=== PATIENT | female | born 1935 | race Caucasian/White ===

== ENCOUNTER 2020-12-04 13:11 | Inpatient (IN) | payer MEDICARE, MEDICAID ==
[~2020-12-04] VITALS: Ht 157.5 cm; Wt 43.5 kg
--- NOTE | 2020-12-04 13:50 | NUR ---
Came to er complaints of rapid heart beat patient is confused but awake brought in from [facility]
[2020-12-04 14:21] LABS: HEMATOCRIT 53.5 % (37.0-47.0); HEMOGLOBIN 15.7 G/DL (12.0-16.0); MEAN CORPUSCULAR VOLUME 94 FL (80-99); PLATELET COUNT 455 K/UL (150-450); RED BLOOD COUNT 5.68 M/UL (4.20-5.40)
[2020-12-04 14:23] VITALS: BP 107/67
[2020-12-04 14:27] LABS: WHITE BLOOD COUNT 25.2 K/UL (4.8-10.8)
--- NOTE | 2020-12-04 14:27 | NUR ---
iv started in left arm fluid infusing lunchroom monitor shows sinus tach no cetopies noted
--- NOTE | 2020-12-04 14:37 | Diagnostic Imaging Report ---
Indication: Shortness of breath Technique: XRAY Chest 1v Comparison: 08/01/2011 Findings: Limited evaluation was suboptimal positioning. Patient is rotated to the left. There is generalized nonspecific interstitial prominence. No focal airspace consolidation. No pleural effusion or pneumothorax. Heart size is within normal limits. Bones are demineralized and there are degenerative changes in the spine. No acute osseous abnormality. IMPRESSION: Nonspecific generalized interstitial prominence, possibly chronic. Possibility of mild congestive changes or early interstitial infiltrates not excluded. Please correlate clinically.
--- NOTE | 2020-12-04 14:42 | Emergency Room Report ---
History of Present Illness General Chief Complaint: Abnormal Labs Source: Medical Record, EMS Present Illness HPI Patient sent to the emergency department for [facility]. The patient is unable to give a history at this time. The last time the patient was at the hospital was 2010. The patient had a Covid test that was negative on November 16. According to the results of she had been +3 weeks prior. 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: No Patient History Limited by: medical condition Past Medical History: see triage record, old chart reviewed, other - Parkinson 's Past Surgical History: other - Gastrostomy tube Social History Narrative from SNF Reviewed Nursing Documentation: PMH: Agreed; PSxH: Agreed Nursing Documentation-PMH Past Medical History: No History, Except For Hx Cardiac Problems: Yes Hx Gastrointestinal Problems: Yes - GERD, GT History Of Psychiatric Problem: Yes - alzheimer's Review of Systems All Other Systems: limited Physical Exam Vital Signs Date Time Temp Pulse Resp B/P (MAP) Pulse Ox O2 Delivery O2 Flow Rate FiO2 12/04/20 13:13 97.9 140 40 107/67 (80) 90 Room Air Sp02 EP Interpretation: reviewed, abnormal - Interpreted as low by me General Appearance: mild distress, Chronically Ill Eyes: bilateral eye PERRL - Pinpoint ENT: dry mucus membranes Neck: full range of motion, no meningismus Respiratory: lungs clear, normal breath sounds, other - tachypnea Cardiovascular #1: no edema, tachycardia Cardiovascular #2: 2+ radial (R) Gastrointestinal: normal bowel sounds, non tender, soft, no mass, non-distended, other - G tube Genitourinary: no CVA tenderness Musculoskeletal: back normal Neurologic: alert, general practice III-XII nml as tested, DTRs symmetric, sensory intact Psychiatric: other - aphasic Skin: no rash, Decubitus/Ulcer - Stage I bilateral heels, stage III bilateral feet, stage I right hip, warm/dry Medical Decision Making Diagnostic Impression: Primary Impression: Sepsis Qualified Codes: A41.9 - Sepsis, unspecified organism Additional Impressions: Hypernatremia UTI (urinary tract infection) Qualified Codes: N39.0 - Urinary tract infection, site not specified Decubitus ulcer Qualified Codes: L89.90 - Pressure ulcer of unspecified site, unspecified stage Parkinsons disease ER Course Patient presents with elevated white blood count. Differential includes sepsis, pneumonia, urinary tract infection, Covid amongst others. Saturation is better at bedside she is saturating at 100% on room air. She still is somewhat tachypneic. She appears dehydrated also. Evaluation with labs, EKG and chest x-ray. Also labs will be obtained. 30 mill per kilogram bolus was ordered. Patient is placed on a cardiac cath rn. Called with elevated lactate. ABX ordered. CXR clear. 1445 Sepsis re- evaluation. Blood gas ordered because of tachypnea. Results documented. Repeat lactic acid normal. Patient with transient hypotension. Repeat fluid bolus ordered. Blood pressure improved after repeat fluid bolus. Patient admitted to telemetry. Laboratory Tests Test 12/04/20 13:50 12/04/20 15:08 12/04/20 15:45 12/04/20 16:15 White Blood Count 25.2 K/UL (4.8-10.8) *H Red Blood Count 5.68 M/UL (4.20-5.40) H Hemoglobin 15.7 G/DL (12.0-16.0) Hematocrit 53.5 % (37.0-47.0) H Mean Corpuscular Volume 94 FL (80-99) Mean Corpuscular Hemoglobin 27.7 PG (27.0-31.0) Mean Corpuscular Hemoglobin Concent 29.4 G/DL (32.0-36.0) L Red Cell Distribution Width 15.0 % (11.6-14.8) H Platelet Count 455 K/UL (150-450) H Mean Platelet Volume 8.8 FL (6.5-10.1) Neutrophils (%) (Auto) % (45.0-75.0) Lymphocytes (%) (Auto) % (20.0-45.0) Monocytes (%) (Auto) % (1.0-10.0) Eosinophils (%) (Auto) % (0.0-3.0) Basophils (%) (Auto) % (0.0-2.0) Differential Total Cells Counted 100 Neutrophils % (Manual) 82 % (45-75) H Lymphocytes % (Manual) 13 % (20-45) L Monocytes % (Manual) 4 % (1-10) Eosinophils % (Manual) 0 % (0-3) Basophils % (Manual) 0 % (0-2) Band Neutrophils 1 % (0-8) Platelet Estimate Increased H Platelet Morphology Normal Anisocytosis 1+ Prothrombin Time 11.4 SEC (9.30-11.50) Prothrombin Time INR 1.0 (0.9-1.1) Activated Partial Thromboplast Time 35 SEC (23-33) H Sodium Level 167 MMOL/L (136-145) *H Potassium Level 4.8 MMOL/L (3.5-5.1) Chloride Level 125 MMOL/L (98-107) H Carbon Dioxide Level 29 MMOL/L (21-32) Anion Gap 14 mmol/L (5-15) Blood Urea Nitrogen 39 mg/dL (7-18) H Creatinine 1.0 MG/DL (0.55-1.30) Estimated Glomerular Filtration Rate 53.0 mL/min (>60) Glucose Level 143 MG/DL (74-106) H Lactic Acid Level 4.30 mmol/L (0.4-2.0) H 1.60 mmol/L (0.66-2.22) Calcium Level 9.8 MG/DL (8.5-10.1) Magnesium Level 3.2 MG/DL (1.8-2.4) H Total Bilirubin 0.8 MG/DL (0.2-1.0) Aspartate Amino Transferase (AST) 55 U/L (15-37) H Alanine Aminotransferase (ALT) 82 U/L (12-78) H Alkaline Phosphatase 230 U/L (46-116) H Total Creatine Kinase 421 U/L (26-308) H Creatine Kinase MB 3.7 NG/ML (0.0-3.6) H Creatine Kinase MB Relative Index 0.8 Troponin I 0.039 ng/mL (0.000-0.056) Total Protein 8.9 G/DL (6.4-8.2) H Albumin 2.8 G/DL (3.4-5.0) L Globulin 6.1 g/dL Albumin/Globulin Ratio 0.5 (1.0-2.7) L Arterial Blood pH 7.464 (7.350-7.450) Arterial Blood Partial Pressure CO2 35.4 mmHg (35.0-45.0) Arterial Blood Partial Pressure O2 143.3 mmHg (75.0-100.0) H Arterial Blood HCO3 24.8 mmol/L (22.0-26.0) Arterial Blood Oxygen Saturation 98.2 % (95-100) Arterial Blood Base Excess 1.4 (-2-2) Héctor Test Positive Urine Color Yellow Urine Appearance Very cloudy Urine pH 6 (4.5-8.0) Urine Specific [place] 1.015 (1.005-1.035) Urine Protein 2+ (NEGATIVE) H Urine Glucose (UA) Negative (NEGATIVE) Urine Ketones Negative (NEGATIVE) Urine Blood 1+ (NEGATIVE) H Urine Nitrite Negative (NEGATIVE) Urine Bilirubin Negative (NEGATIVE) Urine Urobilinogen 4 MG/DL (0.0-1.0) H Urine Leukocyte Esterase 3+ (NEGATIVE) H Urine RBC 2-4 /HPF (0 - 2) H Urine WBC 5-10 /HPF (0 - 2) H Urine Squamous Epithelial Cells Many /LPF (NONE/OCC) H Urine Transitional Epithelial Cells /LPF (NONE) Urine Amorphous Sediment Many /LPF (NONE) H Urine Bacteria Moderate /HPF (NONE) H EKG Diagnostic Results Rate: tachycardiac Rhythm: NSR ST Segments: no acute changes Rhythm Strip Diag. Results EP Interpretation: yes Rhythm: no PVC's, no ectopy, other - ST Chest X-Ray Diagnostic Results Chest X-Ray Diagnostic Results : Chest X-Ray Ordered: Yes # of Views/Limited/Complete: 1 View Indication: Other EP Interpretation: Yes Interpretation: no consolidation, no effusion, no pneumothorax Impression: No acute disease Electronically Signed by: Electronically signed by Chang Marcelino MD Last Vital Signs Date Time Temp Pulse Resp B/P (MAP) Pulse Ox O2 Delivery O2 Flow Rate FiO2 12/05/20 00:00 98.9 115 18 102/61 (75) 97 12/04/20 21:00 Nasal Cannula 3.0 Status: improved Disposition: ADMITTED INPATIENT Condition: Serious Referrals: Kelsey Looney MD (PCP) Chang Marcelino MD Dec 04, 2020 14:42
[2020-12-04] MEDS ORDERED: Vancomycin 750 MG in NS 275 ML IVPB ONE (14:45)
[2020-12-04] MEDS ORDERED: cefTRIAXone 1 GM in NS 55 ML IVPB ONE (14:45)
[2020-12-04 14:48] LABS: ALBUMIN 2.8 G/DL (3.4-5.0); ALBUMIN/GLOBULIN RATIO 0.5 (1.0-2.7); BILIRUBIN,TOTAL 0.8 MG/DL (0.2-1.0); CALCIUM 9.8 MG/DL (8.5-10.1); CKMB 3.7 NG/ML (0.0-3.6); POTASSIUM 4.8 MMOL/L (3.5-5.1)
[2020-12-04 15:58] VITALS: BP 110/60
--- NOTE | 2020-12-04 16:00 | NUR ---
ED Nurse Note:urine sent to labs
[2020-12-04 16:03] LABS: APPEARANCE,URINE VERY CLOUDY; BILIRUBIN, URINE NEGATIVE (NEGATIVE); GLUCOSE, URINE (UA) NEGATIVE (NEGATIVE); KETONES,URINE NEGATIVE (NEGATIVE); LEUKOCYTE ESTERASE ,URINE 3+ (NEGATIVE); NITRITE,URINE NEGATIVE (NEGATIVE); PH,URINE 6 (4.5-8.0); PROTEIN,URINE 2+ (NEGATIVE); UROBILINOGEN,URINE 4 MG/DL (0.0-1.0)
--- NOTE | 2020-12-04 16:20 | NUR ---
lactic reflex done
[2020-12-04 16:22] LABS: COLOR,URINE YELLOW
[2020-12-04] MEDS ORDERED: CALCIUM CARBON500 M1 GT (17:11)
[2020-12-04] MEDS ORDERED: COLACE100 MG GT (17:11)
[2020-12-04] MEDS ORDERED: BENZTROPINE MESY1 MG GT (17:11)
[2020-12-04] MEDS ORDERED: CRANBERRY400 MG GT (17:11)
[2020-12-04] MEDS ORDERED: MULTIVITAMINS1 EAC2 GT (17:11)
[2020-12-04] MEDS ORDERED: VITAMIN D325 MC1 GT (17:11)
[2020-12-04] MEDS ORDERED: ACETAMINOP160 MG/5 M GT (17:11)
[2020-12-04] MEDS ORDERED: ZINC SULFATE220 M1 GT (17:11)
[2020-12-04] MEDS ORDERED: VITAMIN C500 M1 GT (17:11)
--- NOTE | 2020-12-04 17:14 | NUR ---
REPORT GIVEN TO KEVON PATIENT IS TO BE TRNASFERD TO ROOM 211-1 VIA ACLS PROTOCOL
[2020-12-04] MEDS ORDERED: Varibar Nectar 240ml MC PRN (18:45)
[2020-12-04] MEDS ORDERED: Varibar Pudding 230ml MC PRN (18:45)
[2020-12-04] MEDS ORDERED: Varibar Thin Liquid powder 148gm MC PRN (18:45)
[2020-12-04] MEDS ORDERED: Varibar Honey 250ml MC PRN (18:45)
--- NOTE | 2020-12-04 19:20 | NUR ---
NURSE NOTES: Received report from Sarina SALAZAR. Pt in bed , obtunded, non-verbal, on O2 at 3lpm via NC, tachypneic saturating @96 %. PIV on left upper arm patent and infusing D5W @100cc/hr, no signs of infiltration noted. All extremities contracted. Gt intact, patent and flushed well. Noted of 10cc residual. Safety measures in place, bed in lowest positioned and locked, siderails up x2, zone alarms on 1. Will continue to monitor patient and plan of care.
--- NOTE | 2020-12-04 19:47 | NUR ---
NURSE NOTES: Pt admitted from ER, obtunded, non-verbal, on O2 at 3lpm via NC, tachypneic but sats 98-100%. PIV on left upper arm patent and infusing saline bolus. All extremities contracted. Gt patent and intact. Skin assessment done and documented. All admission orders verified by Dr. Looney. Dr. Pena consulting. IVF ordered and carried out. Pt placed on D5W at 100cc/hr for hypernatremia. Bed low and locked, siderails up x2, zone alarms on 1, will endorse plan of care.
--- NOTE | 2020-12-04 19:50 | NUR ---
NURSE HAND-OFF REPORT: Important Events on Shift: All admission orders done, skin assessment done Patient Status: Guarded Diet: Jevity 1.2 Pending Orders: N Pending Results/Labs: N Pending MD notification: N Latest Vital Signs: Temperature 99.0 , Pulse 120 , B/P 110 /60 , Respiratory Rate 24 , O2 SAT 96 , Nasal Cannula, O2 Flow Rate 3.0 . Vital Sign Comment: EKG Rhythm: Sinus Tachycardia Rhythm change?: MD Notified?: - MD Response: Latest Lucero Fall Score: 35 Fall Risk: Medium Risk Safety Measures: Call light Within Reach, Bed Alarm Zone 2, Side Rails Side Rails x2, Bed position Low and Locked. Fall Precautions: Yellow Socks Yellow Gown Door Sign Patient Fall Education Report given to Jace SALAZAR.
[2020-12-04 20:00] VITALS: BP 91/56
[2020-12-04] MEDS: Pantoprazole Inj IVP SCH (21:29)
--- NOTE | 2020-12-04 21:29 | History and Physical Report ---
DATE OF ADMISSION: 12/04/2020 HISTORY OF PRESENT ILLNESS: Patient comes from a halfway. He is admitted for dehydration, hypernatremia, sepsis, severe hypernatremia, leukocytosis, borderline elevated LFTs. Patient is a poor historian, has advanced dementia, cannot rely upon the patient's history, but admitted for those reasons. Also, need to rule out pneumonia. Patient denies shortness of breath. Denies nausea, vomiting, or diarrhea. Denies fever or chills, however, is a poor historian. PAST MEDICAL HISTORY: Advanced dementia, constipation. PAST SURGICAL HISTORY: Feeding tube, PEG. ALLERGIES: No known allergies. FAMILY HISTORY: Noncontributory. MEDICATIONS: Benztropine, calcium carbonate, vitamin D, Colace, multivitamin, zinc. SOCIAL HISTORY: Has no history of smoking, alcohol, or illicit drugs. Comes from a halfway. REVIEW OF SYSTEMS: HEENT: Denies headaches. RESPIRATORY: Denies shortness of breath. Denies cough. CARDIOVASCULAR: Denies chest pain. GASTROINTESTINAL: Denies nausea, vomiting, or diarrhea. EXTREMITIES: Denies pain however patient is a poor historian, cannot rely upon the patient's history. PHYSICAL EXAMINATION: VITAL SIGNS: Temperature 97.9, pulse is 120, blood pressure is 110/60. HEENT: PERRLA. NECK: Supple. No lymphadenopathy. CHEST: Clear to auscultation. CARDIOVASCULAR: Tachycardic. No murmurs. GASTROINTESTINAL: Soft, nontender, nondistended. No organomegaly. EXTREMITIES: No edema. NEUROLOGIC: Does not follow neurological exam. Has generalized weakness. LABORATORY DATA: WBC of 25.2, hemoglobin of 15.7, platelets 455. Sodium 167, potassium 4.8, BUN of 39, creatinine of 1, glucose of 143. AST of 55, ALT of 82, total bilirubin of 0.8. Troponin 0.039. ASSESSMENT AND PLAN: Tachycardia, borderline elevated troponin. I have asked Dr. Gustafson to see the patient for that reason. Leukocytosis, rule out pneumonia, rule out UTI. I have asked Dr. Joseph De Leon to see the patient for that. Antibiotics per Dr. De Leon. For hypernatremia, dehydration I have consulted Dr. Pena and for possible pneumonia, I have consulted Dr. Patric Zapata. Dr. Simmons has been consulted for the management of the elevated LFTs. Kelsey Looney M.D. DR: LUIS JOB#: [id number] CC:
--- NOTE | 2020-12-04 22:16 | NUR ---
NURSE NOTES: Notified Dr powell and Dr Gustafson the pt converted to proxysmal afib short run only. ECG done and showed sinus tacycardia with hr of 116 bp. No new order at this moment. Will continue to monitor pt.
[2020-12-05] VITALS: BP 102/61
--- NOTE | 2020-12-05 00:10 | NUR ---
NURSE NOTES: Pt in bed, asleep. In no apparent respiratory and cardiac distress noted. Still on sinus tachycardia @116's bpm. Turned and repositioned pt. Will continue to monitor and plan of care.
[2020-12-05 04:00] VITALS: BP 112/57
[2020-12-05 07:07] LABS: BASOPHILS % (AUTO) 0.5 % (0.0-2.0); EOSINOPHILS % (AUTO) 2.6 % (0.0-3.0); HEMATOCRIT 33.4 % (37.0-47.0); HEMOGLOBIN 10.1 G/DL (12.0-16.0); LYMPHOCYTES % (AUTO) 9.7 % (20.0-45.0); MEAN CORPUSCULAR VOLUME 93 FL (80-99); MONOCYTES % (AUTO) 4.2 % (1.0-10.0); NEUTROPHILS % (AUTO) 83.1 % (45.0-75.0); PLATELET COUNT 248 K/UL (150-450); RED CELL DISTRIBUTION WIDTH 14.5 % (11.6-14.8); WHITE BLOOD COUNT 14.8 K/UL (4.8-10.8)
[2020-12-05 07:24] LABS: ALANINE AMINOTRANSFERASE 44 U/L (12-78); ALBUMIN/GLOBULIN RATIO 0.4 (1.0-2.7); ALKALINE PHOSPHATASE 141 U/L (46-116); ANION GAP 10 mmol/L (5-15); ASPARTATE AMINO TRANSFERASE 37 U/L (15-37); BILIRUBIN,TOTAL 0.7 MG/DL (0.2-1.0); BLOOD UREA NITROGEN 23 mg/dL (7-18); CARBON DIOXIDE 24 MMOL/L (21-32); CHLORIDE 126 MMOL/L (98-107); CHOLESTEROL 98 MG/DL (< 200); CREATININE 0.5 MG/DL (0.55-1.30); GAMMA GLUTAMYL TRANSPEPTIDASE 15 U/L (5-85); HDL CHOLESTEROL 26 MG/DL (40-60); PHOSPHORUS 2.9 MG/DL (2.5-4.9); POTASSIUM 3.7 MMOL/L (3.5-5.1); SODIUM 160 MMOL/L (136-145); TRIGLYCERIDES 76 MG/DL (30-150)
--- NOTE | 2020-12-05 07:30 | NUR ---
NURSE NOTES: Received report from MARIE Elena. Patient observed to be awake, alert x0. Seen lying in bed with HOB elevated, currently on 3L NC no s/sx of SOB/Distress, no c/o any pain or discomfort. Patient on contact and droplet isolation for PUI COVID. Patient with gtube running Jevity 1.2 @ 20cc tolerating well. IV site LHand 22g patent, dry, and intact running d5 @ 100 cc.
--- NOTE | 2020-12-05 07:35 | NUR ---
NURSE HAND-OFF REPORT: Important Events on Shift: Stable Patient Status: Stable Diet: Jevity 1.2 @20 cc/hr Pending Orders: Pending Results/Labs:PCR Pending MD notification: Latest Vital Signs: Temperature 97.8 , Pulse 114 , B/P 112 /57 , Respiratory Rate 18 , O2 SAT 100 , Nasal Cannula, O2 Flow Rate 3.0 . Vital Sign Comment: STable EKG Rhythm: Sinus Tachycardia Rhythm change?: N MD Notified?: Dr Looney and Dr Janay SÁNCHEZ Response: Latest Lucero Fall Score: 35 Fall Risk: Medium Risk Safety Measures: Call light Within Reach, Bed Alarm Zone 1, Side Rails Side Rails x1, Bed position Low and Locked. Fall Precautions: Yellow Socks Yellow Gown Door Sign Patient Fall Education Report given to Annmarie Murillo RN .
[2020-12-05 08:00] VITALS: BP 115/59
--- NOTE | 2020-12-05 08:00 | NUR ---
NURSE NOTES: Seen by Dr. Simmons. Ordered for GTube feeding to have goal of 60cc/hr
[2020-12-05 08:09] LABS: ALBUMIN 1.8 G/DL (3.4-5.0)
[2020-12-05] MEDS: Pantoprazole Inj IVP SCH ×2 (09:16→20:12)
--- NOTE | 2020-12-05 09:21 | Consultation ---
Consult Note Consult Note I am asked to evaluate the patient at the request of Dr. Villegas for renal failure and electrolyte abnormalities Patient sent to the emergency department for elevated white count from the senior living facility. The patient is unable to give a history at this time. The last time the patient was at the hospital was 2010. The patient had a Covid test that was negative on November 16. According to the results of she had been +3 weeks prior. According to the records she has a gastrostomy tube, pressure ulcer, failure to thrive prior sepsis, generalized muscle weakness, dysphagia, dementia Alzheimer's type, osteoporosis, anxiety disorder, contractures, urinary tract infection Parkinson's disease Allergies: No Known Allergies (Verified , 08/01/11) COVID-19 Screening Contact w/high risk pt: No Experienced COVID-19 symptoms?: Yes COVID-19 Testing performed SURGICAL ASSIST: No Past Medical History: No History, Except For Hx Cardiac Problems: Yes Hx Gastrointestinal Problems: Yes - GERD, GT History Of Psychiatric Problem: Yes - alzheimer's Vital Signs Date Time Temp Pulse Resp B/P (MAP) Pulse Ox O2 Delivery O2 Flow Rate FiO2 12/04/20 13:13 97.9 140 40 107/67 (80) 90 Room Air PHYSICAL EXAMINATION: VITAL SIGNS: Temperature 98.5, pulse 110, blood pressure 115/59. The patient is on oxygen by nasal cannula. HEAD AND NECK: [place] conjunctiva. HEART: Tachycardic, has peripheral lines. LUNGS: Clear. ABDOMEN: Soft. G-tube feeding is going on. EXTREMITIES: No edema. NEUROLOGIC: She is not responding. LABORATORY AND DIAGNOSTIC DATA: WBC 14.8, hemoglobin 10.1, hematocrit 33.4, platelets 248. UA showed wbc's of 5 to 10, bacteria moderate. Sodium is 160, potassium 3.6, chloride is 126, BUN 23, creatinine 0.5, glucose 122. Lactic acid at the time of admission was 4.3. AST 55, ALT 82, albumin is 1.8. Blood culture x 2 showed gram-positive cocci in cluster. COVID-19 PCR was negative. Urine culture no growth. . Assessment/Plan Renal failure, dehydration Hypernatremia, due to free water deficit Sepsis, leukocytosis Malnutrition, hypoalbuminemia Alzheimer's Underlying anemia as the patient continues to be hydrated D5W hydration Antibiotics Avoid nephrotoxic's Improve nutritional state Monitor renal parameters electrolytes Anemia work-up Gene Pena MD Dec 05, 2020 09:21
[2020-12-05] MEDS ORDERED: Docusate 100mg/10ml Liq GT SCH (10:00)
--- NOTE | 2020-12-05 11:31 | NUR ---
RD ASSESSMENT & RECOMMENDATIONS SEE CARE ACTIVITY FOR COMPLETE ASSESSMENT DAILY ESTIMATED NEEDS: Needs based on Wounds, underweight/ 43.5kg 30-35 kcals/kg 1851-0594 total kcals 1.25-1.5 g protein/kg 54-65 g total protein 25-30 mL/kg 7404-2978 total fluid mLs NUTRITION DIAGNOSIS: Increased kcal/prot needs R/T wound healing and underweight status as evidenced by pt admitted w/ multiple wounds @ BL foot, pending eval, pt @ 87% IBW w/ BMI of 17.6, low BMI per guidelines. CURRENT TF:Jevity 1.2 @ 60ml/hr x 24 hrs ENTERAL NUTRITION RECOMMENDATIONS: Jevity 1.2 @ 50ml/hr x 24 hrs to provide 1200ml, 1440kcal, 67g prot, 968ml free water * Rec goal rate of 50ml/hr x 24 hrs- meets 100% est kcal/prot needs * HOB over 30 degrees/ water flush per MD ADDITIONAL RECOMMENDATIONS: * Calibrated bedscale wt for accurate CBW * Monitor lytes, replete as needed * F/up w/ WC eval -> TF @ goal meeds 100% RDI add Vit C 500mg, ZnSO4 220mg QD x 10 days, Jonathon BID
[2020-12-05 12:00] VITALS: BP 111/67
--- NOTE | 2020-12-05 12:58 | Cardiac Electrophysiology PN ---
Subjective Subjective [id number] Objective Last 24 Hour Vital Signs Date Time Temp Pulse Resp B/P (MAP) Pulse Ox O2 Delivery O2 Flow Rate FiO2 12/05/20 12:00 110 12/05/20 09:00 Nasal Cannula 3.0 12/05/20 08:00 108 12/05/20 08:00 98.5 110 19 115/59 (77) 98 12/05/20 04:00 97.8 114 18 112/57 (75) 100 12/05/20 03:52 115 12/05/20 00:00 98.9 115 18 102/61 (75) 97 12/04/20 23:39 115 12/04/20 21:00 Nasal Cannula 3.0 12/04/20 20:00 97.4 76 18 91/56 (68) 97 12/04/20 19:41 117 12/04/20 18:25 Nasal Cannula 3.0 12/04/20 17:11 99.0 120 24 110/60 96 Nasal Cannula 3.0 12/04/20 15:58 28 110/60 97 Nasal Cannula 3.0 12/04/20 14:23 97.9 40 107/67 90 Room Air 12/04/20 13:13 97.9 140 40 107/67 (80) 90 Room Air Intake and Output 12/04/20 12/05/20 19:00 07:00 Intake Total 195 ml 1320 ml Output Total 1650 ml Balance 195 ml -330 ml Intake Free Water 100 ml 100 ml IV Total 75 ml 600 ml Tube Feeding 20 ml 220 ml Other 400 ml Output Other 1650 ml # Voids 1 Laboratory Tests Test 12/04/20 13:50 12/04/20 15:08 12/04/20 15:45 12/04/20 16:15 White Blood Count 25.2 K/UL (4.8-10.8) *H Red Blood Count 5.68 M/UL (4.20-5.40) H Hemoglobin 15.7 G/DL (12.0-16.0) Hematocrit 53.5 % (37.0-47.0) H Mean Corpuscular Volume 94 FL (80-99) Mean Corpuscular Hemoglobin 27.7 PG (27.0-31.0) Mean Corpuscular Hemoglobin Concent 29.4 G/DL (32.0-36.0) L Red Cell Distribution Width 15.0 % (11.6-14.8) H Platelet Count 455 K/UL (150-450) H Mean Platelet Volume 8.8 FL (6.5-10.1) Neutrophils (%) (Auto) % (45.0-75.0) Lymphocytes (%) (Auto) % (20.0-45.0) Monocytes (%) (Auto) % (1.0-10.0) Eosinophils (%) (Auto) % (0.0-3.0) Basophils (%) (Auto) % (0.0-2.0) Differential Total Cells Counted 100 Neutrophils % (Manual) 82 % (45-75) H Lymphocytes % (Manual) 13 % (20-45) L Monocytes % (Manual) 4 % (1-10) Eosinophils % (Manual) 0 % (0-3) Basophils % (Manual) 0 % (0-2) Band Neutrophils 1 % (0-8) Platelet Estimate Increased H Platelet Morphology Normal Anisocytosis 1+ Prothrombin Time 11.4 SEC (9.30-11.50) Prothromb Time International Ratio 1.0 (0.9-1.1) Activated Partial Thromboplast Time 35 SEC (23-33) H Sodium Level 167 MMOL/L (136-145) *H Potassium Level 4.8 MMOL/L (3.5-5.1) Chloride Level 125 MMOL/L (98-107) H Carbon Dioxide Level 29 MMOL/L (21-32) Anion Gap 14 mmol/L (5-15) Blood Urea Nitrogen 39 mg/dL (7-18) H Creatinine 1.0 MG/DL (0.55-1.30) Estimat Glomerular Filtration Rate 53.0 mL/min (>60) Glucose Level 143 MG/DL (74-106) H Lactic Acid Level 4.30 mmol/L (0.4-2.0) H 1.60 mmol/L (0.66-2.22) Calcium Level 9.8 MG/DL (8.5-10.1) Magnesium Level 3.2 MG/DL (1.8-2.4) H Total Bilirubin 0.8 MG/DL (0.2-1.0) Aspartate Amino Transf (AST/SGOT) 55 U/L (15-37) H Alanine Aminotransferase (ALT/SGPT) 82 U/L (12-78) H Alkaline Phosphatase 230 U/L (46-116) H Total Creatine Kinase 421 U/L (26-308) H Creatine Kinase MB 3.7 NG/ML (0.0-3.6) H Creatine Kinase MB Relative Index 0.8 Troponin I 0.039 ng/mL (0.000-0.056) Total Protein 8.9 G/DL (6.4-8.2) H Albumin 2.8 G/DL (3.4-5.0) L Globulin 6.1 g/dL Albumin/Globulin Ratio 0.5 (1.0-2.7) L Arterial Blood pH 7.464 (7.350-7.450) Arterial Blood Partial Pressure CO2 35.4 mmHg (35.0-45.0) Arterial Blood Partial Pressure O2 143.3 mmHg (75.0-100.0) H Arterial Blood HCO3 24.8 mmol/L (22.0-26.0) Arterial Blood Oxygen Saturation 98.2 % (95-100) Arterial Blood Base Excess 1.4 (-2-2) Héctor Test Positive Urine Color Yellow Urine Appearance Very cloudy Urine pH 6 (4.5-8.0) Urine Specific [place] 1.015 (1.005-1.035) Urine Protein 2+ (NEGATIVE) H Urine Glucose (UA) Negative (NEGATIVE) Urine Ketones Negative (NEGATIVE) Urine Blood 1+ (NEGATIVE) H Urine Nitrite Negative (NEGATIVE) Urine Bilirubin Negative (NEGATIVE) Urine Urobilinogen 4 MG/DL (0.0-1.0) H Urine Leukocyte Esterase 3+ (NEGATIVE) H Urine RBC 2-4 /HPF (0 - 2) H Urine WBC 5-10 /HPF (0 - 2) H Urine Squamous Epithelial Cells Many /LPF (NONE/OCC) H Urine Transitional Epithelial Cells /LPF (NONE) Urine Amorphous Sediment Many /LPF (NONE) H Urine Bacteria Moderate /HPF (NONE) H Test 12/05/20 06:04 White Blood Count 14.8 K/UL (4.8-10.8) H Red Blood Count 3.60 M/UL (4.20-5.40) L Hemoglobin 10.1 G/DL (12.0-16.0) #L Hematocrit 33.4 % (37.0-47.0) #L Mean Corpuscular Volume 93 FL (80-99) Mean Corpuscular Hemoglobin 28.0 PG (27.0-31.0) Mean Corpuscular Hemoglobin Concent 30.2 G/DL (32.0-36.0) L Red Cell Distribution Width 14.5 % (11.6-14.8) Platelet Count 248 K/UL (150-450) Mean Platelet Volume 9.4 FL (6.5-10.1) Neutrophils (%) (Auto) 83.1 % (45.0-75.0) H Lymphocytes (%) (Auto) 9.7 % (20.0-45.0) L Monocytes (%) (Auto) 4.2 % (1.0-10.0) Eosinophils (%) (Auto) 2.6 % (0.0-3.0) Basophils (%) (Auto) 0.5 % (0.0-2.0) Sodium Level 160 MMOL/L (136-145) H Potassium Level 3.7 MMOL/L (3.5-5.1) Chloride Level 126 MMOL/L (98-107) H Carbon Dioxide Level 24 MMOL/L (21-32) Anion Gap 10 mmol/L (5-15) Blood Urea Nitrogen 23 mg/dL (7-18) H Creatinine 0.5 MG/DL (0.55-1.30) L Estimat Glomerular Filtration Rate > 60 mL/min (>60) Glucose Level 122 MG/DL (74-106) H Hemoglobin A1c 5.5 % (4.3-6.0) Uric Acid 4.2 MG/DL (2.6-7.2) Calcium Level 8.0 MG/DL (8.5-10.1) L Phosphorus Level 2.9 MG/DL (2.5-4.9) Magnesium Level 2.5 MG/DL (1.8-2.4) H Total Bilirubin 0.7 MG/DL (0.2-1.0) Gamma Glutamyl Transpeptidase 15 U/L (5-85) Aspartate Amino Transf (AST/SGOT) 37 U/L (15-37) Alanine Aminotransferase (ALT/SGPT) 44 U/L (12-78) Alkaline Phosphatase 141 U/L (46-116) H Troponin I 0.029 ng/mL (0.000-0.056) C-Reactive Protein, Quantitative 3.9 mg/dL (0.00-0.90) H Pro-B-Type Natriuretic Peptide 739 pg/mL (0-125) H Total Protein 5.9 G/DL (6.4-8.2) #L Albumin 1.8 G/DL (3.4-5.0) L Globulin 4.1 g/dL Albumin/Globulin Ratio 0.4 (1.0-2.7) L Triglycerides Level 76 MG/DL (30-150) Cholesterol Level 98 MG/DL (< 200) LDL Cholesterol 64 mg/dL (<100) HDL Cholesterol 26 MG/DL (40-60) L Cholesterol/HDL Ratio 3.8 (3.3-4.4) Microbiology Date/Time Source Procedure Growth Status 12/04/20 15:45 Urine,Clean Catch Urine Culture - Preliminary NO GROWTH Resulted 12/04/20 15:40 Nasopharynx Coronavirus COVID-19 PCR ([facility]) - Final Complete 12/04/20 14:00 Blood Blood Culture - Preliminary Resulted 12/04/20 13:30 Blood Blood Culture - Preliminary Resulted Efrain Gustafson MD Dec 05, 2020 12:58
[2020-12-05] MEDS: Docusate 100mg/10ml Liq GT SCH ×2 (13:55→17:26)
[2020-12-05] MEDS: cefTRIAXone 1 GM in D5W 55 ML IVPB SCH (14:22)
--- NOTE | 2020-12-05 14:51 | NUR ---
CASE MANAGEMENT:REVIEW 85 YR OLD FEMALE BIBA FROM [facility] CC: ELEVATED WBC'S SI: SEPSIS. HYPERNATREMIA 97.8 140 40 91/56 90% ON RA WBC+25.2 NA+167 BUN+39 IS: PLACED ON 3L/NC 1L NS BOLUS X2 IV VANCOMYCIN X1 IV ROCEPHIN X1 IV LEVAQUIN X1 CHEST XRAY BLOOD CX : TO TELEMETRY DCP: RETURN TO SNF
--- NOTE | 2020-12-05 14:53 | Consultation ---
Consult Note Consult Note DATE OF CONSULTATION: 12/05/2020 CONSULTING PHYSICIAN: Patric Zapata MD. ATTENDING PHYSICIAN: Dr. Looney REASON FOR CONSULTATION: Hypoxia HISTORY OF PRESENT ILLNESS: This is an 85-year-old female with past medical history of Alzheimer's dementia, Parkinson's disease, and chronic G-tube, who was sent to ED from SNF for increased white blood cell count. Patient is unable to give further history due to underlying mental disorder. It was reported that she tested negative for COVID-19 on 11/16 at her facility. She tested negative again here on 12/04/2020. We have been asked to evaluate the patient for possibility of pneumonia. EKG showed sinus tachycardia without acute changes. Chest x-ray revealed no nspecific generalized interstitial prominence, possibly chronic. But the possibility of mild congestive changes or early interstitial infiltrates were not excluded. She was admitted to the hospital for further management. PAST MEDICAL HISTORY: GERD, G-tube, Alzheimer's, Parkinson's, dysphagia, anxiety, contractures, osteoporosis, pressure ulcers MEDICATIONS: Acetaminophen, ascorbic acid, benztropine, calcium, cholecalciferol, cranberry capsule, docusate, multivitamins, zinc sulfate ALLERGIES: No known allergies FAMILY HISTORY: Unknown PERSONAL/SOCIAL HISTORY: Resident of [facility] REVIEW OF SYSTEMS: Unreliable PHYSICAL EXAMINATION: VITAL SIGNS: Blood pressure 111/67, heart rate 110, respiratory rate 18, weight 43 kg, height 157 cm General: Patient laying in bed being evaluated by senior wind turbine technician for 2D echocardiogram, patient appears agitated, blank stare in HEENT: Head exam reveals that the head is normocephalic, atraumatic without deformity or unusual swelling. Pupils are PERRLA. CHEST AND LUNGS: Reveals clear, normal, symmetrical breath sounds with no adventitious sounds. CARDIOVASCULAR: Reveals normal S1, S2 without murmurs, rubs, or clicks. ABDOMEN: Soft with no tenderness or organomegaly. RECTAL: Deferred. MUSCULOSKELETAL: There is no tenderness to palpation. Range of motion is normal. NEUROLOGICAL: nonfocal, aphasic LABORATORY DATA: Laboratory testing shows WBC 14.8, hemoglobin 10.1, hematocrit 33.4. Chemistries show sodium 160, chloride 126, BUN 23, creatinine 1.5, glucose 122, calcium 8.0, CRP 3.9, BNP 739, ABG shows pH 7.46, PO2 143 Assessment/Plan 1 .Renal failure, dehydration -Nephro following 2. Sepsis -ID following -WBC trending down - On vancomycin and ceftriaxone 3. COVID-19 negative 4. Hypoxia -Continue providing supplemental oxygen as she is hypoxic on room air -Wean down as tolerated 5. Elevated CRP -We will check D-dimer as well The care for this patient was discussed with my supervising physician. Time spent for this case was approximately 31 minutes. Maxx Hoffman Dec 05, 2020 14:53
--- NOTE | 2020-12-05 14:59 | Consultation ---
DATE OF CONSULTATION: 12/05/2020 INFECTIOUS DISEASES CONSULTATION CONSULTING PHYSICIAN: Joseph De Leon MD PRIMARY ATTENDING PHYSICIAN: Kelsey Looney MD REASON FOR CONSULTATION: Sepsis, bacteremia, and UTI. HISTORY OF PRESENT ILLNESS: This is an 85-year-old white female who is a halfway resident admitted yesterday because of abnormal labs, leukocytosis in the nursing facility. In hospital, had leukocytosis of 25.2, also had tachycardia with heart rate of up to 140. She was find to have hypernatremia and blood culture showing gram-positive cocci in cluster. PAST MEDICAL HISTORY: Alzheimer's dementia, Parkinson, anemia, pressure ulcer. PAST SURGICAL HISTORY: G-tube placement. ALLERGIES: No known drug allergies. MEDICATIONS: Getting Colace, Protonix, Levaquin, ceftriaxone in the ER, got dose of vancomycin in the ER. SOCIAL HISTORY: Single. No other history obtainable by the patient. PHYSICAL EXAMINATION: VITAL SIGNS: Temperature 98.5, pulse 110, blood pressure 115/59. The patient is on oxygen by nasal cannula. HEAD AND NECK: [place] conjunctiva. HEART: Tachycardic, has peripheral lines. LUNGS: Clear. ABDOMEN: Soft. G-tube feeding is going on. EXTREMITIES: No edema. NEUROLOGIC: She is not responding. LABORATORY AND DIAGNOSTIC DATA: WBC 14.8, hemoglobin 10.1, hematocrit 33.4, platelets 248. UA showed wbc's of 5 to 10, bacteria moderate. Sodium is 160, potassium 3.6, chloride is 126, BUN 23, creatinine 0.5, glucose 122. Lactic acid at the time of admission was 4.3. AST 55, ALT 82, albumin is 1.8. Blood culture x 2 showed gram-positive cocci in cluster. COVID-19 PCR was negative. Urine culture no growth. IMPRESSION: 1. Sepsis with gram-positive bacteremia. 2. Tachycardia. 3. Leukocytosis. 4. Hypernatremia. 5. Anemia. 6. Pressure ulcer. 7. Alzheimer dementia. 8. Parkinson disease. 9. Has history of positive test for COVID-19 three weeks ago, current test is negative. RECOMMENDATION: Continue with ceftriaxone and vancomycin. We will follow up the cultures. We will discontinue droplet isolation. At the end of my exam, I thank Dr. Looney, for involving me in the care of this patient. Joseph De Leon M.D. DR: Erica JOB#: [id number] CC:
--- NOTE | 2020-12-05 15:14 | Consultation ---
DATE OF CONSULTATION: 12/05/2020 CARDIOLOGY CONSULTATION REFERRING PHYSICIAN: Kelsey Looney M.D. REASON FOR CONSULTATION: Tachycardia, hypotension. HISTORY OF PRESENT ILLNESS: The patient is an 85-year-old lady who was [facility] from [facility] facility for elevated white count. The patient's COVID-19 was negative on November 16, 2020. The patient has a gastrostomy as well as pressure ulcer and has Alzheimer Dementia disorder. The patient was admitted and a cardiology consultation was obtained for evaluation and management. It is of note that the patient has a white count of 25,000 as well as sodium of 167, BUN of 39, creatinine 1.0, quite dehydrated. REVIEW OF SYSTEMS: Cannot be obtained. PAST MEDICAL HISTORY: As mentioned above. FAMILY HISTORY: Noncontributory. SOCIAL HISTORY: A [facility] resident. Does not smoke or drink alcohol. PHYSICAL EXAMINATION: VITAL SIGNS: Blood pressure 115/59, pulse is 110, respirations 18, and temperature 98.5. HEAD AND NECK: No JVD. LUNGS: Decreased breath sounds. CARDIOVASCULAR: Regular S1 and S2 gallop, tachycardic. ABDOMEN: Status post G-tube. EXTREMITIES: No pitting edema. LABORATORY DATA: Sodium was initially 167, that improved to 160. Potassium is 3.7, BUN of 20, creatinine 0.5, and glucose of 122. Troponin is negative x2. White count was 25.2, this morning is 14.8. Hemoglobin of 10, hematocrit of 33. Her urinalysis was essentially negative. INR is 1.0. ASSESSMENT AND PLAN: 1. Tachycardia, due to sepsis with white count 25,000. The patient is already on vancomycin and ceftriaxone. We will get an echocardiogram to evaluate for ejection fraction and wall motion abnormality. 2. Severe hypernatremia and azotemia. The patient is on IV fluid, D5W at 100 mL/hour per Dr. Pena. 3. Dysphagia, status post PEG placement. 4. History of psychiatric history. 5. Respiratory failure, currently on IV antibiotic as well as 3 L nasal cannula. Thank you very much for allowing me to participate in the care of this patient. Please do not hesitate to contact me for any questions regarding my evaluation. Efrain Gustafson M.D. DR: LYN JOB#: [id number] CC:
[2020-12-05 16:00] VITALS: BP 111/61
--- NOTE | 2020-12-05 16:38 | NUR ---
NURSE NOTES:WOUND CARE NOTES:Pt presented on admission emaciated, with contractures and multiple Pressure Injuries. Non-Blanchable erythema without induration/fluctuance R Elbow. Non-Blanchable erythema without induration/fluctuance L elbow. DTPI R trochanteric (L)7.5cm x (W)7.6cm. Clusters of Indurated and maroon Pressure injuries that are in close proximity R trochanter. Non-Blanchable erythema without induration L trochanter(L)8cm x (W)6.5cm. No evidence of skin breakdown to sacrum. Non-Blanchable erythema without induration/fluctuance noted to distal/lateral L Tibia(L)6cm x (W)0.8cm. Unstageable pressure Injury L Hallux(L)3.5cm x (W)3.2cm. Base of wound is 100% necrotic. Edges are adherent with marginal erythema. No odor or exudate noted. DTPI Medial /Lateral L Foot(L)2.5cm x (W)1cm.Base of Wound is maroon and fluctuant. DTPI distal/lateral L foot(L)2.5cm x (W)2.6cm. Base of Pressure Injury is fluctuant with marginal erythema. L heel is soft but easily blanchable. R Heel is soft but easily blanchable. DTPI R Hallux(L)5cm x (W)2.5cm. Reabsorbing blood Blister noted. Edges are adherent to base of Pressure Injury. Unstageable Pressure Injury distal/lateral R foot (L)1.5cm x (W)1.9cm. Dry brown eschar with adherent borders.Periwound is blanchable but fluctuant. Tx.plan: Apply Moisture Barrier Paste to Sacrum. Cover with Optifoam drsg. Change every 3 days and prn. Apply Cavilon Skin Barrier to R and L trochanteric areas. Cover each site with Optifoam drsgs. Change every 7 days and prn. Apply Betadine to Pressure Injuries L foot. Cover each site with Optifoam drsgs. Change every 3 days and prn. Apply Betadine to Pressure Injuries R foot. Cover each site with Optifoam drsdgs. Change every 3 days and prn. Apply Cavilon Skin Barrier to both heels. Cover each site with Optifoam drsgs. Change every 7 days and prn. Apply Cavilon Skin Barrier to R and L elbows. Cover each Elbow with Optifoam drsgs.Change every 7 days and prn. Cover Bony prominences as needed with Optifoam drsgs. Reposition at least every 2hours or as tolerated. Off-load heels with Pillow. APM/PURVI Mattress overlay.
[2020-12-05] MEDS: Vancomycin 500mg/D5W 110ml IVPB SCH ×2 (16:48)
--- NOTE | 2020-12-05 19:22 | NUR ---
NURSE HAND-OFF REPORT: Important Events on Shift:Increased feeding rate to goal of 60cc, off isolation Patient Status: stable Diet: jevity 1.2 @ 50 Pending Orders: n/a Pending Results/Labs:n/a Pending MD notification:n/a Latest Vital Signs: Temperature 98.2 , Pulse 108 , B/P 111 /61 , Respiratory Rate 18 , O2 SAT 93 , Nasal Cannula, O2 Flow Rate 3.0 . Vital Sign Comment: stable EKG Rhythm: Sinus Tachycardia Rhythm change?: N MD Notified?: Akbar Gustafson MD Response: Latest Lucero Fall Score: 35 Fall Risk: Medium Risk Safety Measures: Call light Within Reach, Bed Alarm Zone 1, Side Rails Side Rails x1, Bed position Low and Locked. Fall Precautions: Yellow Socks Yellow Gown Door Sign Patient Fall Education Report given to MARIE Powell.
--- NOTE | 2020-12-05 19:38 | NUR ---
NURSE NOTES: Pt. received from MARIE Anguiano. Pt. AAOx0, on NC 4L, breathing even and unlabored, no indications of respiratory distress, no active indications of pain. IV noted left hand 22 with fluids running well. Gtube with Jevity 1.2 running at 50cc, tolerating well, goal of 60cc/hour. Bed low and locked, side rails x3 up, bed alarm active, and call light in reach.
[2020-12-05 20:00] VITALS: BP 90/64
--- NOTE | 2020-12-05 20:38 | NUR ---
Speech Pathology Note Bedside Swallow Evaluation received from , chart reviewed, eval completed. Swallow Evaluation revealed a profoundly impaired oropharyngeal phase of swallow. Patient admitted with dx of possible pneumonia, elevated white blood count. She was unable to follow simple commands to participate in an oral motor exam. Lingual/labial/mandibular musculature severely impaired relative to strength/ROM/coordination. She also presents with severe xerostomia with dried/caked secretions on lingual surface. When presented with one ice chip, she did not respond to the thermal stimulation of the ice. This lack of response is consistent with severe sensorimotor deficits which result in a decreased awareness of food/liquid in the mouth and swallow apraxia. No evidence of oral phase of swallow. Ice chip simply melted and no swallow response was triggered. For these reasons, she needs to continue to be supported with non/oral feeding management. Recommendations: 1. NPO 2. Continue non/oral feeding management via PEG 3. Oral Care recommended TID to reduce oral pathogens and to prevent potential development of nosocomial pneumonia, as well as provide mouth moistening. No further skilled ST services appear to be warranted at this time. Thank you for this consult.
--- NOTE | 2020-12-05 21:24 | General Progress Note ---
Subjective ROS Limited/Unobtainable: Yes Allergies: Coded Allergies: No Known Allergies (Verified , 08/01/11) Objective Last 24 Hour Vital Signs Date Time Temp Pulse Resp B/P (MAP) Pulse Ox O2 Delivery O2 Flow Rate FiO2 12/05/20 16:00 108 12/05/20 16:00 98.2 100 18 111/61 (78) 93 12/05/20 14:05 142 12/05/20 12:00 110 12/05/20 12:00 98.6 98 18 111/67 (82) 96 12/05/20 09:00 Nasal Cannula 3.0 12/05/20 08:00 108 12/05/20 08:00 98.5 110 19 115/59 (77) 98 12/05/20 04:00 97.8 114 18 112/57 (75) 100 12/05/20 03:52 115 12/05/20 00:00 98.9 115 18 102/61 (75) 97 12/04/20 23:39 115 Intake and Output 12/04/20 12/05/20 19:00 07:00 Intake Total 195 ml 1320 ml Output Total 1650 ml Balance 195 ml -330 ml Intake Free Water 100 ml 100 ml IV Total 75 ml 600 ml Tube Feeding 20 ml 220 ml Other 400 ml Output Other 1650 ml # Voids 1 Laboratory Tests 12/05/20 06:04: White Blood Count 14.8H, Red Blood Count 3.60L, Hemoglobin 10.1#L, Hematocrit 33.4#L, Mean Corpuscular Volume 93, Mean Corpuscular Hemoglobin 28.0, Mean Corpuscular Hemoglobin Concent 30.2L, Red Cell Distribution Width 14.5, Platelet Count 248, Mean Platelet Volume 9.4, Neutrophils (%) (Auto) 83.1H, Lymphocytes (%) (Auto) 9.7L, Monocytes (%) (Auto) 4.2, Eosinophils (%) (Auto) 2.6, Basophils (%) (Auto) 0.5, Sodium Level 160H, Potassium Level 3.7, Chloride Level 126H, Carbon Dioxide Level 24, Anion Gap 10, Blood Urea Nitrogen 23H, Creatinine 0.5L, Estimat Glomerular Filtration Rate > 60, Glucose Level 122H, Hemoglobin A1c 5.5, Uric Acid 4.2, Calcium Level 8.0L, Phosphorus Level 2.9, Magnesium Level 2.5H, Total Bilirubin 0.7, Gamma Glutamyl Transpeptidase 15, Aspartate Amino Transf (AST/SGOT) 37, Alanine Aminotransferase (ALT/SGPT) 44, Alkaline Phosphatase 141H , Troponin I 0.029, C-Reactive Protein, Quantitative 3.9H, Pro-B-Type Natriuretic Peptide 739H, Total Protein 5.9#L, Albumin 1.8L, Globulin 4.1, Albumin/Globulin Ratio 0.4L, Triglycerides Level 76, Cholesterol Level 98, LDL Cholesterol 64, HDL Cholesterol 26L, Cholesterol/HDL Ratio 3.8 Height (Feet): 5 Height (Inches): 2.00 Weight (Pounds): 96 Assessment/Plan Problem List: (1) Parkinsons disease ICD Codes: G20 - Parkinson's disease SNOMED: 73671496 (2) Hypernatremia ICD Codes: E87.0 - Hyperosmolality and hypernatremia SNOMED: 577828045 (3) Sepsis ICD Codes: A41.9 - Sepsis, unspecified organism SNOMED: 86095354 Qualifiers: Qualified Codes: A41.9 - Sepsis, unspecified organism (4) UTI (urinary tract infection) ICD Codes: N39.0 - Urinary tract infection, site not specified SNOMED: 61856127 Qualifiers: Qualified Codes: N39.0 - Urinary tract infection, site not specified (5) Decubitus ulcer ICD Codes: L89.90 - Pressure ulcer of unspecified site, unspecified stage SNOMED: 148943637 Qualifiers: Qualified Codes: L89.90 - Pressure ulcer of unspecified site, unspecified stage Status: progressing Assessment/Plan: hypernatremia dehydration afebrile sepsis uti abx per id Kelsey Burkett MD Dec 05, 2020 21:24
--- NOTE | 2020-12-05 21:58 | General Progress Note ---
Subjective Allergies: Coded Allergies: No Known Allergies (Verified , 08/01/11) Objective Last 24 Hour Vital Signs Date Time Temp Pulse Resp B/P (MAP) Pulse Ox O2 Delivery O2 Flow Rate FiO2 12/05/20 16:00 108 12/05/20 16:00 98.2 100 18 111/61 (78) 93 12/05/20 14:05 142 12/05/20 12:00 110 12/05/20 12:00 98.6 98 18 111/67 (82) 96 12/05/20 09:00 Nasal Cannula 3.0 12/05/20 08:00 108 12/05/20 08:00 98.5 110 19 115/59 (77) 98 12/05/20 04:00 97.8 114 18 112/57 (75) 100 12/05/20 03:52 115 12/05/20 00:00 98.9 115 18 102/61 (75) 97 12/04/20 23:39 115 Intake and Output 12/04/20 12/05/20 19:00 07:00 Intake Total 195 ml 1320 ml Output Total 1650 ml Balance 195 ml -330 ml Intake Free Water 100 ml 100 ml IV Total 75 ml 600 ml Tube Feeding 20 ml 220 ml Other 400 ml Output Other 1650 ml # Voids 1 Laboratory Tests 12/05/20 06:04: White Blood Count 14.8H, Red Blood Count 3.60L, Hemoglobin 10.1#L, Hematocrit 33.4#L, Mean Corpuscular Volume 93, Mean Corpuscular Hemoglobin 28.0, Mean Corpuscular Hemoglobin Concent 30.2L, Red Cell Distribution Width 14.5, Platelet Count 248, Mean Platelet Volume 9.4, Neutrophils (%) (Auto) 83.1H, Lymphocytes (%) (Auto) 9.7L, Monocytes (%) (Auto) 4.2, Eosinophils (%) (Auto) 2.6, Basophils (%) (Auto) 0.5, Sodium Level 160H, Potassium Level 3.7, Chloride Level 126H, Carbon Dioxide Level 24, Anion Gap 10, Blood Urea Nitrogen 23H, Creatinine 0.5L, Estimat Glomerular Filtration Rate > 60, Glucose Level 122H, Hemoglobin A1c 5.5, Uric Acid 4.2, Calcium Level 8.0L, Phosphorus Level 2.9, Magnesium Level 2.5H, T otal Bilirubin 0.7, Gamma Glutamyl Transpeptidase 15, Aspartate Amino Transf (AST/SGOT) 37, Alanine Aminotransferase (ALT/SGPT) 44, Alkaline Phosphatase 141H , Troponin I 0.029, C-Reactive Protein, Quantitative 3.9H, Pro-B-Type Natriuretic Peptide 739H, Total Protein 5.9#L, Albumin 1.8L, Globulin 4.1, Albumin/Globulin Ratio 0.4L, Triglycerides Level 76, Cholesterol Level 98, LDL Cholesterol 64, HDL Cholesterol 26L, Cholesterol/HDL Ratio 3.8 Height (Feet): 5 Height (Inches): 2.00 Weight (Pounds): 96 Assessment/Plan Status: progressing Assessment/Plan: Assessment - abnormal LFT, possibly due to sepsis, resolving - OBS - s/p PEG - decubitus ulcers Recommendations - check abd ultrasound - follow LFT conservatively - monitor residuals Hollie Simmons MD Dec 05, 2020 21:58
[2020-12-06] VITALS: BP 95/56
--- NOTE | 2020-12-06 00:59 | Consultation ---
DATE OF CONSULTATION: 12/05/2020 GASTROENTEROLOGY CONSULTATION CONSULTING PHYSICIAN: Hollie Simmons MD CHIEF COMPLAINT: I was asked to see this patient by Dr. Kelsey Finley for evaluation of abnormal liver tests and feeding issues. HISTORY OF PRESENT ILLNESS: The patient is an 85-year-old woman with advanced dementia and Parkinson disease, who is requiring gastrostomy tube on a long-term basis who was brought in from the [facility] due to elevated white cell count. Patient herself is unable to provide any history and most of the information is only available from the chart. Patient was found to have some degree of abnormal liver tests during admission and this consultation was generated. PAST MEDICAL HISTORY: History of gastroesophageal reflux disease, status post gastrostomy tube placement, Alzheimer dementia, Parkinson disease, dysphagia, anxiety, contractures, osteoporosis, and pressure ulcers. FAMILY HISTORY: Unavailable. SOCIAL HISTORY: Unavailable. REVIEW OF SYSTEMS: Unobtainable. PHYSICAL EXAMINATION: GENERAL: Elderly, thin woman, seen in her room. HEENT: Normocephalic and atraumatic. Sclerae are anicteric. NECK: Supple. CHEST: Clear to auscultation. CARDIOVASCULAR: Revealed a regular rate. ABDOMEN: Soft. EXTREMITIES: Revealed some contractures. LABORATORY DATA: Noted. ASSESSMENT: This patient presents with abnormal liver tests, which are rapidly resolving. These were elevated at the time of the sepsis with leukocytosis and lactic acidosis. Now, the patient is improved. Liver pathology is resolving uneventfully. The patient should have an abdominal ultrasound at least to have a visual evaluation of the liver. Thereafter, liver tests can be followed conservatively. Should the problem persists, then further workup may be necessary. Thank you for asking me to participate in the care of this patient. Hollie Simmons M.D. DR: ALFRED JOB#: [id number] CC:
[2020-12-06 04:00] VITALS: BP 97/54
[2020-12-06 05:16] LABS: BASOPHILS % (AUTO) 0.6 % (0.0-2.0); EOSINOPHILS % (AUTO) 4.7 % (0.0-3.0); HEMATOCRIT 28.9 % (37.0-47.0); HEMOGLOBIN 9.1 G/DL (12.0-16.0); LYMPHOCYTES % (AUTO) 16.1 % (20.0-45.0); MEAN CORPUSCULAR VOLUME 91 FL (80-99); MONOCYTES % (AUTO) 5.3 % (1.0-10.0); NEUTROPHILS % (AUTO) 73.3 % (45.0-75.0); PLATELET COUNT 201 K/UL (150-450); RED BLOOD COUNT 3.18 M/UL (4.20-5.40); RED CELL DISTRIBUTION WIDTH 14.2 % (11.6-14.8); WHITE BLOOD COUNT 11.7 K/UL (4.8-10.8)
[2020-12-06 05:28] LABS: CREATINE KINASE 160 U/L (26-308)
[2020-12-06 05:32] LABS: GAMMA GLUTAMYL TRANSPEPTIDASE 14 U/L (5-85)
[2020-12-06 05:42] LABS: % IRON SATURATION 13 % (15-50); IRON 19 ug/dL (50-175); TOTAL IRON BINDING CAPACITY 142 ug/dL (250-450)
[2020-12-06 05:45] LABS: ALANINE AMINOTRANSFERASE 38 U/L (12-78); ALBUMIN 2.1 G/DL (3.4-5.0); ALBUMIN/GLOBULIN RATIO 0.6 (1.0-2.7); ALKALINE PHOSPHATASE 126 U/L (46-116); ANION GAP 9 mmol/L (5-15); ASPARTATE AMINO TRANSFERASE 34 U/L (15-37); BILIRUBIN,TOTAL 0.6 MG/DL (0.2-1.0); BLOOD UREA NITROGEN 14 mg/dL (7-18); CALCIUM 7.7 MG/DL (8.5-10.1); CARBON DIOXIDE 24 MMOL/L (21-32); CHLORIDE 114 MMOL/L (98-107); CREATININE 0.5 MG/DL (0.55-1.30); FERRITIN 319 NG/ML (8-388); PHOSPHORUS 2.6 MG/DL (2.5-4.9); POTASSIUM 3.7 MMOL/L (3.5-5.1); SODIUM 147 MMOL/L (136-145)
--- NOTE | 2020-12-06 06:52 | NUR ---
NURSE HAND-OFF REPORT: Important Events on Shift:[IV inserted right FA 22g, no acute overnight events, gtube feeding held at midnight for US abd] Patient Status: sleeping Diet: jevity 1.2 at 50 Pending Orders: na Pending Results/Labs:na Pending MD notification:d dimer elevated and ca low Latest Vital Signs: Temperature 100.0 , Pulse 109 , B/P 97 /54 , Respiratory Rate 18 , O2 SAT 100 , Nasal Cannula, O2 Flow Rate 4.0 . Vital Sign Comment: stable EKG Rhythm: Sinus Tachycardia Rhythm change?: N MD Notified?: MD Response: Latest Lucero Fall Score: 35 Fall Risk: Medium Risk Safety Measures: Call light Within Reach, Bed Alarm Zone 1, Side Rails Side Rails x3, Bed position Low and Locked. Fall Precautions: Yellow Socks Yellow Gown Door Sign Patient Fall Education Report given to . Addendum: 12/06/20 at 0757 by Andre Burger RN Hand off given to QUINCY Whiting.
--- NOTE | 2020-12-06 07:30 | NUR ---
NURSE NOTES: Report received from MARIE Powell. Patient is AAOx0, nonverbal and responds to tactile stimuli. on O2 NC 4L, breathing even and unlabored, no indications of respiratory distress, no active indications of pain. PIV noted left hand 22 with IVF running well. Gtube with Jevity 1.2 running at 50cc on hold due to JOSE abdomen. no residual noted. Bed low and locked, side rails x3 up, bed alarm active, and call light in reach. will cont to monitor.
[2020-12-06 08:00] VITALS: BP 131/69
--- NOTE | 2020-12-06 08:35 | General Progress Note ---
Subjective ROS Limited/Unobtainable: No Allergies: Coded Allergies: No Known Allergies (Verified , 08/01/11) Objective Last 24 Hour Vital Signs Date Time Temp Pulse Resp B/P (MAP) Pulse Ox O2 Delivery O2 Flow Rate FiO2 12/06/20 04:00 100.0 109 18 97/54 (68) 100 12/06/20 04:00 109 12/06/20 00:00 98.5 113 18 95/56 (69) 100 12/06/20 00:00 113 12/05/20 21:00 Nasal Cannula 4.0 12/05/20 20:00 98.5 110 18 90/64 (73) 100 12/05/20 20:00 110 12/05/20 16:00 108 12/05/20 16:00 98.2 100 18 111/61 (78) 93 12/05/20 14:05 142 12/05/20 12:00 110 12/05/20 12:00 98.6 98 18 111/67 (82) 96 12/05/20 09:00 Nasal Cannula 3.0 Intake and Output 12/05/20 12/06/20 19:00 07:00 Intake Total 150 ml 1100 ml Output Total 600 ml Balance 150 ml 500 ml IV Total 1100 ml Tube Feeding 150 ml Output Other 600 ml # Voids 4 Laboratory Tests 12/06/20 04:04: White Blood Count 11.7H, Red Blood Count 3.18L, Hemoglobin 9.1L, Hematocrit 28.9L, Mean Corpuscular Volume 91, Mean Corpuscular Hemoglobin 28.7, Mean Corpuscular Hemoglobin Concent 31.7L, Red Cell Distribution Width 14.2, Platelet Count 201, Mean Platelet Volume 9.3, Neutrophils (%) (Auto) 73.3, Lymphocytes (%) (Auto) 16.1L, Monocytes (%) (Auto) 5.3, Eosinophils (%) (Auto) 4.7H, Basophils (%) (Auto) 0.6, D-Dimer 4.03H, Sodium Level 147#H, Potassium Level 3.7, Chloride Level 114H, Carbon Dioxide Level 24, Anion Gap 9, Blood Urea Nitrogen 14, Creatinine 0.5L, Estimat Glomerular Filtration Rate > 60, Glucose Level 121H, Calcium Level 7.7L, Phosphorus Level 2.6, Magnesium Level 2.1, Iron Level 19L, Total Iron Binding Capacity 142L, Percent Iron Saturation 13L, Unsa turated Iron Binding 123, Ferritin 319, Total Bilirubin 0.6, Gamma Glutamyl Transpeptidase 14, Aspartate Amino Transf (AST/SGOT) 34, Alanine Aminotransferase (ALT/SGPT) 38, Alkaline Phosphatase 126H, Total Creatine Kinase 160, C-Reactive Protein, Quantitative 3.0H, Pro-B-Type Natriuretic Peptide 881H, Total Protein 5.8L, Albumin 2.1L, Globulin 3.7, Albumin/Globulin Ratio 0.6L, Vitamin B12 Level 461, Vitamin D 25-Hydroxy [Pending], 25-Hydroxy Vitamin D2 [Pending], 25-Hydroxy Vitamin D3 [Pending], Folate 13.9 Height (Feet): 5 Height (Inches): 2.00 Weight (Pounds): 96 General Appearance: no apparent distress EENT: normal ENT inspection Neck: supple Cardiovascular: normal rate Respiratory/Chest: decreased breath sounds Abdomen: normal bowel sounds, non tender, soft Extremities: non-tender Assessment/Plan Status: progressing Assessment/Plan: Assessment - abnormal LFT, possibly due to sepsis, resolving - OBS - s/p PEG - decubitus ulcers Recommendations - check abd ultrasound - follow LFT conservatively - monitor residuals Liang Nguyen MD Dec 06, 2020 08:35
[2020-12-06] MEDS: Docusate 100mg/10ml Liq GT SCH ×2 (09:03→17:08)
--- NOTE | 2020-12-06 09:15 | NUR ---
NURSE NOTES: JOSE abdomen completed. resumed GTube feeding and on goal 60cc/hr. kept hob elevated. will cont to monitor.
[2020-12-06] MEDS: Pantoprazole Inj IVP SCH ×2 (09:19→20:32)
--- NOTE | 2020-12-06 10:09 | Diagnostic Imaging Report ---
EXAM: US Abdomen Complete CLINICAL HISTORY: ABN LABS TECHNIQUE: Real-time ultrasound of the abdomen with image documentation. COMPARISON: No relevant prior studies available. FINDINGS: Liver: The liver measures 12 cm. No intrahepatic bile duct dilation. Gallbladder: No cholelithiasis. No gallbladder wall thickening. Common bile duct: Nondilated common bile duct measuring 5 mm. Pancreas: Poorly visualized pancreas. Kidneys: The right kidney was poorly visualized. The left kidney measures 9.9 cm. No hydronephrosis or nephrolithiasis. Spleen: The spleen measures 10.6 cm. Aorta: The proximal aorta measures 1.1 cm. No aneurysm. Inferior vena cava: Unremarkable. IMPRESSION: No ultrasound evidence of acute cholecystitis. No hepatic steatosis. Nonvisualized right kidney. Technically difficult exam.
[2020-12-06 11:58] VITALS: BP 101/51
--- NOTE | 2020-12-06 13:00 | NUR ---
NURSE NOTES: dr garner made aware of the +MRSA nares. will cont to monitor.
--- NOTE | 2020-12-06 13:24 | NUR ---
CASE MANAGEMENT: REVIEW 12/06/2020 SI: SEPSIS. HYPERNATREMIA VS: T 100 HR 109 RR 18 B/P 97/54 SATS 100% ON 4L/NC LABS: WBC 11.7 NA 147 CL 114 CR 0.5 GLU 121 CA 7.7 CRP 3 BNP 881 IS: DEXTROSE IV @ 100 mL/HR PROTONIX IV Q12H CEFTRIAXONE IV Q24H VANCO IV Q24H : TO TELEMETRY DCP: RETURN TO SNF
--- NOTE | 2020-12-06 14:09 | Infectious Diseases Prog Note ---
Assessment/Plan Assessment/Plan IMPRESSION: 1. Sepsis with gram-positive bacteremia. 2. Tachycardia. 3. Leukocytosis. 4. Hypernatremia. 5. Anemia. 6. Pressure ulcer. 7. Alzheimer dementia. 8. Parkinson disease. 9. 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 Left foot X-ray to R/O osteomyelitis We will follow up the cultures Subjective ROS Limited/Unobtainable: Yes Allergies: Coded Allergies: No Known Allergies (Verified , 08/01/11) Objective Last 24 Hour Vital Signs Date Time Temp Pulse Resp B/P (MAP) Pulse Ox O2 Delivery O2 Flow Rate FiO2 12/06/20 11:58 98.8 103 22 101/51 (68) 100 12/06/20 09:00 Nasal Cannula 4.0 12/06/20 08:00 98.7 106 20 131/69 (89) 100 12/06/20 08:00 105 12/06/20 04:00 100.0 109 18 97/54 (68) 100 12/06/20 04:00 109 12/06/20 00:00 98.5 113 18 95/56 (69) 100 12/06/20 00:00 113 12/05/20 21:00 Nasal Cannula 4.0 12/05/20 20:00 98.5 110 18 90/64 (73) 100 12/05/20 20:00 110 12/05/20 16:00 108 12/05/20 16:00 98.2 100 18 111/61 (78) 93 12/05/20 14:05 142 Height (Feet): 5 Height (Inches): 2.00 Weight (Pounds): 96 HEENT: mucous membranes moist Respiratory/Chest: rhonchi - bilaterally, other - oxygen by nasal cannula Cardiovascular: tachycardia Abdomen: soft, non tender Extremities: no edema Skin: ulcers, other - feet, more severe in left side Neurologic/Psychiatric: alert, aphasia Microbiology Date/Time Source Procedure Growth Status 12/04/20 16:35 Rectum VRE Culture - Final NO VANCOMYCIN RESISTANT ENTEROCOCCUS ... Complete 12/04/20 16:35 Nasal Nares MRSA Culture - Final Staphylococcus Aureus - Mrsa Complete 12/04/20 15:45 Urine,Clean Catch Urine Culture - Final NO GROWTH AFTER 48 HOURS Complete 12/04/20 15:40 Nasopharynx Coronavirus COVID-19 PCR ([facility]) - Final Complete 12/04/20 14:00 Blood Blood Culture - Preliminary Resulted 12/04/20 13:30 Blood Blood Culture - Preliminary Resulted Laboratory Tests Test 12/06/20 04:04 White Blood Count 11.7 K/UL (4.8-10.8) H Red Blood Count 3.18 M/UL (4.20-5.40) L Hemoglobin 9.1 G/DL (12.0-16.0) L Hematocrit 28.9 % (37.0-47.0) L Mean Corpuscular Volume 91 FL (80-99) Mean Corpuscular Hemoglobin 28.7 PG (27.0-31.0) Mean Corpuscular Hemoglobin Concent 31.7 G/DL (32.0-36.0) L Red Cell Distribution Width 14.2 % (11.6-14.8) Platelet Count 201 K/UL (150-450) Mean Platelet Volume 9.3 FL (6.5-10.1) Neutrophils (%) (Auto) 73.3 % (45.0-75.0) Lymphocytes (%) (Auto) 16.1 % (20.0-45.0) L Monocytes (%) (Auto) 5.3 % (1.0-10.0) Eosinophils (%) (Auto) 4.7 % (0.0-3.0) H Basophils (%) (Auto) 0.6 % (0.0-2.0) D-Dimer 4.03 mg/L FEU (0.00-0.49) H Sodium Level 147 MMOL/L (136-145) #H Potassium Level 3.7 MMOL/L (3.5-5.1) Chloride Level 114 MMOL/L (98-107) H Carbon Dioxide Level 24 MMOL/L (21-32) Anion Gap 9 mmol/L (5-15) Blood Urea Nitrogen 14 mg/dL (7-18) Creatinine 0.5 MG/DL (0.55-1.30) L Estimat Glomerular Filtration Rate > 60 mL/min (>60) Glucose Level 121 MG/DL (74-106) H Calcium Level 7.7 MG/DL (8.5-10.1) L Phosphorus Level 2.6 MG/DL (2.5-4.9) Magnesium Level 2.1 MG/DL (1.8-2.4) Iron Level 19 ug/dL (50-175) L Total Iron Binding Capacity 142 ug/dL (250-450) L Percent Iron Saturation 13 % (15-50) L Unsaturated Iron Binding 123 ug/dL (112-346) Ferritin 319 NG/ML (8-388) Total Bilirubin 0.6 MG/DL (0.2-1.0) Gamma Glutamyl Transpeptidase 14 U/L (5-85) Aspartate Amino Transf (AST/SGOT) 34 U/L (15-37) Alanine Aminotransferase (ALT/SGPT) 38 U/L (12-78) Alkaline Phosphatase 126 U/L (46-116) H Total Creatine Kinase 160 U/L (26-308) C-Reactive Protein, Quantitative 3.0 mg/dL (0.00-0.90) H Pro-B-Type Natriuretic Peptide 881 pg/mL (0-125) H Total Protein 5.8 G/DL (6.4-8.2) L Albumin 2.1 G/DL (3.4-5.0) L Globulin 3.7 g/dL Albumin/Globulin Ratio 0.6 (1.0-2.7) L Vitamin B12 Level 461 PG/ML (193-986) Vitamin D 25-Hydroxy Pending 25-Hydroxy Vitamin D2 Pending 25-Hydroxy Vitamin D3 Pending Folate 13.9 NG/ML (8.6-58.9) Current Medications Medications (Trade) Dose Ordered Sig/Rosy Route PRN Reason Start Time Stop Time Status Last Admin Dose Admin Acetaminophen (Tylenol) 500 mg Q4H PRN GT For Pain 12/04/20 18:30 01/03/21 18:29 Barium Sulfate (Varibar Honey) 250 ml NOW PRN MC RAD 12/04/20 18:45 12/07/20 18:30 Barium Sulfate (Varibar [place]) 240 ml NOW PRN MC RAD 12/04/20 18:45 12/07/20 18:30 Barium Sulfate (Varibar Pudding) 230 ml NOW PRN MC RAD 12/04/20 18:45 12/07/20 18:30 Barium Sulfate (Varibar Thin Liquid powder) 148 gm NOW PRN MC RAD 12/04/20 18:45 12/07/20 18:30 Ceftriaxone Sodium 1 gm/ Dextrose 55 ml @ 110 mls/hr Q24H IVPB 12/05/20 15:00 12/12/20 14:59 12/05/20 14:22 Dextrose 1,000 ml @ 100 mls/hr Q10H IV 12/04/20 18:15 01/03/21 18:14 12/06/20 11:33 Docusate Sodium (Colace) 100 mg TWICE A DAY GT 12/05/20 11:07 01/04/21 11:06 12/06/20 09:03 Pantoprazole (Protonix) 40 mg EVERY 12 HOURS IVP 12/04/20 21:00 01/03/21 20:59 12/06/20 09:19 Vancomycin HCl (Vanco pharmacy to dose) 1 ea DAILY PRN MISC Per rx protocol 12/05/20 12:45 01/04/21 12:44 Vancomycin HCl 500 mg/Dextrose 110 ml @ 110 mls/hr Q24H IVPB 12/05/20 16:00 12/10/20 15:59 12/05/20 16:48 Joseph De Leon MD Dec 06, 2020 14:09
--- NOTE | 2020-12-06 14:14 | Pulmonology Progress Note ---
Subjective ROS Limited/Unobtainable: Yes Interval Events: None new reported Constitutional: Reports: no symptoms Respiratory: Reports: no symptoms Cardiovascular: Reports: no symptoms Gastrointestinal/Abdominal: Reports: no symptoms Genitourinary: Reports: no symptoms Allergies: Coded Allergies: No Known Allergies (Verified , 08/01/11) Objective Last 24 Hour Vital Signs Date Time Temp Pulse Resp B/P (MAP) Pulse Ox O2 Delivery O2 Flow Rate FiO2 12/06/20 11:58 98.8 103 22 101/51 (68) 100 12/06/20 09:00 Nasal Cannula 4.0 12/06/20 08:00 98.7 106 20 131/69 (89) 100 12/06/20 08:00 105 12/06/20 04:00 100.0 109 18 97/54 (68) 100 12/06/20 04:00 109 12/06/20 00:00 98.5 113 18 95/56 (69) 100 12/06/20 00:00 113 12/05/20 21:00 Nasal Cannula 4.0 12/05/20 20:00 98.5 110 18 90/64 (73) 100 12/05/20 20:00 110 12/05/20 16:00 108 12/05/20 16:00 98.2 100 18 111/61 (78) 93 Intake and Output 12/05/20 12/06/20 19:00 07:00 Intake Total 150 ml 1100 ml Output Total 600 ml Balance 150 ml 500 ml IV Total 1100 ml Tube Feeding 150 ml Output Other 600 ml # Voids 4 General Appearance: no acute distress HEENT: normocephalic Respiratory: chest wall non-tender, decreased breath sounds Cardiovascular: normal peripheral pulses Abdomen: normal bowel sounds Microbiology Date/Time Source Procedure Growth Status 12/04/20 16:35 Rectum VRE Culture - Final NO VANCOMYCIN RESISTANT ENTEROCOCCUS ... Complete 12/04/20 16:35 Nasal Nares MRSA Culture - Final Staphylococcus Aureus - Mrsa Complete 12/04/20 15:45 Urine,Clean Catch Urine Culture - Final NO GROWTH AFTER 48 HOURS Complete 12/04/20 15:40 Nasopharynx Coronavirus COVID-19 PCR ([facility]) - Final Complete 12/04/20 14:00 Blood Blood Culture - Preliminary Resulted 12/04/20 13:30 Blood Blood Culture - Preliminary Resulted Laboratory Tests 12/06/20 04:04: White Blood Count 11.7H, Red Blood Count 3.18L, Hemoglobin 9.1L, Hematocrit 28.9L, Mean Corpuscular Volume 91, Mean Corpuscular Hemoglobin 28.7, Mean Corpuscular Hemoglobin Concent 31.7L, Red Cell Distribution Width 14.2, Platelet Count 201, Mean Platelet Volume 9.3, Neutrophils (%) (Auto) 73.3, Lymphocytes (%) (Auto) 16.1L, Monocytes (%) (Auto) 5.3, Eosinophils (%) (Auto) 4.7H, Basophils (%) (Auto) 0.6, D-Dimer 4.03H, Sodium Level 147#H, Potassium Level 3.7, Chloride Level 114H, Carbon Dioxide Level 24, Anion Gap 9, Blood Urea Nitrogen 14, Creatinine 0.5L, Estimat Glomerular Filtration Rate > 60, Glucose Level 121H, Calcium Level 7.7L, Phosphorus Level 2.6, Magnesium Level 2.1, Iron Level 19L, Total Iron Binding Capacity 142L, Percent Iron Saturation 13L, Unsaturated Iron Binding 123, Ferritin 319, Total Bilirubin 0.6, Gamma Glutamyl Transpeptidase 14, Aspartate Amino Transf (AST/SGOT) 34, Alanine Aminotransferase (ALT/SGPT) 38, Alkaline Phosphatase 126H, Total Creatine Kinase 160, C-Reactive Protein, Quantitative 3.0H, Pro-B-Type Natriuretic Peptide 881H, Total Protein 5.8L, Albumin 2.1L, Globulin 3.7, Albumin/Globulin Ratio 0.6L, Vitamin B12 Level 461, Vitamin D 25-Hydroxy [Pending], 25-Hydroxy Vitamin D2 [Pending], 25-Hydroxy Vitamin D3 [Pending], Folate 13.9 Current Medications Medications (Trade) Dose Ordered Sig/Rosy Route PRN Reason Start Time Stop Time Status Last Admin Dose Admin Acetaminophen (Tylenol) 500 mg Q4H PRN GT For Pain 12/04/20 18:30 01/03/21 18:29 Barium Sulfate (Varibar Honey) 250 ml NOW PRN MC RAD 12/04/20 18:45 12/07/20 18:30 Barium Sulfate (Varibar [place]) 240 ml NOW PRN MC RAD 12/04/20 18:45 12/07/20 18:30 Barium Sulfate (Varibar Pudding) 230 ml NOW PRN MC RAD 12/04/20 18:45 12/07/20 18:30 Barium Sulfate (Varibar Thin Liquid powder) 148 gm NOW PRN MC RAD 12/04/20 18:45 12/07/20 18:30 Ceftriaxone Sodium 1 gm/ Dextrose 55 ml @ 110 mls/hr Q24H IVPB 12/05/20 15:00 12/12/20 14:59 12/05/20 14:22 Dextrose 1,000 ml @ 100 mls/hr Q10H IV 12/04/20 18:15 01/03/21 18:14 12/06/20 11:33 Docusate Sodium (Colace) 100 mg TWICE A DAY GT 12/05/20 11:07 01/04/21 11:06 12/06/20 09:03 Pantoprazole (Protonix) 40 mg EVERY 12 HOURS IVP 12/04/20 21:00 01/03/21 20:59 12/06/20 09:19 Vancomycin HCl (Vanco pharmacy to dose) 1 ea DAILY PRN MISC Per rx protocol 12/05/20 12:45 01/04/21 12:44 Vancomycin HCl 500 mg/Dextrose 110 ml @ 110 mls/hr Q24H IVPB 12/05/20 16:00 12/10/20 15:59 12/05/20 16:48 Assessment/Plan Assessment/Plan 1 .Renal failure, dehydration -Nephro following 2. Sepsis -ID following -WBC trending down - On vancomycin and ceftriaxone 3. COVID-19 negative 4. Hypoxia -Continue providing supplemental oxygen as she is hypoxic on room air -Wean down as tolerated 5. Elevated CRP -elevated D-dimer as well Patric Zapata MD Dec 06, 2020 14:14
--- NOTE | 2020-12-06 14:31 | NUR ---
NURSE NOTES: WOUND CARE PHOTO AND TREATMENT RENDERED AND UPLOADED. CHANGED GTUBE DRSG. NO LEAKAGE OR DRAINAGE NOTED. WILL CONT TO MONITOR.
--- NOTE | 2020-12-06 14:59 | Consultation ---
History of Present Illness General Date patient seen: Dec 06, 2020 Reason for Hospitalization: Abnormal Labs Present Illness HPI This is a 85-year-old female with multimedical comorbidities who presented to [facility] from care facility for leukocytosis with further work-up and management pending and underweight. On admission identified to have malnutrition failure to thrive BMI 17 albumin low abnormal labs leukocytosis and multiple wounds and decubitus concerning for potential etiology of patient's leukocytosis infectious process. Surgery called to evaluate and assist with care patient seen patient evaluated chart reviewed Allergies: Coded Allergies: No Known Allergies (Verified , 08/01/11) COVID-19 Screening Contact w/high risk pt: Yes Experienced COVID-19 symptoms?: No Coronavirus symptoms experienc: Shortness of Breath Medication History Scheduled Ascorbic Acid* (Vitamin C*), 500 MG GT TWICE A DAY, (Reported) Benztropine Mesylate* (Benztropine Mesylate*), 0.5 MG GT EVERY 8 HOURS, (Reported) Cholecalciferol (Vitamin D3) (Vitamin D3*), 4,000 UNIT GT DAILY, (Reported) Docusate Sodium* (Colace*), 200 MG GT DAILY, (Reported) Multivitamins* (Multivitamins*), 1 TAB GT DAILY, (Reported) Zinc Sulfate (Zinc Sulfate*), 220 MG GT DAILY, (Reported) Scheduled PRN Acetaminophen 160MG/5ML* (Acetaminophen*), 20 ML ORAL EVERY 4 HOURS PRN for Fever/Headache/Mild Pain, (Reported) Miscellaneous Medications Calcium Carbonate (Calcium Carbonate), 500 MG GT, (Reported) Cranberry (Cranberry), 400 MG GT, (Reported) Patient History Limited by: medical condition History Provided By: Medical Record, PMD Healthcare decision maker Resuscitation status Advanced Directive on File Past Medical/Surgical History Past Medical/Surgical History: (1) Parkinsons disease (2) Hypernatremia (3) Sepsis (4) UTI (urinary tract infection) (5) Decubitus ulcer Review of Systems Review of Symptoms General ROS: no weight loss or fever Psychological ROS: no depression or mood changes, no memory loss Ophthalmic ROS: no visual changes or eye irritation ENT ROS: no nasal congestion, hearing loss, dizziness Allergy and Immunology ROS: no allergic symptoms or urticaria Hematological and Lymphatic ROS: no swollen glands, unusual bleeding or bruising Endocrine ROS: no polyuria, polydipsia, weight changes, temperature intolerance Respiratory ROS: no cough, shortness of breath, or wheezing Cardiovascular ROS: no chest pain or dyspnea on exertion Gastrointestinal ROS: denies abdominal pain, bright red blood in stool. Musculoskeletal ROS: no myalgias or arthralgias Neurological ROS: no TIA or stroke symptoms Dermatological ROS: no new or changing skin lesions, rashes or pruritis Limited given patient's baseline medical condition Physical Exam Physical Exam General appearance: alert, no distress, appears stated age Head: Normocephalic, without obvious abnormality, atraumatic Eyes: conjunctivae/corneas clear. PERRL, EOM's intact. Fundi benign Throat: Lips, mucosa, and tongue normal. Teeth and gums normal Neck: supple, symmetrical, trachea midline, no adenopathy, thyroid: not enlarged, symmetric, no tenderness/mass/nodules, no carotid bruit and no JVD Lungs: clear to auscultation bilaterally Heart: regular rate and rhythm, S1, S2 normal, no murmur, click, rub or gallop Abdomen: soft, non-tender. Bowel sounds normal. No masses, no organomegaly Extremities: extremities normal, atraumatic, no cyanosis or edema Pulses: 2+ and symmetric Skin: Skin see below Neurologic: Grossly normal Last 24 Hour Vital Signs Date Time Temp Pulse Resp B/P (MAP) Pulse Ox O2 Delivery O2 Flow Rate FiO2 12/06/20 12:00 104 12/06/20 11:58 98.8 103 22 101/51 (68) 100 12/06/20 09:00 Nasal Cannula 4.0 12/06/20 08:00 98.7 106 20 131/69 (89) 100 12/06/20 08:00 105 12/06/20 04:00 100.0 109 18 97/54 (68) 100 12/06/20 04:00 109 12/06/20 00:00 98.5 113 18 95/56 (69) 100 12/06/20 00:00 113 12/05/20 21:00 Nasal Cannula 4.0 12/05/20 20:00 98.5 110 18 90/64 (73) 100 12/05/20 20:00 110 12/05/20 16:00 108 12/05/20 16:00 98.2 100 18 111/61 (78) 93 Intake and Output 12/05/20 12/06/20 19:00 07:00 Intake Total 150 ml 1100 ml Output Total 600 ml Balance 150 ml 500 ml IV Total 1100 ml Tube Feeding 150 ml Output Other 600 ml # Voids 4 Laboratory Tests Test 12/06/20 04:04 White Blood Count 11.7 K/UL (4.8-10.8) H Red Blood Count 3.18 M/UL (4.20-5.40) L Hemoglobin 9.1 G/DL (12.0-16.0) L Hematocrit 28.9 % (37.0-47.0) L Mean Corpuscular Volume 91 FL (80-99) Mean Corpuscular Hemoglobin 28.7 PG (27.0-31.0) Mean Corpuscular Hemoglobin Concent 31.7 G/DL (32.0-36.0) L Red Cell Distribution Width 14.2 % (11.6-14.8) Platelet Count 201 K/UL (150-450) Mean Platelet Volume 9.3 FL (6.5-10.1) Neutrophils (%) (Auto) 73.3 % (45.0-75.0) Lymphocytes (%) (Auto) 16.1 % (20.0-45.0) L Monocytes (%) (Auto) 5.3 % (1.0-10.0) Eosinophils (%) (Auto) 4.7 % (0.0-3.0) H Basophils (%) (Auto) 0.6 % (0.0-2.0) D-Dimer 4.03 mg/L FEU (0.00-0.49) H Sodium Level 147 MMOL/L (136-145) #H Potassium Level 3.7 MMOL/L (3.5-5.1) Chloride Level 114 MMOL/L (98-107) H Carbon Dioxide Level 24 MMOL/L (21-32) Anion Gap 9 mmol/L (5-15) Blood Urea Nitrogen 14 mg/dL (7-18) Creatinine 0.5 MG/DL (0.55-1.30) L Estimat Glomerular Filtration Rate > 60 mL/min (>60) Glucose Level 121 MG/DL (74-106) H Calcium Level 7.7 MG/DL (8.5-10.1) L Phosphorus Level 2.6 MG/DL (2.5-4.9) Magnesium Level 2.1 MG/DL (1.8-2.4) Iron Level 19 ug/dL (50-175) L Total Iron Binding Capacity 142 ug/dL (250-450) L Percent Iron Saturation 13 % (15-50) L Unsaturated Iron Binding 123 ug/dL (112-346) Ferritin 319 NG/ML (8-388) Total Bilirubin 0.6 MG/DL (0.2-1.0) Gamma Glutamyl Transpeptidase 14 U/L (5-85) Aspartate Amino Transf (AST/SGOT) 34 U/L (15-37) Alanine Aminotransferase (ALT/SGPT) 38 U/L (12-78) Alkaline Phosphatase 126 U/L (46-116) H Total Creatine Kinase 160 U/L (26-308) C-Reactive Protein, Quantitative 3.0 mg/dL (0.00-0.90) H Pro-B-Type Natriuretic Peptide 881 pg/mL (0-125) H Total Protein 5.8 G/DL (6.4-8.2) L Albumin 2.1 G/DL (3.4-5.0) L Globulin 3.7 g/dL Albumin/Globulin Ratio 0.6 (1.0-2.7) L Vitamin B12 Level 461 PG/ML (193-986) Vitamin D 25-Hydroxy Pending 25-Hydroxy Vitamin D2 Pending 25-Hydroxy Vitamin D3 Pending Folate 13.9 NG/ML (8.6-58.9) Height (Feet): 5 Height (Inches): 2.00 Weight (Pounds): 96 Medications Current Medications Medications (Trade) Dose Ordered Sig/Rosy Route PRN Reason Start Time Stop Time Status Last Admin Dose Admin Acetaminophen (Tylenol) 500 mg Q4H PRN GT For Pain 12/04/20 18:30 01/03/21 18:29 Barium Sulfate (Varibar Honey) 250 ml NOW PRN MC RAD 12/04/20 18:45 12/07/20 18:30 Barium Sulfate (Varibar [place]) 240 ml NOW PRN MC RAD 12/04/20 18:45 12/07/20 18:30 Barium Sulfate (Varibar Pudding) 230 ml NOW PRN RAD 12/04/20 18:45 12/07/20 18:30 Barium Sulfate (Varibar Thin Liquid powder) 148 gm NOW PRN MC RAD 12/04/20 18:45 12/07/20 18:30 Ceftriaxone Sodium 1 gm/ Dextrose 55 ml @ 110 mls/hr Q24H IVPB 12/05/20 15:00 12/12/20 14:59 12/05/20 14:22 Dextrose 1,000 ml @ 100 mls/hr Q10H IV 12/04/20 18:15 01/03/21 18:14 12/06/20 11:33 Docusate Sodium (Colace) 100 mg TWICE A DAY GT 12/05/20 11:07 01/04/21 11:06 12/06/20 09:03 Pantoprazole (Protonix) 40 mg EVERY 12 HOURS IVP 12/04/20 21:00 01/03/21 20:59 12/06/20 09:19 Vancomycin HCl (Vanco pharmacy to dose) 1 ea DAILY PRN MISC Per rx protocol 12/05/20 12:45 01/04/21 12:44 Vancomycin HCl 500 mg/Dextrose 110 ml @ 110 mls/hr Q24H IVPB 12/05/20 16:00 12/10/20 15:59 12/05/20 16:48 Assessment/Plan Problem List: (1) Parkinsons disease ICD Codes: G20 - Parkinson's disease SNOMED: 32653185 (2) Hypernatremia ICD Codes: E87.0 - Hyperosmolality and hypernatremia SNOMED: 957695524 (3) Sepsis Assessment & Plan: 85-year-old female presented with leukocytosis now with anemia leukocytosis abnormal labs malnutrition wounds identified unlikely source of patient's sepsis or infectious etiology. Urine noted. Antibiotics per infectious disease. Unlikely cholecystitis. Abdominal exam otherwise fairly benign. No acute surgical invention planned at this time. Continue IV antibiotics continue nutrition continue local wound care we will follow the recommendations thank you DAILY ESTIMATED NEEDS: Needs based on Wounds, underweight/ 43.5kg 30-35 kcals/kg 5116-2858 total kcals 1.25-1.5 g protein/kg 54-65 g total protein 25-30 mL/kg 6807-6392 total fluid mLs NUTRITION DIAGNOSIS: Increased kcal/prot needs R/T wound healing and underweight status as evidenced by pt admitted w/ multiple wounds @ BL foot, pending eval, pt @ 87% IBW w/ BMI of 17.6, low BMI per guidelines. CURRENT TF:Jevity 1.2 @ 60ml/hr x 24 hrs ENTERAL NUTRITION RECOMMENDATIONS: Jevity 1.2 @ 50ml/hr x 24 hrs to provide 1200ml, 1440kcal, 67g prot, 968ml free water * Rec goal rate of 50ml/hr x 24 hrs- meets 100% est kcal/prot needs * HOB over 30 degrees/ water flush per MD ADDITIONAL RECOMMENDATIONS: * Calibrated bedscale wt for accurate CBW * Monitor lytes, replete as needed * F/up w/ WC eval -> TF @ goal meeds 100% RDI add Vit C 500mg, ZnSO4 220mg QD x 10 days, Jonathon BID Liver: The liver measures 12 cm. No intrahepatic bile duct dilation. Gallbladder: No cholelithiasis. No gallbladder wall thickening. Common bile duct: Nondilated common bile duct measuring 5 mm. Pancreas: Poorly visualized pancreas. Kidneys: The right kidney was poorly visualized. The left kidney measures 9.9 cm. No hydronephrosis or nephrolithiasis. Spleen: The spleen measures 10.6 cm. Aorta: The proximal aorta measures 1.1 cm. No aneurysm. Inferior vena cava: Unremarkable. IMPRESSION: No ultrasound evidence of acute cholecystitis. No hepatic steatosis. ICD Codes: A41.9 - Sepsis, unspecified organism SNOMED: 78569722 Qualifiers: Qualified Codes: A41.9 - Sepsis, unspecified organism (4) UTI (urinary tract infection) ICD Codes: N39.0 - Urinary tract infection, site not specified SNOMED: 59501362 Qualifiers: Qualified Codes: N39.0 - Urinary tract infection, site not specified (5) Decubitus ulcer Assessment & Plan: Pt presented on admission emaciated, with contractures and multiple Pressure Injuries. Non-Blanchable erythema without induration/fluctuance R Elbow. Non-Blanchable erythema without induration/fluctuance L elbow. DTPI R trochanteric (L)7.5cm x (W)7.6cm. Clusters of Indurated and maroon Pressure injuries that are in close proximity R trochanter. Non-Blanchable erythema without induration L trochanter(L)8cm x (W)6.5cm. No evidence of skin breakdown to sacrum. Non-Blanchable erythema without induration/fluctuance noted to distal/lateral L Tibia(L)6cm x (W)0.8cm. Unstageable pressure Injury L Hallux(L)3.5cm x (W)3.2cm. Base of wound is 100% necrotic. Edges are adherent with marginal erythema. No odor or exudate noted. DTPI Medial /Lateral L Foot(L)2.5cm x (W)1cm.Base of Wound is maroon and fluctuant. DTPI distal/lateral L foot(L)2.5cm x (W)2.6cm. Base of Pressure Injury is fluctuant with marginal erythema. L heel is soft but easily blanchable. R Heel is soft but easily blanchable. DTPI R Hallux(L)5cm x (W)2.5cm. Reabsorbing blood Blister noted. Edges are adherent to base of Pressure Injury. Unstageable Pressure Injury distal/lateral R foot (L)1.5cm x (W)1.9cm. Dry brown eschar with adherent borders.Periwound is blanchable but fluctuant. Tx.plan: Apply Moisture Barrier Paste to Sacrum. Cover with Optifoam drsg. Change every 3 days and prn. Apply Cavilon Skin Barrier to R and L trochanteric areas. Cover each site with Optifoam drsgs. Change every 7 days and prn. Apply Betadine to Pressure Injuries L foot. Cover each site with Optifoam drsgs. Change every 3 days and prn. Apply Betadine to Pressure Injuries R foot. Cover each site with Optifoam drsdgs. Change every 3 days and prn. Apply Cavilon Skin Barrier to both heels. Cover each site with Optifoam drsgs. Change every 7 days and prn. Apply Cavilon Skin Barrier to R and L elbows. Cover each Elbow with Optifoam drsgs.Change every 7 days and prn. Cover Bony prominences as needed with Optifoam drsgs. Reposition at least every 2hours or as tolerated. Off-load heels with Pillow. APM/PURVI Mattress overlay. ICD Codes: L89.90 - Pressure ulcer of unspecified site, unspecified stage SNOMED: 917607646 Qualifiers: Qualified Codes: L89.90 - Pressure ulcer of unspecified site, unspecified stage Kristofer Parra Dec 06, 2020 14:59
[2020-12-06] MEDS: cefTRIAXone 1 GM in D5W 55 ML IVPB SCH (15:06)
[2020-12-06] MEDS: Vancomycin 500mg/D5W 110ml IVPB SCH ×2 (15:56)
[2020-12-06 16:00] VITALS: BP 109/61
--- NOTE | 2020-12-06 16:24 | Diagnostic Imaging Report ---
EXAM: XR Left Foot Complete, 3 or More Views CLINICAL HISTORY: OSTEOMY TECHNIQUE: Frontal, lateral and oblique views of the left foot. COMPARISON: None FINDINGS: Bones/joints: No displaced fracture or dislocation identified. Osteopenia. Degenerative changes of the left first MTP joint. No definite bony lesion. Soft tissues: Soft tissue swelling. IMPRESSION: 1. No displaced fracture or dislocation identified. 2. No definite bony lesion.
[2020-12-06] MEDS: Ascorbic Acid 500mg tab GT SCH (17:08)
--- NOTE | 2020-12-06 17:35 | Cardiac Electrophysiology PN ---
Assessment/Plan Assessment/Plan 1. Tachycardia, due to sepsis with white count 25,000. The patient is already on vancomycin and ceftriaxone. EF 65% 2. Severe hypernatremia and azotemia. The patient is on IV fluid, D5W at 100 mL/hour per Dr. Pena. 3. Dysphagia, status post PEG placement. 4. History of psychiatric history. 5. Respiratory failure, currently on IV antibiotic and 2 L nasal cannula. Subjective Subjective On 2 liter NC. Had transient atrial fib with RVR. S/P Abd US. GT feeding ongoing Objective Last 24 Hour Vital Signs Date Time Temp Pulse Resp B/P (MAP) Pulse Ox O2 Delivery O2 Flow Rate FiO2 12/06/20 16:00 106 12/06/20 16:00 98.2 105 21 109/61 (77) 98 12/06/20 12:00 104 12/06/20 11:58 98.8 103 22 101/51 (68) 100 12/06/20 09:00 Nasal Cannula 4.0 12/06/20 08:00 98.7 106 20 131/69 (89) 100 12/06/20 08:00 105 12/06/20 04:00 100.0 109 18 97/54 (68) 100 12/06/20 04:00 109 12/06/20 00:00 98.5 113 18 95/56 (69) 100 12/06/20 00:00 113 12/05/20 21:00 Nasal Cannula 4.0 12/05/20 20:00 98.5 110 18 90/64 (73) 100 12/05/20 20:00 110 Intake and Output 12/05/20 12/06/20 19:00 07:00 Intake Total 150 ml 1200 ml Output Total 600 ml Balance 150 ml 600 ml IV Total 1200 ml Tube Feeding 150 ml Output Other 600 ml # Voids 4 Laboratory Tests Test 12/06/20 04:04 White Blood Count 11.7 K/UL (4.8-10.8) H Red Blood Count 3.18 M/UL (4.20-5.40) L Hemoglobin 9.1 G/DL (12.0-16.0) L Hematocrit 28.9 % (37.0-47.0) L Mean Corpuscular Volume 91 FL (80-99) Mean Corpuscular Hemoglobin 28.7 PG (27.0-31.0) Mean Corpuscular Hemoglobin Concent 31.7 G/DL (32.0-36.0) L Red Cell Distribution Width 14.2 % (11.6-14.8) Platelet Count 201 K/UL (150-450) Mean Platelet Volume 9.3 FL (6.5-10.1) Neutrophils (%) (Auto) 73.3 % (45.0-75.0) Lymphocytes (%) (Auto) 16.1 % (20.0-45.0) L Monocytes (%) (Auto) 5.3 % (1.0-10.0) Eosinophils (%) (Auto) 4.7 % (0.0-3.0) H Basophils (%) (Auto) 0.6 % (0.0-2.0) D-Dimer 4.03 mg/L FEU (0.00-0.49) H Sodium Level 147 MMOL/L (136-145) #H Potassium Level 3.7 MMOL/L (3.5-5.1) Chloride Level 114 MMOL/L (98-107) H Carbon Dioxide Level 24 MMOL/L (21-32) Anion Gap 9 mmol/L (5-15) Blood Urea Nitrogen 14 mg/dL (7-18) Creatinine 0.5 MG/DL (0.55-1.30) L Estimat Glomerular Filtration Rate > 60 mL/min (>60) Glucose Level 121 MG/DL (74-106) H Calcium Level 7.7 MG/DL (8.5-10.1) L Phosphorus Level 2.6 MG/DL (2.5-4.9) Magnesium Level 2.1 MG/DL (1.8-2.4) Iron Level 19 ug/dL (50-175) L Total Iron Binding Capacity 142 ug/dL (250-450) L Percent Iron Saturation 13 % (15-50) L Unsaturated Iron Binding 123 ug/dL (112-346) Ferritin 319 NG/ML (8-388) Total Bilirubin 0.6 MG/DL (0.2-1.0) Gamma Glutamyl Transpeptidase 14 U/L (5-85) Aspartate Amino Transf (AST/SGOT) 34 U/L (15-37) Alanine Aminotransferase (ALT/SGPT) 38 U/L (12-78) Alkaline Phosphatase 126 U/L (46-116) H Total Creatine Kinase 160 U/L (26-308) C-Reactive Protein, Quantitative 3.0 mg/dL (0.00-0.90) H Pro-B-Type Natriuretic Peptide 881 pg/mL (0-125) H Total Protein 5.8 G/DL (6.4-8.2) L Albumin 2.1 G/DL (3.4-5.0) L Globulin 3.7 g/dL Albumin/Globulin Ratio 0.6 (1.0-2.7) L Vitamin B12 Level 461 PG/ML (193-986) Vitamin D 25-Hydroxy Pending 25-Hydroxy Vitamin D2 Pending 25-Hydroxy Vitamin D3 Pending Folate 13.9 NG/ML (8.6-58.9) Microbiology Date/Time Source Procedure Growth Status 12/04/20 16:35 Rectum VRE Culture - Final NO VANCOMYCIN RESISTANT ENTEROCOCCUS ... Complete 12/04/20 16:35 Nasal Nares MRSA Culture - Final Staphylococcus Aureus - Mrsa Complete 12/04/20 15:45 Urine,Clean Catch Urine Culture - Final NO GROWTH AFTER 48 HOURS Complete 12/04/20 15:40 Nasopharynx Coronavirus COVID-19 PCR ([facility]) - Final Complete 12/04/20 14:00 Blood Blood Culture - Preliminary Resulted 12/04/20 13:30 Blood Blood Culture - Preliminary Resulted Objective HEAD AND NECK: No JVD. LUNGS: Decreased breath sounds. CARDIOVASCULAR: Regular S1 and S2 gallop, tachycardic. ABDOMEN: Status post G-tube. EXTREMITIES: No pitting edema. Efrain Gustafson MD Dec 06, 2020 17:35
--- NOTE | 2020-12-06 18:20 | NUR ---
NURSE NOTES: REQUIRES ORAL SUCTION INTERMITTENTLY. KEPT HOB ELEVATED. NO ACUTE RESP DISTRESS NOTED.
--- NOTE | 2020-12-06 18:36 | Nephrology Progress Note ---
Assessment/Plan Problem List: (1) MAUREEN (acute kidney injury) (2) Dehydration (3) Hypernatremia (4) Sepsis (5) UTI (urinary tract infection) (6) Decubitus ulcer Assessment Renal failure, dehydration Hypernatremia, due to free water deficit Sepsis, leukocytosis Malnutrition, hypoalbuminemia Alzheimer's Underlying anemia as the patient continues to be hydrated Plan December 06: Serum sodium lowering. Continue hydration. Medication list reviewed. Previously: D5W hydration Antibiotics Avoid nephrotoxic's Improve nutritional state Monitor renal parameters electrolytes Anemia work-up Subjective ROS Limited/Unobtainable: No Constitutional: Reports: malaise Objective Objective Last 24 Hour Vital Signs Date Time Temp Pulse Resp B/P (MAP) Pulse Ox O2 Delivery O2 Flow Rate FiO2 12/06/20 16:00 106 12/06/20 16:00 98.2 105 21 109/61 (77) 98 12/06/20 12:00 104 12/06/20 11:58 98.8 103 22 101/51 (68) 100 12/06/20 09:00 Nasal Cannula 4.0 12/06/20 08:00 98.7 106 20 131/69 (89) 100 12/06/20 08:00 105 12/06/20 04:00 100.0 109 18 97/54 (68) 100 12/06/20 04:00 109 12/06/20 00:00 98.5 113 18 95/56 (69) 100 12/06/20 00:00 113 12/05/20 21:00 Nasal Cannula 4.0 12/05/20 20:00 98.5 110 18 90/64 (73) 100 12/05/20 20:00 110 Intake and Output 12/05/20 12/06/20 19:00 07:00 Intake Total 150 ml 1200 ml Output Total 600 ml Balance 150 ml 600 ml IV Total 1200 ml Tube Feeding 150 ml Output Other 600 ml # Voids 4 Laboratory Tests 12/06/20 04:04: White Blood Count 11.7H, Red Blood Count 3.18L, Hemoglobin 9.1L, Hematocrit 28.9L, Mean Corpuscular Volume 91, Mean Corpuscular Hemoglobin 28.7, Mean Corpuscular Hemoglobin Concent 31.7L, Red Cell Distribution Width 14.2, Platelet Count 201, Mean Platelet Volume 9.3, Neutrophils (%) (Auto) 73.3, Lymphocytes (%) (Auto) 16.1L, Monocytes (%) (Auto) 5.3, Eosinophils (%) (Auto) 4.7H, Basop hils (%) (Auto) 0.6, D-Dimer 4.03H, Sodium Level 147#H, Potassium Level 3.7, Chloride Level 114H, Carbon Dioxide Level 24, Anion Gap 9, Blood Urea Nitrogen 14, Creatinine 0.5L, Estimat Glomerular Filtration Rate > 60, Glucose Level 121H , Calcium Level 7.7L, Phosphorus Level 2.6, Magnesium Level 2.1, Iron Level 19L, Total Iron Binding Capacity 142L, Percent Iron Saturation 13L, Unsaturated Iron Binding 123, Ferritin 319, Total Bilirubin 0.6, Gamma Glutamyl Transpeptidase 14, Aspartate Amino Transf (AST/SGOT) 34, Alanine Aminotransferase (ALT/SGPT) 38, Alkaline Phosphatase 126H, Total Creatine Kinase 160, C-Reactive Protein, Quantitative 3.0H, Pro-B-Type Natriuretic Peptide 881H, Total Protein 5.8L, Albumin 2.1L, Globulin 3.7, Albumin/Globulin Ratio 0.6L, Vitamin B12 Level 461, Vitamin D 25-Hydroxy [Pending], 25-Hydroxy Vitamin D2 [Pending], 25-Hydroxy Vitamin D3 [Pending], Folate 13.9 Height (Feet): 5 Height (Inches): 2.00 Weight (Pounds): 96 General Appearance: no apparent distress, lethargic Cardiovascular: tachycardia Respiratory/Chest: decreased breath sounds Abdomen: distended Gene Pena MD Dec 06, 2020 18:36
--- NOTE | 2020-12-06 19:06 | NUR ---
NURSE HAND-OFF REPORT: Important Events on Shift:[REQUIRING ORAL SUCTION; REPOSITIONED; WOUND CARE AND PHOTO TAKEN] Patient Status: [KEPT HOB ELEVATED] Diet: [JEVITY 1.2 @60CC] Pending Orders: [LABS] Pending Results/Labs:[AM] Pending MD notification:[] Latest Vital Signs: Temperature 98.2 , Pulse 106 , B/P 109 /61 , Respiratory Rate 21 , O2 SAT 98 , Nasal Cannula, O2 Flow Rate 4.0 . Vital Sign Comment: [] EKG Rhythm: Sinus Tachycardia Rhythm change?: N MD Notified?: Akbar Gustafson MD Response: Latest Lucero Fall Score: 35 Fall Risk: Medium Risk Safety Measures: Call light Within Reach, Bed Alarm Zone 2, Side Rails Side Rails x3, Bed position Low and Locked. Fall Precautions: Yellow Socks Yellow Gown Door Sign Patient Fall Education Report given to [BONITA/KRISTIN].
--- NOTE | 2020-12-06 19:10 | NUR ---
NURSE NOTES: Received pt and report from QUINCY Whiting. Observed pt resting in bed with both eyes open. Pt is A/Ox0, nonverbal. engine monitor is in placed; ST (114 bpm). IV site intact, asymptomatic and patent; running D5W @100ml/hr. Bed is in the lowest position and locked. Call light and bedside table is within reach. No signs/symptoms of acute distress noted. Will continue plan of care.
[2020-12-06 20:00] VITALS: BP 117/62
--- NOTE | 2020-12-06 21:33 | General Progress Note ---
Subjective ROS Limited/Unobtainable: Yes Allergies: Coded Allergies: No Known Allergies (Verified , 08/01/11) Objective Last 24 Hour Vital Signs Date Time Temp Pulse Resp B/P (MAP) Pulse Ox O2 Delivery O2 Flow Rate FiO2 12/06/20 20:00 98.0 113 21 117/62 (80) 99 12/06/20 16:00 106 12/06/20 16:00 98.2 105 21 109/61 (77) 98 12/06/20 12:00 104 12/06/20 11:58 98.8 103 22 101/51 (68) 100 12/06/20 09:00 Nasal Cannula 4.0 12/06/20 08:00 98.7 106 20 131/69 (89) 100 12/06/20 08:00 105 12/06/20 04:00 100.0 109 18 97/54 (68) 100 12/06/20 04:00 109 12/06/20 00:00 98.5 113 18 95/56 (69) 100 12/06/20 00:00 113 Intake and Output 12/05/20 12/06/20 19:00 07:00 Intake Total 150 ml 1200 ml Output Total 600 ml Balance 150 ml 600 ml IV Total 1200 ml Tube Feeding 150 ml Output Other 600 ml # Voids 4 Laboratory Tests 12/06/20 04:04: White Blood Count 11.7H, Red Blood Count 3.18L, Hemoglobin 9.1L, Hematocrit 28.9L, Mean Corpuscular Volume 91, Mean Corpuscular Hemoglobin 28.7, Mean Corpuscular Hemoglobin Concent 31.7L, Red Cell Distribution Width 14.2, Platelet Count 201, Mean Platelet Volume 9.3, Neutrophils (%) (Auto) 73.3, Lymphocytes (%) (Auto) 16.1L, Monocytes (%) (Auto) 5.3, Eosinophils (%) (Auto) 4.7H, Basophils (%) (Auto) 0.6, D-Dimer 4.03H, Sodium Level 147#H, Potassium Level 3.7, Chloride Level 114H, Carbon Dioxide Level 24, Anion Gap 9, Blood Urea Nitrogen 14, Creatinine 0.5L, Estimat Glomerular Filtration Rate > 60, Glucose Level 121H, Calcium Level 7.7L, Phosphorus Level 2.6, Magnesium Level 2.1, Iron Level 19L, Total Iron Binding Capacity 142L, Percent Iron Saturation 13L, Unsaturated Iron Binding 123, Ferritin 319, Total Bilirubin 0.6, Gamma Glutamyl Transpeptidase 14, Aspartate Amino Transf (AST/SGOT) 34, Alanine Ami notransferase (ALT/SGPT) 38, Alkaline Phosphatase 126H, Total Creatine Kinase 160, C-Reactive Protein, Quantitative 3.0H, Pro-B-Type Natriuretic Peptide 881H, Total Protein 5.8L, Albumin 2.1L, Globulin 3.7, Albumin/Globulin Ratio 0.6L, Vitamin B12 Level 461, Vitamin D 25-Hydroxy [Pending], 25-Hydroxy Vitamin D2 [Pending], 25-Hydroxy Vitamin D3 [Pending], Folate 13.9 Height (Feet): 5 Height (Inches): 2.00 Weight (Pounds): 96 Assessment/Plan Problem List: (1) Parkinsons disease ICD Codes: G20 - Parkinson's disease SNOMED: 78132554 (2) Hypernatremia ICD Codes: E87.0 - Hyperosmolality and hypernatremia SNOMED: 843631405 (3) Sepsis ICD Codes: A41.9 - Sepsis, unspecified organism SNOMED: 53221032 Qualifiers: Qualified Codes: A41.9 - Sepsis, unspecified organism (4) UTI (urinary tract infection) ICD Codes: N39.0 - Urinary tract infection, site not specified SNOMED: 46079765 Qualifiers: Qualified Codes: N39.0 - Urinary tract infection, site not specified (5) Decubitus ulcer ICD Codes: L89.90 - Pressure ulcer of unspecified site, unspecified stage SNOMED: 133689009 Qualifiers: Qualified Codes: L89.90 - Pressure ulcer of unspecified site, unspecified stage Status: progressing Assessment/Plan: lyte abnormality is improvng continue fluids afebrile abx pe id poor historian sepsis uti Kelsey Looney MD Dec 06, 2020 21:33
[2020-12-07] VITALS: BP 116/63
--- NOTE | 2020-12-07 01:31 | NUR ---
NURSE NOTES: Observed pt asleep in bed. Oral suction completed. No acute distress noted. Will continue plan of care.
[2020-12-07 04:00] VITALS: BP 97/48
--- NOTE | 2020-12-07 06:34 | NUR ---
NURSE NOTES: Left a message for Dr. Marlon De Leon regarding pt's positive blood culture of Gram positive cocci in clusters. Previous bottle reported the same.
--- NOTE | 2020-12-07 07:07 | General Progress Note ---
Subjective ROS Limited/Unobtainable: No Allergies: Coded Allergies: No Known Allergies (Verified , 08/01/11) Objective Last 24 Hour Vital Signs Date Time Temp Pulse Resp B/P (MAP) Pulse Ox O2 Delivery O2 Flow Rate FiO2 12/07/20 04:00 97.7 107 21 97/48 (64) 100 12/07/20 04:00 104 12/07/20 00:00 111 12/07/20 00:00 98.2 111 20 116/63 (80) 97 12/06/20 21:00 Nasal Cannula 3.0 12/06/20 20:00 98.0 113 21 117/62 (80) 99 12/06/20 20:00 110 12/06/20 16:00 106 12/06/20 16:00 98.2 105 21 109/61 (77) 98 12/06/20 12:00 104 12/06/20 11:58 98.8 103 22 101/51 (68) 100 12/06/20 09:00 Nasal Cannula 4.0 12/06/20 08:00 98.7 106 20 131/69 (89) 100 12/06/20 08:00 105 Intake and Output 12/06/20 12/07/20 19:00 07:00 Intake Total 2120 ml 900 ml Balance 2120 ml 900 ml Intake Free Water 200 ml IV Total 1320 ml 900 ml Tube Feeding 600 ml # Voids 2 Height (Feet): 5 Height (Inches): 2.00 Weight (Pounds): 96 General Appearance: lethargic EENT: PERRL/EOMI Neck: normal alignment Cardiovascular: normal rate Respiratory/Chest: decreased breath sounds Abdomen: hypoactive bowel sounds Extremities: non-tender Assessment/Plan Status: progressing Assessment/Plan: Assessment - abnormal LFT, possibly due to sepsis, resolving - OBS - s/p PEG - decubitus ulcers Recommendations - check abd ultrasound>>>neg - follow LFT conservatively>>>improving -drop in H&H>>> on ppi -add iv iron - monitor residuals Liang Nguyen MD Dec 07, 2020 07:07
--- NOTE | 2020-12-07 07:14 | NUR ---
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 Notified Dr. Marlon De Leon regarding positive blood cultures. Patient Status: On-going/Stable Diet: Jevity 1.2 Pending Orders: N Pending Results/Labs: AM Labs Pending MD notification: N Latest Vital Signs: Temperature 97.7 , Pulse 104 , B/P 97 /48 , Respiratory Rate 21 , O2 SAT 100 , Nasal Cannula, O2 Flow Rate 3.0 . EKG Rhythm: Sinus Tachycardia Rhythm change?: N Latest Lucero Fall Score: 50 Fall Risk: High Risk Safety Measures: Call light Within Reach, Bed Alarm Zone 2, Side Rails Side Rails x3, Bed position Low and Locked. Fall Precautions: Yellow Socks Yellow Gown Door Sign Patient Fall Education Report given to MARIE Michel.
--- NOTE | 2020-12-07 07:15 | NUR ---
NURSE NOTES: Received patient in bed asleep. O2 via NC at 3LPM in place, no SOB or acute distress. IV line intact and patent. Purewick in place. Gtube intact, feeding ongoing. HOB elevated. Bed locked in low position. Call light within reach. Will continue plan of care.
[2020-12-07 08:00] VITALS: BP 103/62
[2020-12-07 08:54] LABS: ALANINE AMINOTRANSFERASE 31 U/L (12-78); ALBUMIN 1.9 G/DL (3.4-5.0); ALBUMIN/GLOBULIN RATIO 0.5 (1.0-2.7); ALKALINE PHOSPHATASE 144 U/L (46-116); ANION GAP 6 mmol/L (5-15); ASPARTATE AMINO TRANSFERASE 31 U/L (15-37); BILIRUBIN,TOTAL 0.5 MG/DL (0.2-1.0); BLOOD UREA NITROGEN 11 mg/dL (7-18); CALCIUM 7.6 MG/DL (8.5-10.1); CARBON DIOXIDE 27 MMOL/L (21-32); CHLORIDE 108 MMOL/L (98-107); CREATININE 0.5 MG/DL (0.55-1.30); POTASSIUM 3.9 MMOL/L (3.5-5.1); SODIUM 140 MMOL/L (136-145)
[2020-12-07 09:02] LABS: BASOPHILS % (AUTO) 0.4 % (0.0-2.0); EOSINOPHILS % (AUTO) 2.9 % (0.0-3.0); HEMOGLOBIN 9.6 G/DL (12.0-16.0); LYMPHOCYTES % (AUTO) 15.2 % (20.0-45.0); MEAN CORPUSCULAR VOLUME 89 FL (80-99); MONOCYTES % (AUTO) 7.5 % (1.0-10.0); NEUTROPHILS % (AUTO) 74.1 % (45.0-75.0); PLATELET COUNT 170 K/UL (150-450); RED BLOOD COUNT 3.37 M/UL (4.20-5.40); RED CELL DISTRIBUTION WIDTH 14.4 % (11.6-14.8); WHITE BLOOD COUNT 11.4 K/UL (4.8-10.8)
[2020-12-07] MEDS: Zinc Sulfate 220mg GT SCH (09:08)
[2020-12-07] MEDS: Docusate 100mg/10ml Liq GT SCH ×2 (09:08→18:16)
[2020-12-07] MEDS: Pantoprazole Inj IVP SCH ×2 (09:09→21:06)
[2020-12-07] MEDS: Ascorbic Acid 500mg tab GT SCH ×2 (09:09→18:16)
[2020-12-07] MEDS ORDERED: DULCOLAX10 MG RC (10:20)
[2020-12-07] MEDS ORDERED: SODIUM CHLORIDE1 GM PO (10:20)
[2020-12-07] MEDS ORDERED: FLEET ENEMA133 ML RECTAL (10:20)
[2020-12-07] MEDS ORDERED: MILK OF MA400 MG/51 GT (10:20)
[2020-12-07] MEDS ORDERED: CRANBERRY450 M4 PO (10:20)
--- NOTE | 2020-12-07 10:23 | Nephrology Progress Note ---
Assessment/Plan Problem List: (1) MAUREEN (acute kidney injury) (2) Dehydration (3) Hypernatremia (4) Sepsis (5) UTI (urinary tract infection) (6) Decubitus ulcer Assessment Renal failure, dehydration Hypernatremia, due to free water deficit Sepsis, leukocytosis Malnutrition, hypoalbuminemia Alzheimer's Underlying anemia as the patient continues to be hydrated Plan December 07: Labs reviewed. Serum sodium normal. IV discontinued. Midodrine for low blood pressure initiated. December 06: Serum sodium lowering. Continue hydration. Medication list reviewed. Previously: D5W hydration Antibiotics Avoid nephrotoxic's Improve nutritional state Monitor renal parameters electrolytes Anemia work-up Subjective ROS Limited/Unobtainable: No Constitutional: Reports: malaise Objective Objective Last 24 Hour Vital Signs Date Time Temp Pulse Resp B/P (MAP) Pulse Ox O2 Delivery O2 Flow Rate FiO2 12/07/20 08:00 97.0 104 22 103/62 (76) 100 12/07/20 04:00 97.7 107 21 97/48 (64) 100 12/07/20 04:00 104 12/07/20 00:00 111 12/07/20 00:00 98.2 111 20 116/63 (80) 97 12/06/20 21:00 Nasal Cannula 3.0 12/06/20 20:00 98.0 113 21 117/62 (80) 99 12/06/20 20:00 110 12/06/20 16:00 106 12/06/20 16:00 98.2 105 21 109/61 (77) 98 12/06/20 12:00 104 12/06/20 11:58 98.8 103 22 101/51 (68) 100 Intake and Output 12/06/20 12/07/20 19:00 07:00 Intake Total 2120 ml 900 ml Balance 2120 ml 900 ml Intake Free Water 200 ml IV Total 1320 ml 900 ml Tube Feeding 600 ml # Voids 2 Current Medications Medications (Trade) Dose Ordered Sig/Rosy Route PRN Reason Start Time Stop Time Status Last Admin Dose Admin Acetaminophen (Tylenol) 500 mg Q4H PRN GT For Pain 12/04/20 18:30 01/03/21 18:29 Ascorbic Acid (Vitamin C) 250 mg TWICE A DAY GT 12/06/20 18:00 01/05/21 17:59 12/07/20 09:09 Barium Sulfate (Varibar Honey) 250 ml NOW PRN MC RAD 12/04/20 18:45 12/07/20 18:30 Barium Sulfate (Varibar [place]) 240 ml NOW PRN MC RAD 12/04/20 18:45 12/07/20 18:30 Barium Sulfate (Varibar Pudding) 230 ml NOW PRN MC RAD 12/04/20 18:45 12/07/20 18:30 Barium Sulfate (Varibar Thin Liquid powder) 148 gm NOW PRN MC RAD 12/04/20 18:45 12/07/20 18:30 Ceftriaxone Sodium 1 gm/ Dextrose 55 ml @ 110 mls/hr Q24H IVPB 12/05/20 15:00 12/12/20 14:59 12/06/20 15:06 Dextrose 1,000 ml @ 100 mls/hr Q10H IV 12/04/20 18:15 01/03/21 18:14 12/07/20 06:23 Docusate Sodium (Colace) 100 mg TWICE A DAY GT 12/05/20 11:07 01/04/21 11:06 12/07/20 09:08 Iron Sucrose 100 mg/Sodium Chloride 60 ml @ 240 mls/hr BEDTIME IVPB 12/07/20 21:00 12/11/20 21:14 Pantoprazole (Protonix) 40 mg EVERY 12 HOURS IVP 12/04/20 21:00 01/03/21 20:59 12/07/20 09:09 Vancomycin HCl ([facility] pharmacy to dose) 1 ea DAILY PRN MISC Per rx protocol 12/05/20 12:45 01/04/21 12:44 Vancomycin HCl 500 mg/Dextrose 110 ml @ 110 mls/hr Q24H IVPB 12/05/20 16:00 12/10/20 15:59 12/06/20 15:56 Zinc Sulfate (Zinc Sulfate) 220 mg DAILY GT 12/07/20 09:00 12/17/20 08:59 12/07/20 09:08 Laboratory Tests 12/07/20 08:20: White Blood Count 11.4H, Red Blood Count 3.37L, Hemoglobin 9.6L, Hematocrit 30.0L, Mean Corpuscular Volume 89, Mean Corpuscular Hemoglobin 28.5, Mean Corpuscular Hemoglobin Concent 32.0, Red Cell Distribution Width 14.4, Platelet Count 170, Mean Platelet Volume 9.8, Neutrophils (%) (Auto) 74.1, Lymphocytes (%) (Auto) 15.2L, Monocytes (%) (Auto) 7.5, Eosinophils (%) (Auto) 2.9, Basophils (%) (Auto) 0.4, Sodium Level 140, Potassium Level 3.9, Chloride Level 108H, Carbon Dioxide Level 27, Anion Gap 6, Blood Urea Nitrogen 11, Creatinine 0.5L, Estimat Glomerular Filtration Rate > 60, Glucose Level 191H, Calcium Level 7.6L, Total Bilirubin 0.5, Aspartate Amino Transf (AST/SGOT) 31, Alanine Aminotransferase (ALT/SGPT) 31, Alkaline Phosphatase 144H, Total Protein 5.6L, Albumin 1.9L, Globulin 3.7, Albumin/Globulin Ratio 0.5L Height (Feet): 5 Height (Inches): 2.00 Weight (Pounds): 96 General Appearance: no apparent distress Cardiovascular: tachycardia Respiratory/Chest: decreased breath sounds Abdomen: soft Gene Pena MD Dec 07, 2020 10:23
--- NOTE | 2020-12-07 11:08 | Pulmonology Progress Note ---
Subjective ROS Limited/Unobtainable: No Interval Events: None new reported Constitutional: Reports: no symptoms Respiratory: Reports: no symptoms Cardiovascular: Reports: no symptoms Gastrointestinal/Abdominal: Reports: no symptoms Genitourinary: Reports: no symptoms Allergies: Coded Allergies: No Known Allergies (Verified , 08/01/11) Objective Last 24 Hour Vital Signs Date Time Temp Pulse Resp B/P (MAP) Pulse Ox O2 Delivery O2 Flow Rate FiO2 12/07/20 08:00 97.0 104 22 103/62 (76) 100 12/07/20 08:00 107 12/07/20 04:00 97.7 107 21 97/48 (64) 100 12/07/20 04:00 104 12/07/20 00:00 111 12/07/20 00:00 98.2 111 20 116/63 (80) 97 12/06/20 21:00 Nasal Cannula 3.0 12/06/20 20:00 98.0 113 21 117/62 (80) 99 12/06/20 20:00 110 12/06/20 16:00 106 12/06/20 16:00 98.2 105 21 109/61 (77) 98 12/06/20 12:00 104 12/06/20 11:58 98.8 103 22 101/51 (68) 100 Intake and Output 12/06/20 12/07/20 19:00 07:00 Intake Total 2120 ml 900 ml Balance 2120 ml 900 ml Intake Free Water 200 ml IV Total 1320 ml 900 ml Tube Feeding 600 ml # Voids 2 General Appearance: no acute distress HEENT: normocephalic Respiratory: chest wall non-tender, decreased breath sounds Cardiovascular: normal peripheral pulses Abdomen: normal bowel sounds Microbiology Date/Time Source Procedure Growth Status 12/04/20 16:35 Rectum VRE Culture - Final NO VANCOMYCIN RESISTANT ENTEROCOCCUS ... Complete 12/04/20 16:35 Nasal Nares MRSA Culture - Final Staphylococcus Aureus - Mrsa Complete 12/04/20 15:45 Urine,Clean Catch Urine Culture - Final NO GROWTH AFTER 48 HOURS Complete 12/04/20 15:40 Nasopharynx Coronavirus COVID-19 PCR ([facility]) - Final Complete 12/04/20 14:00 Blood Blood Culture - Preliminary Staphylococcus Sp Coag Neg Resulted 12/04/20 13:30 Blood Blood Culture - Preliminary Staphylococcus Sp Coag Neg Resulted Laboratory Tests 12/07/20 08:20: White Blood Count 11.4H, Red Blood Count 3.37L, Hemoglobin 9.6L, Hematocrit 30.0L, Mean Corpuscular Volume 89, Mean Corpuscular Hemoglobin 28.5, Mean C orpuscular Hemoglobin Concent 32.0, Red Cell Distribution Width 14.4, Platelet Count 170, Mean Platelet Volume 9.8, Neutrophils (%) (Auto) 74.1, Lymphocytes (%) (Auto) 15.2L, Monocytes (%) (Auto) 7.5, Eosinophils (%) (Auto) 2.9, Basoph ils (%) (Auto) 0.4, Sodium Level 140, Potassium Level 3.9, Chloride Level 108H, Carbon Dioxide Level 27, Anion Gap 6, Blood Urea Nitrogen 11, Creatinine 0.5L, Estimat Glomerular Filtration Rate > 60, Glucose Level 191H, Calcium Level 7.6L, Phosphorus Level 3.0, Magnesium Level 2.1, Total Bilirubin 0.5, Aspartate Amino Transf (AST/SGOT) 31, Alanine Aminotransferase (ALT/SGPT) 31, Alkaline Phosphatase 144H, Total Protein 5.6L, Albumin 1.9L, Globulin 3.7, Albumin/Globulin Ratio 0.5L Current Medications Medications (Trade) Dose Ordered Sig/Rosy Route PRN Reason Start Time Stop Time Status Last Admin Dose Admin Acetaminophen (Tylenol) 500 mg Q4H PRN GT For Pain 12/04/20 18:30 01/03/21 18:29 Ascorbic Acid (Vitamin C) 250 mg TWICE A DAY GT 12/06/20 18:00 01/05/21 17:59 12/07/20 09:09 Barium Sulfate (Varibar Honey) 250 ml NOW PRN MC RAD 12/04/20 18:45 12/07/20 18:30 Barium Sulfate (Varibar [place]) 240 ml NOW PRN MC RAD 12/04/20 18:45 12/07/20 18:30 Barium Sulfate (Varibar Pudding) 230 ml NOW PRN MC RAD 12/04/20 18:45 12/07/20 18:30 Barium Sulfate (Varibar Thin Liquid powder) 148 gm NOW PRN MC RAD 12/04/20 18:45 12/07/20 18:30 Ceftriaxone Sodium 1 gm/ Dextrose 55 ml @ 110 mls/hr Q24H IVPB 12/05/20 15:00 12/12/20 14:59 12/06/20 15:06 Dextrose 1,000 ml @ 100 mls/hr Q10H IV 12/04/20 18:15 01/03/21 18:14 12/07/20 06:23 Docusate Sodium (Colace) 100 mg TWICE A DAY GT 12/05/20 11:07 01/04/21 11:06 12/07/20 09:08 Iron Sucrose 100 mg/Sodium Chloride 60 ml @ 240 mls/hr BEDTIME IVPB 12/07/20 21:00 12/11/20 21:14 Pantoprazole (Protonix) 40 mg EVERY 12 HOURS IVP 12/04/20 21:00 01/03/21 20:59 12/07/20 09:09 Vancomycin HCl ([facility] pharmacy to dose) 1 ea DAILY PRN MISC Per rx protocol 12/05/20 12:45 01/04/21 12:44 Vancomycin HCl 500 mg/Dextrose 110 ml @ 110 mls/hr Q24H IVPB 12/05/20 16:00 12/10/20 15:59 12/06/20 15:56 Zinc Sulfate (Zinc Sulfate) 220 mg DAILY GT 12/07/20 09:00 12/17/20 08:59 12/07/20 09:08 Assessment/Plan Assessment/Plan 1 .Renal failure, dehydration -Nephro following 2. Sepsis -ID following -WBC trending down - On vancomycin and ceftriaxone 3. COVID-19 negative 4. Hypoxia -Continue providing supplemental oxygen as she is hypoxic on room air -Wean down as tolerated 5. Elevated CRP -elevated D-dimer as well Patric Zapata MD Dec 07, 2020 11:08
[2020-12-07 12:00] VITALS: BP 107/59
--- NOTE | 2020-12-07 13:05 | Surgery Progress Note ---
Surgery Progress Note Subjective Additional Comments Leukocytosis improving. H&H down but stable now. No nausea vomiting. No active bleeding. Objective Last 24 Hour Vital Signs Date Time Temp Pulse Resp B/P (MAP) Pulse Ox O2 Delivery O2 Flow Rate FiO2 12/07/20 09:00 Nasal Cannula 3.0 12/07/20 08:00 97.0 104 22 103/62 (76) 100 12/07/20 08:00 107 12/07/20 04:00 97.7 107 21 97/48 (64) 100 12/07/20 04:00 104 12/07/20 00:00 111 12/07/20 00:00 98.2 111 20 116/63 (80) 97 12/06/20 21:00 Nasal Cannula 3.0 12/06/20 20:00 98.0 113 21 117/62 (80) 99 12/06/20 20:00 110 12/06/20 16:00 106 12/06/20 16:00 98.2 105 21 109/61 (77) 98 I&O Intake and Output 12/06/20 12/07/20 19:00 07:00 Intake Total 2120 ml 900 ml Balance 2120 ml 900 ml Intake Free Water 200 ml IV Total 1320 ml 900 ml Tube Feeding 600 ml # Voids 2 Dressing: saturated Cardiovascular: RSR Respiratory: decreased breath sounds Abdomen: soft, non-tender, present bowel sounds Extremities: no tenderness, no cyanosis Laboratory Tests Test 12/07/20 08:20 White Blood Count 11.4 K/UL (4.8-10.8) H Red Blood Count 3.37 M/UL (4.20-5.40) L Hemoglobin 9.6 G/DL (12.0-16.0) L Hematocrit 30.0 % (37.0-47.0) L Mean Corpuscular Volume 89 FL (80-99) Mean Corpuscular Hemoglobin 28.5 PG (27.0-31.0) Mean Corpuscular Hemoglobin Concent 32.0 G/DL (32.0-36.0) Red Cell Distribution Width 14.4 % (11.6-14.8) Platelet Count 170 K/UL (150-450) Mean Platelet Volume 9.8 FL (6.5-10.1) Neutrophils (%) (Auto) 74.1 % (45.0-75.0) Lymphocytes (%) (Auto) 15.2 % (20.0-45.0) L Monocytes (%) (Auto) 7.5 % (1.0-10.0) Eosinophils (%) (Auto) 2.9 % (0.0-3.0) Basophils (%) (Auto) 0.4 % (0.0-2.0) Sodium Level 140 MMOL/L (136-145) Potassium Level 3.9 MMOL/L (3.5-5.1) Chloride Level 108 MMOL/L (98-107) H Carbon Dioxide Level 27 MMOL/L (21-32) Anion Gap 6 mmol/L (5-15) Blood Urea Nitrogen 11 mg/dL (7-18) Creatinine 0.5 MG/DL (0.55-1.30) L Estimat Glomerular Filtration Rate > 60 mL/min (>60) Glucose Level 191 MG/DL (74-106) H Calcium Level 7.6 MG/DL (8.5-10.1) L Phosphorus Level 3.0 MG/DL (2.5-4.9) Magnesium Level 2.1 MG/DL (1.8-2.4) Total Bilirubin 0.5 MG/DL (0.2-1.0) Aspartate Amino Transf (AST/SGOT) 31 U/L (15-37) Alanine Aminotransferase (ALT/SGPT) 31 U/L (12-78) Alkaline Phosphatase 144 U/L (46-116) H Total Protein 5.6 G/DL (6.4-8.2) L Albumin 1.9 G/DL (3.4-5.0) L Globulin 3.7 g/dL Albumin/Globulin Ratio 0.5 (1.0-2.7) L Plan Problems: (1) Parkinsons disease (2) Hypernatremia (3) Sepsis Assessment & Plan: 85-year-old female presented with leukocytosis now with anemia leukocytosis abnormal labs malnutrition wounds identified unlikely source of patient's sepsis or infectious etiology. Urine noted. Antibiotics per infectious disease. Unlikely cholecystitis. Abdominal exam otherwise fairly benign. No acute surgical invention planned at this time. Continue IV antibiotics continue nutrition continue local wound care we will follow the recommendations thank you DAILY ESTIMATED NEEDS: Needs based on Wounds, underweight/ 43.5kg 30-35 kcals/kg 8565-9040 total kcals 1.25-1.5 g protein/kg 54-65 g total protein 25-30 mL/kg 7935-3264 total fluid mLs NUTRITION DIAGNOSIS: Increased kcal/prot needs R/T wound healing and underweight status as evidenced by pt admitted w/ multiple wounds @ BL foot, pending eval, pt @ 87% IBW w/ BMI of 17.6, low BMI per guidelines. CURRENT TF:Jevity 1.2 @ 60ml/hr x 24 hrs ENTERAL NUTRITION RECOMMENDATIONS: Jevity 1.2 @ 50ml/hr x 24 hrs to provide 1200ml, 1440kcal, 67g prot, 968ml free water * Rec goal rate of 50ml/hr x 24 hrs- meets 100% est kcal/prot needs * HOB over 30 degrees/ water flush per MD ADDITIONAL RECOMMENDATIONS: * Calibrated bedscale wt for accurate CBW * Monitor lytes, replete as needed * F/up w/ WC eval -> TF @ goal meeds 100% RDI add Vit C 500mg, ZnSO4 220mg QD x 10 days, Jonathon BID Liver: The liver measures 12 cm. No intrahepatic bile duct dilation. Gallbladder: No cholelithiasis. No gallbladder wall thickening. Common bile duct: Nondilated common bile duct measuring 5 mm. Pancreas: Poorly visualized pancreas. Kidneys: The right kidney was poorly visualized. The left kidney measures 9.9 cm. No hydronephrosis or nephrolithiasis. Spleen: The spleen measures 10.6 cm. Aorta: The proximal aorta measures 1.1 cm. No aneurysm. Inferior vena cava: Unremarkable. IMPRESSION: No ultrasound evidence of acute cholecystitis. No hepatic steatosis. (4) UTI (urinary tract infection) (5) Decubitus ulcer Assessment & Plan: Pt presented on admission emaciated, with contractures and multiple Pressure Injuries. Non-Blanchable erythema without induration/fluctuance R Elbow. Non-Blanchable erythema without induration/fluctuance L elbow. DTPI R trochanteric (L)7.5cm x (W)7.6cm. Clusters of Indurated and maroon Pressure injuries that are in close proximity R trochanter. Non-Blanchable erythema without induration L trochanter(L)8cm x (W)6.5cm. No evidence of skin breakdown to sacrum. Non-Blanchable erythema without induration/fluctuance noted to distal/lateral L Tibia(L)6cm x (W)0.8cm. Unstageable pressure Injury L Hallux(L)3.5cm x (W)3.2cm. Base of wound is 100% necrotic. Edges are adherent with marginal erythema. No odor or exudate noted. DTPI Medial /Lateral L Foot(L)2.5cm x (W)1cm.Base of Wound is maroon and fluctuant. DTPI distal/lateral L foot(L)2.5cm x (W)2.6cm. Base of Pressure Injury is fluctuant with marginal erythema. L heel is soft but easily blanchable. R Heel is soft but easily blanchable. DTPI R Hallux(L)5cm x (W)2.5cm. Reabsorbing blood Blister noted. Edges are adherent to base of Pressure Injury. Unstageable Pressure Injury distal/lateral R foot (L)1.5cm x (W)1.9cm. Dry brown eschar with adherent borders.Periwound is blanchable but fluctuant. Tx.plan: Apply Moisture Barrier Paste to Sacrum. Cover with Optifoam drsg. Change every 3 days and prn. Apply Cavilon Skin Barrier to R and L trochanteric areas. Cover each site with Optifoam drsgs. Change every 7 days and prn. Apply Betadine to Pressure Injuries L foot. Cover each site with Optifoam drsgs. Change every 3 days and prn. Apply Betadine to Pressure Injuries R foot. Cover each site with Optifoam drsdgs. Change every 3 days and prn. Apply Cavilon Skin Barrier to both heels. Cover each site with Optifoam drsgs. Change every 7 days and prn. Apply Cavilon Skin Barrier to R and L elbows. Cover each Elbow with Optifoam drsgs.Change every 7 days and prn. Cover Bony prominences as needed with Optifoam drsgs. Reposition at least every 2hours or as tolerated. Off-load heels with Pillow. APM/PURVI Mattress overlay. Kristofer Parra Dec 07, 2020 13:05
[2020-12-07] MEDS: cefTRIAXone 1 GM in D5W 55 ML IVPB SCH (15:12)
--- NOTE | 2020-12-07 15:19 | General Progress Note ---
Subjective ROS Limited/Unobtainable: Yes Allergies: Coded Allergies: No Known Allergies (Verified , 08/01/11) Objective Last 24 Hour Vital Signs Date Time Temp Pulse Resp B/P (MAP) Pulse Ox O2 Delivery O2 Flow Rate FiO2 12/07/20 12:00 97.5 108 22 107/59 (75) 93 12/07/20 12:00 103 12/07/20 09:00 Nasal Cannula 3.0 12/07/20 08:00 97.0 104 22 103/62 (76) 100 12/07/20 08:00 107 12/07/20 04:00 97.7 107 21 97/48 (64) 100 12/07/20 04:00 104 12/07/20 00:00 111 12/07/20 00:00 98.2 111 20 116/63 (80) 97 12/06/20 21:00 Nasal Cannula 3.0 12/06/20 20:00 98.0 113 21 117/62 (80) 99 12/06/20 20:00 110 12/06/20 16:00 106 12/06/20 16:00 98.2 105 21 109/61 (77) 98 Intake and Output 12/06/20 12/07/20 19:00 07:00 Intake Total 2120 ml 900 ml Balance 2120 ml 900 ml Intake Free Water 200 ml IV Total 1320 ml 900 ml Tube Feeding 600 ml # Voids 2 Laboratory Tests 12/07/20 08:20: White Blood Count 11.4H, Red Blood Count 3.37L, Hemoglobin 9.6L, Hematocrit 30.0L, Mean Corpuscular Volume 89, Mean Corpuscular Hemoglobin 28.5, Mean Corpuscular Hemoglobin Concent 32.0, Red Cell Distribution Width 14.4, Platelet Count 170, Mean Platelet Volume 9.8, Neutrophils (%) (Auto) 74.1, Lymphocytes (%) (Auto) 15.2L, Monocytes (%) (Auto) 7.5, Eosinophils (%) (Auto) 2.9, Basophils (%) (Auto) 0.4, Sodium Level 140, Potassium Level 3.9, Chloride Level 108H, Carbon Dioxide Level 27, Anion Gap 6, Blood Urea Nitrogen 11, Creatinine 0.5L, Estimat Glomerular Filtration Rate > 60, Glucose Level 191H, Calcium Level 7.6L, Phosphorus Level 3.0, Magnesium Level 2.1, Total Bilirubin 0.5, Aspartate Amino Transf (AST/SGOT) 31, Alanine Aminotransferase (ALT/SGPT) 31, Alkaline Phosphatase 144H, Total Protein 5.6L, Albumin 1.9L, Globulin 3.7, Albumin/Globulin Ratio 0.5L Height (Feet): 5 Height (Inches): 2.00 Weight (Pounds): 96 Assessment/Plan Problem List: (1) Parkinsons disease ICD Codes: G20 - Parkinson's disease SNOMED: 81648762 (2) Hypernatremia ICD Codes: E87.0 - Hyperosmolality and hypernatremia SNOMED: 057407835 (3) Sepsis ICD Codes: A41.9 - Sepsis, unspecified organism SNOMED: 90338274 Qualifiers: Qualified Codes: A41.9 - Sepsis, unspecified organism (4) UTI (urinary tract infection) ICD Codes: N39.0 - Urinary tract infection, site not specified SNOMED: 77042051 Qualifiers: Qualified Codes: N39.0 - Urinary tract infection, site not specified (5) Decubitus ulcer ICD Codes: L89.90 - Pressure ulcer of unspecified site, unspecified stage SNOMED: 349471406 Qualifiers: Qualified Codes: L89.90 - Pressure ulcer of unspecified site, unspecified stage Status: progressing Assessment/Plan: hypernatremia is improving azotemia dehydartion improving abx per Id sepsis uti Kelsey Looney MD Dec 07, 2020 15:19
[2020-12-07] MEDS: Vancomycin 500mg/D5W 110ml IVPB SCH ×2 (15:55)
[2020-12-07 16:00] VITALS: BP 104/59
--- NOTE | 2020-12-07 17:16 | Cardiac Electrophysiology PN ---
Assessment/Plan Assessment/Plan 1. Transient atrial fib with RVR, due to sepsis with white count 25,000. The patient is already on vancomycin and ceftriaxone. EF 65%. Add Cardizem 30 po tid 2. Severe hypernatremia and azotemia. Resolved with IV fluid, per Dr. Pena. 3. Dysphagia, status post PEG placement. 4. History of psychiatric history. 5. Respiratory failure, currently on IV antibiotic and 2 L nasal cannula. Subjective Subjective Covid negative. On 3 liter NC in sinus tach 100s. Had transient atrial fib with RVR. S/P Abd US. GT feeding ongoing Objective Last 24 Hour Vital Signs Date Time Temp Pulse Resp B/P (MAP) Pulse Ox O2 Delivery O2 Flow Rate FiO2 12/07/20 16:00 97.4 113 20 104/59 (74) 99 12/07/20 12:00 97.5 108 22 107/59 (75) 93 12/07/20 12:00 103 12/07/20 09:00 Nasal Cannula 3.0 12/07/20 08:00 97.0 104 22 103/62 (76) 100 12/07/20 08:00 107 12/07/20 04:00 97.7 107 21 97/48 (64) 100 12/07/20 04:00 104 12/07/20 00:00 111 12/07/20 00:00 98.2 111 20 116/63 (80) 97 12/06/20 21:00 Nasal Cannula 3.0 12/06/20 20:00 98.0 113 21 117/62 (80) 99 12/06/20 20:00 110 Intake and Output 12/06/20 12/07/20 19:00 07:00 Intake Total 2120 ml 900 ml Balance 2120 ml 900 ml Intake Free Water 200 ml IV Total 1320 ml 900 ml Tube Feeding 600 ml # Voids 2 Laboratory Tests Test 12/07/20 08:20 White Blood Count 11.4 K/UL (4.8-10.8) H Red Blood Count 3.37 M/UL (4.20-5.40) L Hemoglobin 9.6 G/DL (12.0-16.0) L Hematocrit 30.0 % (37.0-47.0) L Mean Corpuscular Volume 89 FL (80-99) Mean Corpuscular Hemoglobin 28.5 PG (27.0-31.0) Mean Corpuscular Hemoglobin Concent 32.0 G/DL (32.0-36.0) Red Cell Distribution Width 14.4 % (11.6-14.8) Platelet Count 170 K/UL (150-450) Mean Platelet Volume 9.8 FL (6.5-10.1) Neutrophils (%) (Auto) 74.1 % (45.0-75.0) Lymphocytes (%) (Auto) 15.2 % (20.0-45.0) L Monocytes (%) (Auto) 7.5 % (1.0-10.0) Eosinophils (%) (Auto) 2.9 % (0.0-3.0) Basophils (%) (Auto) 0.4 % (0.0-2.0) Sodium Level 140 MMOL/L (136-145) Potassium Level 3.9 MMOL/L (3.5-5.1) Chloride Level 108 MMOL/L (98-107) H Carbon Dioxide Level 27 MMOL/L (21-32) Anion Gap 6 mmol/L (5-15) Blood Urea Nitrogen 11 mg/dL (7-18) Creatinine 0.5 MG/DL (0.55-1.30) L Estimat Glomerular Filtration Rate > 60 mL/min (>60) Glucose Level 191 MG/DL (74-106) H Calcium Level 7.6 MG/DL (8.5-10.1) L Phosphorus Level 3.0 MG/DL (2.5-4.9) Magnesium Level 2.1 MG/DL (1.8-2.4) Total Bilirubin 0.5 MG/DL (0.2-1.0) Aspartate Amino Transf (AST/SGOT) 31 U/L (15-37) Alanine Aminotransferase (ALT/SGPT) 31 U/L (12-78) Alkaline Phosphatase 144 U/L (46-116) H Total Protein 5.6 G/DL (6.4-8.2) L Albumin 1.9 G/DL (3.4-5.0) L Globulin 3.7 g/dL Albumin/Globulin Ratio 0.5 (1.0-2.7) L Objective HEAD AND NECK: No JVD. LUNGS: Decreased breath sounds. CARDIOVASCULAR: Regular S1 and S2 gallop, tachycardic. ABDOMEN: Status post G-tube. EXTREMITIES: No pitting edema. Efrain Gustafson MD Dec 07, 2020 17:16
--- NOTE | 2020-12-07 19:41 | NUR ---
NURSE HAND-OFF REPORT: Important Events on Shift: Patient Status: obtunded Diet: Jevity 1.2 x 60cc/hr Pending Orders: Pending Results/Labs: Pending MD notification: Latest Vital Signs: Temperature 97.4 , Pulse 113 , B/P 104 /59 , Respiratory Rate 20 , O2 SAT 99 , Nasal Cannula, O2 Flow Rate 3.0 . Vital Sign Comment: EKG Rhythm: Sinus Tachycardia Rhythm change?: N MD Notified?: MD Response: Latest Lucero Fall Score: 50 Fall Risk: High Risk Safety Measures: Call light Within Reach, Bed Alarm Zone 2, Side Rails Side Rails x3, Bed position Low and Locked. Fall Precautions: Yellow Socks Yellow Gown Door Sign Patient Fall Education Report given to Renu SALAZAR.
--- NOTE | 2020-12-07 19:42 | NUR ---
NURSE NOTES: Received pt and report from MARIE Michel. Observed pt resting in bed with both eyes closed; arousable to light touch. Pt is A/Ox0, nonverbal. telemetry monitor is in placed; ST (110 bpm). Pt is on G-tube feeding; Jevity 1.2 @ 60ml/hr; no residual noted. Aspiration precaution noted; HOB at 30 degrees and suction at bedside. IV site intact, asymptomatic and patent; saline locked. Pt is contracted on all four extremities. Bed is in the lowest position and locked. Call light and bedside table is within reach. No signs/symptoms of acute distress noted. Will continue plan of care.
[2020-12-07 20:00] VITALS: BP 101/55
[2020-12-07] MEDS: Iron Sucrose 100 MG in NS 55 ML IVPB SCH (21:06)
[2020-12-07] MEDS: dilTIAZem HCl 30mg tab ORAL SCH (21:59)
[2020-12-08] VITALS (11 sets, daily range): BP systolic 84–114; BP diastolic 41–66
--- NOTE | 2020-12-08 01:31 | NUR ---
NURSE NOTES: Observed pt resting in bed with both eyes closed; arousable to light touch. No SOB or acute distress noted. Will continue plan of care.
[2020-12-08] MEDS: dilTIAZem HCl 30mg tab ORAL SCH (05:29)
--- NOTE | 2020-12-08 07:20 | NUR ---
NURSE HAND-OFF REPORT: Important Events on Shift: No significant changes during night clerk. No signs/symptoms of SOB or acute distress noted. Patient Status: Stable Diet: Jevity 1.2 @60ml/hr Pending Orders: N Pending Results/Labs: AM Labs Pending MD notification: N Latest Vital Signs: Temperature 98.3 , Pulse 112 , B/P 106 /54 , Respiratory Rate 22 , O2 SAT 98 , Nasal Cannula, O2 Flow Rate 3.0 . EKG Rhythm: Sinus Tachycardia Rhythm change?: N Latest Lucero Fall Score: 50 Fall Risk: High Risk Safety Measures: Call light Within Reach, Bed Alarm Zone 2, Side Rails Side Rails x3, Bed position Low and Locked. Fall Precautions: Yellow Socks Yellow Gown Door Sign Patient Fall Education Report given to MARIE Lazaro.
--- NOTE | 2020-12-08 07:41 | NUR ---
NURSE NOTES: Received pt and report from MARIE Sears. Pt AOx0, nonverbal. IV site intact, asymptomatic and patent; SL. Gtube noted. No feeding at this time as there is no active order. Wounds noted, covered w/ optifoam. Bed is in the lowest position and locked. Call light and bedside table is within reach. No signs/symptoms of acute distress noted. Will continue plan of care.
[2020-12-08] MEDS: Zinc Sulfate 220mg GT SCH (08:00)
[2020-12-08] MEDS: Ascorbic Acid 500mg tab GT SCH ×2 (08:00→17:16)
--- NOTE | 2020-12-08 08:00 | NUR ---
NURSE NOTES: Notified Khorrami of Pt NPO status, feeding restarted.
[2020-12-08] MEDS: Pantoprazole Inj IVP SCH (08:01)
[2020-12-08] MEDS: Docusate 100mg/10ml Liq GT SCH ×2 (08:01→17:16)
[2020-12-08 08:44] LABS: BASOPHILS % (AUTO) 0.3 % (0.0-2.0); EOSINOPHILS % (AUTO) 1.9 % (0.0-3.0); HEMATOCRIT 29.1 % (37.0-47.0); HEMOGLOBIN 9.4 G/DL (12.0-16.0); LYMPHOCYTES % (AUTO) 10.3 % (20.0-45.0); MEAN CORPUSCULAR VOLUME 88 FL (80-99); MONOCYTES % (AUTO) 5.9 % (1.0-10.0); NEUTROPHILS % (AUTO) 81.6 % (45.0-75.0); PLATELET COUNT 194 K/UL (150-450); RED BLOOD COUNT 3.32 M/UL (4.20-5.40); RED CELL DISTRIBUTION WIDTH 14.2 % (11.6-14.8); WHITE BLOOD COUNT 12.7 K/UL (4.8-10.8)
--- NOTE | 2020-12-08 10:09 | Infectious Diseases Prog Note ---
Assessment/Plan Assessment/Plan IMPRESSION: 1. Sepsis 2. Positive blood culture likely contamination 3. Leukocytosis. 4. Hypernatremia. 5. Anemia. 6. Pressure ulcer. 7. Alzheimer dementia. 8. Parkinson disease. 9. 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 Subjective ROS Limited/Unobtainable: Yes Constitutional: Denies: fever Allergies: Coded Allergies: No Known Allergies (Verified , 08/01/11) Objective Last 24 Hour Vital Signs Date Time Temp Pulse Resp B/P (MAP) Pulse Ox O2 Delivery O2 Flow Rate FiO2 12/08/20 09:00 Nasal Cannula 3.0 12/08/20 08:00 104 12/08/20 08:00 98.9 108 22 94/66 (75) 98 12/08/20 05:29 112 106/54 12/08/20 04:00 98.3 112 22 98/53 (68) 98 12/08/20 04:00 114 12/08/20 00:00 108 12/08/20 00:00 97.6 108 21 99/60 (73) 98 12/07/20 21:59 112 109/56 12/07/20 21:00 Nasal Cannula 3.0 12/07/20 20:00 98.5 112 21 101/55 (70) 98 12/07/20 20:00 111 12/07/20 16:00 97.4 113 20 104/59 (74) 99 12/07/20 16:00 113 12/07/20 12:00 97.5 108 22 107/59 (75) 93 12/07/20 12:00 103 Height (Feet): 5 Height (Inches): 2.00 Weight (Pounds): 96 HEENT: mucous membranes moist Respiratory/Chest: lungs clear Cardiovascular: tachycardia Abdomen: soft, non tender, other - GT feeding Extremities: no edema Skin: ulcers Neurologic/Psychiatric: unresponsiveness Laboratory Tests Test 12/08/20 07:33 White Blood Count 12.7 K/UL (4.8-10.8) H Red Blood Count 3.32 M/UL (4.20-5.40) L Hemoglobin 9.4 G/DL (12.0-16.0) L Hematocrit 29.1 % (37.0-47.0) L Mean Corpuscular Volume 88 FL (80-99) Mean Corpuscular Hemoglobin 28.2 PG (27.0-31.0) Mean Corpuscular Hemoglobin Concent 32.2 G/DL (32.0-36.0) Red Cell Distribution Width 14.2 % (11.6-14.8) Platelet Count 194 K/UL (150-450) Mean Platelet Volume 10.7 FL (6.5-10.1) H Neutrophils (%) (Auto) 81.6 % (45.0-75.0) H Lymphocytes (%) (Auto) 10.3 % (20.0-45.0) L Monocytes (%) (Auto) 5.9 % (1.0-10.0) Eosinophils (%) (Auto) 1.9 % (0.0-3.0) Basophils (%) (Auto) 0.3 % (0.0-2.0) Current Medications Medications (Trade) Dose Ordered Sig/Rosy Route PRN Reason Start Time Stop Time Status Last Admin Dose Admin Acetaminophen (Tylenol) 500 mg Q4H PRN GT For Pain 12/04/20 18:30 01/03/21 18:29 Ascorbic Acid (Vitamin C) 250 mg TWICE A DAY GT 12/06/20 18:00 01/05/21 17:59 12/08/20 08:00 Ceftriaxone Sodium 1 gm/ Dextrose 55 ml @ 110 mls/hr Q24H IVPB 12/05/20 15:00 12/12/20 14:59 12/07/20 15:12 Diltiazem HCl (Cardizem Tab) 30 mg EVERY 8 HOURS ORAL 12/07/20 22:00 01/06/21 21:59 12/08/20 05:29 Docusate Sodium (Colace) 100 mg TWICE A DAY GT 12/05/20 11:07 01/04/21 11:06 12/08/20 08:01 Iron Sucrose 100 mg/Sodium Chloride 60 ml @ 240 mls/hr BEDTIME IVPB 12/07/20 21:00 12/11/20 21:14 12/07/20 21:06 Midodrine (Pro-Amatine) 2.5 mg Q8HR ORAL 12/07/20 14:00 03/07/21 13:59 12/08/20 05:28 Pantoprazole (Protonix) 40 mg EVERY 12 HOURS IVP 12/04/20 21:00 01/03/21 20:59 12/08/20 08:01 Vancomycin HCl ([facility]anco pharmacy to dose) 1 ea DAILY PRN MISC Per rx protocol 12/05/20 12:45 01/04/21 12:44 Vancomycin HCl 500 mg/Dextrose 110 ml @ 110 mls/hr Q24H IVPB 12/05/20 16:00 12/10/20 15:59 12/07/20 15:55 Zinc Sulfate (Zinc Sulfate) 220 mg DAILY GT 12/07/20 09:00 12/17/20 08:59 12/08/20 08:00 Joseph De Leon MD Dec 08, 2020 10:09
--- NOTE | 2020-12-08 10:09 | Pulmonology Progress Note ---
Subjective ROS Limited/Unobtainable: Yes Interval Events: None new reported Constitutional: Reports: no symptoms Respiratory: Reports: no symptoms Cardiovascular: Reports: no symptoms Gastrointestinal/Abdominal: Reports: no symptoms Genitourinary: Reports: no symptoms Allergies: Coded Allergies: No Known Allergies (Verified , 08/01/11) Objective Last 24 Hour Vital Signs Date Time Temp Pulse Resp B/P (MAP) Pulse Ox O2 Delivery O2 Flow Rate FiO2 12/08/20 09:00 Nasal Cannula 3.0 12/08/20 08:00 104 12/08/20 08:00 98.9 108 22 94/66 (75) 98 12/08/20 05:29 112 106/54 12/08/20 04:00 98.3 112 22 98/53 (68) 98 12/08/20 04:00 114 12/08/20 00:00 108 12/08/20 00:00 97.6 108 21 99/60 (73) 98 12/07/20 21:59 112 109/56 12/07/20 21:00 Nasal Cannula 3.0 12/07/20 20:00 98.5 112 21 101/55 (70) 98 12/07/20 20:00 111 12/07/20 16:00 97.4 113 20 104/59 (74) 99 12/07/20 16:00 113 12/07/20 12:00 97.5 108 22 107/59 (75) 93 12/07/20 12:00 103 Intake and Output 12/07/20 12/08/20 19:00 07:00 Intake Total 60 ml 60 ml Balance 60 ml 60 ml Tube Feeding 60 ml 60 ml # Voids 3 General Appearance: no acute distress HEENT: normocephalic Respiratory: chest wall non-tender, decreased breath sounds Cardiovascular: normal peripheral pulses Abdomen: normal bowel sounds Laboratory Tests 12/08/20 07:33: White Blood Count 12.7H, Red Blood Count 3.32L, Hemoglobin 9.4L, Hematocrit 29 .1L, Mean Corpuscular Volume 88, Mean Corpuscular Hemoglobin 28.2, Mean Corpuscular Hemoglobin Concent 32.2, Red Cell Distribution Width 14.2, Platelet Count 194, Mean Platelet Volume 10.7H, Neutrophils (%) (Auto) 81.6H, Lymphocytes (%) (Auto) 10.3L, Monocytes (%) (Auto) 5.9, Eosinophils (%) (Auto) 1.9, Basoph ils (%) (Auto) 0.3 Current Medications Medications (Trade) Dose Ordered Sig/Rosy Route PRN Reason Start Time Stop Time Status Last Admin Dose Admin Acetaminophen (Tylenol) 500 mg Q4H PRN GT For Pain 12/04/20 18:30 01/03/21 18:29 Ascorbic Acid (Vitamin C) 250 mg TWICE A DAY GT 12/06/20 18:00 01/05/21 17:59 12/08/20 08:00 Ceftriaxone Sodium 1 gm/ Dextrose 55 ml @ 110 mls/hr Q24H IVPB 12/05/20 15:00 12/12/20 14:59 12/07/20 15:12 Diltiazem HCl (Cardizem Tab) 30 mg EVERY 8 HOURS ORAL 12/07/20 22:00 01/06/21 21:59 12/08/20 05:29 Docusate Sodium (Colace) 100 mg TWICE A DAY GT 12/05/20 11:07 01/04/21 11:06 12/08/20 08:01 Iron Sucrose 100 mg/Sodium Chloride 60 ml @ 240 mls/hr BEDTIME IVPB 12/07/20 21:00 12/11/20 21:14 12/07/20 21:06 Midodrine (Pro-Amatine) 2.5 mg Q8HR ORAL 12/07/20 14:00 03/07/21 13:59 12/08/20 05:28 Pantoprazole (Protonix) 40 mg EVERY 12 HOURS IVP 12/04/20 21:00 01/03/21 20:59 12/08/20 08:01 Vancomycin HCl ([facility] pharmacy to dose) 1 ea DAILY PRN MISC Per rx protocol 12/05/20 12:45 01/04/21 12:44 Vancomycin HCl 500 mg/Dextrose 110 ml @ 110 mls/hr Q24H IVPB 12/05/20 16:00 12/10/20 15:59 12/07/20 15:55 Zinc Sulfate (Zinc Sulfate) 220 mg DAILY GT 12/07/20 09:00 12/17/20 08:59 12/08/20 08:00 Assessment/Plan Assessment/Plan 1 .Renal failure, dehydration -Nephro following 2. Sepsis -ID following -WBC trending down - On vancomycin and ceftriaxone 3. COVID-19 negative 4. Hypoxia -Continue providing supplemental oxygen as she is hypoxic on room air -Wean down as tolerated 5. Elevated CRP -elevated D-dimer as well - We will initiate Lovenox for DVT ppx - We will order venous duplex US of ZACKERY The care for this patient was discussed with my supervising physician Time spent for this case was approximately 31 minutes Maxx Hoffman Dec 08, 2020 10:09
--- NOTE | 2020-12-08 10:43 | NUR ---
NURSE NOTES: Pt BP low 80/40s, Tamera made aware, awaiting call back Addendum: 12/08/20 at 1044 by Iveth Zuniga RN RN Davida Gustafson.
--- NOTE | 2020-12-08 10:58 | Nephrology Progress Note ---
Assessment/Plan Problem List: (1) MAUREEN (acute kidney injury) (2) Dehydration (3) Hypernatremia (4) Sepsis (5) UTI (urinary tract infection) (6) Decubitus ulcer Assessment Renal failure, dehydration Hypernatremia, due to free water deficit Sepsis, leukocytosis Malnutrition, hypoalbuminemia Alzheimer's Underlying anemia as the patient continues to be hydrated Plan December 08: Labs reviewed. Renal parameters stable. Patient blood pressure is low. Midodrine dose increased. 1 dose of albumin bolus given. Parameters for Cardizem ordered. Discussed with MARIE Velarde. December 07: Labs reviewed. Serum sodium normal. IV discontinued. Midodrine for low blood pressure initiated. December 06: Serum sodium lowering. Continue hydration. Medication list reviewed. Previously: D5W hydration Antibiotics Avoid nephrotoxic's Improve nutritional state Monitor renal parameters electrolytes Anemia work-up Subjective ROS Limited/Unobtainable: Yes Constitutional: Reports: malaise Objective Objective Last 24 Hour Vital Signs Date Time Temp Pulse Resp B/P (MAP) Pulse Ox O2 Delivery O2 Flow Rate FiO2 12/08/20 10:36 97 20 84/47 (59) 97 12/08/20 09:00 Nasal Cannula 3.0 12/08/20 08:00 104 12/08/20 08:00 98.9 108 22 94/66 (75) 98 12/08/20 05:29 112 106/54 12/08/20 04:00 98.3 112 22 98/53 (68) 98 12/08/20 04:00 114 12/08/20 00:00 108 12/08/20 00:00 97.6 108 21 99/60 (73) 98 12/07/20 21:59 112 109/56 12/07/20 21:00 Nasal Cannula 3.0 12/07/20 20:00 98.5 112 21 101/55 (70) 98 12/07/20 20:00 111 12/07/20 16:00 97.4 113 20 104/59 (74) 99 12/07/20 16:00 113 12/07/20 12:00 97.5 108 22 107/59 (75) 93 12/07/20 12:00 103 Intake and Output 12/07/20 12/08/20 19:00 07:00 Intake Total 60 ml 60 ml Balance 60 ml 60 ml Tube Feeding 60 ml 60 ml # Voids 3 Current Medications Medications (Trade) Dose Ordered Sig/Rosy Route PRN Reason Start Time Stop Time Status Last Admin Dose Admin Acetaminophen (Tylenol) 500 mg Q4H PRN GT For Pain 12/04/20 18:30 01/03/21 18:29 Albumin Human 100 ml @ 100 mls/hr ONCE ONCE IV 12/08/20 11:00 12/08/20 11:59 UNV Ascorbic Acid (Vitamin C) 250 mg TWICE A DAY GT 12/06/20 18:00 01/05/21 17:59 12/08/20 08:00 Ceftriaxone Sodium 1 gm/ Dextrose 55 ml @ 110 mls/hr Q24H IVPB 12/05/20 15:00 12/12/20 14:59 12/07/20 15:12 Diltiazem HCl (Cardizem Tab) 30 mg EVERY 8 HOURS ORAL 12/07/20 22:00 01/06/21 21:59 12/08/20 05:29 Docusate Sodium (Colace) 100 mg TWICE A DAY GT 12/05/20 11:07 01/04/21 11:06 12/08/20 08:01 Enoxaparin Sodium (Lovenox) 40 mg DAILY SUBQ 12/09/20 09:00 03/09/21 08:59 Iron Sucrose 100 mg/Sodium Chloride 60 ml @ 240 mls/hr BEDTIME IVPB 12/07/20 21:00 12/11/20 21:14 12/07/20 21:06 Midodrine (Pro-Amatine) 10 mg Q8HR ORAL 12/08/20 11:00 03/08/21 10:59 Pantoprazole (Protonix) 40 mg EVERY 12 HOURS IVP 12/04/20 21:00 01/03/21 20:59 12/08/20 08:01 Zinc Sulfate (Zinc Sulfate) 220 mg DAILY GT 12/07/20 09:00 12/17/20 08:59 12/08/20 08:00 Laboratory Tests 12/08/20 07:33: White Blood Count 12.7H, Red Blood Count 3.32L, Hemoglobin 9.4L, Hematocrit 29.1L, Mean Corpuscular Volume 88, Mean Corpuscular Hemoglobin 28.2, Mean Corpuscular Hemoglobin Concent 32.2, Red Cell Distribution Width 14.2, Platelet Count 194, Mean Platelet Volume 10.7H, Neutrophils (%) (Auto) 81.6H, Lymphocytes (%) (Auto) 10.3L, Monocytes (%) (Auto) 5.9, Eosinophils (%) (Auto) 1.9, Basophils (%) (Auto) 0.3 Height (Feet): 5 Height (Inches): 2.00 Weight (Pounds): 96 General Appearance: no apparent distress Cardiovascular: tachycardia Respiratory/Chest: decreased breath sounds Abdomen: distended Gene Pena MD Dec 08, 2020 10:58
[2020-12-08] MEDS: Midodrine 10mg tab ORAL SCH ×2 (11:22→21:20)
[2020-12-08] MEDS ORDERED: NS 250 ML IVPB ONE (11:30)
--- NOTE | 2020-12-08 11:37 | Cardiac Electrophysiology PN ---
Assessment/Plan Assessment/Plan 1. Transient atrial fib with RVR, due to sepsis with white count 25,000. The patient is already on vancomycin and ceftriaxone. EF 65%. Add Dig 0.125 po daily and DC Cardizem for Low BP 2. Hypotension. DC Cardizem. Give iv fluids.250cc NS bolus, Albumin and Midodrine 3. Severe hypernatremia and azotemia. Resolved with IV fluid, per Dr. Pena. 4. History of psychiatric history. 5. Respiratory failure, currently on IV antibiotic and 2 L nasal cannula. 6. Dysphagia, status post PEG placement. Subjective Subjective Covid negative. No more atrial fib with RVR. GT feeding ongoing. In SR overnight BP dropped to 87/43 and received albumin and Midodrine dose increased Objective Last 24 Hour Vital Signs Date Time Temp Pulse Resp B/P (MAP) Pulse Ox O2 Delivery O2 Flow Rate FiO2 12/08/20 10:36 97 20 84/47 (59) 97 12/08/20 09:00 Nasal Cannula 3.0 12/08/20 08:00 104 12/08/20 08:00 98.9 108 22 94/66 (75) 98 12/08/20 05:29 112 106/54 12/08/20 04:00 98.3 112 22 98/53 (68) 98 12/08/20 04:00 114 12/08/20 00:00 108 12/08/20 00:00 97.6 108 21 99/60 (73) 98 12/07/20 21:59 112 109/56 12/07/20 21:00 Nasal Cannula 3.0 12/07/20 20:00 98.5 112 21 101/55 (70) 98 12/07/20 20:00 111 12/07/20 16:00 97.4 113 20 104/59 (74) 99 12/07/20 16:00 113 12/07/20 12:00 97.5 108 22 107/59 (75) 93 12/07/20 12:00 103 Intake and Output 12/07/20 12/08/20 19:00 07:00 Intake Total 60 ml 60 ml Balance 60 ml 60 ml Tube Feeding 60 ml 60 ml # Voids 3 Laboratory Tests Test 12/08/20 07:33 White Blood Count 12.7 K/UL (4.8-10.8) H Red Blood Count 3.32 M/UL (4.20-5.40) L Hemoglobin 9.4 G/DL (12.0-16.0) L Hematocrit 29.1 % (37.0-47.0) L Mean Corpuscular Volume 88 FL (80-99) Mean Corpuscular Hemoglobin 28.2 PG (27.0-31.0) Mean Corpuscular Hemoglobin Concent 32.2 G/DL (32.0-36.0) Red Cell Distribution Width 14.2 % (11.6-14.8) Platelet Count 194 K/UL (150-450) Mean Platelet Volume 10.7 FL (6.5-10.1) H Neutrophils (%) (Auto) 81.6 % (45.0-75.0) H Lymphocytes (%) (Auto) 10.3 % (20.0-45.0) L Monocytes (%) (Auto) 5.9 % (1.0-10.0) Eosinophils (%) (Auto) 1.9 % (0.0-3.0) Basophils (%) (Auto) 0.3 % (0.0-2.0) Objective HEAD AND NECK: No JVD. LUNGS: Decreased breath sounds. CARDIOVASCULAR: Regular S1 and S2 gallop, tachycardic. ABDOMEN: Status post G-tube. EXTREMITIES: No pitting edema. Efrain Gustafson MD Dec 08, 2020 11:37
--- NOTE | 2020-12-08 15:09 | NUR ---
NURSE NOTES: Pt bp 94/47 now. notified gary and phill no new orders. pt has fever, paged dr em and kristian for antipyretic for pt. awaiting page back.
[2020-12-08] MEDS: cefTRIAXone 1 GM in D5W 55 ML IVPB SCH (15:13)
[2020-12-08] MEDS: Acetaminophen 650mg/20.3ml GT PRN (15:15)
--- NOTE | 2020-12-08 16:39 | NUR ---
NURSE NOTES: Pt had fever 101.3, tylenol given. reassessment 99.0
--- NOTE | 2020-12-08 16:46 | NUR ---
NURSE HAND-OFF REPORT: Important Events on Shift: HYPOTENSIVE EPISODE Genny Gustafson and Tamera made are, albumin, NS 250 bolus and midodrine increased, BP now 94/47, no new orders// fever 100.3, tylenol given now 99.0// weaned off O2 per TERRENCE Reid, 95-99% on RA, even respirations, 22RR// Patient Status: fc,stable Diet: jeivty 1.2 at 60cc, flush q 6 100cc Pending Orders: Pending Results/Labs: Pending MD notification: Latest Vital Signs: Temperature 101.3 , Pulse 104 , B/P 94 /42 , Respiratory Rate 23 , O2 SAT 97 , Nasal Cannula, O2 Flow Rate 3.0 . Vital Sign Comment: EKG Rhythm: Sinus Tachycardia Rhythm change?: N MD Notified?: Akbar Gustafson MD Response: Latest Lucero Fall Score: 50 Fall Risk: High Risk Safety Measures: Call light Within Reach, Bed Alarm Zone 2, Side Rails Side Rails x3, Bed position Low and Locked. Fall Precautions: Yellow Socks Yellow Gown Door Sign Patient Fall Education Report to be given. Addendum: 12/08/20 at 1930 by Iveth Zuniga RN RN Pt is stable, report given to MARIE Perales.
--- NOTE | 2020-12-08 17:52 | Surgery Progress Note ---
Surgery Progress Note Subjective Additional Comments leukocytosis h/h stable g tube site needed bolster fix low grade fevers Objective Last 24 Hour Vital Signs Date Time Temp Pulse Resp B/P (MAP) Pulse Ox O2 Delivery O2 Flow Rate FiO2 12/08/20 16:00 101.3 104 23 94/42 (59) 97 12/08/20 16:00 105 12/08/20 15:45 99.0 12/08/20 14:50 98 22 97/47 (64) 98 12/08/20 13:49 95 22 94/41 (58) 97 12/08/20 12:00 98.5 101 22 95/41 (59) 97 12/08/20 12:00 105 12/08/20 10:36 97 20 84/47 (59) 97 12/08/20 09:00 Nasal Cannula 3.0 12/08/20 08:00 104 12/08/20 08:00 98.9 108 22 94/66 (75) 98 12/08/20 05:29 112 106/54 12/08/20 04:00 98.3 112 22 98/53 (68) 98 12/08/20 04:00 114 12/08/20 00:00 108 12/08/20 00:00 97.6 108 21 99/60 (73) 98 12/07/20 21:59 112 109/56 12/07/20 21:00 Nasal Cannula 3.0 12/07/20 20:00 98.5 112 21 101/55 (70) 98 12/07/20 20:00 111 I&O Intake and Output 12/07/20 12/08/20 19:00 07:00 Intake Total 60 ml 60 ml Balance 60 ml 60 ml Tube Feeding 60 ml 60 ml # Voids 3 Dressing: saturated Cardiovascular: RSR Respiratory: decreased breath sounds Abdomen: soft, flat, non-tender, present bowel sounds, other, non-distended Extremities: no edema, no tenderness, no cyanosis Laboratory Tests Test 12/08/20 07:33 White Blood Count 12.7 K/UL (4.8-10.8) H Red Blood Count 3.32 M/UL (4.20-5.40) L Hemoglobin 9.4 G/DL (12.0-16.0) L Hematocrit 29.1 % (37.0-47.0) L Mean Corpuscular Volume 88 FL (80-99) Mean Corpuscular Hemoglobin 28.2 PG (27.0-31.0) Mean Corpuscular Hemoglobin Concent 32.2 G/DL (32.0-36.0) Red Cell Distribution Width 14.2 % (11.6-14.8) Platelet Count 194 K/UL (150-450) Mean Platelet Volume 10.7 FL (6.5-10.1) H Neutrophils (%) (Auto) 81.6 % (45.0-75.0) H Lymphocytes (%) (Auto) 10.3 % (20.0-45.0) L Monocytes (%) (Auto) 5.9 % (1.0-10.0) Eosinophils (%) (Auto) 1.9 % (0.0-3.0) Basophils (%) (Auto) 0.3 % (0.0-2.0) Plan Problems: (1) Parkinsons disease (2) Hypernatremia (3) Sepsis Assessment & Plan: 85-year-old female presented with leukocytosis now with anemia leukocytosis abnormal labs malnutrition wounds identified unlikely source of patient's sepsis or infectious etiology. Urine noted. Antibiotics per infectious disease. Unlikely cholecystitis. Abdominal exam otherwise fairly benign. No acute surgical invention planned at this time. Continue IV antibiotics continue nutrition continue local wound care we will follow the recommendations thank you DAILY ESTIMATED NEEDS: Needs based on Wounds, underweight/ 43.5kg 30-35 kcals/kg 2921-4399 total kcals 1.25-1.5 g protein/kg 54-65 g total protein 25-30 mL/kg 2090-3152 total fluid mLs NUTRITION DIAGNOSIS: Increased kcal/prot needs R/T wound healing and underweight status as evidenced by pt admitted w/ multiple wounds @ BL foot, pending eval, pt @ 87% IBW w/ BMI of 17.6, low BMI per guidelines. CURRENT TF:Jevity 1.2 @ 60ml/hr x 24 hrs ENTERAL NUTRITION RECOMMENDATIONS: Jevity 1.2 @ 50ml/hr x 24 hrs to provide 1200ml, 1440kcal, 67g prot, 968ml free water * Rec goal rate of 50ml/hr x 24 hrs- meets 100% est kcal/prot needs * HOB over 30 degrees/ water flush per MD ADDITIONAL RECOMMENDATIONS: * Calibrated bedscale wt for accurate CBW * Monitor lytes, replete as needed * F/up w/ WC eval -> TF @ goal meeds 100% RDI add Vit C 500mg, ZnSO4 220mg QD x 10 days, Jonathon BID Liver: The liver measures 12 cm. No intrahepatic bile duct dilation. Gallbladder: No cholelithiasis. No gallbladder wall thickening. Common bile duct: Nondilated common bile duct measuring 5 mm. Pancreas: Poorly visualized pancreas. Kidneys: The right kidney was poorly visualized. The left kidney measures 9.9 cm. No hydronephrosis or nephrolithiasis. Spleen: The spleen measures 10.6 cm. Aorta: The proximal aorta measures 1.1 cm. No aneurysm. Inferior vena cava: Unremarkable. IMPRESSION: No ultrasound evidence of acute cholecystitis. No hepatic steatosis. (4) UTI (urinary tract infection) (5) Decubitus ulcer Assessment & Plan: Pt presented on admission emaciated, with contractures and multiple Pressure Injuries. Non-Blanchable erythema without induration/fluctuance R Elbow. Non-Blanchable erythema without induration/fluctuance L elbow. DTPI R trochanteric (L)7.5cm x (W)7.6cm. Clusters of Indurated and maroon Pressure injuries that are in close proximity R trochanter. Non-Blanchable erythema without induration L trochanter(L)8cm x (W)6.5cm. No evidence of skin breakdown to sacrum. Non-Blanchable erythema without induration/fluctuance noted to distal/lateral L Tibia(L)6cm x (W)0.8cm. Unstageable pressure Injury L Hallux(L)3.5cm x (W)3.2cm. Base of wound is 100% necrotic. Edges are adherent with marginal erythema. No odor or exudate noted. DTPI Medial /Lateral L Foot(L)2.5cm x (W)1cm.Base of Wound is maroon and fluctuant. DTPI distal/lateral L foot(L)2.5cm x (W)2.6cm. Base of Pressure Injury is fluctuant with marginal erythema. L heel is soft but easily blanchable. R Heel is soft but easily blanchable. DTPI R Hallux(L)5cm x (W)2.5cm. Reabsorbing blood Blister noted. Edges are adherent to base of Pressure Injury. Unstageable Pressure Injury distal/lateral R foot (L)1.5cm x (W)1.9cm. Dry brown eschar with adherent borders.Periwound is blanchable but fluctuant. Tx.plan: Apply Moisture Barrier Paste to Sacrum. Cover with Optifoam drsg. Change every 3 days and prn. Apply Cavilon Skin Barrier to R and L trochanteric areas. Cover each site with Optifoam drsgs. Change every 7 days and prn. Apply Betadine to Pressure Injuries L foot. Cover each site with Optifoam drsgs. Change every 3 days and prn. Apply Betadine to Pressure Injuries R foot. Cover each site with Optifoam drsdgs. Change every 3 days and prn. Apply Cavilon Skin Barrier to both heels. Cover each site with Optifoam drsgs. Change every 7 days and prn. Apply Cavilon Skin Barrier to R and L elbows. Cover each Elbow with Optifoam drsgs.Change every 7 days and prn. Cover Bony prominences as needed with Optifoam drsgs. Reposition at least every 2hours or as tolerated. Off-load heels with Pillow. APM/PURVI Mattress overlay. Kristofer Parra Dec 08, 2020 17:52
--- NOTE | 2020-12-08 19:30 | NUR ---
NURSE NOTES: Report received form MARIE Lazaro. Patient is awake on bed, alert and oriented x 0. potline monitor is in place, shows sinus rhythm. On room air, saturating 95-97% with no desaturation noted. With g-tube, on Jevity 1.2 @ 60cc/hour, flushing of 100 cc every 6 hours. Patient is bedbound, incontinent and has purewick on. IV site is on left hand g-22 saline locked that is patent and intact. Safety measures are in place, bed in lowest and locked position, will continue plan of care.
--- NOTE | 2020-12-08 20:28 | General Progress Note ---
Subjective ROS Limited/Unobtainable: Yes Allergies: Coded Allergies: No Known Allergies (Verified , 08/01/11) Objective Last 24 Hour Vital Signs Date Time Temp Pulse Resp B/P (MAP) Pulse Ox O2 Delivery O2 Flow Rate FiO2 12/08/20 18:40 97 19 104/57 (73) 97 12/08/20 18:00 20 114/53 (73) 95 12/08/20 16:10 99.0 12/08/20 16:00 101.3 104 23 94/42 (59) 97 12/08/20 16:00 105 12/08/20 15:45 99.0 12/08/20 14:50 98 22 97/47 (64) 98 12/08/20 13:49 95 22 94/41 (58) 97 12/08/20 12:00 98.5 101 22 95/41 (59) 97 12/08/20 12:00 105 12/08/20 10:36 97 20 84/47 (59) 97 12/08/20 09:00 Nasal Cannula 3.0 12/08/20 08:00 104 12/08/20 08:00 98.9 108 22 94/66 (75) 98 12/08/20 05:29 112 106/54 12/08/20 04:00 98.3 112 22 98/53 (68) 98 12/08/20 04:00 114 12/08/20 00:00 108 12/08/20 00:00 97.6 108 21 99/60 (73) 98 12/07/20 21:59 112 109/56 12/07/20 21:00 Nasal Cannula 3.0 Intake and Output 12/07/20 12/08/20 19:00 07:00 Intake Total 60 ml 60 ml Balance 60 ml 60 ml Tube Feeding 60 ml 60 ml # Voids 3 Laboratory Tests 12/08/20 07:33: White Blood Count 12.7H, Red Blood Count 3.32L, Hemoglobin 9.4L, Hematocrit 29.1L, Mean Corpuscular Volume 88, Mean Corpuscular Hemoglobin 28.2, Mean Corpuscular Hemoglobin Concent 32.2, Red Cell Distribution Width 14.2, Platelet Count 194, Mean Platelet Volume 10.7H, Neutrophils (%) (Auto) 81.6H, Lymphocytes (%) (Auto) 10.3L, Monocytes (%) (Auto) 5.9, Eosinophils (%) (Auto) 1.9, Basophils (%) (Auto) 0.3 Height (Feet): 5 Height (Inches): 2.00 Weight (Pounds): 96 Assessment/Plan Problem List: (1) Parkinsons disease ICD Codes: G20 - Parkinson's disease SNOMED: 57923168 (2) Hypernatremia ICD Codes: E87.0 - Hyperosmolality and hypernatremia SNOMED: 448853121 (3) Sepsis ICD Codes: A41.9 - Sepsis, unspecified organism SNOMED: 90392885 Qualifiers: Qualified Codes: A41.9 - Sepsis, unspecified organism (4) UTI (urinary tract infection) ICD Codes: N39.0 - Urinary tract infection, site not specified SNOMED: 15316696 Qualifiers: Qualified Codes: N39.0 - Urinary tract infection, site not specified (5) Decubitus ulcer ICD Codes: L89.90 - Pressure ulcer of unspecified site, unspecified stage SNOMED: 743556925 Qualifiers: Qualified Codes: L89.90 - Pressure ulcer of unspecified site, unspecified stage Status: progressing Assessment/Plan: dehydation lyte abnromality azotemia abx per id afebrile sepsis uti Kelsey Looney MD Dec 08, 2020 20:28
[2020-12-08] MEDS: Iron Sucrose 100 MG in NS 55 ML IVPB SCH (21:19)
--- NOTE | 2020-12-08 21:35 | NUR ---
NURSE NOTES: Patient has IV access on left hand per report, tried to flush but there was resistance. Inserted a new IV access on right forearm g-22 and it's patent and intact. Will cover her IV site with Kerlix.
--- NOTE | 2020-12-08 22:22 | General Progress Note ---
Subjective Allergies: Coded Allergies: No Known Allergies (Verified , 08/01/11) Subjective Awake non communicative Tolerating TF Objective Last 24 Hour Vital Signs Date Time Temp Pulse Resp B/P (MAP) Pulse Ox O2 Delivery O2 Flow Rate FiO2 12/08/20 20:00 98.6 97 20 107/50 (69) 100 12/08/20 18:40 97 19 104/57 (73) 97 12/08/20 18:00 20 114/53 (73) 95 12/08/20 16:10 99.0 12/08/20 16:00 101.3 104 23 94/42 (59) 97 12/08/20 16:00 105 12/08/20 15:45 99.0 12/08/20 14:50 98 22 97/47 (64) 98 12/08/20 13:49 95 22 94/41 (58) 97 12/08/20 12:00 98.5 101 22 95/41 (59) 97 12/08/20 12:00 105 12/08/20 10:36 97 20 84/47 (59) 97 12/08/20 09:00 Nasal Cannula 3.0 12/08/20 08:00 104 12/08/20 08:00 98.9 108 22 94/66 (75) 98 12/08/20 05:29 112 106/54 12/08/20 04:00 98.3 112 22 98/53 (68) 98 12/08/20 04:00 114 12/08/20 00:00 108 12/08/20 00:00 97.6 108 21 99/60 (73) 98 Intake and Output 12/07/20 12/08/20 19:00 07:00 Intake Total 60 ml 60 ml Balance 60 ml 60 ml Tube Feeding 60 ml 60 ml # Voids 3 Laboratory Tests 12/08/20 07:33: White Blood Count 12.7H, Red Blood Count 3.32L, Hemoglobin 9.4L, Hematocrit 29.1L, Mean Corpuscular Volume 88, Mean Corpuscular Hemoglobin 28.2, Mean Corpuscular Hemoglobin Concent 32.2, Red Cell Distribution Width 14.2, Platelet Count 194, Mean Platelet Volume 10.7H, Neutrophils (%) (Auto) 81.6H, Lymphocytes (%) (Auto) 10.3L, Monocytes (%) (Auto) 5.9, Eosinophils (%) (Auto) 1.9, Basophils (%) (Auto) 0.3 Height (Feet): 5 Height (Inches): 2.00 Weight (Pounds): 96 Objective Debilitated WW NCAT temporal wasting CT'A RRR abd soft ND, (+) GT no edema Assessment/Plan Status: progressing Assessment/Plan: Assessment - abnormal LFT, possibly due to sepsis, resolving - OBS - s/p PEG - decubitus ulcers Recommendations - check abd ultrasound --> normal - follow LFT conservatively - monitor residuals Hollie Simmons MD Dec 08, 2020 22:22
[2020-12-09] VITALS: BP 102/54
--- NOTE | 2020-12-09 02:00 | NUR ---
NURSE NOTES: patient has been tolerating her feeding, g-tube running Jevity 1.2 @ 60cc/hour, flushing of 100 cc every 6 hours and no residual noted. Vitals were stable and no desaturation noted. Will continue to monitor.
[2020-12-09 04:00] VITALS: BP 108/63
--- NOTE | 2020-12-09 04:20 | NUR ---
NURSE NOTES: Bed bath done, oral care provided, repositioned on her left side. Patient is incontinent and purewick is working well on her.
[2020-12-09] MEDS: Midodrine 10mg tab ORAL SCH ×3 (05:39→21:39)
--- NOTE | 2020-12-09 07:18 | NUR ---
NURSE HAND-OFF REPORT: Important Events on Shift: Patient has been resting well the whole shift, with no desaturation nor any episode of hypotension noted. At this time patient has been saturating 100% on room air. Patient Status: Patient is asleep in stable condition. Plan of care endorsed. Diet: Jevity 1.2 @ 60 cc/hour, flushing 100cc every 6 hours Pending Orders: none Pending Results/Labs:none Pending MD notification:none Latest Vital Signs: Temperature 99.5 , Pulse 108 , B/P 108 /63 , Respiratory Rate 20 , O2 SAT 96 , Nasal Cannula, O2 Flow Rate 3.0 . Vital Sign Comment: stable EKG Rhythm: Sinus Tachycardia Rhythm change?: N MD Notified?: Akbar Gustafson MD Response: Latest Lucero Fall Score: 70 Fall Risk: High Risk Safety Measures: Call light Within Reach, Bed Alarm Zone 2, Side Rails Side Rails x3, Bed position Low and Locked. Fall Precautions: Yellow Socks Yellow Gown Door Sign Patient Fall Education Report given to MARIE Ambriz.
--- NOTE | 2020-12-09 07:32 | NUR ---
NURSE NOTES: Patient received from Angella SALAZAR. Patient aphasic and oriented x 0, eyes open spontaneously, extremities contracted. On room air saturation WNL. Gtube patent and intact running Jevity 1.2 @ 60cc/hr flushing of 100c q6. Purewick in place. Noted skin issues. IV site patent and intact on Right FA 22G SL and Left hand 22G SL. Bed in lowest position and locked. Call light and bedside table within reach.
[2020-12-09 08:00] VITALS: BP 101/63
[2020-12-09] MEDS: Docusate 100mg/10ml Liq GT SCH ×2 (09:10→17:22)
[2020-12-09] MEDS: Digoxin 0.125mg tab PEG SCH (09:11)
[2020-12-09] MEDS: Ascorbic Acid 500mg tab GT SCH ×2 (09:11→17:22)
[2020-12-09] MEDS: Zinc Sulfate 220mg GT SCH (09:11)
[2020-12-09] MEDS: Enoxaparin 40mg Inj SUBQ SCH (09:12)
--- NOTE | 2020-12-09 09:51 | Pulmonology Progress Note ---
Subjective ROS Limited/Unobtainable: Yes Interval Events: None new reported Constitutional: Reports: no symptoms Respiratory: Reports: no symptoms Cardiovascular: Reports: no symptoms Gastrointestinal/Abdominal: Reports: no symptoms Genitourinary: Reports: no symptoms Allergies: Coded Allergies: No Known Allergies (Verified , 08/01/11) Objective Last 24 Hour Vital Signs Date Time Temp Pulse Resp B/P (MAP) Pulse Ox O2 Delivery O2 Flow Rate FiO2 12/09/20 09:11 107 12/09/20 08:00 98.1 107 20 101/63 (76) 98 12/09/20 04:00 99.5 108 20 108/63 (78) 96 12/09/20 03:59 108 12/09/20 00:00 106 12/09/20 00:00 99.7 106 18 102/54 (70) 97 12/08/20 21:00 Room Air 12/08/20 20:00 98.6 97 20 107/50 (69) 100 12/08/20 20:00 95 12/08/20 18:40 97 19 104/57 (73) 97 12/08/20 18:00 20 114/53 (73) 95 12/08/20 16:10 99.0 12/08/20 16:00 101.3 104 23 94/42 (59) 97 12/08/20 16:00 105 12/08/20 15:45 99.0 12/08/20 14:50 98 22 97/47 (64) 98 12/08/20 13:49 95 22 94/41 (58) 97 12/08/20 12:00 98.5 101 22 95/41 (59) 97 12/08/20 12:00 105 12/08/20 10:36 97 20 84/47 (59) 97 Intake and Output 12/08/20 12/09/20 19:00 07:00 Intake Total 1230 ml 960 ml Output Total 1250 ml Balance -20 ml 960 ml Intake Oral 150 ml Free Water 300 ml 200 ml Tube Feeding 780 ml 660 ml Other 100 ml Output Urine Total 1250 ml # Voids 6 6 General Appearance: no acute distress HEENT: normocephalic Respiratory: chest wall non-tender, decreased breath sounds Cardiovascular: normal peripheral pulses Abdomen: normal bowel sounds Current Medications Medications (Trade) Dose Ordered Sig/Rosy Route PRN Reason Start Time Stop Time Status Last Admin Dose Admin Acetaminophen (Tylenol) 500 mg Q4H PRN GT For Pain 12/04/20 18:30 01/03/21 18:29 Acetaminophen (Tylenol) 500 mg Q6H PRN GT Temp >100.5 12/08/20 15:15 01/07/21 15:14 12/08/20 15:15 Ascorbic Acid (Vitamin C) 250 mg TWICE A DAY GT 12/06/20 18:00 01/05/21 17:59 12/09/20 09:11 Ceftriaxone Sodium 1 gm/ Dextrose 55 ml @ 110 mls/hr Q24H IVPB 12/05/20 15:00 12/12/20 14:59 12/08/20 15:13 Digoxin (Lanoxin) 0.125 mg DAILY PEG 12/09/20 09:00 03/09/21 08:59 12/09/20 09:11 Docusate Sodium (Colace) 100 mg TWICE A DAY GT 12/05/20 11:07 01/04/21 11:06 12/09/20 09:10 Enoxaparin Sodium (Lovenox) 40 mg DAILY SUBQ 12/09/20 09:00 03/09/21 08:59 12/09/20 09:12 Famotidine (Pepcid) 20 mg BID GT 12/08/20 18:00 03/08/21 17:59 12/09/20 09:10 Iron Sucrose 100 mg/Sodium Chloride 60 ml @ 240 mls/hr BEDTIME IVPB 12/07/20 21:00 12/11/20 21:14 12/08/20 21:19 Midodrine (Pro-Amatine) 10 mg Q8HR ORAL 12/08/20 11:00 03/08/21 10:59 12/09/20 05:39 Zinc Sulfate (Zinc Sulfate) 220 mg DAILY GT 12/07/20 09:00 12/17/20 08:59 12/09/20 09:11 Assessment/Plan Assessment/Plan 1 .Renal failure, dehydration -Nephro following 2. Sepsis -ID following -WBC trending down - s/p vancomycin - on ceftriaxone 3. COVID-19 negative 4. Hypoxia; resolved -Now saturating 94-95% on room air 5. Elevated CRP -elevated D-dimer as well - We will initiate Lovenox for DVT ppx - Venous duplex US of LE result pending The care for this patient was discussed with my supervising physician Time spent for this case was approximately 31 minutes Maxx Hoffman Dec 09, 2020 09:51
--- NOTE | 2020-12-09 09:57 | Cardiac Electrophysiology PN ---
Assessment/Plan Assessment/Plan 1. Transient atrial fib with RVR, due to sepsis with white count 25,000. Already on vancomycin and ceftriaxone. EF 65%. On Dig 0.125 po daily 2. Hypotension. Off Cardizem. Resolved with Albumin and Midodrine 3. Severe hypernatremia and azotemia. Resolved with IV fluid, per Dr. Pena. 4. History of psychiatric history. 5. Respiratory failure, currently on IV antibiotic and 2 L nasal cannula. 6. Dysphagia, status post PEG placement. Subjective Subjective Covid negative. No atrial fib overnight. GT feeding ongoing. In SR overnight BP dropped to 87/43 that improved after albumin and Midodrine dose increased Getting LE duplex Objective Last 24 Hour Vital Signs Date Time Temp Pulse Resp B/P (MAP) Pulse Ox O2 Delivery O2 Flow Rate FiO2 12/09/20 09:11 107 12/09/20 08:00 104 12/09/20 08:00 98.1 107 20 101/63 (76) 98 12/09/20 04:00 99.5 108 20 108/63 (78) 96 12/09/20 03:59 108 12/09/20 00:00 106 12/09/20 00:00 99.7 106 18 102/54 (70) 97 12/08/20 21:00 Room Air 12/08/20 20:00 98.6 97 20 107/50 (69) 100 12/08/20 20:00 95 12/08/20 18:40 97 19 104/57 (73) 97 12/08/20 18:00 20 114/53 (73) 95 12/08/20 16:10 99.0 12/08/20 16:00 101.3 104 23 94/42 (59) 97 12/08/20 16:00 105 12/08/20 15:45 99.0 12/08/20 14:50 98 22 97/47 (64) 98 12/08/20 13:49 95 22 94/41 (58) 97 12/08/20 12:00 98.5 101 22 95/41 (59) 97 12/08/20 12:00 105 12/08/20 10:36 97 20 84/47 (59) 97 Intake and Output 12/08/20 12/09/20 19:00 07:00 Intake Total 1230 ml 960 ml Output Total 1250 ml Balance -20 ml 960 ml Intake Oral 150 ml Free Water 300 ml 200 ml Tube Feeding 780 ml 660 ml Other 100 ml Output Urine Total 1250 ml # Voids 6 6 Objective HEAD AND NECK: No JVD. LUNGS: Decreased breath sounds. CARDIOVASCULAR: Regular S1 and S2 gallop, tachycardic. ABDOMEN: Status post G-tube. EXTREMITIES: No pitting edema. Efrain Gustafson MD Dec 09, 2020 09:57
--- NOTE | 2020-12-09 10:41 | NUR ---
RD ASSESSMENT & RECOMMENDATIONS SEE CARE ACTIVITY FOR COMPLETE ASSESSMENT DAILY ESTIMATED NEEDS: Needs based on Wounds, underweight/ 43.5kg 30-35 kcals/kg 5436-7059 total kcals 1.25-1.5 g protein/kg 54-65 g total protein 25-30 mL/kg 8668-9570 total fluid mLs NUTRITION DIAGNOSIS: Increased kcal/prot needs R/T wound healing and underweight status as evidenced by pt admitted w/ multiple wounds @ BL foot, pending eval, pt @ 87% IBW w/ BMI of 17.6, low BMI per guidelines. CURRENT TF:Jevity 1.2 @ 60ml/hr x 24 hrs ENTERAL NUTRITION RECOMMENDATIONS: Jevity 1.2 @ 50ml/hr x 24 hrs to provide 1200ml, 1440kcal, 67g prot, 968ml free water * Rec goal rate of 50ml/hr x 24 hrs to not exceed est kcal needs -> meets 100% est kcal/prot needs * HOB over 30 degrees/ water flush 100ml q 8hrs ADDITIONAL RECOMMENDATIONS: * Calibrated bedscale wt for accurate CBW * Monitor lytes, replete as needed * Wound care -> TF @ goal meeds 100% RDI Continue Vit C and ZnSO4, add Jonathon BID
--- NOTE | 2020-12-09 10:49 | Infectious Diseases Prog Note ---
Assessment/Plan Assessment/Plan IMPRESSION: 1. Sepsis 2. Positive blood culture likely contamination 3. Leukocytosis. 4. Hypernatremia. 5. Anemia. 6. Pressure ulcer. 7. Alzheimer dementia. 8. Parkinson disease. 9. 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 RECOMMENDATION: Continue with ceftriaxone Subjective ROS Limited/Unobtainable: Yes Allergies: Coded Allergies: No Known Allergies (Verified , 08/01/11) Objective Last 24 Hour Vital Signs Date Time Temp Pulse Resp B/P (MAP) Pulse Ox O2 Delivery O2 Flow Rate FiO2 12/09/20 09:11 107 12/09/20 09:00 Room Air 12/09/20 08:00 104 12/09/20 08:00 98.1 107 20 101/63 (76) 98 12/09/20 04:00 99.5 108 20 108/63 (78) 96 12/09/20 03:59 108 12/09/20 00:00 106 12/09/20 00:00 99.7 106 18 102/54 (70) 97 12/08/20 21:00 Room Air 12/08/20 20:00 98.6 97 20 107/50 (69) 100 12/08/20 20:00 95 12/08/20 18:40 97 19 104/57 (73) 97 12/08/20 18:00 20 114/53 (73) 95 12/08/20 16:10 99.0 12/08/20 16:00 101.3 104 23 94/42 (59) 97 12/08/20 16:00 105 12/08/20 15:45 99.0 12/08/20 14:50 98 22 97/47 (64) 98 12/08/20 13:49 95 22 94/41 (58) 97 12/08/20 12:00 98.5 101 22 95/41 (59) 97 12/08/20 12:00 105 Height (Feet): 5 Height (Inches): 2.00 Weight (Pounds): 96 HEENT: other - dry mouth Respiratory/Chest: lungs clear Cardiovascular: normal rate Abdomen: soft, non tender, other - GT feeding Neurologic/Psychiatric: aphasia, other - opens eyes Current Medications Medications (Trade) Dose Ordered Sig/Rosy Route PRN Reason Start Time Stop Time Status Last Admin Dose Admin Acetaminophen (Tylenol) 500 mg Q4H PRN GT For Pain 12/04/20 18:30 01/03/21 18:29 Acetaminophen (Tylenol) 500 mg Q6H PRN GT Temp >100.5 12/08/20 15:15 01/07/21 15:14 12/08/20 15:15 Ascorbic Acid (Vitamin C) 250 mg TWICE A DAY GT 12/06/20 18:00 01/05/21 17:59 12/09/20 09:11 Ceftriaxone Sodium 1 gm/ Dextrose 55 ml @ 110 mls/hr Q24H IVPB 12/05/20 15:00 12/12/20 14:59 12/08/20 15:13 Digoxin (Lanoxin) 0.125 mg DAILY PEG 12/09/20 09:00 03/09/21 08:59 12/09/20 09:11 Docusate Sodium (Colace) 100 mg TWICE A DAY GT 12/05/20 11:07 01/04/21 11:06 12/09/20 09:10 Enoxaparin Sodium (Lovenox) 40 mg DAILY SUBQ 12/09/20 09:00 03/09/21 08:59 12/09/20 09:12 Famotidine (Pepcid) 20 mg BID GT 12/08/20 18:00 03/08/21 17:59 12/09/20 09:10 Iron Sucrose 100 mg/Sodium Chloride 60 ml @ 240 mls/hr BEDTIME IVPB 12/07/20 21:00 12/11/20 21:14 12/08/20 21:19 Midodrine (Pro-Amatine) 10 mg Q8HR ORAL 12/08/20 11:00 03/08/21 10:59 12/09/20 05:39 Zinc Sulfate (Zinc Sulfate) 220 mg DAILY GT 12/07/20 09:00 12/17/20 08:59 12/09/20 09:11 Joseph De Leon MD Dec 09, 2020 10:49
--- NOTE | 2020-12-09 11:32 | Surgery Progress Note ---
Surgery Progress Note Subjective Symptoms: improved Additional Comments no n/v/f/c comfortable nutritional optimization bmi 17 malnutrition Objective Last 24 Hour Vital Signs Date Time Temp Pulse Resp B/P (MAP) Pulse Ox O2 Delivery O2 Flow Rate FiO2 12/09/20 09:11 107 12/09/20 09:00 Room Air 12/09/20 08:00 104 12/09/20 08:00 98.1 107 20 101/63 (76) 98 12/09/20 04:00 99.5 108 20 108/63 (78) 96 12/09/20 03:59 108 12/09/20 00:00 106 12/09/20 00:00 99.7 106 18 102/54 (70) 97 12/08/20 21:00 Room Air 12/08/20 20:00 98.6 97 20 107/50 (69) 100 12/08/20 20:00 95 12/08/20 18:40 97 19 104/57 (73) 97 12/08/20 18:00 20 114/53 (73) 95 12/08/20 16:10 99.0 12/08/20 16:00 101.3 104 23 94/42 (59) 97 12/08/20 16:00 105 12/08/20 15:45 99.0 12/08/20 14:50 98 22 97/47 (64) 98 12/08/20 13:49 95 22 94/41 (58) 97 12/08/20 12:00 98.5 101 22 95/41 (59) 97 12/08/20 12:00 105 I&O Intake and Output 12/08/20 12/09/20 19:00 07:00 Intake Total 1230 ml 960 ml Output Total 1250 ml Balance -20 ml 960 ml Intake Oral 150 ml Free Water 300 ml 200 ml Tube Feeding 780 ml 660 ml Other 100 ml Output Urine Total 1250 ml # Voids 6 6 Dressing: saturated Cardiovascular: RSR Abdomen: soft, non-tender, present bowel sounds, non-distended Extremities: no tenderness, no cyanosis Plan Problems: (1) Parkinsons disease (2) Hypernatremia (3) Sepsis Assessment & Plan: 85-year-old female presented with leukocytosis now with anemia leukocytosis abnormal labs malnutrition wounds identified unlikely source of patient's sepsis or infectious etiology. Urine noted. Antibiotics per infectious disease. Unlikely cholecystitis. Abdominal exam otherwise fairly benign. No acute surgical invention planned at this time. Continue IV antibiotics continue nutrition continue local wound care we will follow the recommendations thank you DAILY ESTIMATED NEEDS: Needs based on Wounds, underweight/ 43.5kg 30-35 kcals/kg 6630-9818 total kcals 1.25-1.5 g protein/kg 54-65 g total protein 25-30 mL/kg 3479-1305 total fluid mLs NUTRITION DIAGNOSIS: Increased kcal/prot needs R/T wound healing and underweight status as evidenced by pt admitted w/ multiple wounds @ BL foot, pending eval, pt @ 87% IBW w/ BMI of 17.6, low BMI per guidelines. CURRENT TF:Jevity 1.2 @ 60ml/hr x 24 hrs ENTERAL NUTRITION RECOMMENDATIONS: Jevity 1.2 @ 50ml/hr x 24 hrs to provide 1200ml, 1440kcal, 67g prot, 968ml free water * Rec goal rate of 50ml/hr x 24 hrs to not exceed est kcal needs -> meets 100% est kcal/prot needs * HOB over 30 degrees/ water flush 100ml q 8hrs ADDITIONAL RECOMMENDATIONS: * Calibrated bedscale wt for accurate CBW * Monitor lytes, replete as needed * Wound care -> TF @ goal meeds 100% RDI Continue Vit C and ZnSO4, add Jonathon BID Liver: The liver measures 12 cm. No intrahepatic bile duct dilation. Gallbladder: No cholelithiasis. No gallbladder wall thickening. Common bile duct: Nondilated common bile duct measuring 5 mm. Pancreas: Poorly visualized pancreas. Kidneys: The right kidney was poorly visualized. The left kidney measures 9.9 cm. No hydronephrosis or nephrolithiasis. Spleen: The spleen measures 10.6 cm. Aorta: The proximal aorta measures 1.1 cm. No aneurysm. Inferior vena cava: Unremarkable. IMPRESSION: No ultrasound evidence of acute cholecystitis. No hepatic steatosis. (4) UTI (urinary tract infection) (5) Decubitus ulcer Assessment & Plan: Pt presented on admission emaciated, with contractures and multiple Pressure Injuries. Non-Blanchable erythema without induration/fluctuance R Elbow. Non-Blanchable erythema without induration/fluctuance L elbow. DTPI R trochanteric (L)7.5cm x (W)7.6cm. Clusters of Indurated and maroon Pressure injuries that are in close proximity R trochanter. Non-Blanchable erythema without induration L trochanter(L)8cm x (W)6.5cm. No evidence of skin breakdown to sacrum. Non-Blanchable erythema without induration/fluctuance noted to distal/lateral L Tibia(L)6cm x (W)0.8cm. Unstageable pressure Injury L Hallux(L)3.5cm x (W)3.2cm. Base of wound is 100% necrotic. Edges are adherent with marginal erythema. No odor or exudate noted. DTPI Medial /Lateral L Foot(L)2.5cm x (W)1cm.Base of Wound is maroon and fluctuant. DTPI distal/lateral L foot(L)2.5cm x (W)2.6cm. Base of Pressure Injury is fluctuant with marginal erythema. L heel is soft but easily blanchable. R Heel is soft but easily blanchable. DTPI R Hallux(L)5cm x (W)2.5cm. Reabsorbing blood Blister noted. Edges are adherent to base of Pressure Injury. Unstageable Pressure Injury distal/lateral R foot (L)1.5cm x (W)1.9cm. Dry brown eschar with adherent borders.Periwound is blanchable but fluctuant. Tx.plan: Apply Moisture Barrier Paste to Sacrum. Cover with Optifoam drsg. Change every 3 days and prn. Apply Cavilon Skin Barrier to R and L trochanteric areas. Cover each site with Optifoam drsgs. Change every 7 days and prn. Apply Betadine to Pressure Injuries L foot. Cover each site with Optifoam drsgs. Change every 3 days and prn. Apply Betadine to Pressure Injuries R foot. Cover each site with Optifoam d rsdgs. Change every 3 days and prn. Apply Cavilon Skin Barrier to both heels. Cover each site with Optifoam drsgs. Change every 7 days and prn. Apply Cavilon Skin Barrier to R and L elbows. Cover each Elbow with Optifoam drsgs.Change every 7 days and prn. Cover Bony prominences as needed with Optifoam drsgs. Reposition at least every 2hours or as tolerated. Off-load heels with Pillow. APM/PURVI Mattress overlay. Kristofer Parra Dec 09, 2020 11:32
--- NOTE | 2020-12-09 11:43 | Nephrology Progress Note ---
Assessment/Plan Problem List: (1) MAUREEN (acute kidney injury) (2) Dehydration (3) Hypernatremia (4) Sepsis (5) UTI (urinary tract infection) (6) Decubitus ulcer Assessment Renal failure, dehydration Hypernatremia, due to free water deficit Sepsis, leukocytosis Malnutrition, hypoalbuminemia Alzheimer's Underlying anemia as the patient continues to be hydrated Plan December 09: No CHEM panel drawn today. Blood pressure stable. On digoxin. Cardizem is discontinued. December 08: Labs reviewed. Renal parameters stable. Patient blood pressure is low. Midodrine dose increased. 1 dose of albumin bolus given. Parameters for Cardizem ordered. Discussed with MARIE Velarde. December 07: Labs reviewed. Serum sodium normal. IV discontinued. Midodrine for low blood pressure initiated. December 06: Serum sodium lowering. Continue hydration. Medication list reviewed. Previously: D5W hydration Antibiotics Avoid nephrotoxic's Improve nutritional state Monitor renal parameters electrolytes Anemia work-up Subjective ROS Limited/Unobtainable: Yes Objective Objective Last 24 Hour Vital Signs Date Time Temp Pulse Resp B/P (MAP) Pulse Ox O2 Delivery O2 Flow Rate FiO2 12/09/20 09:11 107 12/09/20 09:00 Room Air 12/09/20 08:00 104 12/09/20 08:00 98.1 107 20 101/63 (76) 98 12/09/20 04:00 99.5 108 20 108/63 (78) 96 12/09/20 03:59 108 12/09/20 00:00 106 12/09/20 00:00 99.7 106 18 102/54 (70) 97 12/08/20 21:00 Room Air 12/08/20 20:00 98.6 97 20 107/50 (69) 100 12/08/20 20:00 95 12/08/20 18:40 97 19 104/57 (73) 97 12/08/20 18:00 20 114/53 (73) 95 12/08/20 16:10 99.0 12/08/20 16:00 101.3 104 23 94/42 (59) 97 12/08/20 16:00 105 12/08/20 15:45 99.0 12/08/20 14:50 98 22 97/47 (64) 98 12/08/20 13:49 95 22 94/41 (58) 97 12/08/20 12:00 98.5 101 22 95/41 (59) 97 12/08/20 12:00 105 Intake and Output 12/08/20 12/09/20 19:00 07:00 Intake Total 1230 ml 960 ml Output Total 1250 ml Balance -20 ml 960 ml Intake Oral 150 ml Free Water 300 ml 200 ml Tube Feeding 780 ml 660 ml Other 100 ml Output Urine Total 1250 ml # Voids 6 6 Current Medications Medications (Trade) Dose Ordered Sig/Rosy Route PRN Reason Start Time Stop Time Status Last Admin Dose Admin Acetaminophen (Tylenol) 500 mg Q4H PRN GT For Pain 12/04/20 18:30 01/03/21 18:29 Acetaminophen (Tylenol) 500 mg Q6H PRN GT Temp >100.5 12/08/20 15:15 01/07/21 15:14 12/08/20 15:15 Ascorbic Acid (Vitamin C) 250 mg TWICE A DAY GT 12/06/20 18:00 01/05/21 17:59 12/09/20 09:11 Ceftriaxone Sodium 1 gm/ Dextrose 55 ml @ 110 mls/hr Q24H IVPB 12/05/20 15:00 12/12/20 14:59 12/08/20 15:13 Digoxin (Lanoxin) 0.125 mg DAILY PEG 12/09/20 09:00 03/09/21 08:59 12/09/20 09:11 Docusate Sodium (Colace) 100 mg TWICE A DAY GT 12/05/20 11:07 01/04/21 11:06 12/09/20 09:10 Enoxaparin Sodium (Lovenox) 40 mg DAILY SUBQ 12/09/20 09:00 03/09/21 08:59 12/09/20 09:12 Famotidine (Pepcid) 20 mg BID GT 12/08/20 18:00 03/08/21 17:59 12/09/20 09:10 Iron Sucrose 100 mg/Sodium Chloride 60 ml @ 240 mls/hr BEDTIME IVPB 12/07/20 21:00 12/11/20 21:14 12/08/20 21:19 Midodrine (Pro-Amatine) 10 mg Q8HR ORAL 12/08/20 11:00 03/08/21 10:59 12/09/20 05:39 Zinc Sulfate (Zinc Sulfate) 220 mg DAILY GT 12/07/20 09:00 12/17/20 08:59 12/09/20 09:11 Height (Feet): 5 Height (Inches): 2.00 Weight (Pounds): 96 General Appearance: no apparent distress Cardiovascular: tachycardia Respiratory/Chest: decreased breath sounds Abdomen: distended Gene Pena MD Dec 09, 2020 11:43
[2020-12-09 11:49] VITALS: BP 104/59
--- NOTE | 2020-12-09 13:00 | NUR ---
CASE MANAGEMENT:REVIEW 12/09/20 SI: SEPSIS 99.7 106 18 102/54 97% ON RA WBC+12.7 IS: IV ROCEPHIN Q24 IV VENOFER QHS DIGOXIN GT QD LOVENOX SQ QD PEPCID GT BID MIDODRINE GT Q8HRS ZINC GT QD : TELEMETRY STATUS DCP: FROM [facility]
[2020-12-09] MEDS: cefTRIAXone 1 GM in D5W 55 ML IVPB SCH (13:55)
--- NOTE | 2020-12-09 15:16 | Diagnostic Imaging Report ---
Indication: Reason For Exam: ABN LABS Technique: Grayscale and duplex images of the bilateral lower extremity veins Comparison: None Findings: Exam is limited; per technologist, exam was technically difficult due to bilateral contractures. The left popliteal vein in particular cannot be visualized. Bilaterally, grayscale and duplex images demonstrate no evidence of intraluminal thrombus in the visualized segments. Normal phasic Doppler waveforms, demonstrating normal augmentation response and no evidence of valvular insufficiency. Greater saphenous vein(s) and tibial veins are patent. Normal compressibility. Impression: Negative for evidence of lower extremity deep venous thrombosis. Note, however, inability to visualize the left popliteal vein; disease in this segment cannot be ruled out
[2020-12-09 15:49] VITALS: BP 107/53
--- NOTE | 2020-12-09 18:13 | NUR ---
NURSE HAND-OFF REPORT: Important Events on Shift:[Venous duplex done today, negative results. ] Patient Status: [A&O x 0, opens eyes spontaneously] Diet: [Jevity 1.2 @ 60cc/hr.] Pending Orders: [] Pending Results/Labs:[] Pending MD notification:[] Latest Vital Signs: Temperature 99.3 , Pulse 104 , B/P 107 /53 , Respiratory Rate 20 , O2 SAT 95 , Nasal Cannula, O2 Flow Rate 3.0 . Vital Sign Comment: [] EKG Rhythm: Sinus Tachycardia Rhythm change?: N MD Notified?: Akbar Gustafson MD Response: Latest Lucero Fall Score: 70 Fall Risk: High Risk Safety Measures: Call light Within Reach, Bed Alarm Zone 2, Side Rails Side Rails x3, Bed position Low and Locked. Fall Precautions: Yellow Socks Yellow Gown Door Sign Patient Fall Education Report given to []. Addendum: 12/09/20 at 1914 by Pb Matos RN Patient report given to Lupe Schmitt RN
--- NOTE | 2020-12-09 19:15 | NUR ---
NURSE NOTES: Received pt and report from MARIE Ambriz. Observed pt resting in bed with both eyes open. Pt is A/Ox0, nonverbal. pvc monitor is in placed; pt is ST (102 bpm). IV site intact, asymptomatic, and patent; saline locked. Pt has G-tube feeding of Jevity 1.2 @ 60ml/hr. Aspiration precaution noted; HOB at 30 degrees, oxygen, and suction at bedside. Bed is in the lowest position and locked. SCDs on. Call light and bedside table is within reach. No signs/symptoms of acute distress noted. Will continue plan of care.
--- NOTE | 2020-12-09 19:38 | General Progress Note ---
Subjective ROS Limited/Unobtainable: Yes Allergies: Coded Allergies: No Known Allergies (Verified , 08/01/11) Objective Last 24 Hour Vital Signs Date Time Temp Pulse Resp B/P (MAP) Pulse Ox O2 Delivery O2 Flow Rate FiO2 12/09/20 16:00 104 12/09/20 15:49 99.3 103 20 107/53 (71) 95 12/09/20 12:00 101 12/09/20 11:49 98.4 103 22 104/59 (74) 97 12/09/20 09:11 107 12/09/20 09:00 Room Air 12/09/20 08:00 104 12/09/20 08:00 98.1 107 20 101/63 (76) 98 12/09/20 04:00 99.5 108 20 108/63 (78) 96 12/09/20 03:59 108 12/09/20 00:00 106 12/09/20 00:00 99.7 106 18 102/54 (70) 97 12/08/20 21:00 Room Air 12/08/20 20:00 98.6 97 20 107/50 (69) 100 12/08/20 20:00 95 Intake and Output 12/08/20 12/09/20 19:00 07:00 Intake Total 1230 ml 1020 ml Output Total 1250 ml Balance -20 ml 1020 ml Intake Oral 150 ml Free Water 300 ml 200 ml Tube Feeding 780 ml 720 ml Other 100 ml Output Urine Total 1250 ml # Voids 6 6 Height (Feet): 5 Height (Inches): 2.00 Weight (Pounds): 96 Assessment/Plan Problem List: (1) Parkinsons disease ICD Codes: G20 - Parkinson's disease SNOMED: 62760906 (2) Hypernatremia ICD Codes: E87.0 - Hyperosmolality and hypernatremia SNOMED: 938254738 (3) Sepsis ICD Codes: A41.9 - Sepsis, unspecified organism SNOMED: 09479891 Qualifiers: Qualified Codes: A41.9 - Sepsis, unspecified organism (4) UTI (urinary tract infection) ICD Codes: N39.0 - Urinary tract infection, site not specified SNOMED: 28445831 Qualifiers: Qualified Codes: N39.0 - Urinary tract infection, site not specified (5) Decubitus ulcer ICD Codes: L89.90 - Pressure ulcer of unspecified site, unspecified stage SNOMED: 884574688 Qualifiers: Qualified Codes: L89.90 - Pressure ulcer of unspecified site, unspecified stage Status: progressing Assessment/Plan: afebrile na is improving dehydration is improving fluids reviewed chart sepsis uti Kelsey Looney MD Dec 09, 2020 19:38
[2020-12-09 20:00] VITALS: BP 111/58
[2020-12-09] MEDS: Iron Sucrose 100 MG in NS 55 ML IVPB SCH (20:32)
--- NOTE | 2020-12-09 22:45 | NUR ---
NURSE NOTES: Notified Dr. Looney that pt has not had a BM for [address] Looney ordered MOM 30cc GT BID and Dulcolax 10mg GT daily for constipation. Will note and carry out.
[2020-12-10] VITALS: BP 104/53
--- NOTE | 2020-12-10 02:01 | Cardiology Report ---
APPROVED REPORT EKG Measurement Heart [id number] <Conclusion> Sinus tachycardia Increased R/S ratio in V1, consider early transition or posterior infarct Abnormal ECG
--- NOTE | 2020-12-10 02:29 | NUR ---
NURSE NOTES: Observed pt asleep in bed. No G-tube feeding residual noted. No signs/symptoms of acute distress noted. Will continue plan of care.
[2020-12-10 04:00] VITALS: BP 95/50
--- NOTE | 2020-12-10 04:20 | NUR ---
NURSE NOTES: Bed bath completed and oral care provided. Repositioned pt on right side. No G-tube feeding residual noted. No acute distress noted.
[2020-12-10] MEDS: Midodrine 10mg tab ORAL SCH ×3 (05:22→22:08)
[2020-12-10] MEDS: Acetaminophen 650mg/20.3ml GT PRN ×2 (05:25→13:22)
[2020-12-10 06:58] LABS: BASOPHILS % (AUTO) 0.8 % (0.0-2.0); EOSINOPHILS % (AUTO) 2.4 % (0.0-3.0); HEMATOCRIT 30.9 % (37.0-47.0); HEMOGLOBIN 10.1 G/DL (12.0-16.0); LYMPHOCYTES % (AUTO) 12.6 % (20.0-45.0); MEAN CORPUSCULAR VOLUME 88 FL (80-99); MONOCYTES % (AUTO) 6.7 % (1.0-10.0); NEUTROPHILS % (AUTO) 77.6 % (45.0-75.0); PLATELET COUNT 294 K/UL (150-450); RED CELL DISTRIBUTION WIDTH 14.9 % (11.6-14.8); WHITE BLOOD COUNT 16.6 K/UL (4.8-10.8)
--- NOTE | 2020-12-10 07:25 | NUR ---
NURSE NOTES: Received patient in bed. Awake, nonverbal. On room air, respirations unlabored. IV in the Left hand, site intact. Gt flushed and patent, running feeding as ordered. Bed low and locked, side rails up x2, call light within reach - unable to return demonstration.
--- NOTE | 2020-12-10 07:30 | NUR ---
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 No BM since 12/05. Received laxative meds for pt. Endorsed to dayshift nurse. Patient Status: Stable Diet: Jevity 1.2 @ 60ml/hr Pending Orders: N Pending Results/Labs: AM Labs Pending MD notification: N Latest Vital Signs: Temperature 97.8 , Pulse 106 , B/P 95 /50 , Respiratory Rate 20 , O2 SAT 100 , Nasal Cannula, O2 Flow Rate 3.0 . EKG Rhythm: Sinus Tachycardia Rhythm change?: N Latest Lucero Fall Score: 70 Fall Risk: High Risk Safety Measures: Call light Within Reach, Bed Alarm Zone 2, Side Rails Side Rails x3, Bed position Low and Locked. Fall Precautions: Yellow Socks Yellow Gown Door Sign Patient Fall Education Report given to MARIE Odom.
--- NOTE | 2020-12-10 07:48 | NUR ---
CASE MANAGEMENT:REVIEW 12/10/20 SI: SEPSIS 97.8 102 20 95/50 100% ON RA WBC+16.6 IS: IV ROCEPHIN Q24 IV VENOFER QHS DIGOXIN GT QD LOVENOX SQ QD PEPCID GT BID MIDODRINE GT Q8HRS ZINC GT QD : TELEMETRY STATUS DCP: FROM [facility] PLAN: MONITOR HEART RATE. BLOOD PRESSURE AND LEUKOCYTOSIS
[2020-12-10 07:50] LABS: ALANINE AMINOTRANSFERASE 30 U/L (12-78); ALBUMIN 2.5 G/DL (3.4-5.0); ALBUMIN/GLOBULIN RATIO 0.6 (1.0-2.7); ALKALINE PHOSPHATASE 177 U/L (46-116); ANION GAP 10 mmol/L (5-15); ASPARTATE AMINO TRANSFERASE 27 U/L (15-37); BILIRUBIN,TOTAL 0.5 MG/DL (0.2-1.0); BLOOD UREA NITROGEN 15 mg/dL (7-18); CALCIUM 8.8 MG/DL (8.5-10.1); CARBON DIOXIDE 25 MMOL/L (21-32); CHLORIDE 105 MMOL/L (98-107); CREATININE 0.5 MG/DL (0.55-1.30); POTASSIUM 4.4 MMOL/L (3.5-5.1); SODIUM 140 MMOL/L (136-145)
[2020-12-10 07:56] LABS: PHOSPHORUS 4.4 MG/DL (2.5-4.9)
[2020-12-10 08:00] VITALS: BP 109/55
[2020-12-10] MEDS: Ascorbic Acid 500mg tab GT SCH ×2 (08:20→17:44)
[2020-12-10] MEDS: Zinc Sulfate 220mg GT SCH (08:20)
[2020-12-10] MEDS: Milk of Magnesia 30ml Ud GT SCH ×2 (08:20→17:44)
[2020-12-10] MEDS: Docusate 100mg/10ml Liq GT SCH ×2 (08:20→17:44)
[2020-12-10] MEDS: Digoxin 0.125mg tab PEG SCH (08:21)
[2020-12-10] MEDS: Enoxaparin 40mg Inj SUBQ SCH (08:34)
[2020-12-10] MEDS ORDERED: Bisacodyl EC 5mg tab ORAL SCH (09:00)
--- NOTE | 2020-12-10 10:44 | Cardiology Report ---
APPROVED REPORT EXAM: Two-dimensional and M-mode echocardiogram with Doppler and color Doppler. INDICATION Congestive Heart Failure M-Mode DIMENSIONS IVSd0.7 (0.7-1.1cm)Left Atrium (MM)2.7 (1.6-4.0cm) LVDd3.4 (3.5-5.6cm)Aortic Root2.5 (2.0-3.7cm) PWd0.7 (0.7-1.1cm)Aortic Cusp Exc.1.5 (1.5-2.0cm) IVSs1.2 cmEPSS0.6 (>1.0cm) LVDs2.0 (2.5-4.0cm) PWs0.9 cm <Conclusion> Technically difficult and limited study due to combative patient. Study quality precludes accurate assessment of regional wall motion. Normal left ventricular chamber size, systolic function and wall motion to extent visualized. Left ventricular ejection fraction estimated to be 65 %. No evidence of left ventricular hypertrophy. No evidence of pericardial effusion. All other cardiac chamber sizes are within normal limits. Focal aortic valve sclerosis with adequate cusp excursion. Thickened mitral valve leaflets with normal excursion. Mitral annulus and aortic root calcification. Pulmonic valve not visualized. Normal tricuspid valve structure. IVC is normal in size with physiological collapse. A color flow and spectral Doppler study was performed and revealed: No aortic regurgitation. Trace mitral regurgitation. Mitral diastolic velocities suggest mild left ventricular diastolic dysfunction (Grade I). Trace tricuspid regurgitation. Tricuspid systolic velocities suggests peak right ventricular systolic pressure of 33 mmHg.
--- NOTE | 2020-12-10 11:57 | Infectious Diseases Prog Note ---
Assessment/Plan Assessment/Plan IMPRESSION: 1. Sepsis 2. Positive blood culture likely contamination 3. Leukocytosis. 4. Hypernatremia. 5. Anemia. 6. Pressure ulcer. 7. Alzheimer dementia. 8. Parkinson disease. 9. 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 RECOMMENDATION: Continue with ceftriaxone Subjective ROS Limited/Unobtainable: Yes Constitutional: Denies: fever Allergies: Coded Allergies: No Known Allergies (Verified , 08/01/11) Objective Last 24 Hour Vital Signs Date Time Temp Pulse Resp B/P (MAP) Pulse Ox O2 Delivery O2 Flow Rate FiO2 12/10/20 09:00 Room Air 12/10/20 08:21 102 12/10/20 08:00 96 12/10/20 08:00 97.9 102 20 109/55 (73) 97 12/10/20 04:00 106 12/10/20 04:00 97.8 95 20 95/50 (65) 100 12/10/20 00:00 102 12/10/20 00:00 98.4 103 21 104/53 (70) 100 12/09/20 21:00 Room Air 12/09/20 20:00 97.8 104 20 111/58 (75) 100 12/09/20 20:00 100 12/09/20 16:00 104 12/09/20 15:49 99.3 103 20 107/53 (71) 95 12/09/20 12:00 101 Height (Feet): 5 Height (Inches): 2.00 Weight (Pounds): 96 HEENT: mucous membranes moist Respiratory/Chest: lungs clear Cardiovascular: tachycardia Abdomen: soft, non tender, other - Gt feeding Extremities: no edema Neurologic/Psychiatric: aphasia Laboratory Tests Test 12/10/20 05:57 White Blood Count 16.6 K/UL (4.8-10.8) H Red Blood Count 3.50 M/UL (4.20-5.40) L Hemoglobin 10.1 G/DL (12.0-16.0) L Hematocrit 30.9 % (37.0-47.0) L Mean Corpuscular Volume 88 FL (80-99) Mean Corpuscular Hemoglobin 29.0 PG (27.0-31.0) Mean Corpuscular Hemoglobin Concent 32.7 G/DL (32.0-36.0) Red Cell Distribution Width 14.9 % (11.6-14.8) H Platelet Count 294 K/UL (150-450) Mean Platelet Volume 10.3 FL (6.5-10.1) H Neutrophils (%) (Auto) 77.6 % (45.0-75.0) H Lymphocytes (%) (Auto) 12.6 % (20.0-45.0) L Monocytes (%) (Auto) 6.7 % (1.0-10.0) Eosinophils (%) (Auto) 2.4 % (0.0-3.0) Basophils (%) (Auto) 0.8 % (0.0-2.0) Sodium Level 140 MMOL/L (136-145) Potassium Level 4.4 MMOL/L (3.5-5.1) Chloride Level 105 MMOL/L (98-107) Carbon Dioxide Level 25 MMOL/L (21-32) Anion Gap 10 mmol/L (5-15) Blood Urea Nitrogen 15 mg/dL (7-18) Creatinine 0.5 MG/DL (0.55-1.30) L Estimat Glomerular Filtration Rate > 60 mL/min (>60) Glucose Level 122 MG/DL (74-106) H Calcium Level 8.8 MG/DL (8.5-10.1) Phosphorus Level 4.4 MG/DL (2.5-4.9) Magnesium Level 2.3 MG/DL (1.8-2.4) Total Bilirubin 0.5 MG/DL (0.2-1.0) Aspartate Amino Transf (AST/SGOT) 27 U/L (15-37) Alanine Aminotransferase (ALT/SGPT) 30 U/L (12-78) Alkaline Phosphatase 177 U/L (46-116) H Total Protein 7.0 G/DL (6.4-8.2) Albumin 2.5 G/DL (3.4-5.0) L Globulin 4.5 g/dL Albumin/Globulin Ratio 0.6 (1.0-2.7) L Current Medications Medications (Trade) Dose Ordered Sig/Rosy Route PRN Reason Start Time Stop Time Status Last Admin Dose Admin Acetaminophen (Tylenol) 500 mg Q4H PRN GT For Pain 12/04/20 18:30 01/03/21 18:29 12/10/20 05:25 Acetaminophen (Tylenol) 500 mg Q6H PRN GT Temp >100.5 12/08/20 15:15 01/07/21 15:14 12/08/20 15:15 Ascorbic Acid (Vitamin C) 250 mg TWICE A DAY GT 12/06/20 18:00 01/05/21 17:59 12/10/20 08:20 Bisacodyl (Dulcolax) 10 mg DAILYPRN ORAL 12/10/20 09:00 03/10/21 08:59 UNV Ceftriaxone Sodium 1 gm/ Dextrose 55 ml @ 110 mls/hr Q24H IVPB 12/05/20 15:00 12/12/20 14:59 12/09/20 13:55 Digoxin (Lanoxin) 0.125 mg DAILY PEG 12/09/20 09:00 03/09/21 08:59 12/10/20 08:21 Docusate Sodium (Colace) 100 mg TWICE A DAY GT 12/05/20 11:07 01/04/21 11:06 12/10/20 08:20 Enoxaparin Sodium (Lovenox) 40 mg DAILY SUBQ 12/09/20 09:00 03/09/21 08:59 12/10/20 08:34 Famotidine (Pepcid) 20 mg BID GT 12/08/20 18:00 03/08/21 17:59 12/10/20 08:20 Iron Sucrose 100 mg/Sodium Chloride 60 ml @ 240 mls/hr BEDTIME IVPB 12/07/20 21:00 12/11/20 21:14 12/09/20 20:32 Magnesium Hydroxide (Mom) 30 ml BID GT 12/10/20 09:00 01/09/21 08:59 12/10/20 08:20 Midodrine (Pro-Amatine) 10 mg Q8HR ORAL 12/08/20 11:00 03/08/21 10:59 12/10/20 05:22 Zinc Sulfate (Zinc Sulfate) 220 mg DAILY GT 12/07/20 09:00 12/17/20 08:59 12/10/20 08:20 Joseph De Leon MD Dec 10, 2020 11:57
[2020-12-10 12:00] VITALS: BP 117/101
--- NOTE | 2020-12-10 12:28 | Pulmonology Progress Note ---
Subjective ROS Limited/Unobtainable: Yes Interval Events: None new reported Constitutional: Denies: fever Respiratory: Reports: no symptoms Cardiovascular: Reports: no symptoms Gastrointestinal/Abdominal: Reports: no symptoms Genitourinary: Reports: no symptoms Allergies: Coded Allergies: No Known Allergies (Verified , 08/01/11) Objective Last 24 Hour Vital Signs Date Time Temp Pulse Resp B/P (MAP) Pulse Ox O2 Delivery O2 Flow Rate FiO2 12/10/20 09:00 Room Air 12/10/20 08:21 102 12/10/20 08:00 96 12/10/20 08:00 97.9 102 20 109/55 (73) 97 12/10/20 04:00 106 12/10/20 04:00 97.8 95 20 95/50 (65) 100 12/10/20 00:00 102 12/10/20 00:00 98.4 103 21 104/53 (70) 100 12/09/20 21:00 Room Air 12/09/20 20:00 97.8 104 20 111/58 (75) 100 12/09/20 20:00 100 12/09/20 16:00 104 12/09/20 15:49 99.3 103 20 107/53 (71) 95 Intake and Output 12/09/20 12/10/20 19:00 07:00 Intake Total 760 ml 320 ml Balance 760 ml 320 ml Free Water 100 ml Tube Feeding 660 ml 120 ml Other 100 ml 100 ml # Voids 2 General Appearance: no acute distress HEENT: normocephalic Respiratory: chest wall non-tender, decreased breath sounds Cardiovascular: normal peripheral pulses Abdomen: normal bowel sounds Laboratory Tests 12/10/20 05:57: White Blood Count 16.6H, Red Blood Count 3.50L, Hemoglobin 10.1L, Hematocrit 30.9L, Mean Corpuscular Volume 88, Mean Corpuscular Hemoglobin 29.0, Mean Corpuscular Hemoglobin Concent 32.7, Red Cell Distribution Width 14.9H, Platelet Count 294, Mean Platelet Volume 10.3H, Neutrophils (%) (Auto) 77.6H, Lymphocytes (%) (Auto) 12.6L, Monocytes (%) (Auto) 6.7, Eosinophils (%) (Auto) 2.4, Basophils (%) (Auto) 0.8, Sodium Level 140, Potassium Level 4.4, Chloride Level 105, Carbon Dioxide Level 25, Anion Gap 10, Blood Urea Nitrogen 15, Creatinine 0.5L, Estimat Glomerular Filtration Rate > 60, Glucose Level 122H, Calcium Level 8.8, Phosphorus Level 4.4, Magnesium Level 2.3, Total Bilirubin 0.5, Aspartate Amino Transf (AST/SGOT) 27, Alanine Aminotransferase (ALT/SGPT) 30, Alkaline Phosphatase 177H, Total Protein 7.0, Albumin 2.5L, Globulin 4.5, Albumin/G lobulin Ratio 0.6L Current Medications Medications (Trade) Dose Ordered Sig/Rosy Route PRN Reason Start Time Stop Time Status Last Admin Dose Admin Acetaminophen (Tylenol) 500 mg Q4H PRN GT For Pain 12/04/20 18:30 01/03/21 18:29 12/10/20 05:25 Acetaminophen (Tylenol) 500 mg Q6H PRN GT Temp >100.5 12/08/20 15:15 01/07/21 15:14 12/08/20 15:15 Ascorbic Acid (Vitamin C) 250 mg TWICE A DAY GT 12/06/20 18:00 01/05/21 17:59 12/10/20 08:20 Bisacodyl (Dulcolax) 10 mg DAILYPRN ORAL 12/10/20 09:00 03/10/21 08:59 UNV Ceftriaxone Sodium 1 gm/ Dextrose 55 ml @ 110 mls/hr Q24H IVPB 12/05/20 15:00 12/12/20 14:59 12/09/20 13:55 Digoxin (Lanoxin) 0.125 mg DAILY PEG 12/09/20 09:00 03/09/21 08:59 12/10/20 08:21 Docusate Sodium (Colace) 100 mg TWICE A DAY GT 12/05/20 11:07 01/04/21 11:06 12/10/20 08:20 Enoxaparin Sodium (Lovenox) 40 mg DAILY SUBQ 12/09/20 09:00 03/09/21 08:59 12/10/20 08:34 Famotidine (Pepcid) 20 mg BID GT 12/08/20 18:00 03/08/21 17:59 12/10/20 08:20 Iron Sucrose 100 mg/Sodium Chloride 60 ml @ 240 mls/hr BEDTIME IVPB 12/07/20 21:00 12/11/20 21:14 12/09/20 20:32 Magnesium Hydroxide (Mom) 30 ml BID GT 12/10/20 09:00 01/09/21 08:59 12/10/20 08:20 Midodrine (Pro-Amatine) 10 mg Q8HR ORAL 12/08/20 11:00 03/08/21 10:59 12/10/20 05:22 Zinc Sulfate (Zinc Sulfate) 220 mg DAILY GT 12/07/20 09:00 12/17/20 08:59 12/10/20 08:20 Assessment/Plan Assessment/Plan 1 .Renal failure, dehydration -Nephro following 2. Sepsis -ID following -WBC trending down - s/p vancomycin - on ceftriaxone 3. COVID-19 negative 4. Hypoxia; resolved -Now saturating 94-95% on room air 5. Elevated CRP -elevated D-dimer as well - continue Lovenox for DVT ppx - Venous duplex US of LE: No DVT, except the left popliteal vein which could not be visualized by the armored service technician due to contracture The care for this patient was discussed with my supervising physician Time spent for this case was approximately 31 minutes Maxx Hoffman Dec 10, 2020 12:28
--- NOTE | 2020-12-10 12:36 | General Progress Note ---
Subjective Allergies: Coded Allergies: No Known Allergies (Verified , 08/01/11) Subjective Awake non communicative Tolerating TF Objective Last 24 Hour Vital Signs Date Time Temp Pulse Resp B/P (MAP) Pulse Ox O2 Delivery O2 Flow Rate FiO2 12/10/20 09:00 Room Air 12/10/20 08:21 102 12/10/20 08:00 96 12/10/20 08:00 97.9 102 20 109/55 (73) 97 12/10/20 04:00 106 12/10/20 04:00 97.8 95 20 95/50 (65) 100 12/10/20 00:00 102 12/10/20 00:00 98.4 103 21 104/53 (70) 100 12/09/20 21:00 Room Air 12/09/20 20:00 97.8 104 20 111/58 (75) 100 12/09/20 20:00 100 12/09/20 16:00 104 12/09/20 15:49 99.3 103 20 107/53 (71) 95 Intake and Output 12/09/20 12/10/20 19:00 07:00 Intake Total 760 ml 320 ml Balance 760 ml 320 ml Free Water 100 ml Tube Feeding 660 ml 120 ml Other 100 ml 100 ml # Voids 2 Laboratory Tests 12/10/20 05:57: White Blood Count 16.6H, Red Blood Count 3.50L, Hemoglobin 10.1L, Hematocrit 30.9L, Mean Corpuscular Volume 88, Mean Corpuscular Hemoglobin 29.0, Mean Corpuscular Hemoglobin Concent 32.7, Red Cell Distribution Width 14.9H, Platelet Count 294, Mean Platelet Volume 10.3H, Neutrophils (%) (Auto) 77.6H, Lymphocytes (%) (Auto) 12.6L, Monocytes (%) (Auto) 6.7, Eosinophils (%) (Auto) 2.4, Basophils (%) (Auto) 0.8, Sodium Level 140, Potassium Level 4.4, Chloride Level 105, Carbon Dioxide Level 25, Anion Gap 10, Blood Urea Nitrogen 15, Creatinine 0.5L, Estimat Glomerular Filtration Rate > 60, Glucose Level 122H, Calcium Level 8.8, Phosphorus Level 4.4, Magnesium Level 2.3, Total Bilirubin 0.5, Aspartate Amino Transf (AST/SGOT) 27, Alanine Aminotransferase (ALT/SGPT) 30, Alkaline Phosphatase 177H, Total Protein 7.0, Albumin 2.5L, Globulin 4.5, Al bumin/Globulin Ratio 0.6L Height (Feet): 5 Height (Inches): 2.00 Weight (Pounds): 96 Objective Debilitated WW NCAT temporal wasting CT'A RRR abd soft ND, (+) GT no edema Assessment/Plan Status: progressing Assessment/Plan: Assessment - abnormal LFT, possibly due to sepsis, resolving - OBS - s/p PEG - decubitus ulcers Recommendations - check abd ultrasound --> normal - follow LFT conservatively - monitor residuals - f/u vitamin D level (DELAYED ENTRY - Note for 08/08/2021 visit) Hollie Simmons MD Dec 10, 2020 12:36
--- NOTE | 2020-12-10 12:56 | Surgery Progress Note ---
Surgery Progress Note Subjective Additional Comments doing well tolerating TF comfortable no n/v wbc noted Objective Last 24 Hour Vital Signs Date Time Temp Pulse Resp B/P (MAP) Pulse Ox O2 Delivery O2 Flow Rate FiO2 12/10/20 09:00 Room Air 12/10/20 08:21 102 12/10/20 08:00 96 12/10/20 08:00 97.9 102 20 109/55 (73) 97 12/10/20 04:00 106 12/10/20 04:00 97.8 95 20 95/50 (65) 100 12/10/20 00:00 102 12/10/20 00:00 98.4 103 21 104/53 (70) 100 12/09/20 21:00 Room Air 12/09/20 20:00 97.8 104 20 111/58 (75) 100 12/09/20 20:00 100 12/09/20 16:00 104 12/09/20 15:49 99.3 103 20 107/53 (71) 95 I&O Intake and Output 12/09/20 12/10/20 19:00 07:00 Intake Total 760 ml 320 ml Balance 760 ml 320 ml Free Water 100 ml Tube Feeding 660 ml 120 ml Other 100 ml 100 ml # Voids 2 Dressing: other Wound: other Cardiovascular: RSR Respiratory: decreased breath sounds Abdomen: soft, non-tender, present bowel sounds, non-distended Extremities: no tenderness, no cyanosis Laboratory Tests Test 12/10/20 05:57 White Blood Count 16.6 K/UL (4.8-10.8) H Red Blood Count 3.50 M/UL (4.20-5.40) L Hemoglobin 10.1 G/DL (12.0-16.0) L Hematocrit 30.9 % (37.0-47.0) L Mean Corpuscular Volume 88 FL (80-99) Mean Corpuscular Hemoglobin 29.0 PG (27.0-31.0) Mean Corpuscular Hemoglobin Concent 32.7 G/DL (32.0-36.0) Red Cell Distribution Width 14.9 % (11.6-14.8) H Platelet Count 294 K/UL (150-450) Mean Platelet Volume 10.3 FL (6.5-10.1) H Neutrophils (%) (Auto) 77.6 % (45.0-75.0) H Lymphocytes (%) (Auto) 12.6 % (20.0-45.0) L Monocytes (%) (Auto) 6.7 % (1.0-10.0) Eosinophils (%) (Auto) 2.4 % (0.0-3.0) Basophils (%) (Auto) 0.8 % (0.0-2.0) Sodium Level 140 MMOL/L (136-145) Potassium Level 4.4 MMOL/L (3.5-5.1) Chloride Level 105 MMOL/L (98-107) Carbon Dioxide Level 25 MMOL/L (21-32) Anion Gap 10 mmol/L (5-15) Blood Urea Nitrogen 15 mg/dL (7-18) Creatinine 0.5 MG/DL (0.55-1.30) L Estimat Glomerular Filtration Rate > 60 mL/min (>60) Glucose Level 122 MG/DL (74-106) H Calcium Level 8.8 MG/DL (8.5-10.1) Phosphorus Level 4.4 MG/DL (2.5-4.9) Magnesium Level 2.3 MG/DL (1.8-2.4) Total Bilirubin 0.5 MG/DL (0.2-1.0) Aspartate Amino Transf (AST/SGOT) 27 U/L (15-37) Alanine Aminotransferase (ALT/SGPT) 30 U/L (12-78) Alkaline Phosphatase 177 U/L (46-116) H Total Protein 7.0 G/DL (6.4-8.2) Albumin 2.5 G/DL (3.4-5.0) L Globulin 4.5 g/dL Albumin/Globulin Ratio 0.6 (1.0-2.7) L Plan Problems: (1) Parkinsons disease (2) Hypernatremia (3) Sepsis Assessment & Plan: 85-year-old female presented with leukocytosis now with ane amaury leukocytosis abnormal labs malnutrition wounds identified unlikely source of patient's sepsis or infectious etiology. Urine noted. Antibiotics per infectious disease. Unlikely cholecystitis. Abdominal exam otherwise fairly benign. No acute surgical invention planned at this time. Continue IV antibiotics continue nutrition continue local wound care we will follow the recommendations thank you DAILY ESTIMATED NEEDS: Needs based on Wounds, underweight/ 43.5kg 30-35 kcals/kg 0385-0329 total kcals 1.25-1.5 g protein/kg 54-65 g total protein 25-30 mL/kg [id number] total fluid mLs NUTRITION DIAGNOSIS: Increased kcal/prot needs R/T wound healing and underweight status as evidenced by pt admitted w/ multiple wounds @ BL foot, pending eval, pt @ 87% IBW w/ BMI of 17.6, low BMI per guidelines. CURRENT TF:Jevity 1.2 @ 60ml/hr x 24 hrs ENTERAL NUTRITION RECOMMENDATIONS: Jevity 1.2 @ 50ml/hr x 24 hrs to provide 1200ml, 1440kcal, 67g prot, 968ml free water * Rec goal rate of 50ml/hr x 24 hrs to not exceed est kcal needs -> meets 100% est kcal/prot needs * HOB over 30 degrees/ water flush 100ml q 8hrs ADDITIONAL RECOMMENDATIONS: * Calibrated bedscale wt for accurate CBW * Monitor lytes, replete as needed * Wound care -> TF @ goal meeds 100% RDI Continue Vit C and ZnSO4, add Jonathon BID Liver: The liver measures 12 cm. No intrahepatic bile duct dilation. Gallbladder: No cholelithiasis. No gallbladder wall thickening. Common bile duct: Nondilated common bile duct measuring 5 mm. Pancreas: Poorly visualized pancreas. Kidneys: The right kidney was poorly visualized. The left kidney measures 9.9 cm. No hydronephrosis or nephrolithiasis. Spleen: The spleen measures 10.6 cm. Aorta: The proximal aorta measures 1.1 cm. No aneurysm. Inferior vena cava: Unremarkable. IMPRESSION: No ultrasound evidence of acute cholecystitis. No hepatic steatosis. (4) UTI (urinary tract infection) (5) Decubitus ulcer Assessment & Plan: Pt presented on admission emaciated, with contractures and multiple Pressure Injuries. Non-Blanchable erythema without induration/fluctuance R Elbow. Non-Blanchable erythema without induration/fluctuance L elbow. DTPI R trochanteric (L)7.5cm x (W)7.6cm. Clusters of Indurated and maroon Pressure injuries that are in close proximity R trochanter. Non-Blanchable erythema without induration L trochanter(L)8cm x (W)6.5cm. No evidence of skin breakdown to sacrum. Non-Blanchable erythema without induration/fluctuance noted to distal/lateral L Tibia(L)6cm x (W)0.8cm. Unstageable pressure Injury L Hallux(L)3.5cm x (W)3.2cm. Base of wound is 100% necrotic. Edges are adherent with marginal erythema. No odor or exudate noted. DTPI Medial /Lateral L Foot(L)2.5cm x (W)1cm.Base of Wound is maroon and fluctuant. DTPI distal/lateral L foot(L)2.5cm x (W)2.6cm. Base of Pressure Injury is fluctuant with marginal erythema. L heel is soft but easily blanchable. R Heel is soft but easily blanchable. DTPI R Hallux(L)5cm x (W)2.5cm. Reabsorbing blood Blister noted. Edges are adherent to base of Pressure Injury. Unstageable Pressure Injury distal/lateral R foot (L)1.5cm x (W)1.9cm. Dry brown eschar with adherent borders.Periwound is blanchable but fluctuant. Tx.plan: Apply Moisture Barrier Paste to Sacrum. Cover with Optifoam drsg. Change every 3 days and prn. Apply Cavilon Skin Barrier to R and L trochanteric areas. Cover each site with Optifoam drsgs. Change every 7 days and prn. Apply Betadine to Pressure Injuries L foot. Cover each site with Optifoam drsgs. Change every 3 days and prn. Apply Betadine to Pressure Injuries R foot. Cover each site with Optifoam drsdgs. Change every 3 days and prn. Apply Cavilon Skin Barrier to both heels. Cover each site with Optifoam drsgs. Change every 7 days and prn. Apply Cavilon Skin Barrier to R and L elbows. Cover each Elbow with Optifoam drsgs.Change every 7 days and prn. Cover Bony prominences as needed with Optifoam drsgs. Reposition at least every 2hours or as tolerated. Off-load heels with Pillow. APM/PURVI Mattress overlay. Kristofer Parra Dec 10, 2020 12:56
[2020-12-10] MEDS: cefTRIAXone 1 GM in D5W 55 ML IVPB SCH (14:08)
--- NOTE | 2020-12-10 14:16 | Nephrology Progress Note ---
Assessment/Plan Problem List: (1) MAUREEN (acute kidney injury) (2) Dehydration (3) Hypernatremia (4) Sepsis (5) UTI (urinary tract infection) (6) Decubitus ulcer Assessment Renal failure, dehydration Hypernatremia, due to free water deficit Sepsis, leukocytosis Malnutrition, hypoalbuminemia Alzheimer's Underlying anemia as the patient continues to be hydrated Plan December 10: Labs reviewed. Renal parameters are stable. Blood pressure is stable. Remains tachycardic. December 09: No CHEM panel drawn today. Blood pressure stable. On digoxin. Cardizem is discontinued. December 08: Labs reviewed. Renal parameters stable. Patient blood pressure is low. Midodrine dose increased. 1 dose of albumin bolus given. Parameters for Cardizem ordered. Discussed with MARIE Velarde. December 07: Labs reviewed. Serum sodium normal. IV discontinued. Midodrine for low blood pressure initiated. December 06: Serum sodium lowering. Continue hydration. Medication list reviewed. Previously: D5W hydration Antibiotics Avoid nephrotoxic's Improve nutritional state Monitor renal parameters electrolytes Anemia work-up Subjective ROS Limited/Unobtainable: Yes Objective Objective Last 24 Hour Vital Signs Date Time Temp Pulse Resp B/P (MAP) Pulse Ox O2 Delivery O2 Flow Rate FiO2 12/10/20 13:52 99.2 12/10/20 13:21 100.9 12/10/20 12:00 109 12/10/20 12:00 99.0 107 20 117/101 (106) 99 12/10/20 09:00 Room Air 12/10/20 08:21 102 12/10/20 08:00 96 12/10/20 08:00 97.9 102 20 109/55 (73) 97 12/10/20 04:00 106 12/10/20 04:00 97.8 95 20 95/50 (65) 100 12/10/20 00:00 102 12/10/20 00:00 98.4 103 21 104/53 (70) 100 12/09/20 21:00 Room Air 12/09/20 20:00 97.8 104 20 111/58 (75) 100 12/09/20 20:00 100 12/09/20 16:00 104 12/09/20 15:49 99.3 103 20 107/53 (71) 95 Intake and Output 12/09/20 12/10/20 19:00 07:00 Intake Total 760 ml 320 ml Balance 760 ml 320 ml Free Water 100 ml Tube Feeding 660 ml 120 ml Other 100 ml 100 ml # Voids 2 Current Medications Medications (Trade) Dose Ordered Sig/Rosy Route PRN Reason Start Time Stop Time Status Last Admin Dose Admin Acetaminophen (Tylenol) 500 mg Q4H PRN GT For Pain 12/04/20 18:30 01/03/21 18:29 12/10/20 05:25 Acetaminophen (Tylenol) 500 mg Q6H PRN GT Temp >100.5 12/08/20 15:15 01/07/21 15:14 12/10/20 13:22 Ascorbic Acid (Vitamin C) 250 mg TWICE A DAY GT 12/06/20 18:00 01/05/21 17:59 12/10/20 08:20 Bisacodyl (Dulcolax) 10 mg DAILYPRN ORAL 12/10/20 09:00 03/10/21 08:59 UNV Ceftriaxone Sodium 1 gm/ Dextrose 55 ml @ 110 mls/hr Q24H IVPB 12/05/20 15:00 12/12/20 14:59 12/10/20 14:08 Digoxin (Lanoxin) 0.125 mg DAILY PEG 12/09/20 09:00 03/09/21 08:59 12/10/20 08:21 Docusate Sodium (Colace) 100 mg TWICE A DAY GT 12/05/20 11:07 01/04/21 11:06 12/10/20 08:20 Enoxaparin Sodium (Lovenox) 40 mg DAILY SUBQ 12/09/20 09:00 03/09/21 08:59 12/10/20 08:34 Famotidine (Pepcid) 20 mg BID GT 12/08/20 18:00 03/08/21 17:59 12/10/20 08:20 Iron Sucrose 100 mg/Sodium Chloride 60 ml @ 240 mls/hr BEDTIME IVPB 12/07/20 21:00 12/11/20 21:14 12/09/20 20:32 Magnesium Hydroxide (Mom) 30 ml BID GT 12/10/20 09:00 01/09/21 08:59 12/10/20 08:20 Midodrine (Pro-Amatine) 10 mg Q8HR ORAL 12/08/20 11:00 03/08/21 10:59 12/10/20 13:08 Zinc Sulfate (Zinc Sulfate) 220 mg DAILY GT 12/07/20 09:00 12/17/20 08:59 12/10/20 08:20 Laboratory Tests 12/10/20 05:57: White Blood Count 16.6H, Red Blood Count 3.50L, Hemoglobin 10.1L, Hematocrit 30.9L, Mean Corpuscular Volume 88, Mean Corpuscular Hemoglobin 29.0, Mean Corpuscular Hemoglobin Concent 32.7, Red Cell Distribution Width 14.9H, Platelet Count 294, Mean Platelet Volume 10.3H, Neutrophils (%) (Auto) 77.6H, Lymphocytes (%) (Auto) 12.6L, Monocytes (%) (Auto) 6.7, Eosinophils (%) (Auto) 2.4, Basophils (%) (Auto) 0.8, Sodium Level 140, Potassium Level 4.4, Chloride Level 105, Carbon Dioxide Level 25, Anion Gap 10, Blood Urea Nitrogen 15, Creatinine 0.5L, Estimat Glomerular Filtration Rate > 60, Glucose Level 122H, Calcium Level 8.8, Phosphorus Level 4.4, Magnesium Level 2.3, Total Bilirubin 0.5, Aspartate Amino Transf (AST/SGOT) 27, Alanine Aminotransferase (ALT/SGPT) 30, Alkaline Phosphatase 177H, Total Protein 7.0, Albumin 2.5L, Globulin 4.5, Albumin/Globulin Ratio 0.6L Height (Feet): 5 Height (Inches): 2.00 Weight (Pounds): 96 General Appearance: no apparent distress, lethargic Cardiovascular: tachycardia Respiratory/Chest: decreased breath sounds Abdomen: distended Gene Pena MD Dec 10, 2020 14:16
--- NOTE | 2020-12-10 15:03 | Cardiac Electrophysiology PN ---
Assessment/Plan Assessment/Plan 1. Transient atrial fib with RVR, due to sepsis with white count 25,000. EF 65%. On Dig 0.125 po daily 2. Hypotension. Off Cardizem. Resolved with Albumin and Midodrine 3. Severe hypernatremia and azotemia. Resolved with IV fluid, per Dr. Pena. 4. History of psychiatric history. 5. Respiratory failure, currently on IV antibiotic and 2 L nasal cannula. 6. Dysphagia, status post PEG placement. Subjective Subjective Covid negative. No atrial fib overnight. GT feeding ongoing. In SR overnight BP dropped to 87/43 that improved after albumin and Midodrine dose increased On RA. Had T 100.9 Objective Last 24 Hour Vital Signs Date Time Temp Pulse Resp B/P (MAP) Pulse Ox O2 Delivery O2 Flow Rate FiO2 12/10/20 13:52 99.2 12/10/20 13:21 100.9 12/10/20 12:00 109 12/10/20 12:00 99.0 107 20 117/101 (106) 99 12/10/20 09:00 Room Air 12/10/20 08:21 102 12/10/20 08:00 96 12/10/20 08:00 97.9 102 20 109/55 (73) 97 12/10/20 04:00 106 12/10/20 04:00 97.8 95 20 95/50 (65) 100 12/10/20 00:00 102 12/10/20 00:00 98.4 103 21 104/53 (70) 100 12/09/20 21:00 Room Air 12/09/20 20:00 97.8 104 20 111/58 (75) 100 12/09/20 20:00 100 12/09/20 16:00 104 12/09/20 15:49 99.3 103 20 107/53 (71) 95 Intake and Output 12/09/20 12/10/20 19:00 07:00 Intake Total 760 ml 320 ml Balance 760 ml 320 ml Free Water 100 ml Tube Feeding 660 ml 120 ml Other 100 ml 100 ml # Voids 2 Laboratory Tests Test 12/10/20 05:57 White Blood Count 16.6 K/UL (4.8-10.8) H Red Blood Count 3.50 M/UL (4.20-5.40) L Hemoglobin 10.1 G/DL (12.0-16.0) L Hematocrit 30.9 % (37.0-47.0) L Mean Corpuscular Volume 88 FL (80-99) Mean Corpuscular Hemoglobin 29.0 PG (27.0-31.0) Mean Corpuscular Hemoglobin Concent 32.7 G/DL (32.0-36.0) Red Cell Distribution Width 14.9 % (11.6-14.8) H Platelet Count 294 K/UL (150-450) Mean Platelet Volume 10.3 FL (6.5-10.1) H Neutrophils (%) (Auto) 77.6 % (45.0-75.0) H Lymphocytes (%) (Auto) 12.6 % (20.0-45.0) L Monocytes (%) (Auto) 6.7 % (1.0-10.0) Eosinophils (%) (Auto) 2.4 % (0.0-3.0) Basophils (%) (Auto) 0.8 % (0.0-2.0) Sodium Level 140 MMOL/L (136-145) Potassium Level 4.4 MMOL/L (3.5-5.1) Chloride Level 105 MMOL/L (98-107) Carbon Dioxide Level 25 MMOL/L (21-32) Anion Gap 10 mmol/L (5-15) Blood Urea Nitrogen 15 mg/dL (7-18) Creatinine 0.5 MG/DL (0.55-1.30) L Estimat Glomerular Filtration Rate > 60 mL/min (>60) Glucose Level 122 MG/DL (74-106) H Calcium Level 8.8 MG/DL (8.5-10.1) Phosphorus Level 4.4 MG/DL (2.5-4.9) Magnesium Level 2.3 MG/DL (1.8-2.4) Total Bilirubin 0.5 MG/DL (0.2-1.0) Aspartate Amino Transf (AST/SGOT) 27 U/L (15-37) Alanine Aminotransferase (ALT/SGPT) 30 U/L (12-78) Alkaline Phosphatase 177 U/L (46-116) H Total Protein 7.0 G/DL (6.4-8.2) Albumin 2.5 G/DL (3.4-5.0) L Globulin 4.5 g/dL Albumin/Globulin Ratio 0.6 (1.0-2.7) L Objective HEAD AND NECK: No JVD. LUNGS: Decreased breath sounds. CARDIOVASCULAR: Regular S1 and S2 gallop, tachycardic. ABDOMEN: Status post G-tube. EXTREMITIES: No pitting edema. Efrain Gustafson MD Dec 10, 2020 15:03
[2020-12-10 16:00] VITALS: BP 105/47
--- NOTE | 2020-12-10 19:20 | NUR ---
NURSE HAND-OFF REPORT: Important Events on Shift:[fever 100.9, tylenol given] Patient Status: [FULL CODE] Diet: [jevity 1.2] Pending Orders: [] Pending Results/Labs:[] Pending MD notification:[] Latest Vital Signs: Temperature 97.7 , Pulse 97 , B/P 105 /47 , Respiratory Rate 20 , O2 SAT 100 , Nasal Cannula, O2 Flow Rate 3.0 . Vital Sign Comment: [] EKG Rhythm: Sinus Rhythm Rhythm change?: N MD Notified?: Akbar Gustafson MD Response: Latest Lucero Fall Score: 70 Fall Risk: High Risk Safety Measures: Call light Within Reach, Bed Alarm Zone 1, Side Rails Side Rails x3, Bed position Low and Locked. Fall Precautions: Yellow Socks Yellow Gown Door Sign Patient Fall Education Report given to [Keshia RN].
--- NOTE | 2020-12-10 19:25 | NUR ---
NURSE NOTES: Received pt and report from MARIE Odom. Observed pt resting in bed with both eyes closed; arousable to light touch. Pt is A/Ox0, nonverbal. patient monitor is in placed; pt is ST (104 bpm). IV site intact, asymptomatic, and patent; saline locked. Pt has G-tube feeding of Jevity 1.2 @ 60ml/hr. No residual noted. Aspiration precaution noted; HOB at 30 degrees, oxygen, and suction at bedside. Bed is in the lowest position and locked. SCDs on. Call light and bedside table is within reach. No signs/symptoms of acute distress noted. Will continue plan of care.
--- NOTE | 2020-12-10 19:40 | General Progress Note ---
Subjective ROS Limited/Unobtainable: Yes Allergies: Coded Allergies: No Known Allergies (Verified , 08/01/11) Objective Last 24 Hour Vital Signs Date Time Temp Pulse Resp B/P (MAP) Pulse Ox O2 Delivery O2 Flow Rate FiO2 12/10/20 16:00 97.7 96 20 105/47 (66) 100 12/10/20 16:00 97 12/10/20 13:52 99.2 12/10/20 13:21 100.9 12/10/20 12:00 109 12/10/20 12:00 99.0 107 20 117/101 (106) 99 12/10/20 09:00 Room Air 12/10/20 08:21 102 12/10/20 08:00 96 12/10/20 08:00 97.9 102 20 109/55 (73) 97 12/10/20 04:00 106 12/10/20 04:00 97.8 95 20 95/50 (65) 100 12/10/20 00:00 102 12/10/20 00:00 98.4 103 21 104/53 (70) 100 12/09/20 21:00 Room Air 12/09/20 20:00 97.8 104 20 111/58 (75) 100 12/09/20 20:00 100 Intake and Output 12/09/20 12/10/20 19:00 07:00 Intake Total 760 ml 320 ml Balance 760 ml 320 ml Free Water 100 ml Tube Feeding 660 ml 120 ml Other 100 ml 100 ml # Voids 2 Laboratory Tests 12/10/20 05:57: White Blood Count 16.6H, Red Blood Count 3.50L, Hemoglobin 10.1L, Hematocrit 30.9L, Mean Corpuscular Volume 88, Mean Corpuscular Hemoglobin 29.0, Mean Corpuscular Hemoglobin Concent 32.7, Red Cell Distribution Width 14.9H, Platelet Count 294, Mean Platelet Volume 10.3H, Neutrophils (%) (Auto) 77.6H, Lymphocytes (%) (Auto) 12.6L, Monocytes (%) (Auto) 6.7, Eosinophils (%) (Auto) 2.4, Basophils (%) (Auto) 0.8, Sodium Level 140, Potassium Level 4.4, Chloride Level 105, Carbon Dioxide Level 25, Anion Gap 10, Blood Urea Nitrogen 15, Creatinine 0.5L, Estimat Glomerular Filtration Rate > 60, Glucose Level 122H, Calcium Level 8.8, Phosphorus Level 4.4, Magnesium Level 2.3, Total Bilirubin 0.5, Aspartate Amino Transf (AST/SGOT) 27, Alanine Aminotransferase (ALT/SGPT) 30, Alkaline Phosphatase 177H, Total Protein 7.0, Albumin 2.5L, Globulin 4.5, Albumin/Globulin Ratio 0.6L Height (Feet): 5 Height (Inches): 2.00 Weight (Pounds): 96 Assessment/Plan Problem List: (1) Parkinsons disease ICD Codes: G20 - Parkinson's disease SNOMED: 08471309 (2) Hypernatremia ICD Codes: E87.0 - Hyperosmolality and hypernatremia SNOMED: 325612536 (3) Sepsis ICD Codes: A41.9 - Sepsis, unspecified organism SNOMED: 37584504 Qualifiers: Qualified Codes: A41.9 - Sepsis, unspecified organism (4) UTI (urinary tract infection) ICD Codes: N39.0 - Urinary tract infection, site not specified SNOMED: 91565939 Qualifiers: Qualified Codes: N39.0 - Urinary tract infection, site not specified (5) Decubitus ulcer ICD Codes: L89.90 - Pressure ulcer of unspecified site, unspecified stage SNOMED: 502957126 Qualifiers: Qualified Codes: L89.90 - Pressure ulcer of unspecified site, unspecified stage Status: progressing Assessment/Plan: check lytes dehydration dc planning afebrile sepsis improving uti improving Kelsey Looney MD Dec 10, 2020 19:40
[2020-12-10 20:00] VITALS: BP 109/47
[2020-12-10] MEDS: Iron Sucrose 100 MG in NS 55 ML IVPB SCH (20:40)
--- NOTE | 2020-12-10 22:15 | General Progress Note ---
Subjective Allergies: Coded Allergies: No Known Allergies (Verified , 08/01/11) Subjective Awake more interactive Tolerating TF Objective Last 24 Hour Vital Signs Date Time Temp Pulse Resp B/P (MAP) Pulse Ox O2 Delivery O2 Flow Rate FiO2 12/10/20 20:00 97.9 110 21 109/47 (67) 98 12/10/20 16:00 97.7 96 20 105/47 (66) 100 12/10/20 16:00 97 12/10/20 13:52 99.2 12/10/20 13:21 100.9 12/10/20 12:00 109 12/10/20 12:00 99.0 107 20 117/101 (106) 99 12/10/20 09:00 Room Air 12/10/20 08:21 102 12/10/20 08:00 96 12/10/20 08:00 97.9 102 20 109/55 (73) 97 12/10/20 04:00 106 12/10/20 04:00 97.8 95 20 95/50 (65) 100 12/10/20 00:00 102 12/10/20 00:00 98.4 103 21 104/53 (70) 100 Intake and Output 12/09/20 12/10/20 19:00 07:00 Intake Total 760 ml 320 ml Balance 760 ml 320 ml Free Water 100 ml Tube Feeding 660 ml 120 ml Other 100 ml 100 ml # Voids 2 Laboratory Tests 12/10/20 05:57: White Blood Count 16.6H, Red Blood Count 3.50L, Hemoglobin 10.1L, Hematocrit 30.9L, Mean Corpuscular Volume 88, Mean Corpuscular Hemoglobin 29.0, Mean Corpuscular Hemoglobin Concent 32.7, Red Cell Distribution Width 14.9H, Platelet Count 294, Mean Platelet Volume 10.3H, Neutrophils (%) (Auto) 77.6H, Lymphocytes (%) (Auto) 12.6L, Monocytes (%) (Auto) 6.7, Eosinophils (%) (Auto) 2.4, Basophils (%) (Auto) 0.8, Sodium Level 140, Potassium Level 4.4, Chloride Level 105, Carbon Dioxide Level 25, Anion Gap 10, Blood Urea Nitrogen 15, Creatinine 0.5L, Estimat Glomerular Filtration Rate > 60, Glucose Level 122H, Calcium Level 8.8, Phosphorus Level 4.4, Magnesium Level 2.3, Total Bilirubin 0.5, Aspartate Amino Transf (AST/SGOT) 27, Alanine Aminotransferase (ALT/SGPT) 30, Alkaline Phosphatase 177H, Total Protein 7.0, Albumin 2.5L, Globulin 4.5, Albumin/Globulin Ratio 0.6L Height (Feet): 5 Height (Inches): 2.00 Weight (Pounds): 96 Objective Debilitated WW NCAT temporal wasting CT'A RRR abd soft ND, (+) GT no edema Assessment/Plan Status: progressing Assessment/Plan: Assessment - abnormal LFT, possibly due to sepsis, resolving - OBS - s/p PEG - decubitus ulcers - malnutrition - albumin improved Recommendations - check abd ultrasound --> normal - follow LFT conservatively - monitor residuals - elevate HOB Hollie Simmons MD Dec 10, 2020 22:15
[2020-12-11] VITALS: BP 136/68
--- NOTE | 2020-12-11 01:49 | NUR ---
NURSE NOTES: Observed pt resting in bed with both eyes closed. No feeding residual noted. No signs/symptoms of distress noted. Will continue plan of care.
[2020-12-11 04:00] VITALS: BP 114/53
[2020-12-11] MEDS: Midodrine 10mg tab ORAL SCH ×3 (05:07→21:13)
[2020-12-11 06:13] LABS: BASOPHILS % (AUTO) 0.4 % (0.0-2.0); EOSINOPHILS % (AUTO) 1.7 % (0.0-3.0); HEMATOCRIT 29.5 % (37.0-47.0); HEMOGLOBIN 9.6 G/DL (12.0-16.0); MEAN CORPUSCULAR VOLUME 89 FL (80-99); MONOCYTES % (AUTO) 6.3 % (1.0-10.0); NEUTROPHILS % (AUTO) 82.6 % (45.0-75.0); PLATELET COUNT 298 K/UL (150-450); RED BLOOD COUNT 3.31 M/UL (4.20-5.40); RED CELL DISTRIBUTION WIDTH 14.9 % (11.6-14.8); WHITE BLOOD COUNT 13.7 K/UL (4.8-10.8)
[2020-12-11 06:34] LABS: ALANINE AMINOTRANSFERASE 27 U/L (12-78); ALBUMIN 2.2 G/DL (3.4-5.0); ALBUMIN/GLOBULIN RATIO 0.5 (1.0-2.7); ALKALINE PHOSPHATASE 185 U/L (46-116); ANION GAP 7 mmol/L (5-15); ASPARTATE AMINO TRANSFERASE 25 U/L (15-37); BILIRUBIN,TOTAL 0.4 MG/DL (0.2-1.0); BLOOD UREA NITROGEN 15 mg/dL (7-18); CALCIUM 8.6 MG/DL (8.5-10.1); CARBON DIOXIDE 27 MMOL/L (21-32); CHLORIDE 105 MMOL/L (98-107); CREATININE 0.5 MG/DL (0.55-1.30); POTASSIUM 4.3 MMOL/L (3.5-5.1); SODIUM 139 MMOL/L (136-145)
--- NOTE | 2020-12-11 07:25 | NUR ---
NURSE NOTES: Received patient in bed. Awake, nonverbal. On room air, respirations unlabored. No signs of pain noted at this time. Patient sitting in semi-fowlers. Gt flushed and patent, running feeding as ordered. IV in the Right Hand, site intact. Bed low and locked, side rails up x2, call light within reach - unable to return demonstration.
--- NOTE | 2020-12-11 07:51 | NUR ---
NURSE HAND-OFF REPORT: Important Events on Shift: No fever. No acute distress noted. Endorsed to dayshift nurse that pt still has not had a BM. Patient Status: Stable Diet: Jevity 1.2 @60ml/hr Pending Orders: N Pending Results/Labs: AM Labs Pending MD notification: No BM x5 days Latest Vital Signs: Temperature 97.5 , Pulse 100 , B/P 114 /53 , Respiratory Rate 20 , O2 SAT 97 , Nasal Cannula, O2 Flow Rate 3.0 . EKG Rhythm: Sinus Rhythm Rhythm change?: N Latest Lucero Fall Score: 70 Fall Risk: High Risk Safety Measures: Call light Within Reach, Bed Alarm Zone 2, Side Rails Side Rails x3, Bed position Low and Locked. Fall Precautions: Yellow Socks Yellow Gown Door Sign Patient Fall Education Report given to MARIE Odom.
[2020-12-11 08:00] VITALS: BP 111/52
[2020-12-11] MEDS: Milk of Magnesia 30ml Ud GT SCH ×2 (08:16→17:13)
[2020-12-11] MEDS: Digoxin 0.125mg tab PEG SCH (08:16)
[2020-12-11] MEDS: Docusate 100mg/10ml Liq GT SCH ×2 (08:17→17:13)
[2020-12-11] MEDS: Zinc Sulfate 220mg GT SCH (08:17)
[2020-12-11] MEDS: Ascorbic Acid 500mg tab GT SCH ×2 (08:17→17:13)
[2020-12-11] MEDS: Enoxaparin 40mg Inj SUBQ SCH (08:25)
[2020-12-11] MEDS: Acetaminophen 650mg/20.3ml GT PRN ×2 (10:13→20:25)
[2020-12-11 12:00] VITALS: BP 147/89
--- NOTE | 2020-12-11 12:01 | Pulmonology Progress Note ---
Subjective ROS Limited/Unobtainable: Yes Interval Events: None new reported Constitutional: Reports: fever, other - Ruhg=164.9 Respiratory: Reports: no symptoms Cardiovascular: Reports: no symptoms Gastrointestinal/Abdominal: Reports: no symptoms Genitourinary: Reports: no symptoms Allergies: Coded Allergies: No Known Allergies (Verified , 08/01/11) Objective Last 24 Hour Vital Signs Date Time Temp Pulse Resp B/P (MAP) Pulse Ox O2 Delivery O2 Flow Rate FiO2 12/11/20 10:43 99.2 12/11/20 10:14 100.9 12/11/20 09:00 Room Air 12/11/20 08:16 93 12/11/20 08:00 96 12/11/20 08:00 97.9 93 20 111/52 (71) 97 12/11/20 04:00 97.5 100 20 114/53 (73) 97 12/11/20 04:00 100 12/11/20 00:00 108 12/11/20 00:00 98.6 103 21 136/68 (90) 95 12/10/20 21:00 Room Air 12/10/20 20:00 105 12/10/20 20:00 97.9 110 21 109/47 (67) 98 12/10/20 16:00 97.7 96 20 105/47 (66) 100 12/10/20 16:00 97 12/10/20 13:52 99.2 12/10/20 13:21 100.9 Intake and Output 12/10/20 12/11/20 19:00 07:00 Intake Total 960 ml 320 ml Balance 960 ml 320 ml Free Water 300 ml 200 ml Tube Feeding 660 ml 60 ml Other 60 ml # Voids 3 3 General Appearance: no acute distress HEENT: normocephalic Respiratory: chest wall non-tender, decreased breath sounds Cardiovascular: normal peripheral pulses Abdomen: normal bowel sounds Laboratory Tests 12/11/20 05:33: White Blood Count 13.7H, Red Blood Count 3.31L, Hemoglobin 9.6L, Hematocrit 29.5L, Mean Corpuscular Volume 89, Mean Corpuscular Hemoglobin 29.1, Mean Corpuscular Hemoglobin Concent 32.7, Red Cell Distribution Width 14.9H, Platelet Count 298, Mean Platelet Volume 9.3, Neutrophils (%) (Auto) 82.6H, Lymphocytes (%) (Auto) 9.0L, Monocytes (%) (Auto) 6.3, Eosinophils (%) (Auto) 1.7, Basophils (%) (Auto) 0.4, Sodium Level 139, Potassium Level 4.3, Chloride Level 105, Carbon Dioxide Level 27, Anion Gap 7, Blood Urea Nitrogen 15, Creatinine 0.5L, Estimat Glomerular Filtration Rate > 60, Glucose Level 146H, Calcium Level 8.6, Total Bilirubin 0.4, Aspartate Amino Transf (AST/SGOT) 25, Alanine Aminotransferase (ALT/SGPT) 27, Alkaline Phosphatase 185H, Total Protein 6.4, Albumin 2.2L, Globulin 4.2, Albumin/Globulin Ratio 0.5L Current Medications Medications (Trade) Dose Ordered Sig/Rsoy Route PRN Reason Start Time Stop Time Status Last Admin Dose Admin Acetaminophen (Tylenol) 500 mg Q4H PRN GT For Pain 12/04/20 18:30 01/03/21 18:29 12/11/20 10:13 Acetaminophen (Tylenol) 500 mg Q6H PRN GT Temp >100.5 12/08/20 15:15 01/07/21 15:14 12/10/20 13:22 Ascorbic Acid (Vitamin C) 250 mg TWICE A DAY GT 12/06/20 18:00 01/05/21 17:59 12/11/20 08:17 Bisacodyl (Dulcolax) 10 mg DAILYPRN ORAL 12/10/20 09:00 03/10/21 08:59 Ceftriaxone Sodium 1 gm/ Dextrose 55 ml @ 110 mls/hr Q24H IVPB 12/05/20 15:00 12/12/20 14:59 12/10/20 14:08 Digoxin (Lanoxin) 0.125 mg DAILY PEG 12/09/20 09:00 03/09/21 08:59 12/11/20 08:16 Docusate Sodium (Colace) 100 mg TWICE A DAY GT 12/05/20 11:07 01/04/21 11:06 12/11/20 08:17 Enoxaparin Sodium (Lovenox) 40 mg DAILY SUBQ 12/09/20 09:00 03/09/21 08:59 12/11/20 08:25 Famotidine (Pepcid) 20 mg BID GT 12/08/20 18:00 03/08/21 17:59 12/11/20 08:17 Iron Sucrose 100 mg/Sodium Chloride 60 ml @ 240 mls/hr BEDTIME IVPB 12/07/20 21:00 12/11/20 21:14 12/10/20 20:40 Magnesium Hydroxide (Mom) 30 ml BID GT 12/10/20 09:00 01/09/21 08:59 12/11/20 08:16 Midodrine (Pro-Amatine) 10 mg Q8HR ORAL 12/08/20 11:00 03/08/21 10:59 12/11/20 05:07 Zinc Sulfate (Zinc Sulfate) 220 mg DAILY GT 12/07/20 09:00 12/17/20 08:59 12/11/20 08:17 Assessment/Plan Assessment/Plan 1 .Renal failure, dehydration -Nephro following 2. Sepsis -ID following -WBC trending down - s/p vancomycin - on ceftriaxone - Blhw=364.9 3. COVID-19 negative 4. Hypoxia; resolved -Now saturating 94-95% on room air 5. Elevated CRP -elevated D-dimer as well - continue Lovenox for DVT ppx - Venous duplex US of LE: No DVT, except the left popliteal vein which could not be visualized by the podiatric technician due to contracture The care for this patient was discussed with my supervising physician Time spent for this case was approximately 31 minutes Maxx Hoffman Dec 11, 2020 12:01
--- NOTE | 2020-12-11 12:19 | Nephrology Progress Note ---
Assessment/Plan Problem List: (1) MAUREEN (acute kidney injury) (2) Dehydration (3) Hypernatremia (4) Sepsis (5) UTI (urinary tract infection) (6) Decubitus ulcer Assessment Renal failure, dehydration Hypernatremia, due to free water deficit Sepsis, leukocytosis Malnutrition, hypoalbuminemia Alzheimer's Underlying anemia as the patient continues to be hydrated Plan December 11: Labs reviewed. Renal parameters stable. Blood pressure reasonably well controlled. December 10: Labs reviewed. Renal parameters are stable. Blood pressure is stable. Remains tachycardic. December 09: No CHEM panel drawn today. Blood pressure stable. On digoxin. Cardizem is discontinued. December 08: Labs reviewed. Renal parameters stable. Patient blood pressure is low. Midodrine dose increased. 1 dose of albumin bolus given. Parameters for Cardizem ordered. Discussed with MARIE Velarde. December 07: Labs reviewed. Serum sodium normal. IV discontinued. Midodrine for low blood pressure initiated. December 06: Serum sodium lowering. Continue hydration. Medication list reviewed. Previously: D5W hydration Antibiotics Avoid nephrotoxic's Improve nutritional state Monitor renal parameters electrolytes Anemia work-up Subjective ROS Limited/Unobtainable: No Constitutional: Reports: malaise, weakness Objective Objective Last 24 Hour Vital Signs Date Time Temp Pulse Resp B/P (MAP) Pulse Ox O2 Delivery O2 Flow Rate FiO2 12/11/20 10:43 99.2 12/11/20 10:14 100.9 12/11/20 09:00 Room Air 12/11/20 08:16 93 12/11/20 08:00 96 12/11/20 08:00 97.9 93 20 111/52 (71) 97 12/11/20 04:00 97.5 100 20 114/53 (73) 97 12/11/20 04:00 100 12/11/20 00:00 108 12/11/20 00:00 98.6 103 21 136/68 (90) 95 12/10/20 21:00 Room Air 12/10/20 20:00 105 12/10/20 20:00 97.9 110 21 109/47 (67) 98 12/10/20 16:00 97.7 96 20 105/47 (66) 100 12/10/20 16:00 97 12/10/20 13:52 99.2 12/10/20 13:21 100.9 Intake and Output 12/10/20 12/11/20 19:00 07:00 Intake Total 960 ml 320 ml Balance 960 ml 320 ml Free Water 300 ml 200 ml Tube Feeding 660 ml 60 ml Other 60 ml # Voids 3 3 Current Medications Medications (Trade) Dose Ordered Sig/Rosy Route PRN Reason Start Time Stop Time Status Last Admin Dose Admin Acetaminophen (Tylenol) 500 mg Q4H PRN GT For Pain 12/04/20 18:30 01/03/21 18:29 12/11/20 10:13 Acetaminophen (Tylenol) 500 mg Q6H PRN GT Temp >100.5 12/08/20 15:15 01/07/21 15:14 12/10/20 13:22 Ascorbic Acid (Vitamin C) 250 mg TWICE A DAY GT 12/06/20 18:00 01/05/21 17:59 12/11/20 08:17 Bisacodyl (Dulcolax) 10 mg DAILYPRN ORAL 12/10/20 09:00 03/10/21 08:59 Ceftriaxone Sodium 1 gm/ Dextrose 55 ml @ 110 mls/hr Q24H IVPB 12/05/20 15:00 12/12/20 14:59 12/11/20 14:38 Digoxin (Lanoxin) 0.125 mg DAILY PEG 12/09/20 09:00 03/09/21 08:59 12/11/20 08:16 Docusate Sodium (Colace) 100 mg TWICE A DAY GT 12/05/20 11:07 01/04/21 11:06 12/11/20 08:17 Enoxaparin Sodium (Lovenox) 40 mg DAILY SUBQ 12/09/20 09:00 03/09/21 08:59 12/11/20 08:25 Famotidine (Pepcid) 20 mg BID GT 12/08/20 18:00 03/08/21 17:59 12/11/20 08:17 Iron Sucrose 100 mg/Sodium Chloride 60 ml @ 240 mls/hr BEDTIME IVPB 12/07/20 21:00 12/11/20 21:14 12/10/20 20:40 Magnesium Hydroxide (Mom) 30 ml BID GT 12/10/20 09:00 01/09/21 08:59 12/11/20 08:16 Midodrine (Pro-Amatine) 10 mg Q8HR ORAL 12/08/20 11:00 03/08/21 10:59 12/11/20 13:25 Zinc Sulfate (Zinc Sulfate) 220 mg DAILY GT 12/07/20 09:00 12/17/20 08:59 12/11/20 08:17 Laboratory Tests 12/11/20 05:33: White Blood Count 13.7H, Red Blood Count 3.31L, Hemoglobin 9.6L, Hematocrit 29.5L, Mean Corpuscular Volume 89, Mean Corpuscular Hemoglobin 29.1, Mean Corpuscular Hemoglobin Concent 32.7, Red Cell Distribution Width 14.9H, Platelet Count 298, Mean Platelet Volume 9.3, Neutrophils (%) (Auto) 82.6H, Lymphocytes (%) (Auto) 9.0L, Monocytes (%) (Auto) 6.3, Eosinophils (%) (Auto) 1.7, Basophils (%) (Auto) 0.4, Sodium Level 139, Potassium Level 4.3, Chloride Level 105, Carbon Dioxide Level 27, Anion Gap 7, Blood Urea Nitrogen 15, Creatinine 0.5L, Estimat Glomerular Filtration Rate > 60, Glucose Level 146H, Calcium Level 8.6, Total Bilirubin 0.4, Aspartate Amino Transf (AST/SGOT) 25, Alanine Aminotransferase (ALT/SGPT) 27, Alkaline Phosphatase 185H, Total Protein 6.4, Albumin 2.2L, Globulin 4.2, Albumin/Globulin Ratio 0.5L Height (Feet): 5 Height (Inches): 2.00 Weight (Pounds): 96 General Appearance: no apparent distress, lethargic Cardiovascular: tachycardia Respiratory/Chest: decreased breath sounds Abdomen: distended Gene Pena MD Dec 11, 2020 12:19
--- NOTE | 2020-12-11 13:05 | Surgery Progress Note ---
Surgery Progress Note Subjective Additional Comments Patient seen and examined bedside. No acute events. No nausea or fever or chills. Exam stable. Labs noted. Dressing changes going well Objective Last 24 Hour Vital Signs Date Time Temp Pulse Resp B/P (MAP) Pulse Ox O2 Delivery O2 Flow Rate FiO2 12/11/20 10:43 99.2 12/11/20 10:14 100.9 12/11/20 09:00 Room Air 12/11/20 08:16 93 12/11/20 08:00 96 12/11/20 08:00 97.9 93 20 111/52 (71) 97 12/11/20 04:00 97.5 100 20 114/53 (73) 97 12/11/20 04:00 100 12/11/20 00:00 108 12/11/20 00:00 98.6 103 21 136/68 (90) 95 12/10/20 21:00 Room Air 12/10/20 20:00 105 12/10/20 20:00 97.9 110 21 109/47 (67) 98 12/10/20 16:00 97.7 96 20 105/47 (66) 100 12/10/20 16:00 97 12/10/20 13:52 99.2 12/10/20 13:21 100.9 I&O Intake and Output 12/10/20 12/11/20 19:00 07:00 Intake Total 960 ml 320 ml Balance 960 ml 320 ml Free Water 300 ml 200 ml Tube Feeding 660 ml 60 ml Other 60 ml # Voids 3 3 Dressing: saturated Cardiovascular: RSR Respiratory: decreased breath sounds Abdomen: soft, non-tender, present bowel sounds, non-distended Extremities: no edema, no tenderness, no cyanosis Laboratory Tests Test 12/11/20 05:33 White Blood Count 13.7 K/UL (4.8-10.8) H Red Blood Count 3.31 M/UL (4.20-5.40) L Hemoglobin 9.6 G/DL (12.0-16.0) L Hematocrit 29.5 % (37.0-47.0) L Mean Corpuscular Volume 89 FL (80-99) Mean Corpuscular Hemoglobin 29.1 PG (27.0-31.0) Mean Corpuscular Hemoglobin Concent 32.7 G/DL (32.0-36.0) Red Cell Distribution Width 14.9 % (11.6-14.8) H Platelet Count 298 K/UL (150-450) Mean Platelet Volume 9.3 FL (6.5-10.1) Neutrophils (%) (Auto) 82.6 % (45.0-75.0) H Lymphocytes (%) (Auto) 9.0 % (20.0-45.0) L Monocytes (%) (Auto) 6.3 % (1.0-10.0) Eosinophils (%) (Auto) 1.7 % (0.0-3.0) Basophils (%) (Auto) 0.4 % (0.0-2.0) Sodium Level 139 MMOL/L (136-145) Potassium Level 4.3 MMOL/L (3.5-5.1) Chloride Level 105 MMOL/L (98-107) Carbon Dioxide Level 27 MMOL/L (21-32) Anion Gap 7 mmol/L (5-15) Blood Urea Nitrogen 15 mg/dL (7-18) Creatinine 0.5 MG/DL (0.55-1.30) L Estimat Glomerular Filtration Rate > 60 mL/min (>60) Glucose Level 146 MG/DL (74-106) H Calcium Level 8.6 MG/DL (8.5-10.1) Total Bilirubin 0.4 MG/DL (0.2-1.0) Aspartate Amino Transf (AST/SGOT) 25 U/L (15-37) Alanine Aminotransferase (ALT/SGPT) 27 U/L (12-78) Alkaline Phosphatase 185 U/L (46-116) H Total Protein 6.4 G/DL (6.4-8.2) Albumin 2.2 G/DL (3.4-5.0) L Globulin 4.2 g/dL Albumin/Globulin Ratio 0.5 (1.0-2.7) L Plan Problems: (1) Parkinsons disease (2) Hypernatremia (3) Sepsis Assessment & Plan: 85-year-old female presented with leukocytosis now with anemia leukocytosis abnormal labs malnutrition wounds identified unlikely source of patient's sepsis or infectious etiology. Urine noted. Antibiotics per infectious disease. Unlikely cholecystitis. Abdominal exam otherwise fairly benign. No acute surgical invention planned at this time. Continue IV antibiotics continue nutrition continue local wound care we will follow the recommendations thank you DAILY ESTIMATED NEEDS: Needs based on Wounds, underweight/ 43.5kg 30-35 kcals/kg 2814-3325 total kcals 1.25-1.5 g protein/kg 54-65 g total protein 25-30 mL/kg 3172-6495 total fluid mLs NUTRITION DIAGNOSIS: Increased kcal/prot needs R/T wound healing and underweight status as evidenced by pt admitted w/ multiple wounds @ BL foot, pending eval, pt @ 87% IBW w/ BMI of 17.6, low BMI per guidelines. CURRENT TF:Jevity 1.2 @ 60ml/hr x 24 hrs ENTERAL NUTRITION RECOMMENDATIONS: Jevity 1.2 @ 50ml/hr x 24 hrs to provide 1200ml, 1440kcal, 67g prot, 968ml free water * Rec goal rate of 50ml/hr x 24 hrs to not exceed est kcal needs -> meets 100% est kcal/prot needs * HOB over 30 degrees/ water flush 100ml q 8hrs ADDITIONAL RECOMMENDATIONS: * Calibrated bedscale wt for accurate CBW * Monitor lytes, replete as needed * Wound care -> TF @ goal meeds 100% RDI Continue Vit C and ZnSO4, add Jonathon BID Liver: The liver measures 12 cm. No intrahepatic bile duct dilation. Gallbladder: No cholelithiasis. No gallbladder wall thickening. Common bile duct: Nondilated common bile duct measuring 5 mm. Pancreas: Poorly visualized pancreas. Kidneys: The right kidney was poorly visualized. The left kidney measures 9.9 cm. No hydronephrosis or nephrolithiasis. Spleen: The spleen measures 10.6 cm. Aorta: The proximal aorta measures 1.1 cm. No aneurysm. Inferior vena cava: Unremarkable. IMPRESSION: No ultrasound evidence of acute cholecystitis. No hepatic steatosis. (4) UTI (urinary tract infection) (5) Decubitus ulcer Assessment & Plan: Pt presented on admission emaciated, with contractures and multiple Pressure Injuries. Non-Blanchable erythema without induration/fluctuance R Elbow. Non-Blanchable erythema without induration/fluctuance L elbow. DTPI R trochanteric (L)7.5cm x (W)7.6cm. Clusters of Indurated and maroon Pressure injuries that are in close proximity R trochanter. Non-Blanchable erythema without induration L trochanter(L)8cm x (W)6.5cm. No evidence of skin breakdown to sacrum. Non-Blanchable erythema without induration/fluctuance noted to distal/lateral L Tibia(L)6cm x (W)0.8cm. Unstageable pressure Injury L Hallux(L)3.5cm x (W)3.2cm. Base of wound is 100% necrotic. Edges are adherent with marginal erythema. No odor or exudate noted. DTPI Medial /Lateral L Foot(L)2.5cm x (W)1cm.Base of Wound is maroon and fluctuant. DTPI distal/lateral L foot(L)2.5cm x (W)2.6cm. Base of Pressure Injury is fluctuant with marginal erythema. L heel is soft but easily blanchable. R Heel is soft but easily blanchable. DTPI R Hallux(L)5cm x (W)2.5cm. Reabsorbing blood Blister noted. Edges are adherent to base of Pressure Injury. Unstageable Pressure Injury distal/lateral R foot (L)1.5cm x (W)1.9cm. Dry brown eschar with adherent borders.Periwound is blanchable but fluctuant. Tx.plan: Apply Moisture Barrier Paste to Sacrum. Cover with Optifoam drsg. Change every 3 days and prn. Apply Cavilon Skin Barrier to R and L trochanteric areas. Cover each site with Optifoam drsgs. Change every 7 days and prn. Apply Betadine to Pressure Injuries L foot. Cover each site with Optifoam drsgs. Change every 3 days and prn. Apply Betadine to Pressure Injuries R foot. Cover each site with Optifoam drsdgs. Change every 3 days and prn. Apply Cavilon Skin Barrier to both heels. Cover each site with Optifoam drsgs. Change every 7 days and prn. Apply Cavilon Skin Barrier to R and L elbows. Cover each Elbow with Optifoam drsgs.Change every 7 days and prn. Cover Bony prominences as needed with Optifoam drsgs. Reposition at least every 2hours or as tolerated. Off-load heels with Pillow. APM/PURVI Mattress overlay. Kristofer Parra Dec 11, 2020 13:05
--- NOTE | 2020-12-11 14:36 | Cardiac Electrophysiology PN ---
Assessment/Plan Assessment/Plan 1. Transient atrial fib with RVR, due to sepsis with white count 25,000. EF 65%. On Dig 0.125 po daily 2. Hypotension. Resolved with Albumin and Midodrine 3. Severe hypernatremia and azotemia. Resolved with IV fluid, per Dr. Pena. 4. History of psychiatric history. 5. Respiratory failure, currently on IV antibiotic and 2 L nasal cannula. 6. Dysphagia, status post PEG placement. Subjective Subjective Covid negative. No atrial fib overnight. GT feeding ongoing. In SR overnight On RA. Had T 100.9 again today Objective Last 24 Hour Vital Signs Date Time Temp Pulse Resp B/P (MAP) Pulse Ox O2 Delivery O2 Flow Rate FiO2 12/11/20 12:00 99 12/11/20 12:00 98.6 104 18 147/89 (108) 96 12/11/20 10:43 99.2 12/11/20 10:14 100.9 12/11/20 09:00 Room Air 12/11/20 08:16 93 12/11/20 08:00 96 12/11/20 08:00 97.9 93 20 111/52 (71) 97 12/11/20 04:00 97.5 100 20 114/53 (73) 97 12/11/20 04:00 100 12/11/20 00:00 108 12/11/20 00:00 98.6 103 21 136/68 (90) 95 12/10/20 21:00 Room Air 12/10/20 20:00 105 12/10/20 20:00 97.9 110 21 109/47 (67) 98 12/10/20 16:00 97.7 96 20 105/47 (66) 100 12/10/20 16:00 97 Intake and Output 12/10/20 12/11/20 19:00 07:00 Intake Total 960 ml 380 ml Balance 960 ml 380 ml Free Water 300 ml 200 ml Tube Feeding 660 ml 120 ml Other 60 ml # Voids 3 3 Laboratory Tests Test 12/11/20 05:33 White Blood Count 13.7 K/UL (4.8-10.8) H Red Blood Count 3.31 M/UL (4.20-5.40) L Hemoglobin 9.6 G/DL (12.0-16.0) L Hematocrit 29.5 % (37.0-47.0) L Mean Corpuscular Volume 89 FL (80-99) Mean Corpuscular Hemoglobin 29.1 PG (27.0-31.0) Mean Corpuscular Hemoglobin Concent 32.7 G/DL (32.0-36.0) Red Cell Distribution Width 14.9 % (11.6-14.8) H Platelet Count 298 K/UL (150-450) Mean Platelet Volume 9.3 FL (6.5-10.1) Neutrophils (%) (Auto) 82.6 % (45.0-75.0) H Lymphocytes (%) (Auto) 9.0 % (20.0-45.0) L Monocytes (%) (Auto) 6.3 % (1.0-10.0) Eosinophils (%) (Auto) 1.7 % (0.0-3.0) Basophils (%) (Auto) 0.4 % (0.0-2.0) Sodium Level 139 MMOL/L (136-145) Potassium Level 4.3 MMOL/L (3.5-5.1) Chloride Level 105 MMOL/L (98-107) Carbon Dioxide Level 27 MMOL/L (21-32) Anion Gap 7 mmol/L (5-15) Blood Urea Nitrogen 15 mg/dL (7-18) Creatinine 0.5 MG/DL (0.55-1.30) L Estimat Glomerular Filtration Rate > 60 mL/min (>60) Glucose Level 146 MG/DL (74-106) H Calcium Level 8.6 MG/DL (8.5-10.1) Total Bilirubin 0.4 MG/DL (0.2-1.0) Aspartate Amino Transf (AST/SGOT) 25 U/L (15-37) Alanine Aminotransferase (ALT/SGPT) 27 U/L (12-78) Alkaline Phosphatase 185 U/L (46-116) H Total Protein 6.4 G/DL (6.4-8.2) Albumin 2.2 G/DL (3.4-5.0) L Globulin 4.2 g/dL Albumin/Globulin Ratio 0.5 (1.0-2.7) L Objective HEAD AND NECK: No JVD. LUNGS: Decreased breath sounds. CARDIOVASCULAR: Regular S1 and S2 gallop, tachycardic. ABDOMEN: Status post G-tube. EXTREMITIES: No pitting edema.Contracted Efrain Gustafson MD Dec 11, 2020 14:36
[2020-12-11] MEDS: cefTRIAXone 1 GM in D5W 55 ML IVPB SCH (14:38)
[2020-12-11 16:00] VITALS: BP 138/73
--- NOTE | 2020-12-11 16:04 | Infectious Diseases Prog Note ---
Assessment/Plan Assessment/Plan IMPRESSION: 1. Sepsis 2. Positive blood culture likely contamination 3. Leukocytosis. 4. Hypernatremia. 5. Anemia. 6. Pressure ulcer. 7. Alzheimer dementia. 8. Parkinson disease. 9. 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 RECOMMENDATION: Continue with ceftriaxone CXR Subjective ROS Limited/Unobtainable: Yes Constitutional: Reports: fever, other - T=100.9 in am Allergies: Coded Allergies: No Known Allergies (Verified , 08/01/11) Objective Last 24 Hour Vital Signs Date Time Temp Pulse Resp B/P (MAP) Pulse Ox O2 Delivery O2 Flow Rate FiO2 12/11/20 12:00 99 12/11/20 12:00 98.6 104 18 147/89 (108) 96 12/11/20 10:43 99.2 12/11/20 10:14 100.9 12/11/20 09:00 Room Air 12/11/20 08:16 93 12/11/20 08:00 96 12/11/20 08:00 97.9 93 20 111/52 (71) 97 12/11/20 04:00 97.5 100 20 114/53 (73) 97 12/11/20 04:00 100 12/11/20 00:00 108 12/11/20 00:00 98.6 103 21 136/68 (90) 95 12/10/20 21:00 Room Air 12/10/20 20:00 105 12/10/20 20:00 97.9 110 21 109/47 (67) 98 Height (Feet): 5 Height (Inches): 2.00 Weight (Pounds): 96 General Appearance: cachetic HEENT: mucous membranes moist Respiratory/Chest: lungs clear Cardiovascular: tachycardia Abdomen: soft, non tender, other - GT feeding Extremities: no edema Skin: ulcers Neurologic/Psychiatric: aphasia Laboratory Tests Test 12/11/20 05:33 White Blood Count 13.7 K/UL (4.8-10.8) H Red Blood Count 3.31 M/UL (4.20-5.40) L Hemoglobin 9.6 G/DL (12.0-16.0) L Hematocrit 29.5 % (37.0-47.0) L Mean Corpuscular Volume 89 FL (80-99) Mean Corpuscular Hemoglobin 29.1 PG (27.0-31.0) Mean Corpuscular Hemoglobin Concent 32.7 G/DL (32.0-36.0) Red Cell Distribution Width 14.9 % (11.6-14.8) H Platelet Count 298 K/UL (150-450) Mean Platelet Volume 9.3 FL (6.5-10.1) Neutrophils (%) (Auto) 82.6 % (45.0-75.0) H Lymphocytes (%) (Auto) 9.0 % (20.0-45.0) L Monocytes (%) (Auto) 6.3 % (1.0-10.0) Eosinophils (%) (Auto) 1.7 % (0.0-3.0) Basophils (%) (Auto) 0.4 % (0.0-2.0) Sodium Level 139 MMOL/L (136-145) Potassium Level 4.3 MMOL/L (3.5-5.1) Chloride Level 105 MMOL/L (98-107) Carbon Dioxide Level 27 MMOL/L (21-32) Anion Gap 7 mmol/L (5-15) Blood Urea Nitrogen 15 mg/dL (7-18) Creatinine 0.5 MG/DL (0.55-1.30) L Estimat Glomerular Filtration Rate > 60 mL/min (>60) Glucose Level 146 MG/DL (74-106) H Calcium Level 8.6 MG/DL (8.5-10.1) Total Bilirubin 0.4 MG/DL (0.2-1.0) Aspartate Amino Transf (AST/SGOT) 25 U/L (15-37) Alanine Aminotransferase (ALT/SGPT) 27 U/L (12-78) Alkaline Phosphatase 185 U/L (46-116) H Total Protein 6.4 G/DL (6.4-8.2) Albumin 2.2 G/DL (3.4-5.0) L Globulin 4.2 g/dL Albumin/Globulin Ratio 0.5 (1.0-2.7) L Current Medications Medications (Trade) Dose Ordered Sig/Rosy Route PRN Reason Start Time Stop Time Status Last Admin Dose Admin Acetaminophen (Tylenol) 500 mg Q4H PRN GT For Pain 12/04/20 18:30 01/03/21 18:29 12/11/20 10:13 Acetaminophen (Tylenol) 500 mg Q6H PRN GT Temp >100.5 12/08/20 15:15 01/07/21 15:14 12/10/20 13:22 Ascorbic Acid (Vitamin C) 250 mg TWICE A DAY GT 12/06/20 18:00 01/05/21 17:59 12/11/20 08:17 Bisacodyl (Dulcolax) 10 mg DAILYPRN ORAL 12/10/20 09:00 03/10/21 08:59 Ceftriaxone Sodium 1 gm/ Dextrose 55 ml @ 110 mls/hr Q24H IVPB 12/05/20 15:00 12/12/20 14:59 12/11/20 14:38 Digoxin (Lanoxin) 0.125 mg DAILY PEG 12/09/20 09:00 03/09/21 08:59 12/11/20 08:16 Docusate Sodium (Colace) 100 mg TWICE A DAY GT 12/05/20 11:07 01/04/21 11:06 12/11/20 08:17 Enoxaparin Sodium (Lovenox) 40 mg DAILY SUBQ 12/09/20 09:00 03/09/21 08:59 12/11/20 08:25 Famotidine (Pepcid) 20 mg BID GT 12/08/20 18:00 03/08/21 17:59 12/11/20 08:17 Iron Sucrose 100 mg/Sodium Chloride 60 ml @ 240 mls/hr BEDTIME IVPB 12/07/20 21:00 12/11/20 21:14 12/10/20 20:40 Magnesium Hydroxide (Mom) 30 ml BID GT 12/10/20 09:00 01/09/21 08:59 12/11/20 08:16 Midodrine (Pro-Amatine) 10 mg Q8HR ORAL 12/08/20 11:00 03/08/21 10:59 12/11/20 13:25 Zinc Sulfate (Zinc Sulfate) 220 mg DAILY GT 12/07/20 09:00 12/17/20 08:59 12/11/20 08:17 Joseph De Leon MD Dec 11, 2020 16:04
--- NOTE | 2020-12-11 19:08 | NUR ---
NURSE HAND-OFF REPORT: Important Events on Shift:[fever 100.9, ] Patient Status: [FULL CODE] Diet: [jevity 1.2 @60/hr] Pending Orders: [] Pending Results/Labs:[] Pending MD notification:[] Latest Vital Signs: Temperature 98.1 , Pulse 98 , B/P 138 /73 , Respiratory Rate 20 , O2 SAT 97 , Nasal Cannula, O2 Flow Rate 3.0 . Vital Sign Comment: [] EKG Rhythm: Sinus Rhythm Rhythm change?: N MD Notified?: Akbar Gustafson MD Response: Latest Lucero Fall Score: 70 Fall Risk: High Risk Safety Measures: Call light Within Reach, Bed Alarm Zone 1, Side Rails Side Rails x3, Bed position Low and Locked. Fall Precautions: Yellow Socks Yellow Gown Door Sign Patient Fall Education Report given to [Edison SALAZAR].
--- NOTE | 2020-12-11 19:30 | NUR ---
NURSE NOTES: received report from leslie alexandra. patient is asleep on bed. on semi fowlers position. no sy.s of pain like moaning or frowning noted. on room air, no sob. with gt running tube feeding as ordered. SR to ST through out the am shift. per ibrahima, " patient had episode of fever of 100.8, tylenol was given; fever resolved." potline monitor in placed. bed locked and in lowest position. with multiple skin issues. on low air mattress. call light and light button within easy reach. bed locked and in lowest position. kept head of bed elevated. will repositioned q2 hours.will continue plan of care.
[2020-12-11 20:00] VITALS: BP 108/54
--- NOTE | 2020-12-11 20:20 | NUR ---
NURSE NOTES: vitals taken. with temp of 101. administer tylenol as ordered. applied ice pack. removed excess blanket. repositioned. will reassess per protocol.
[2020-12-11] MEDS: Iron Sucrose 100 MG in NS 55 ML IVPB SCH (20:22)
--- NOTE | 2020-12-11 20:50 | NUR ---
NURSE NOTES: reassess temp of 99.0. no moaning or frowning noted. kept head of bed elevated. provided rest and comfort. will continue to monitor for further episode of fever.
--- NOTE | 2020-12-11 21:13 | General Progress Note ---
Subjective ROS Limited/Unobtainable: Yes Allergies: Coded Allergies: No Known Allergies (Verified , 08/01/11) Objective Last 24 Hour Vital Signs Date Time Temp Pulse Resp B/P (MAP) Pulse Ox O2 Delivery O2 Flow Rate FiO2 12/11/20 16:00 95 12/11/20 16:00 98.1 98 20 138/73 (94) 97 12/11/20 12:00 99 12/11/20 12:00 98.6 104 18 147/89 (108) 96 12/11/20 10:43 99.2 12/11/20 10:14 100.9 12/11/20 09:00 Room Air 12/11/20 08:16 93 12/11/20 08:00 96 12/11/20 08:00 97.9 93 20 111/52 (71) 97 12/11/20 04:00 97.5 100 20 114/53 (73) 97 12/11/20 04:00 100 12/11/20 00:00 108 12/11/20 00:00 98.6 103 21 136/68 (90) 95 Intake and Output 12/10/20 12/11/20 19:00 07:00 Intake Total 960 ml 380 ml Balance 960 ml 380 ml Free Water 300 ml 200 ml Tube Feeding 660 ml 120 ml Other 60 ml # Voids 3 3 Laboratory Tests 12/11/20 05:33: White Blood Count 13.7H, Red Blood Count 3.31L, Hemoglobin 9.6L, Hematocrit 29.5L, Mean Corpuscular Volume 89, Mean Corpuscular Hemoglobin 29.1, Mean Corpuscular Hemoglobin Concent 32.7, Red Cell Distribution Width 14.9H, Platelet Count 298, Mean Platelet Volume 9.3, Neutrophils (%) (Auto) 82.6H, Lymphocytes (%) (Auto) 9.0L, Monocytes (%) (Auto) 6.3, Eosinophils (%) (Auto) 1.7, Basophils (%) (Auto) 0.4, Sodium Level 139, Potassium Level 4.3, Chloride Level 105, Carbon Dioxide Level 27, Anion Gap 7, Blood Urea Nitrogen 15, Creatinine 0.5L, Estimat Glomerular Filtration Rate > 60, Glucose Level 146H, Calcium Level 8.6, Total Bilirubin 0.4, Aspartate Amino Transf (AST/SGOT) 25, Alanine Aminotransferase (ALT/SGPT) 27, Alkaline Phosphatase 185H, Total Protein 6.4, Albumin 2.2L, Globulin 4.2, Albumin/Globulin Ratio 0.5L Height (Feet): 5 Height (Inches): 2.00 Weight (Pounds): 96 Assessment/Plan Problem List: (1) Parkinsons disease ICD Codes: G20 - Parkinson's disease SNOMED: 67760489 (2) Hypernatremia ICD Codes: E87.0 - Hyperosmolality and hypernatremia SNOMED: 345865159 (3) Sepsis ICD Codes: A41.9 - Sepsis, unspecified organism SNOMED: 72397021 Qualifiers: Qualified Codes: A41.9 - Sepsis, unspecified organism (4) UTI (urinary tract infection) ICD Codes: N39.0 - Urinary tract infection, site not specified SNOMED: 95648132 Qualifiers: Qualified Codes: N39.0 - Urinary tract infection, site not specified (5) Decubitus ulcer ICD Codes: L89.90 - Pressure ulcer of unspecified site, unspecified stage SNOMED: 052377535 Qualifiers: Qualified Codes: L89.90 - Pressure ulcer of unspecified site, unspecified stage Status: progressing Assessment/Plan: improved dc in am afebrile dehydartion improved sepsis improving uti Kelsey Looney MD Dec 11, 2020 21:13
--- NOTE | 2020-12-11 21:24 | General Progress Note ---
Subjective Allergies: Coded Allergies: No Known Allergies (Verified , 08/01/11) Subjective Awake Tolerating TF Objective Last 24 Hour Vital Signs Date Time Temp Pulse Resp B/P (MAP) Pulse Ox O2 Delivery O2 Flow Rate FiO2 12/11/20 20:55 99.0 12/11/20 16:00 95 12/11/20 16:00 98.1 98 20 138/73 (94) 97 12/11/20 12:00 99 12/11/20 12:00 98.6 104 18 147/89 (108) 96 12/11/20 10:43 99.2 12/11/20 10:14 100.9 12/11/20 09:00 Room Air 12/11/20 08:16 93 12/11/20 08:00 96 12/11/20 08:00 97.9 93 20 111/52 (71) 97 12/11/20 04:00 97.5 100 20 114/53 (73) 97 12/11/20 04:00 100 12/11/20 00:00 108 12/11/20 00:00 98.6 103 21 136/68 (90) 95 Intake and Output 12/10/20 12/11/20 19:00 07:00 Intake Total 960 ml 380 ml Balance 960 ml 380 ml Free Water 300 ml 200 ml Tube Feeding 660 ml 120 ml Other 60 ml # Voids 3 3 Laboratory Tests 12/11/20 05:33: White Blood Count 13.7H, Red Blood Count 3.31L, Hemoglobin 9.6L, Hematocrit 29.5L, Mean Corpuscular Volume 89, Mean Corpuscular Hemoglobin 29.1, Mean Corpuscular Hemoglobin Concent 32.7, Red Cell Distribution Width 14.9H, Platelet Count 298, Mean Platelet Volume 9.3, Neutrophils (%) (Auto) 82.6H, Lymphocytes (%) (Auto) 9.0L, Monocytes (%) (Auto) 6.3, Eosinophils (%) (Auto) 1.7, Basophils (%) (Auto) 0.4, Sodium Level 139, Potassium Level 4.3, Chloride Level 105, Carbon Dioxide Level 27, Anion Gap 7, Blood Urea Nitrogen 15, Creatinine 0.5L, Estimat Glomerular Filtration Rate > 60, Glucose Level 146H, Calcium Level 8.6, Total Bilirubin 0.4, Aspartate Amino Transf (AST/SGOT) 25, Alanine Aminotransferase (ALT/SGPT) 27, Alkaline Phosphatase 185H, Total Protein 6.4, Albumin 2.2L, Globulin 4.2, Albumin/Globulin Ratio 0.5L Height (Feet): 5 Height (Inches): 2.00 Weight (Pounds): 96 Objective Debilitated WW NCAT temporal wasting CT'A RRR abd soft ND, (+) GT no edema Assessment/Plan Status: progressing Assessment/Plan: Assessment - abnormal LFT, possibly due to sepsis, resolving - OBS - s/p PEG - decubitus ulcers Recommendations - check abd ultrasound --> normal - follow LFT conservatively - monitor residuals - f/u vitamin D level - add protein powder Hollie Simmons MD Dec 11, 2020 21:24
[2020-12-12] VITALS: BP 109/60
[2020-12-12 04:00] VITALS: BP 120/61
[2020-12-12] MEDS: Midodrine 10mg tab ORAL SCH ×3 (05:32→22:11)
--- NOTE | 2020-12-12 06:05 | NUR ---
NURSE HAND-OFF REPORT: Important Events on Shift: repositioned q2h; tylenol given GT for fever of 101F; Patient Status: stable Diet: tube feeding Pending Orders:chest xray 1v Pending Results/Labs: Pending MD notification: Latest Vital Signs: Temperature 99.7 , Pulse 101 , B/P 120 /61 , Respiratory Rate 20 , O2 SAT 96 , Nasal Cannula, O2 Flow Rate 3.0 . Vital Sign Comment: EKG Rhythm: Sinus Rhythm to sinus tachycardia Rhythm change?: N MD Notified?: MD Response: Latest Lucero Fall Score: 70 Fall Risk: High Risk Safety Measures: Call light Within Reach, Bed Alarm Zone 2, Side Rails Side Rails x3, Bed position Low and Locked. Fall Precautions: Yellow Socks Yellow Gown Door Sign Patient Fall Education Addendum: 12/12/20 at 0723 by Bhumika Hogan RN REPORT GIVEN TO MARIE CONLEY
[2020-12-12 08:00] VITALS: BP 112/58
--- NOTE | 2020-12-12 08:00 | NUR ---
NURSE NOTES: Received patient report from MARIE Moreno. Patient is AO x0 awake but non verbal. Patient is on room air and shows no signs of respiratory distress at the time. IV is intact and patent. There are no signs of erythema, infiltration, or bleeding. G tube patent and running Jevity 1.2 @60 cc/hr. No residual noted. Patient shows no signs of distress or pain at the time. Bed is in the lowest position, call light is within reach, side rails up x3. Will continue to monitor.
[2020-12-12] MEDS: Zinc Sulfate 220mg GT SCH (09:27)
[2020-12-12] MEDS: Ascorbic Acid 500mg tab GT SCH ×2 (09:27→17:48)
[2020-12-12] MEDS: Docusate 100mg/10ml Liq GT SCH ×2 (09:27→17:48)
[2020-12-12] MEDS: Digoxin 0.125mg tab PEG SCH (09:27)
[2020-12-12] MEDS: Milk of Magnesia 30ml Ud GT SCH ×2 (09:27→17:48)
[2020-12-12] MEDS: Enoxaparin 40mg Inj SUBQ SCH (09:28)
--- NOTE | 2020-12-12 10:21 | NUR ---
RD ASSESSMENT & RECOMMENDATIONS SEE CARE ACTIVITY FOR COMPLETE ASSESSMENT DAILY ESTIMATED NEEDS: Needs based on Wounds, underweight/ 43.5kg 30-35 kcals/kg 5940-2262 total kcals 1.25-1.5 g protein/kg 54-65 g total protein 25-30 mL/kg 3790-3598 total fluid mLs NUTRITION DIAGNOSIS: Increased kcal/prot needs R/T wound healing and underweight status as evidenced by pt admitted w/ multiple wounds @ BL foot, pending eval, pt @ 87% IBW w/ BMI of 17.6, low BMI per guidelines. CURRENT TF:Jevity 1.2 @ 60ml/hr x 24 hrs ENTERAL NUTRITION RECOMMENDATIONS: Glucerna 1.2 @ 50ml/hr x 24 hrs to provide 1200ml, 1440kcal, 72g prot, 966ml free water * Rec TF change to Glucerna 1.2 for improved BG control (146, 122, 191) * Initiate Glucerna 1.2 @ 30ml/hr x 6hrs, advance 10ml q 4-6 hrs as tolerated to goal rate * TF @ goal meets 100% est kcal/prot needs * HOB over 30 degrees/ water flush 100ml q 8hrs ADDITIONAL RECOMMENDATIONS: * Calibrated bedscale wt for accurate CBW * Monitor lytes, replete as needed * Wound care -> TF @ goal meeds 100% RDI Continue Vit C and ZnSO4, add Jonathon BID * Monitor BGs, need for NISS
--- NOTE | 2020-12-12 11:19 | Pulmonology Progress Note ---
Subjective ROS Limited/Unobtainable: Yes Interval Events: None new reported Constitutional: Reports: fever, other - Zary=707.0 Respiratory: Reports: no symptoms Cardiovascular: Reports: no symptoms Gastrointestinal/Abdominal: Reports: no symptoms Genitourinary: Reports: no symptoms Allergies: Coded Allergies: No Known Allergies (Verified , 08/01/11) Objective Last 24 Hour Vital Signs Date Time Temp Pulse Resp B/P (MAP) Pulse Ox O2 Delivery O2 Flow Rate FiO2 12/12/20 09:27 95 12/12/20 08:00 98.5 95 22 112/58 (76) 95 12/12/20 04:00 99.7 101 20 120/61 (80) 96 12/12/20 04:00 99 12/12/20 00:00 86 12/12/20 00:00 98.2 88 19 109/60 (76) 95 12/11/20 21:00 Room Air 12/11/20 20:55 99.0 12/11/20 20:00 101.0 102 20 108/54 (72) 96 12/11/20 20:00 103 12/11/20 16:00 95 12/11/20 16:00 98.1 98 20 138/73 (94) 97 12/11/20 12:00 99 12/11/20 12:00 98.6 104 18 147/89 (108) 96 Intake and Output 0 12/11/20 12/12/20 19:00 07:00 Intake Total 960 ml 1000 ml Output Total 350 ml 400 ml Balance 610 ml 600 ml Free Water 300 ml 100 ml IV Total 240 ml Tube Feeding 660 ml 660 ml Output Urine Total 350 ml 400 ml # Voids 1 # Bowel Movements 1 General Appearance: no acute distress HEENT: normocephalic Respiratory: chest wall non-tender, decreased breath sounds Cardiovascular: normal peripheral pulses Abdomen: normal bowel sounds Current Medications Medications (Trade) Dose Ordered Sig/Rosy Route PRN Reason Start Time Stop Time Status Last Admin Dose Admin Acetaminophen (Tylenol) 500 mg Q4H PRN GT For Pain 12/04/20 18:30 01/03/21 18:29 12/11/20 10:13 Acetaminophen (Tylenol) 500 mg Q6H PRN GT Temp >100.5 12/08/20 15:15 01/07/21 15:14 12/11/20 20:25 Ascorbic Acid (Vitamin C) 250 mg TWICE A DAY GT 12/06/20 18:00 01/05/21 17:59 12/12/20 09:27 Bisacodyl (Dulcolax) 10 mg DAILYPRN ORAL 12/10/20 09:00 03/10/21 08:59 Ceftriaxone Sodium 1 gm/ Dextrose 55 ml @ 110 mls/hr Q24H IVPB 12/05/20 15:00 12/12/20 14:59 12/11/20 14:38 Digoxin (Lanoxin) 0.125 mg DAILY PEG 12/09/20 09:00 03/09/21 08:59 12/12/20 09:27 Docusate Sodium (Colace) 100 mg TWICE A DAY GT 12/05/20 11:07 01/04/21 11:06 12/12/20 09:27 Enoxaparin Sodium (Lovenox) 40 mg DAILY SUBQ 12/09/20 09:00 03/09/21 08:59 12/12/20 09:28 Famotidine (Pepcid) 20 mg BID GT 12/08/20 18:00 03/08/21 17:59 12/12/20 09:27 Magnesium Hydroxide (Mom) 30 ml BID GT 12/10/20 09:00 01/09/21 08:59 12/12/20 09:27 Midodrine (Pro-Amatine) 10 mg Q8HR ORAL 12/08/20 11:00 03/08/21 10:59 12/12/20 05:32 Zinc Sulfate (Zinc Sulfate) 220 mg DAILY GT 12/07/20 09:00 12/17/20 08:59 12/12/20 09:27 Assessment/Plan Assessment/Plan 1 .Renal failure, dehydration -Nephro following 2. Sepsis -ID following -WBC trending down - s/p vancomycin - on ceftriaxone - Zkuq=602.0 3. COVID-19 negative 4. Hypoxia; resolved -Now saturating 94-95% on room air 5. Elevated CRP -elevated D-dimer as well - continue Lovenox for DVT ppx - Venous duplex US of LE: No DVT, except the left popliteal vein which could not be visualized by the tap and die maker technician due to contracture Noted plan for discharge today The care for this patient was discussed with my supervising physician Time spent for this case was approximately 31 minutes Maxx Hoffman Dec 12, 2020 11:19
[2020-12-12 12:00] VITALS: BP 115/60
--- NOTE | 2020-12-12 12:48 | Surgery Progress Note ---
Surgery Progress Note Subjective Symptoms: improved, tolerating diet, voiding well, passing flatus Objective Last 24 Hour Vital Signs Date Time Temp Pulse Resp B/P (MAP) Pulse Ox O2 Delivery O2 Flow Rate FiO2 12/12/20 09:27 95 12/12/20 08:00 98.5 95 22 112/58 (76) 95 12/12/20 04:00 99.7 101 20 120/61 (80) 96 12/12/20 04:00 99 12/12/20 00:00 86 12/12/20 00:00 98.2 88 19 109/60 (76) 95 12/11/20 21:00 Room Air 12/11/20 20:55 99.0 12/11/20 20:00 101.0 102 20 108/54 (72) 96 12/11/20 20:00 103 12/11/20 16:00 95 12/11/20 16:00 98.1 98 20 138/73 (94) 97 I&O Intake and Output 12/11/20 12/12/20 19:00 07:00 Intake Total 960 ml 1000 ml Output Total 350 ml 400 ml Balance 610 ml 600 ml Free Water 300 ml 100 ml IV Total 240 ml Tube Feeding 660 ml 660 ml Output Urine Total 350 ml 400 ml # Voids 1 # Bowel Movements 1 Dressing: saturated Cardiovascular: RSR Respiratory: decreased breath sounds Abdomen: soft, flat, non-tender, present bowel sounds, non-distended Extremities: no edema, no tenderness, no cyanosis Plan Problems: (1) Parkinsons disease (2) Hypernatremia (3) Sepsis Assessment & Plan: 85-year-old female presented with leukocytosis now with anemia leukocytosis abnormal labs malnutrition wounds identified unlikely source of patient's sepsis or infectious etiology. Urine noted. Antibiotics per infectious disease. Unlikely cholecystitis. Abdominal exam otherwise fairly benign. No acute surgical invention planned at this time. Continue IV antibiotics continue nutrition continue local wound care we will follow the recommendations thank you DAILY ESTIMATED NEEDS: Needs based on Wounds, underweight/ 43.5kg 30-35 kcals/kg 4441-9028 total kcals 1.25-1.5 g protein/kg 54-65 g total protein 25-30 mL/kg 1038-9970 total fluid mLs NUTRITION DIAGNOSIS: Increased kcal/prot needs R/T wound healing and underweight status as evidenced by pt admitted w/ multiple wounds @ BL foot, pending eval, pt @ 87% IBW w/ BMI of 17.6, low BMI per guidelines. CURRENT TF:Jevity 1.2 @ 60ml/hr x 24 hrs ENTERAL NUTRITION RECOMMENDATIONS: Jevity 1.2 @ 50ml/hr x 24 hrs to provide 1200ml, 1440kcal, 67g prot, 968ml free water * Rec goal rate of 50ml/hr x 24 hrs to not exceed est kcal needs -> meets 100% est kcal/prot needs * HOB over 30 degrees/ water flush 100ml q 8hrs ADDITIONAL RECOMMENDATIONS: * Calibrated bedscale wt for accurate CBW * Monitor lytes, replete as needed * Wound care -> TF @ goal meeds 100% RDI Continue Vit C and ZnSO4, add Jonathon BID Liver: The liver measures 12 cm. No intrahepatic bile duct dilation. Gallbladder: No cholelithiasis. No gallbladder wall thickening. Common bile duct: Nondilated common bile duct measuring 5 mm. Pancreas: Poorly visualized pancreas. Kidneys: The right kidney was poorly visualized. The left kidney measures 9.9 cm. No hydronephrosis or nephrolithiasis. Spleen: The spleen measures 10.6 cm. Aorta: The proximal aorta measures 1.1 cm. No aneurysm. Inferior vena cava: Unremarkable. IMPRESSION: No ultrasound evidence of acute cholecystitis. No hepatic steatosis. (4) UTI (urinary tract infection) (5) Decubitus ulcer Assessment & Plan: Pt presented on admission emaciated, with contractures and multiple Pressure Injuries. Non-Blanchable erythema without induration/fluctuance R Elbow. Non-Blanchable erythema without induration/fluctuance L elbow. DTPI R trochanteric (L)7.5cm x (W)7.6cm. Clusters of Indurated and maroon Pressure injuries that are in close proximity R trochanter. Non-Blanchable erythema without induration L trochanter(L)8cm x (W)6.5cm. No evidence of skin breakdown to sacrum. Non-Blanchable erythema without induration/fluctuance noted to distal/lateral L Tibia(L)6cm x (W)0.8cm. Unstageable pressure Injury L Hallux(L)3.5cm x (W)3.2cm. Base of wound is 100% necrotic. Edges are adherent with marginal erythema. No odor or exudate noted. DTPI Medial /Lateral L Foot(L)2.5cm x (W)1cm.Base of Wound is maroon and fluctuant. DTPI distal/lateral L foot(L)2.5cm x (W)2.6cm. Base of Pressure Injury is fluctuant with marginal erythema. L heel is soft but easily blanchable. R Heel is soft but easily blanchable. DTPI R Hallux(L)5cm x (W)2.5cm. Reabsorbing blood Blister noted. Edges are adherent to base of Pressure Injury. Unstageable Pressure Injury distal/lateral R foot (L)1.5cm x (W)1.9cm. Dry brown eschar with adherent borders.Periwound is blanchable but fluctuant. Tx.plan: Apply Moisture Barrier Paste to Sacrum. Cover with Optifoam drsg. Change every 3 days and prn. Apply Cavilon Skin Barrier to R and L trochanteric areas. Cover each site with Optifoam drsgs. Change every 7 days and prn. Apply Betadine to Pressure Injuries L foot. Cover each site with Optifoam drsgs. Change every 3 days and prn. Apply Betadine to Pressure Injuries R foot. Cover each site with Optifoam drsdgs. Change every 3 days and prn. Apply Cavilon Skin Barrier to both heels. Cover each site with Optifoam drsgs. Change every 7 days and prn. Apply Cavilon Skin Barrier to R and L elbows. Cover each Elbow with Optifoam drsgs.Change every 7 days and prn. Cover Bony prominences as needed with Optifoam drsgs. Reposition at least every 2hours or as tolerated. Off-load heels with Pillow. APM/PURVI Mattress overlay. Kristofer Parra Dec 12, 2020 12:48
--- NOTE | 2020-12-12 12:58 | Cardiac Electrophysiology PN ---
Assessment/Plan Assessment/Plan 1. Atrial fib with RVR, due to sepsis with white count 25,000. EF 65%. On Dig 0.125 po daily 2. Hypotension. Resolved with Albumin and Midodrine 3. Severe hypernatremia and azotemia. Resolved with IV fluid, per Dr. Pena. 4. History of psychiatric history. 5. Respiratory failure, currently on IV antibiotic and 2 L nasal cannula. 6. Dysphagia, status post PEG placement. Subjective Subjective Covid negative. No atrial fib overnight. GT feeding ongoing. In SR On RA. Had T 101 again today Objective Last 24 Hour Vital Signs Date Time Temp Pulse Resp B/P (MAP) Pulse Ox O2 Delivery O2 Flow Rate FiO2 12/12/20 09:27 95 12/12/20 08:00 98.5 95 22 112/58 (76) 95 12/12/20 04:00 99.7 101 20 120/61 (80) 96 12/12/20 04:00 99 12/12/20 00:00 86 12/12/20 00:00 98.2 88 19 109/60 (76) 95 12/11/20 21:00 Room Air 12/11/20 20:55 99.0 12/11/20 20:00 101.0 102 20 108/54 (72) 96 12/11/20 20:00 103 12/11/20 16:00 95 12/11/20 16:00 98.1 98 20 138/73 (94) 97 Intake and Output 12/11/20 12/12/20 19:00 07:00 Intake Total 960 ml 1000 ml Output Total 350 ml 400 ml Balance 610 ml 600 ml Free Water 300 ml 100 ml IV Total 240 ml Tube Feeding 660 ml 660 ml Output Urine Total 350 ml 400 ml # Voids 1 # Bowel Movements 1 Objective HEAD AND NECK: No JVD. LUNGS: Decreased breath sounds. CARDIOVASCULAR: Regular S1 and S2 gallop, tachycardic. ABDOMEN: Status post G-tube. EXTREMITIES: No pitting edema.Contracted Efrain Gustafson MD Dec 12, 2020 12:58
--- NOTE | 2020-12-12 13:06 | Infectious Diseases Prog Note ---
Assessment/Plan Assessment/Plan IMPRESSION: 1. Sepsis 2. Positive blood culture likely contamination 3. Leukocytosis. 4. Hypernatremia. 5. Anemia. 6. Pressure ulcer. 7. Alzheimer dementia. 8. Parkinson disease. 9. 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 RECOMMENDATION: Change ceftriaxone to Zosyn CXR, UA, urine culture Subjective ROS Limited/Unobtainable: Yes Constitutional: Reports: fever, other - last night Allergies: Coded Allergies: No Known Allergies (Verified , 08/01/11) Objective Last 24 Hour Vital Signs Date Time Temp Pulse Resp B/P (MAP) Pulse Ox O2 Delivery O2 Flow Rate FiO2 12/12/20 09:27 95 12/12/20 08:00 98.5 95 22 112/58 (76) 95 12/12/20 04:00 99.7 101 20 120/61 (80) 96 12/12/20 04:00 99 12/12/20 00:00 86 12/12/20 00:00 98.2 88 19 109/60 (76) 95 12/11/20 21:00 Room Air 12/11/20 20:55 99.0 12/11/20 20:00 101.0 102 20 108/54 (72) 96 12/11/20 20:00 103 12/11/20 16:00 95 12/11/20 16:00 98.1 98 20 138/73 (94) 97 Height (Feet): 5 Height (Inches): 2.00 Weight (Pounds): 96 General Appearance: cachetic HEENT: mucous membranes moist Respiratory/Chest: lungs clear Cardiovascular: normal rate Abdomen: soft, non tender Extremities: no edema Neurologic/Psychiatric: unresponsiveness, aphasia Musculoskeletal: atrophy Current Medications Medications (Trade) Dose Ordered Sig/Rosy Route PRN Reason Start Time Stop Time Status Last Admin Dose Admin Acetaminophen (Tylenol) 500 mg Q4H PRN GT For Pain 12/04/20 18:30 01/03/21 18:29 12/11/20 10:13 Acetaminophen (Tylenol) 500 mg Q6H PRN GT Temp >100.5 12/08/20 15:15 01/07/21 15:14 12/11/20 20:25 Ascorbic Acid (Vitamin C) 250 mg TWICE A DAY GT 12/06/20 18:00 01/05/21 17:59 2/12/21 09:27 Bisacodyl (Dulcolax) 10 mg DAILYPRN ORAL 12/10/20 09:00 03/10/21 08:59 Ceftriaxone Sodium 1 gm/ Dextrose 55 ml @ 110 mls/hr Q24H IVPB 12/05/20 15:00 12/12/20 14:59 12/11/20 14:38 Digoxin (Lanoxin) 0.125 mg DAILY PEG 12/09/20 09:00 03/09/21 08:59 12/12/20 09:27 Docusate Sodium (Colace) 100 mg TWICE A DAY GT 12/05/20 11:07 01/04/21 11:06 12/12/20 09:27 Enoxaparin Sodium (Lovenox) 40 mg DAILY SUBQ 12/09/20 09:00 03/09/21 08:59 12/12/20 09:28 Famotidine (Pepcid) 20 mg BID GT 12/08/20 18:00 03/08/21 17:59 12/12/20 09:27 Magnesium Hydroxide (Mom) 30 ml BID GT 12/10/20 09:00 01/09/21 08:59 12/12/20 09:27 Midodrine (Pro-Amatine) 10 mg Q8HR ORAL 12/08/20 11:00 03/08/21 10:59 12/12/20 05:32 Zinc Sulfate (Zinc Sulfate) 220 mg DAILY GT 12/07/20 09:00 12/17/20 08:59 12/12/20 09:27 Joseph De Leon MD Dec 12, 2020 13:06
--- NOTE | 2020-12-12 13:19 | Diagnostic Imaging Report ---
Indication: Cough Technique: One view of the chest Comparison: 12/04/2020 Findings: Patient's chin obscures the upper mediastinum. Mild central bronchial wall thickening is probably on the basis of senescent changes. No definite acute infiltrates, effusions, or congestion. No significant change Impression: No definite acute process. Findings as noted
--- NOTE | 2020-12-12 13:25 | NUR ---
CASE MANAGEMENT:REVIEW 12/12/20 SI: SEPSIS 99.7 101 20 120/61 96% ON RA IS: IV ZOSYN Q8HRS DIGOXIN GT QD LOVENOX SQ QD PEPCID GT BID MIDODRINE GT Q8HRS ZINC GT QD : TELEMETRY STATUS DCP: FROM [facility] PLAN:
[2020-12-12] MEDS: Piperacillin/Tazobactam 3.375 GM in NS 110 ML IVPB SCH ×2 (14:15→22:11)
--- NOTE | 2020-12-12 14:29 | Nephrology Progress Note ---
Assessment/Plan Problem List: (1) MAUREEN (acute kidney injury) (2) Dehydration (3) Hypernatremia (4) Sepsis (5) UTI (urinary tract infection) (6) Decubitus ulcer Assessment Renal failure, dehydration Hypernatremia, due to free water deficit Sepsis, leukocytosis Malnutrition, hypoalbuminemia Alzheimer's Underlying anemia as the patient continues to be hydrated Plan December 12: Labs reviewed. Renal parameters stable. Meds reviewed. Blood pressure stable. December 11: Labs reviewed. Renal parameters stable. Blood pressure reasonably well controlled. December 10: Labs reviewed. Renal parameters are stable. Blood pressure is stable. Remains tachycardic. December 09: No CHEM panel drawn today. Blood pressure stable. On digoxin. Cardizem is discontinued. December 08: Labs reviewed. Renal parameters stable. Patient blood pressure is low. Midodrine dose increased. 1 dose of albumin bolus given. Parameters for Cardizem ordered. Discussed with MARIE Velarde. December 07: Labs reviewed. Serum sodium normal. IV discontinued. Midodrine for low blood pressure initiated. December 06: Serum sodium lowering. Continue hydration. Medication list reviewed. Previously: D5W hydration Antibiotics Avoid nephrotoxic's Improve nutritional state Monitor renal parameters electrolytes Anemia work-up Subjective ROS Limited/Unobtainable: No Constitutional: Reports: malaise, weakness Objective Objective Last 24 Hour Vital Signs Date Time Temp Pulse Resp B/P (MAP) Pulse Ox O2 Delivery O2 Flow Rate FiO2 12/12/20 12:00 99.5 86 20 115/60 (78) 96 12/12/20 12:00 102 12/12/20 09:27 95 12/12/20 09:00 Room Air 12/12/20 08:00 98.5 95 22 112/58 (76) 95 12/12/20 08:00 101 12/12/20 04:00 99.7 101 20 120/61 (80) 96 12/12/20 04:00 99 12/12/20 00:00 86 12/12/20 00:00 98.2 88 19 109/60 (76) 95 12/11/20 21:00 Room Air 12/11/20 20:55 99.0 12/11/20 20:00 101.0 102 20 108/54 (72) 96 12/11/20 20:00 103 12/11/20 16:00 95 12/11/20 16:00 98.1 98 20 138/73 (94) 97 Intake and Output 12/11/20 12/12/20 19:00 07:00 Intake Total 960 ml 1000 ml Output Total 350 ml 400 ml Balance 610 ml 600 ml Free Water 300 ml 100 ml IV Total 240 ml Tube Feeding 660 ml 660 ml Output Urine Total 350 ml 400 ml # Voids 1 # Bowel Movements 1 Current Medications Medications (Trade) Dose Ordered Sig/Rosy Route PRN Reason Start Time Stop Time Status Last Admin Dose Admin Acetaminophen (Tylenol) 500 mg Q4H PRN GT For Pain 12/04/20 18:30 01/03/21 18:29 12/11/20 10:13 Acetaminophen (Tylenol) 500 mg Q6H PRN GT Temp >100.5 12/08/20 15:15 01/07/21 15:14 12/11/20 20:25 Ascorbic Acid (Vitamin C) 250 mg TWICE A DAY GT 12/06/20 18:00 01/05/21 17:59 12/12/20 09:27 Bisacodyl (Dulcolax) 10 mg DAILYPRN ORAL 12/10/20 09:00 03/10/21 08:59 Digoxin (Lanoxin) 0.125 mg DAILY PEG 12/09/20 09:00 03/09/21 08:59 12/12/20 09:27 Docusate Sodium (Colace) 100 mg TWICE A DAY GT 12/05/20 11:07 01/04/21 11:06 12/12/20 09:27 Enoxaparin Sodium (Lovenox) 40 mg DAILY SUBQ 12/09/20 09:00 03/09/21 08:59 12/12/20 09:28 Famotidine (Pepcid) 20 mg BID GT 12/08/20 18:00 03/08/21 17:59 12/12/20 09:27 Magnesium Hydroxide (Mom) 30 ml BID GT 12/10/20 09:00 01/09/21 08:59 12/12/20 09:27 Midodrine (Pro-Amatine) 10 mg Q8HR ORAL 12/08/20 11:00 03/08/21 10:59 12/12/20 14:10 Piperacillin Sod/ Tazobactam Sod 3.375 gm/Sodium Chloride 110 ml @ 27.5 mls/hr EVERY 8 HOURS IVPB 12/12/20 14:00 12/17/20 13:59 12/12/20 14:15 Zinc Sulfate (Zinc Sulfate) 220 mg DAILY GT 12/07/20 09:00 12/17/20 08:59 12/12/20 09:27 Height (Feet): 5 Height (Inches): 2.00 Weight (Pounds): 96 General Appearance: no apparent distress, lethargic Cardiovascular: normal rate Respiratory/Chest: decreased breath sounds Abdomen: soft Gene Pena MD Dec 12, 2020 14:29
[2020-12-12 16:00] VITALS: BP 102/58
--- NOTE | 2020-12-12 18:38 | General Progress Note ---
Subjective Allergies: Coded Allergies: No Known Allergies (Verified , 08/01/11) Subjective restless today non verbal Tolerating TF Objective Last 24 Hour Vital Signs Date Time Temp Pulse Resp B/P (MAP) Pulse Ox O2 Delivery O2 Flow Rate FiO2 12/12/20 16:00 92 12/12/20 16:00 99.1 94 22 102/58 (73) 95 12/12/20 12:00 99.5 86 20 115/60 (78) 96 12/12/20 12:00 102 12/12/20 09:27 95 12/12/20 09:00 Room Air 12/12/20 08:00 98.5 95 22 112/58 (76) 95 12/12/20 08:00 101 12/12/20 04:00 99.7 101 20 120/61 (80) 96 12/12/20 04:00 99 12/12/20 00:00 86 12/12/20 00:00 98.2 88 19 109/60 (76) 95 12/11/20 21:00 Room Air 12/11/20 20:55 99.0 12/11/20 20:00 101.0 102 20 108/54 (72) 96 12/11/20 20:00 103 Intake and Output 12/11/20 12/12/20 19:00 07:00 Intake Total 960 ml 1000 ml Output Total 350 ml 400 ml Balance 610 ml 600 ml Free Water 300 ml 100 ml IV Total 240 ml Tube Feeding 660 ml 660 ml Output Urine Total 350 ml 400 ml # Voids 1 # Bowel Movements 1 Height (Feet): 5 Height (Inches): 2.00 Weight (Pounds): 96 Objective Debilitated WW NCAT temporal wasting CT'A RRR abd soft ND, (+) GT no edema (+) multiple decubs Assessment/Plan Status: progressing Assessment/Plan: Assessment - abnormal LFT, possibly due to sepsis, resolving - OBS - s/p PEG - decubitus ulcers Recommendations - check abd ultrasound --> normal - follow LFT conservatively - monitor residuals - f/u vitamin D level - protein powder - MVI, Vit C , Zinc Hollie Simmons MD Dec 12, 2020 18:38
--- NOTE | 2020-12-12 19:32 | NUR ---
NURSE HAND-OFF REPORT: Important Events on Shift:[Patient had no fever on shift] Patient Status: [full code] Diet: [Jevity 1.2 @ 60 cc/hr] Pending Orders: [] Pending Results/Labs:[] Pending MD notification:[] Latest Vital Signs: Temperature 99.1 , Pulse 92 , B/P 102 /58 , Respiratory Rate 22 , O2 SAT 95 , Nasal Cannula, O2 Flow Rate 3.0 . Vital Sign Comment: [] EKG Rhythm: Sinus Rhythm Rhythm change?: N MD Notified?: Akbar Gustafson MD Response: Latest Lucero Fall Score: 70 Fall Risk: High Risk Safety Measures: Call light Within Reach, Bed Alarm Zone 2, Side Rails Side Rails x3, Bed position Low and Locked. Fall Precautions: Yellow Socks Yellow Gown Door Sign Patient Fall Education Report given to [MARIE Callejas].
--- NOTE | 2020-12-12 19:35 | NUR ---
NURSE NOTES: Important Events on Shift: Received report from Chioma Felton RN. Pt in bed, asleep, no signs or symptoms of pain or distress noted. Will continue close monitoring and plan of care. Patient Status: full code Diet: GT Jevity 1.2 @ 60ml/hr (goal) Pending Orders: none Pending Results/Labs: none Pending MD notification: none Latest Vital Signs: Temperature 99.1, Pulse 92, B/P 102 /58, Respiratory Rate 22, O2 SAT 95, Nasal Cannula, O2 Flow Rate 3.0 . Vital Sign Comment: Per report, VS stable throughout shift. EKG Rhythm: Sinus Rhythm Rhythm change?: N MD Notified?: - MD Response: none Latest Lucero Fall Score: 70 Fall Risk: High Risk Safety Measures: Call light Within Reach, Bed Alarm Zone 2, Side Rails Side Rails x3, Bed position Low and Locked. Fall Precautions: Yellow Socks, Yellow Gown, Door Sign, Patient Fall Education
[2020-12-12 20:00] VITALS: BP 121/63
[2020-12-12 20:02] LABS: BILIRUBIN, URINE NEGATIVE (NEGATIVE); GLUCOSE, URINE (UA) NEGATIVE (NEGATIVE); KETONES,URINE NEGATIVE (NEGATIVE); NITRITE,URINE NEGATIVE (NEGATIVE); PH,URINE 9 (4.5-8.0); PROTEIN,URINE NEGATIVE (NEGATIVE); UROBILINOGEN,URINE 1 MG/DL (0.0-1.0)
[2020-12-12 20:24] LABS: APPEARANCE,URINE CLOUDY; COLOR,URINE YELLOW
[2020-12-12 20:25] LABS: LEUKOCYTE ESTERASE ,URINE 1+ (NEGATIVE)
--- NOTE | 2020-12-12 21:02 | General Progress Note ---
Subjective ROS Limited/Unobtainable: Yes Allergies: Coded Allergies: No Known Allergies (Verified , 08/01/11) Objective Last 24 Hour Vital Signs Date Time Temp Pulse Resp B/P (MAP) Pulse Ox O2 Delivery O2 Flow Rate FiO2 12/12/20 16:00 92 12/12/20 16:00 99.1 94 22 102/58 (73) 95 12/12/20 12:00 99.5 86 20 115/60 (78) 96 12/12/20 12:00 102 12/12/20 09:27 95 12/12/20 09:00 Room Air 12/12/20 08:00 98.5 95 22 112/58 (76) 95 12/12/20 08:00 101 12/12/20 04:00 99.7 101 20 120/61 (80) 96 12/12/20 04:00 99 12/12/20 00:00 86 12/12/20 00:00 98.2 88 19 109/60 (76) 95 Intake and Output 12/11/20 12/12/20 19:00 07:00 Intake Total 960 ml 1000 ml Output Total 350 ml 400 ml Balance 610 ml 600 ml Free Water 300 ml 100 ml IV Total 240 ml Tube Feeding 660 ml 660 ml Output Urine Total 350 ml 400 ml # Voids 1 # Bowel Movements 1 Laboratory Tests 12/12/20 18:35: Urine Color Yellow, Urine Appearance Cloudy, Urine pH 9, Urine Specific [place] 1.015, Urine Protein Negative, Urine Glucose (UA) Negative, Urine Ketones Ne gative, Urine Blood 2+H, Urine Nitrite Negative, Urine Bilirubin Negative, Urine Urobilinogen 1H, Urine Leukocyte Esterase 1+H, Urine RBC 10-15H, Urine WBC 2-4, Urine Squamous Epithelial Cells Few, Urine Amorphous Sediment ManyH, Urine Bacteria Few Height (Feet): 5 Height (Inches): 2.00 Weight (Pounds): 96 Assessment/Plan Problem List: (1) Parkinsons disease ICD Codes: G20 - Parkinson's disease SNOMED: 37136820 (2) Hypernatremia ICD Codes: E87.0 - Hyperosmolality and hypernatremia SNOMED: 931774159 (3) Sepsis ICD Codes: A41.9 - Sepsis, unspecified organism SNOMED: 37339239 Qualifiers: Qualified Codes: A41.9 - Sepsis, unspecified organism (4) UTI (urinary tract infection) ICD Codes: N39.0 - Urinary tract infection, site not specified SNOMED: 52451288 Qualifiers: Qualified Codes: N39.0 - Urinary tract infection, site not specified (5) Decubitus ulcer ICD Codes: L89.90 - Pressure ulcer of unspecified site, unspecified stage SNOMED: 036995231 Qualifiers: Qualified Codes: L89.90 - Pressure ulcer of unspecified site, unspecified stage Status: progressing Assessment/Plan: couldnt dc due to spike of fever yesterday infomred dr garner of fever to readujust abx dehydartion improved sepsis improving uti Kelsey Looney MD Dec 12, 2020 21:02
[2020-12-13] VITALS: BP 101/50
[2020-12-13 04:00] VITALS: BP 116/51
[2020-12-13] MEDS: Piperacillin/Tazobactam 3.375 GM in NS 110 ML IVPB SCH ×3 (05:54→21:08)
[2020-12-13] MEDS: Midodrine 10mg tab ORAL SCH ×3 (05:54→21:08)
--- NOTE | 2020-12-13 07:11 | NUR ---
NURSE HAND-OFF REPORT: Important Events on Shift: Pt had diarrhea x 4 during shift. Patient Status: full code Diet: GT Jevity 1.2 @ 60ml/hr (goal) Pending Orders: None Pending Results/Labs: AM labs Pending MD notification: none Latest Vital Signs: Temperature 98.6 , Pulse 95 , B/P 116 /51 , Respiratory Rate 19 , O2 SAT 96 , Nasal Cannula, O2 Flow Rate 3.0 . Vital Sign Comment: stable throughout shift. EKG Rhythm: Sinus Rhythm Rhythm change?: N MD Notified?: - MD Response: - Latest Lucero Fall Score: 70 Fall Risk: High Risk Safety Measures: Call light Within Reach, Bed Alarm Zone 2, Side Rails Side Rails x3, Bed position Low and Locked. Fall Precautions: Yellow Socks, Yellow Gown, Door Sign, Patient Fall Education Report to be given to Lashawn Alvarado RN.
--- NOTE | 2020-12-13 07:47 | NUR ---
NURSE NOTES: Patient received from MARIE You. Pt is awake, alert and oriented x 0, no SOB, no signs and symptoms of discomfort at this time, bed in lowest position with breaks engaged, on room air, IV line and concrete pipe maker present, GT in place running as prescribed, will continue to monitor and proceed with plan of care, call light within reach.
[2020-12-13 08:00] VITALS: BP 102/53
[2020-12-13] MEDS: Ascorbic Acid 500mg tab GT SCH ×2 (08:46→17:11)
[2020-12-13] MEDS: Digoxin 0.125mg tab PEG SCH (08:46)
[2020-12-13] MEDS: Zinc Sulfate 220mg GT SCH (08:46)
[2020-12-13] MEDS: Milk of Magnesia 30ml Ud GT SCH ×2 (08:47→17:11)
[2020-12-13] MEDS: Docusate 100mg/10ml Liq GT SCH ×2 (08:47→17:11)
[2020-12-13] MEDS: Enoxaparin 40mg Inj SUBQ SCH (08:47)
[2020-12-13] MEDS ORDERED: NS 500ML ONE (10:03)
[2020-12-13] MEDS ORDERED: Tubing IV Secondary IV ONE (10:03)
[2020-12-13] MEDS ORDERED: NS 275ml ONE (10:03)
--- NOTE | 2020-12-13 10:41 | Infectious Diseases Prog Note ---
Assessment/Plan Assessment/Plan IMPRESSION: 1. Sepsis 2. Positive blood culture likely contamination 3. Leukocytosis. 4. Hypernatremia. 5. Anemia. 6. Pressure ulcer. 7. Alzheimer dementia. 8. Parkinson disease. 9. 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 RECOMMENDATION: Continue Zosyn CXR : negative Subjective ROS Limited/Unobtainable: Yes Constitutional: Denies: fever Allergies: Coded Allergies: No Known Allergies (Verified , 08/01/11) Objective Last 24 Hour Vital Signs Date Time Temp Pulse Resp B/P (MAP) Pulse Ox O2 Delivery O2 Flow Rate FiO2 12/13/20 09:00 91 12/13/20 09:00 Room Air 12/13/20 08:46 95 12/13/20 08:00 98.6 95 19 102/53 (69) 98 12/13/20 04:00 98.6 75 19 116/51 (72) 96 12/13/20 04:00 95 12/13/20 00:00 99.2 80 21 101/50 (67) 95 12/13/20 00:00 95 12/12/20 21:00 Room Air 12/12/20 20:00 99.2 69 18 121/63 (82) 95 12/12/20 16:00 92 12/12/20 16:00 99.1 94 22 102/58 (73) 95 12/12/20 12:00 99.5 86 20 115/60 (78) 96 12/12/20 12:00 102 Height (Feet): 5 Height (Inches): 2.00 Weight (Pounds): 96 General Appearance: cachetic HEENT: mucous membranes moist Respiratory/Chest: lungs clear Cardiovascular: normal rate Abdomen: soft, non tender, other - GT feeding Extremities: no edema Neurologic/Psychiatric: aphasia, other - opens eyes Laboratory Tests Test 12/12/20 18:35 Urine Color Yellow Urine Appearance Cloudy Urine pH 9 (4.5-8.0) Urine Specific [place] 1.015 (1.005-1.035) Urine Protein Negative (NEGATIVE) Urine Glucose (UA) Negative (NEGATIVE) Urine Ketones Negative (NEGATIVE) Urine Blood 2+ (NEGATIVE) H Urine Nitrite Negative (NEGATIVE) Urine Bilirubin Negative (NEGATIVE) Urine Urobilinogen 1 MG/DL (0.0-1.0) H Urine Leukocyte Esterase 1+ (NEGATIVE) H Urine RBC 10-15 /HPF (0 - 2) H Urine WBC 2-4 /HPF (0 - 2) Urine Squamous Epithelial Cells Few /LPF (NONE/OCC) Urine Amorphous Sediment Many /LPF (NONE) H Urine Bacteria Few /HPF (NONE) Current Medications Medications (Trade) Dose Ordered Sig/Rosy Route PRN Reason Start Time Stop Time Status Last Admin Dose Admin Acetaminophen (Tylenol) 500 mg Q4H PRN GT For Pain 12/04/20 18:30 01/03/21 18:29 12/11/20 10:13 Acetaminophen (Tylenol) 500 mg Q6H PRN GT Temp >100.5 12/08/20 15:15 01/07/21 15:14 12/11/20 20:25 Ascorbic Acid (Vitamin C) 250 mg TWICE A DAY GT 12/06/20 18:00 01/05/21 17:59 12/13/20 08:46 Bisacodyl (Dulcolax) 10 mg DAILYPRN ORAL 12/10/20 09:00 03/10/21 08:59 Digoxin (Lanoxin) 0.125 mg DAILY PEG 12/09/20 09:00 03/09/21 08:59 12/13/20 08:46 Docusate Sodium (Colace) 100 mg TWICE A DAY GT 12/05/20 11:07 01/04/21 11:06 12/12/20 17:48 Enoxaparin Sodium (Lovenox) 40 mg DAILY SUBQ 12/09/20 09:00 03/09/21 08:59 12/13/20 08:47 Famotidine (Pepcid) 20 mg BID GT 12/08/20 18:00 03/08/21 17:59 12/13/20 08:46 Magnesium Hydroxide (Mom) 30 ml BID GT 12/10/20 09:00 01/09/21 08:59 12/12/20 17:48 Midodrine (Pro-Amatine) 10 mg Q8HR ORAL 12/08/20 11:00 03/08/21 10:59 12/13/20 05:54 Multivitamins (Multivitamins) 1 tab DAILY GT 12/13/20 09:00 01/12/21 08:59 12/13/20 08:45 Piperacillin Sod/ Tazobactam Sod 3.375 gm/Sodium Chloride 110 ml @ 27.5 mls/hr EVERY 8 HOURS IVPB 12/12/20 14:00 12/17/20 13:59 12/13/20 05:54 Zinc Sulfate (Zinc Sulfate) 220 mg DAILY GT 12/07/20 09:00 12/17/20 08:59 12/13/20 08:46 Joseph De Leon MD Dec 13, 2020 10:41
--- NOTE | 2020-12-13 11:40 | Surgery Progress Note ---
Surgery Progress Note Subjective Additional Comments no acute events comfortable stable ill appearing Objective Last 24 Hour Vital Signs Date Time Temp Pulse Resp B/P (MAP) Pulse Ox O2 Delivery O2 Flow Rate FiO2 12/13/20 09:00 91 12/13/20 09:00 Room Air 12/13/20 08:46 95 12/13/20 08:00 98.6 95 19 102/53 (69) 98 12/13/20 04:00 98.6 75 19 116/51 (72) 96 12/13/20 04:00 95 12/13/20 00:00 99.2 80 21 101/50 (67) 95 12/13/20 00:00 95 12/12/20 21:00 Room Air 12/12/20 20:00 99.2 69 18 121/63 (82) 95 12/12/20 16:00 92 12/12/20 16:00 99.1 94 22 102/58 (73) 95 12/12/20 12:00 99.5 86 20 115/60 (78) 96 12/12/20 12:00 102 I&O Intake and Output 12/12/20 12/13/20 19:00 07:00 Intake Total 60 ml 860 ml Output Total 600 ml Balance -540 ml 860 ml Free Water 200 ml Tube Feeding 60 ml 660 ml Output Urine Total 600 ml # Voids 2 # Bowel Movements 2 4 Dressing: saturated Cardiovascular: RSR Respiratory: decreased breath sounds Abdomen: soft, non-tender, present bowel sounds, non-distended Extremities: no tenderness, no cyanosis Laboratory Tests Test 12/12/20 18:35 Urine Color Yellow Urine Appearance Cloudy Urine pH 9 (4.5-8.0) Urine Specific [place] 1.015 (1.005-1.035) Urine Protein Negative (NEGATIVE) Urine Glucose (UA) Negative (NEGATIVE) Urine Ketones Negative (NEGATIVE) Urine Blood 2+ (NEGATIVE) H Urine Nitrite Negative (NEGATIVE) Urine Bilirubin Negative (NEGATIVE) Urine Urobilinogen 1 MG/DL (0.0-1.0) H Urine Leukocyte Esterase 1+ (NEGATIVE) H Urine RBC 10-15 /HPF (0 - 2) H Urine WBC 2-4 /HPF (0 - 2) Urine Squamous Epithelial Cells Few /LPF (NONE/OCC) Urine Amorphous Sediment Many /LPF (NONE) H Urine Bacteria Few /HPF (NONE) Plan Problems: (1) Parkinsons disease (2) Hypernatremia (3) Sepsis Assessment & Plan: 85-year-old female presented with leukocytosis now with anemia leukocytosis abnormal labs malnutrition wounds identified unlikely source of patient's sepsis or infectious etiology. Urine noted. Antibiotics per infectious disease. Unlikely cholecystitis. Abdominal exam otherwise fairly benign. No acute surgical invention planned at this time. Continue IV antibiotics continue nutrition continue local wound care we will follow the recommendations thank you DAILY ESTIMATED NEEDS: Needs based on Wounds, underweight/ 43.5kg 30-35 kcals/kg 9354-2327 total kcals 1.25-1.5 g protein/kg 54-65 g total protein 25-30 mL/kg 8598-3266 total fluid mLs NUTRITION DIAGNOSIS: Increased kcal/prot needs R/T wound healing and underweight status as evidenced by pt admitted w/ multiple wounds @ BL foot, pending eval, pt @ 87% IBW w/ BMI of 17.6, low BMI per guidelines. CURRENT TF:Jevity 1.2 @ 60ml/hr x 24 hrs ENTERAL NUTRITION RECOMMENDATIONS: Jevity 1.2 @ 50ml/hr x 24 hrs to provide 1200ml, 1440kcal, 67g prot, 968ml free water * Rec goal rate of 50ml/hr x 24 hrs to not exceed est kcal needs -> meets 100% est kcal/prot needs * HOB over 30 degrees/ water flush 100ml q 8hrs ADDITIONAL RECOMMENDATIONS: * Calibrated bedscale wt for accurate CBW * Monitor lytes, replete as needed * Wound care -> TF @ goal meeds 100% RDI Continue Vit C and ZnSO4, add Jonathon BID Liver: The liver measures 12 cm. No intrahepatic bile duct dilation. Gallbladder: No cholelithiasis. No gallbladder wall thickening. Common bile duct: Nondilated common bile duct measuring 5 mm. Pancreas: Poorly visualized pancreas. Kidneys: The right kidney was poorly visualized. The left kidney measures 9.9 cm. No hydronephrosis or nephrolithiasis. Spleen: The spleen measures 10.6 cm. Aorta: The proximal aorta measures 1.1 cm. No aneurysm. Inferior vena cava: Unremarkable. IMPRESSION: No ultrasound evidence of acute cholecystitis. No hepatic steatosis. (4) UTI (urinary tract infection) (5) Decubitus ulcer Assessment & Plan: Pt presented on admission emaciated, with contractures and multiple Pressure Injuries. Non-Blanchable erythema without induration/fluctuance R Elbow. Non-Blanchable erythema without induration/fluctuance L elbow. DTPI R trochanteric (L)7.5cm x (W)7.6cm. Clusters of Indurated and maroon Pressure injuries that are in close proximity R trochanter. Non-Blanchable erythema without induration L trochanter(L)8cm x (W)6.5cm. No evidence of skin breakdown to sacrum. Non-Blanchable erythema without induration/fluctuance noted to distal/lateral L Tibia(L)6cm x (W)0.8cm. Unstageable pressure Injury L Hallux(L)3.5cm x (W)3.2cm. Base of wound is 100% necrotic. Edges are adherent with marginal erythema. No odor or exudate noted. DTPI Medial /Lateral L Foot(L)2.5cm x (W)1cm.Base of Wound is maroon and fluctuant. DTPI distal/lateral L foot(L)2.5cm x (W)2.6cm. Base of Pressure Injury is fluctuant with marginal erythema. L heel is soft but easily blanchable. R Heel is soft but easily blanchable. DTPI R Hallux(L)5cm x (W)2.5cm. Reabsorbing blood Blister noted. Edges are adherent to base of Pressure Injury. Unstageable Pressure Injury distal/lateral R foot (L)1.5cm x (W)1.9cm. Dry brown eschar with adherent borders.Periwound is blanchable but fluctuant. Tx.plan: Apply Moisture Barrier Paste to Sacrum. Cover with Optifoam drsg. Change every 3 days and prn. Apply Cavilon Skin Barrier to R and L trochanteric areas. Cover each site with Optifoam drsgs. Change every 7 days and prn. Apply Betadine to Pressure Injuries L foot. Cover each site with Optifoam drsgs. Change every 3 days and prn. Apply Betadine to Pressure Injuries R foot. Cover each site with Optifoam drsdgs. Change every 3 days and prn. Apply Cavilon Skin Barrier to both heels. Cover each site with Optifoam drsgs. Change every 7 days and prn. Apply Cavilon Skin Barrier to R and L elbows. Cover each Elbow with Optifoam drsgs.Change every 7 days and prn. Cover Bony prominences as needed with Optifoam drsgs. Reposition at least every 2hours or as tolerated. Off-load heels with Pillow. APM/PURVI Mattress overlay. Kristofer Parra Dec 13, 2020 11:39
[2020-12-13 12:00] VITALS: BP 99/47
--- NOTE | 2020-12-13 13:22 | Pulmonology Progress Note ---
Subjective ROS Limited/Unobtainable: Yes Interval Events: None new reported Constitutional: Denies: fever Respiratory: Reports: no symptoms Cardiovascular: Reports: no symptoms Gastrointestinal/Abdominal: Reports: no symptoms Genitourinary: Reports: no symptoms Allergies: Coded Allergies: No Known Allergies (Verified , 08/01/11) Objective Last 24 Hour Vital Signs Date Time Temp Pulse Resp B/P (MAP) Pulse Ox O2 Delivery O2 Flow Rate FiO2 12/13/20 12:00 97.5 95 20 99/47 (64) 96 12/13/20 12:00 95 12/13/20 09:00 91 12/13/20 09:00 Room Air 12/13/20 08:46 95 12/13/20 08:00 98.6 95 19 102/53 (69) 98 12/13/20 04:00 98.6 75 19 116/51 (72) 96 12/13/20 04:00 95 12/13/20 00:00 99.2 80 21 101/50 (67) 95 12/13/20 00:00 95 12/12/20 21:00 Room Air 12/12/20 20:00 99.2 69 18 121/63 (82) 95 12/12/20 16:00 92 12/12/20 16:00 99.1 94 22 102/58 (73) 95 Intake and Output 12/12/20 12/13/20 19:00 07:00 Intake Total 60 ml 860 ml Output Total 600 ml Balance -540 ml 860 ml Free Water 200 ml Tube Feeding 60 ml 660 ml Output Urine Total 600 ml # Voids 2 # Bowel Movements 2 4 General Appearance: no acute distress HEENT: normocephalic Respiratory: chest wall non-tender, decreased breath sounds Cardiovascular: normal peripheral pulses Abdomen: normal bowel sounds Laboratory Tests 12/12/20 18:35: Urine Color Yellow, Urine Appearance Cloudy, Urine pH 9, Urine Specific [place] 1.015, Urine Protein Negative, Urine Glucose (UA) Negative, Urine Ketones Negative, Urine Blood 2+H, Urine Nitrite Negative, Urine Bilirubin Negative, Urine Urobilinogen 1H, Urine Leukocyte Esterase 1+H, Urine RBC 10-15H, Urine WBC 2-4, Urine Squamous Epithelial Cells Few, Urine Amorphous Sediment ManyH, Urine Bacteria Few Current Medications Medications (Trade) Dose Ordered Sig/Rosy Route PRN Reason Start Time Stop Time Status Last Admin Dose Admin Acetaminophen (Tylenol) 500 mg Q4H PRN GT For Pain 12/04/20 18:30 01/03/21 18:29 12/11/20 10:13 Acetaminophen (Tylenol) 500 mg Q6H PRN GT Temp >100.5 12/08/20 15:15 01/07/21 15:14 12/11/20 20:25 Ascorbic Acid (Vitamin C) 250 mg TWICE A DAY GT 12/06/20 18:00 01/05/21 17:59 12/13/20 08:46 Bisacodyl (Dulcolax) 10 mg DAILYPRN ORAL 12/10/20 09:00 03/10/21 08:59 Digoxin (Lanoxin) 0.125 mg DAILY PEG 12/09/20 09:00 03/09/21 08:59 12/13/20 08:46 Docusate Sodium (Colace) 100 mg TWICE A DAY GT 12/05/20 11:07 01/04/21 11:06 12/12/20 17:48 Enoxaparin Sodium (Lovenox) 40 mg DAILY SUBQ 12/09/20 09:00 03/09/21 08:59 12/13/20 08:47 Famotidine (Pepcid) 20 mg BID GT 12/08/20 18:00 03/08/21 17:59 12/13/20 08:46 Magnesium Hydroxide (Mom) 30 ml BID GT 12/10/20 09:00 01/09/21 08:59 12/12/20 17:48 Midodrine (Pro-Amatine) 10 mg Q8HR ORAL 12/08/20 11:00 03/08/21 10:59 12/13/20 13:06 Multivitamins (Multivitamins) 1 tab DAILY GT 12/13/20 09:00 01/12/21 08:59 12/13/20 08:45 Piperacillin Sod/ Tazobactam Sod 3.375 gm/Sodium Chloride 110 ml @ 27.5 mls/hr EVERY 8 HOURS IVPB 12/12/20 14:00 12/17/20 13:59 12/13/20 13:06 Zinc Sulfate (Zinc Sulfate) 220 mg DAILY GT 12/07/20 09:00 12/17/20 08:59 12/13/20 08:46 Assessment/Plan Assessment/Plan 1 .Renal failure, dehydration -Nephro following 2. Sepsis -ID following -WBC trending down - s/p vancomycin, ceftriaxone - on Zosyn - Rwta=122.0 -> resolved 3. COVID-19 negative 4. Hypoxia; resolved -Now saturating 94-95% on room air 5. Elevated CRP -elevated D-dimer as well - continue Lovenox for DVT ppx - Venous duplex US of LE: No DVT, except the left popliteal vein which could not be visualized by the lay out technician due to contracture Discharge plan noted Medically stable for discharge from pulmonary standpoint The care for this patient was discussed with my supervising physician Time spent for this case was approximately 31 minutes Maxx Hoffman Dec 13, 2020 13:22
--- NOTE | 2020-12-13 13:26 | Nephrology Progress Note ---
Assessment/Plan Problem List: (1) MAUREEN (acute kidney injury) (2) Dehydration (3) Hypernatremia (4) Sepsis (5) UTI (urinary tract infection) (6) Decubitus ulcer Assessment Renal failure, dehydration Hypernatremia, due to free water deficit Sepsis, leukocytosis Malnutrition, hypoalbuminemia Alzheimer's Underlying anemia as the patient continues to be hydrated Plan December 13: No CHEM panel drawn today. Medication list reviewed. Blood pressure stable. Check lab tomorrow. Patient full code.. December 12: Labs reviewed. Renal parameters stable. Meds reviewed. Blood pressure stable. December 11: Labs reviewed. Renal parameters stable. Blood pressure reasonably well controlled. December 10: Labs reviewed. Renal parameters are stable. Blood pressure is stable. Remains tachycardic. December 09: No CHEM panel drawn today. Blood pressure stable. On digoxin. Cardizem is discontinued. December 08: Labs reviewed. Renal parameters stable. Patient blood pressure is low. Midodrine dose increased. 1 dose of albumin bolus given. Parameters for Cardizem ordered. Discussed with MARIE Velarde. December 07: Labs reviewed. Serum sodium normal. IV discontinued. Midodrine for low blood pressure initiated. December 06: Serum sodium lowering. Continue hydration. Medication list reviewed. Previously: D5W hydration Antibiotics Avoid nephrotoxic's Improve nutritional state Monitor renal parameters electrolytes Anemia work-up Subjective ROS Limited/Unobtainable: Yes Objective Objective Last 24 Hour Vital Signs Date Time Temp Pulse Resp B/P (MAP) Pulse Ox O2 Delivery O2 Flow Rate FiO2 12/13/20 12:00 97.5 95 20 99/47 (64) 96 12/13/20 12:00 95 12/13/20 09:00 91 12/13/20 09:00 Room Air 12/13/20 08:46 95 12/13/20 08:00 98.6 95 19 102/53 (69) 98 12/13/20 04:00 98.6 75 19 116/51 (72) 96 12/13/20 04:00 95 12/13/20 00:00 99.2 80 21 101/50 (67) 95 12/13/20 00:00 95 12/12/20 21:00 Room Air 12/12/20 20:00 99.2 69 18 121/63 (82) 95 12/12/20 16:00 92 12/12/20 16:00 99.1 94 22 102/58 (73) 95 Intake and Output 12/12/20 12/13/20 19:00 07:00 Intake Total 60 ml 860 ml Output Total 600 ml Balance -540 ml 860 ml Free Water 200 ml Tube Feeding 60 ml 660 ml Output Urine Total 600 ml # Voids 2 # Bowel Movements 2 4 Current Medications Medications (Trade) Dose Ordered Sig/Rosy Route PRN Reason Start Time Stop Time Status Last Admin Dose Admin Acetaminophen (Tylenol) 500 mg Q4H PRN GT For Pain 12/04/20 18:30 01/03/21 18:29 12/11/20 10:13 Acetaminophen (Tylenol) 500 mg Q6H PRN GT Temp >100.5 12/08/20 15:15 01/07/21 15:14 12/11/20 20:25 Ascorbic Acid (Vitamin C) 250 mg TWICE A DAY GT 12/06/20 18:00 01/05/21 17:59 12/13/20 08:46 Bisacodyl (Dulcolax) 10 mg DAILYPRN ORAL 12/10/20 09:00 03/10/21 08:59 Digoxin (Lanoxin) 0.125 mg DAILY PEG 12/09/20 09:00 03/09/21 08:59 12/13/20 08:46 Docusate Sodium (Colace) 100 mg TWICE A DAY GT 12/05/20 11:07 01/04/21 11:06 12/12/20 17:48 Enoxaparin Sodium (Lovenox) 40 mg DAILY SUBQ 12/09/20 09:00 03/09/21 08:59 12/13/20 08:47 Famotidine (Pepcid) 20 mg BID GT 12/08/20 18:00 03/08/21 17:59 12/13/20 08:46 Magnesium Hydroxide (Mom) 30 ml BID GT 12/10/20 09:00 01/09/21 08:59 12/12/20 17:48 Midodrine (Pro-Amatine) 10 mg Q8HR ORAL 12/08/20 11:00 03/08/21 10:59 12/13/20 13:06 Multivitamins (Multivitamins) 1 tab DAILY GT 12/13/20 09:00 01/12/21 08:59 12/13/20 08:45 Piperacillin Sod/ Tazobactam Sod 3.375 gm/Sodium Chloride 110 ml @ 27.5 mls/hr EVERY 8 HOURS IVPB 12/12/20 14:00 12/17/20 13:59 12/13/20 13:06 Zinc Sulfate (Zinc Sulfate) 220 mg DAILY GT 12/07/20 09:00 12/17/20 08:59 12/13/20 08:46 Laboratory Tests 12/12/20 18:35: Urine Color Yellow, Urine Appearance Cloudy, Urine pH 9, Urine Specific [place] 1.015, Urine Protein Negative, Urine Glucose (UA) Negative, Urine Ketones Negative, Urine Blood 2+H, Urine Nitrite Negative, Urine Bilirubin Negative, Urine Urobilinogen 1H, Urine Leukocyte Esterase 1+H, Urine RBC 10-15H, Urine WBC 2-4, Urine Squamous Epithelial Cells Few, Urine Amorphous Sediment ManyH, Urine Bacteria Few Height (Feet): 5 Height (Inches): 2.00 Weight (Pounds): 96 General Appearance: no apparent distress, lethargic Cardiovascular: tachycardia Respiratory/Chest: decreased breath sounds Abdomen: soft Gene Pena MD Dec 13, 2020 13:25
[2020-12-13 16:00] VITALS: BP 96/42
--- NOTE | 2020-12-13 16:16 | Cardiac Electrophysiology PN ---
Assessment/Plan Assessment/Plan 1. Atrial fib with RVR, due to sepsis with white count 25,000. EF 65%. On Dig 0.125 po daily. Off beta blockers for BP 90s 2. Hypotension. Resolved with Albumin and Midodrine 3. Severe hypernatremia and azotemia. Resolved with IV fluid, per Dr. ePna. 4. History of psychiatric history. 5. Respiratory failure, currently on IV antibiotic 6. Dysphagia, status post PEG placement. Subjective Subjective Covid negative. No atrial fib overnight. GT feeding ongoing. In SR On RA. On Abx for recurrent fever Objective Last 24 Hour Vital Signs Date Time Temp Pulse Resp B/P (MAP) Pulse Ox O2 Delivery O2 Flow Rate FiO2 12/13/20 16:00 97.5 95 20 96/42 (60) 99 12/13/20 12:00 97.5 95 20 99/47 (64) 96 12/13/20 12:00 95 12/13/20 09:00 91 12/13/20 09:00 Room Air 12/13/20 08:46 95 12/13/20 08:00 98.6 95 19 102/53 (69) 98 12/13/20 04:00 98.6 75 19 116/51 (72) 96 12/13/20 04:00 95 12/13/20 00:00 99.2 80 21 101/50 (67) 95 12/13/20 00:00 95 12/12/20 21:00 Room Air 12/12/20 20:00 99.2 69 18 121/63 (82) 95 Intake and Output 12/12/20 12/13/20 19:00 07:00 Intake Total 60 ml 860 ml Output Total 600 ml Balance -540 ml 860 ml Free Water 200 ml Tube Feeding 60 ml 660 ml Output Urine Total 600 ml # Voids 2 # Bowel Movements 2 4 Laboratory Tests Test 12/12/20 18:35 Urine Color Yellow Urine Appearance Cloudy Urine pH 9 (4.5-8.0) Urine Specific [place] 1.015 (1.005-1.035) Urine Protein Negative (NEGATIVE) Urine Glucose (UA) Negative (NEGATIVE) Urine Ketones Negative (NEGATIVE) Urine Blood 2+ (NEGATIVE) H Urine Nitrite Negative (NEGATIVE) Urine Bilirubin Negative (NEGATIVE) Urine Urobilinogen 1 MG/DL (0.0-1.0) H Urine Leukocyte Esterase 1+ (NEGATIVE) H Urine RBC 10-15 /HPF (0 - 2) H Urine WBC 2-4 /HPF (0 - 2) Urine Squamous Epithelial Cells Few /LPF (NONE/OCC) Urine Amorphous Sediment Many /LPF (NONE) H Urine Bacteria Few /HPF (NONE) Objective HEAD AND NECK: No JVD. LUNGS: Decreased breath sounds. CARDIOVASCULAR: Regular S1 and S2 gallop, tachycardic. ABDOMEN: Status post G-tube. EXTREMITIES: No pitting edema.Contracted Efrain Gustafson MD Dec 13, 2020 16:16
--- NOTE | 2020-12-13 16:29 | General Progress Note ---
Subjective ROS Limited/Unobtainable: Yes Allergies: Coded Allergies: No Known Allergies (Verified , 08/01/11) Objective Last 24 Hour Vital Signs Date Time Temp Pulse Resp B/P (MAP) Pulse Ox O2 Delivery O2 Flow Rate FiO2 12/13/20 16:00 97.5 95 20 96/42 (60) 99 12/13/20 12:00 97.5 95 20 99/47 (64) 96 12/13/20 12:00 95 12/13/20 09:00 91 12/13/20 09:00 Room Air 12/13/20 08:46 95 12/13/20 08:00 98.6 95 19 102/53 (69) 98 12/13/20 04:00 98.6 75 19 116/51 (72) 96 12/13/20 04:00 95 12/13/20 00:00 99.2 80 21 101/50 (67) 95 12/13/20 00:00 95 12/12/20 21:00 Room Air 12/12/20 20:00 99.2 69 18 121/63 (82) 95 Intake and Output 12/12/20 12/13/20 19:00 07:00 Intake Total 60 ml 860 ml Output Total 600 ml Balance -540 ml 860 ml Free Water 200 ml Tube Feeding 60 ml 660 ml Output Urine Total 600 ml # Voids 2 # Bowel Movements 2 4 Laboratory Tests 12/12/20 18:35: Urine Color Yellow, Urine Appearance Cloudy, Urine pH 9, Urine Specific [place] 1.015, Urine Protein Negative, Urine Glucose (UA) Negative, Urine Ketones Negative, Urine Blood 2+H, Urine Nitrite Negative, Urine Bilirubin Negative, Urine Urobilinogen 1H, Urine Leukocyte Esterase 1+H, Urine RBC 10-15H, Urine WBC 2-4, Urine Squamous Epithelial Cells Few, Urine Amorphous Sediment ManyH, Urine Bacteria Few Height (Feet): 5 Height (Inches): 2.00 Weight (Pounds): 96 Assessment/Plan Problem List: (1) Parkinsons disease ICD Codes: G20 - Parkinson's disease SNOMED: 09365171 (2) Hypernatremia ICD Codes: E87.0 - Hyperosmolality and hypernatremia SNOMED: 115468541 (3) Sepsis ICD Codes: A41.9 - Sepsis, unspecified organism SNOMED: 40120079 Qualifiers: Qualified Codes: A41.9 - Sepsis, unspecified organism (4) UTI (urinary tract infection) ICD Codes: N39.0 - Urinary tract infection, site not specified SNOMED: 04808173 Qualifiers: Qualified Codes: N39.0 - Urinary tract infection, site not specified (5) Decubitus ulcer ICD Codes: L89.90 - Pressure ulcer of unspecified site, unspecified stage SNOMED: 073989898 Qualifiers: Qualified Codes: L89.90 - Pressure ulcer of unspecified site, unspecified stage Status: progressing Assessment/Plan: afebrile clinically improving dehydartion improved sepsis improving uti Kelsey Looney MD Dec 13, 2020 16:29
--- NOTE | 2020-12-13 19:16 | NUR ---
NURSE HAND-OFF REPORT: Important Events on Shift:[monitoring vs and labs, wound care/photos] Patient Status: [stable] Diet: [Jevity 1.2 at 60] Pending Orders: [] Pending Results/Labs:[] Pending MD notification:[] Latest Vital Signs: Temperature 97.5 , Pulse 95 , B/P 96 /42 , Respiratory Rate 20 , O2 SAT 99 , Nasal Cannula, O2 Flow Rate 3.0 . Vital Sign Comment: [] EKG Rhythm: Sinus Rhythm Rhythm change?: N MD Notified?: Akbar Gustafson MD Response: Latest Luc[place] Fall Score: 70 Fall Risk: High Risk Safety Measures: Call light Within Reach, Bed Alarm Zone 2, Side Rails Side Rails x3, Bed position Low and Locked. Fall Precautions: Yellow Socks Yellow Gown Door Sign Patient Fall Education Report given to [MARIE Powell].
--- NOTE | 2020-12-13 19:30 | NUR ---
NURSE NOTES: Pt. received from MARIE Ramos. Pt. AAOx0, moving in bed, breathing even and unlabored on room air, no indications of SOB, no respiratory distress noted, no indications of pain at this time. IV noted right hand 22g saline locked. Jevity running at 60cc. Bed low and locked, side rails x3 up, head of bed elevated, bed alarm active, and call light in reach.
[2020-12-13 20:00] VITALS: BP 103/51
--- NOTE | 2020-12-13 21:41 | General Progress Note ---
Subjective Allergies: Coded Allergies: No Known Allergies (Verified , 08/01/11) Subjective d/w RN non verbal Tolerating TF Objective Last 24 Hour Vital Signs Date Time Temp Pulse Resp B/P (MAP) Pulse Ox O2 Delivery O2 Flow Rate FiO2 12/13/20 16:00 97.5 95 20 96/42 (60) 99 12/13/20 16:00 95 12/13/20 12:00 97.5 95 20 99/47 (64) 96 12/13/20 12:00 95 12/13/20 09:00 91 12/13/20 09:00 Room Air 12/13/20 08:46 95 12/13/20 08:00 98.6 95 19 102/53 (69) 98 12/13/20 04:00 98.6 75 19 116/51 (72) 96 12/13/20 04:00 95 12/13/20 00:00 99.2 80 21 101/50 (67) 95 12/13/20 00:00 95 Intake and Output 12/12/20 12/13/20 19:00 07:00 Intake Total 60 ml 920 ml Output Total 600 ml Balance -540 ml 920 ml Free Water 200 ml Tube Feeding 60 ml 720 ml Output Urine Total 600 ml # Voids 2 # Bowel Movements 2 4 Height (Feet): 5 Height (Inches): 2.00 Weight (Pounds): 96 Objective Debilitated WW NCAT temporal wasting CT'A RRR abd soft ND, (+) GT no edema (+) multiple decubs Assessment/Plan Status: progressing Assessment/Plan: Assessment - abnormal LFT, possibly due to sepsis, resolving - OBS - s/p PEG - decubitus ulcers Recommendations - check abd ultrasound --> normal - follow LFT conservatively - monitor residuals - f/u vitamin D level - protein powder - MVI, Vit C , Zinc Hollie Simmons MD Dec 13, 2020 21:41
[2020-12-14] VITALS: BP 112/59
[2020-12-14 04:00] VITALS: BP 100/49
[2020-12-14] MEDS: Piperacillin/Tazobactam 3.375 GM in NS 110 ML IVPB SCH ×3 (05:19→21:15)
[2020-12-14] MEDS: Midodrine 10mg tab ORAL SCH ×3 (05:19→21:15)
--- NOTE | 2020-12-14 07:13 | NUR ---
NURSE HAND-OFF REPORT: Important Events on Shift:[multiple episodes of incontinence, afebrile overnight, no residuals in gtube] Patient Status: sleeping Diet: jevity 1.2 at 60cc Pending Orders: na Pending Results/Labs:na Pending notification:kerri Latest Vital Signs: Temperature 98.6 , Pulse 86 , B/P 100 /49 , Respiratory Rate 16 , O2 SAT 96 , Nasal Cannula, O2 Flow Rate 3.0 . Vital Sign Comment: stable EKG Rhythm: Sinus Rhythm Rhythm change?: N MD Notified?: Response: Latest Lucero Fall Score: 70 Fall Risk: High Risk Safety Measures: Call light Within Reach, Bed Alarm Zone 1, Side Rails Side Rails x3, Bed position Low and Locked. Fall Precautions: Yellow Socks Yellow Gown Door Sign Patient Fall Education Report given to []. Addendum: 12/14/20 at 0728 by Andre Burger RN Hand off given to MARIE Lazaro.
--- NOTE | 2020-12-14 07:36 | NUR ---
NURSE NOTES: Received report from MARIE Powell. Pt is resting in bed semi fowlers. Gtube feeding running at goal. R hand 22g running Zosyn, noted. Skin intact. Skin DTI noted. on p200 mattress. Pt bed low and locked call light in reach and bed alarm on.
[2020-12-14] MEDS: Milk of Magnesia 30ml Ud GT SCH ×2 (07:54→16:59)
[2020-12-14] MEDS: Docusate 100mg/10ml Liq GT SCH ×2 (07:54→16:59)
[2020-12-14] MEDS: Ascorbic Acid 500mg tab GT SCH ×2 (07:54→16:59)
[2020-12-14] MEDS: Digoxin 0.125mg tab PEG SCH (07:55)
[2020-12-14] MEDS: Zinc Sulfate 220mg GT SCH (07:55)
[2020-12-14] MEDS: Enoxaparin 40mg Inj SUBQ SCH (07:56)
[2020-12-14 08:00] VITALS: BP 105/55
[2020-12-14 08:20] LABS: BASOPHILS % (AUTO) 0.8 % (0.0-2.0); HEMOGLOBIN 10.6 G/DL (12.0-16.0); MEAN CORPUSCULAR VOLUME 91 FL (80-99); MONOCYTES % (AUTO) 8.1 % (1.0-10.0); NEUTROPHILS % (AUTO) 74.2 % (45.0-75.0); PLATELET COUNT 382 K/UL (150-450); RED BLOOD COUNT 3.64 M/UL (4.20-5.40); RED CELL DISTRIBUTION WIDTH 16.5 % (11.6-14.8); WHITE BLOOD COUNT 10.6 K/UL (4.8-10.8)
[2020-12-14 08:34] LABS: ALANINE AMINOTRANSFERASE 35 U/L (12-78); ALBUMIN 2.4 G/DL (3.4-5.0); ALBUMIN/GLOBULIN RATIO 0.6 (1.0-2.7); ALKALINE PHOSPHATASE 215 U/L (46-116); ANION GAP 11 mmol/L (5-15); ASPARTATE AMINO TRANSFERASE 32 U/L (15-37); BILIRUBIN,TOTAL 0.6 MG/DL (0.2-1.0); BLOOD UREA NITROGEN 14 mg/dL (7-18); CALCIUM 8.3 MG/DL (8.5-10.1); CARBON DIOXIDE 25 MMOL/L (21-32); CHLORIDE 104 MMOL/L (98-107); CREATININE 0.6 MG/DL (0.55-1.30); PHOSPHORUS 4.7 MG/DL (2.5-4.9); POTASSIUM 4.8 MMOL/L (3.5-5.1); SODIUM 140 MMOL/L (136-145)
--- NOTE | 2020-12-14 10:02 | Pulmonology Progress Note ---
Subjective ROS Limited/Unobtainable: Yes Interval Events: None new reported Constitutional: Denies: fever Respiratory: Reports: no symptoms Cardiovascular: Reports: no symptoms Gastrointestinal/Abdominal: Reports: no symptoms Genitourinary: Reports: no symptoms Allergies: Coded Allergies: No Known Allergies (Verified , 08/01/11) Objective Last 24 Hour Vital Signs Date Time Temp Pulse Resp B/P (MAP) Pulse Ox O2 Delivery O2 Flow Rate FiO2 12/14/20 09:00 Room Air 12/14/20 08:00 89 12/14/20 08:00 97.7 87 20 105/55 (72) 96 12/14/20 07:55 89 12/14/20 04:00 86 12/14/20 04:00 98.6 86 16 100/49 (66) 96 12/14/20 00:00 89 12/14/20 00:00 98.2 89 20 112/59 (76) 97 12/13/20 21:00 Room Air 12/13/20 20:00 89 12/13/20 20:00 98.6 89 18 103/51 (68) 97 12/13/20 16:00 97.5 95 20 96/42 (60) 99 12/13/20 16:00 95 12/13/20 12:00 97.5 95 20 99/47 (64) 96 12/13/20 12:00 95 Intake and Output 12/13/20 12/14/20 19:00 07:00 Intake Total 960 ml 1057.5 ml Output Total 620 ml Balance 340 ml 1057.5 ml Free Water 300 ml 200 ml IV Total 137.5 ml Tube Feeding 660 ml 720 ml Output Urine Total 620 ml # Bowel Movements 1 General Appearance: no acute distress HEENT: normocephalic Respiratory: chest wall non-tender, decreased breath sounds Cardiovascular: normal peripheral pulses Abdomen: normal bowel sounds Microbiology Date/Time Source Procedure Growth Status 12/12/20 18:35 Straight Cath Urine Culture - Preliminary Gram Positive Cocci Resulted Laboratory Tests 12/14/20 07:10: White Blood Count 10.6, Red Blood Count 3.64L, Hemoglobin 10.6L, Hematocrit 33.0L, Mean Corpuscular Volume 91, Mean Corpuscular Hemoglobin 29.1, Mean Corpuscular Hemoglobin Concent 32.1, Red Cell Distribution Width 16.5H, Platelet Count 382, Mean Platelet Volume 7.8, Neutrophils (%) (Auto) 74.2, Lymphocytes (% ) (Auto) 14.0L, Monocytes (%) (Auto) 8.1, Eosinophils (%) (Auto) 3.0, Basophils (%) (Auto) 0.8, Sodium Level 140, Potassium Level 4.8, Chloride Level 104, Carbon Dioxide Level 25, Anion Gap 11, Blood Urea Nitrogen 14, Creatinine 0.6, Estimat Glomerular Filtration Rate > 60, Glucose Level 110H, Calcium Level 8.3L, Phosphorus Level 4.7, Magnesium Level 2.4, Total Bilirubin 0.6, Aspartate Amino Transf (AST/SGOT) 32, Alanine Aminotransferase (ALT/SGPT) 35, Alkaline Phosphatase 215H, C-Reactive Protein, Quantitative 2.0H, Total Protein 6.5, Albumin 2.4L, Globulin 4.1, Albumin/Globulin Ratio 0.6L Current Medications Medications (Trade) Dose Ordered Sig/Rosy Route PRN Reason Start Time Stop Time Status Last Admin Dose Admin Acetaminophen (Tylenol) 500 mg Q4H PRN GT For Pain 12/04/20 18:30 01/03/21 18:29 12/11/20 10:13 Acetaminophen (Tylenol) 500 mg Q6H PRN GT Temp >100.5 12/08/20 15:15 01/07/21 15:14 12/11/20 20:25 Ascorbic Acid (Vitamin C) 250 mg TWICE A DAY GT 12/06/20 18:00 01/05/21 17:59 12/14/20 07:54 Bisacodyl (Dulcolax) 10 mg DAILYPRN ORAL 12/10/20 09:00 03/10/21 08:59 Digoxin (Lanoxin) 0.125 mg DAILY PEG 12/09/20 09:00 03/09/21 08:59 12/14/20 07:55 Docusate Sodium (Colace) 100 mg TWICE A DAY GT 12/05/20 11:07 01/04/21 11:06 12/14/20 07:54 Enoxaparin Sodium (Lovenox) 40 mg DAILY SUBQ 12/09/20 09:00 03/09/21 08:59 12/14/20 07:56 Famotidine (Pepcid) 20 mg BID GT 12/08/20 18:00 03/08/21 17:59 12/14/20 07:54 Magnesium Hydroxide (Mom) 30 ml BID GT 12/10/20 09:00 01/09/21 08:59 12/14/20 07:54 Midodrine (Pro-Amatine) 10 mg Q8HR ORAL 12/08/20 11:00 03/08/21 10:59 12/14/20 05:19 Multivitamins (Multivitamins) 1 tab DAILY GT 12/13/20 09:00 01/12/21 08:59 12/14/20 07:55 Piperacillin Sod/ Tazobactam Sod 3.375 gm/Sodium Chloride 110 ml @ 27.5 mls/hr EVERY 8 HOURS IVPB 12/12/20 14:00 12/17/20 13:59 12/14/20 05:19 Zinc Sulfate (Zinc Sulfate) 220 mg DAILY GT 12/07/20 09:00 12/17/20 08:59 12/14/20 07:55 Assessment/Plan Assessment/Plan 1 .Renal failure, dehydration -Nephro following 2. Sepsis -ID following -WBC trending down - s/p vancomycin, ceftriaxone - on Zosyn - Eygv=142.0 -> resolved - UCx gram positive cocci (12/12) 3. COVID-19 negative 4. Hypoxia; resolved -Now saturating well on room air 5. Elevated CRP -elevated D-dimer as well - continue Lovenox for DVT ppx - Venous duplex US of LE: No DVT, except the left popliteal vein which could not be visualized by the insulation technician due to contracture The care for this patient was discussed with my supervising physician Time spent for this case was approximately 31 minutes Maxx Hoffman Dec 14, 2020 10:02
--- NOTE | 2020-12-14 11:35 | Surgery Progress Note ---
Surgery Progress Note Subjective Additional Comments leukocytosis resolved lfts okay no n/v comfortable tolerating tf Objective Last 24 Hour Vital Signs Date Time Temp Pulse Resp B/P (MAP) Pulse Ox O2 Delivery O2 Flow Rate FiO2 12/14/20 09:00 Room Air 12/14/20 08:00 89 12/14/20 08:00 97.7 87 20 105/55 (72) 96 12/14/20 07:55 89 12/14/20 04:00 86 12/14/20 04:00 98.6 86 16 100/49 (66) 96 12/14/20 00:00 89 12/14/20 00:00 98.2 89 20 112/59 (76) 97 12/13/20 21:00 Room Air 12/13/20 20:00 89 12/13/20 20:00 98.6 89 18 103/51 (68) 97 12/13/20 16:00 97.5 95 20 96/42 (60) 99 12/13/20 16:00 95 12/13/20 12:00 97.5 95 20 99/47 (64) 96 12/13/20 12:00 95 I&O Intake and Output0 12/13/20 12/14/20 19:00 07:00 Intake Total 960 ml 1057.5 ml Output Total 620 ml Balance 340 ml 1057.5 ml Free Water 300 ml 200 ml IV Total 137.5 ml Tube Feeding 660 ml 720 ml Output Urine Total 620 ml # Bowel Movements 1 Dressing: saturated Cardiovascular: RSR Respiratory: decreased breath sounds Abdomen: soft, non-tender, present bowel sounds, non-distended Extremities: no edema, no tenderness, no cyanosis Laboratory Tests Test 12/14/20 07:10 White Blood Count 10.6 K/UL (4.8-10.8) Red Blood Count 3.64 M/UL (4.20-5.40) L Hemoglobin 10.6 G/DL (12.0-16.0) L Hematocrit 33.0 % (37.0-47.0) L Mean Corpuscular Volume 91 FL (80-99) Mean Corpuscular Hemoglobin 29.1 PG (27.0-31.0) Mean Corpuscular Hemoglobin Concent 32.1 G/DL (32.0-36.0) Red Cell Distribution Width 16.5 % (11.6-14.8) H Platelet Count 382 K/UL (150-450) Mean Platelet Volume 7.8 FL (6.5-10.1) Neutrophils (%) (Auto) 74.2 % (45.0-75.0) Lymphocytes (%) (Auto) 14.0 % (20.0-45.0) L Monocytes (%) (Auto) 8.1 % (1.0-10.0) Eosinophils (%) (Auto) 3.0 % (0.0-3.0) Basophils (%) (Auto) 0.8 % (0.0-2.0) Sodium Level 140 MMOL/L (136-145) Potassium Level 4.8 MMOL/L (3.5-5.1) Chloride Level 104 MMOL/L (98-107) Carbon Dioxide Level 25 MMOL/L (21-32) Anion Gap 11 mmol/L (5-15) Blood Urea Nitrogen 14 mg/dL (7-18) Creatinine 0.6 MG/DL (0.55-1.30) Estimat Glomerular Filtration Rate > 60 mL/min (>60) Glucose Level 110 MG/DL (74-106) H Calcium Level 8.3 MG/DL (8.5-10.1) L Phosphorus Level 4.7 MG/DL (2.5-4.9) Magnesium Level 2.4 MG/DL (1.8-2.4) Total Bilirubin 0.6 MG/DL (0.2-1.0) Aspartate Amino Transf (AST/SGOT) 32 U/L (15-37) Alanine Aminotransferase (ALT/SGPT) 35 U/L (12-78) Alkaline Phosphatase 215 U/L (46-116) H C-Reactive Protein, Quantitative 2.0 mg/dL (0.00-0.90) H Total Protein 6.5 G/DL (6.4-8.2) Albumin 2.4 G/DL (3.4-5.0) L Globulin 4.1 g/dL Albumin/Globulin Ratio 0.6 (1.0-2.7) L Plan Problems: (1) Parkinsons disease (2) Hypernatremia (3) Sepsis Assessment & Plan: 85-year-old female presented with leukocytosis now with anemia leukocytosis abnormal labs malnutrition wounds identified unlikely source of patient's sepsis or infectious etiology. Urine noted. Antibiotics per infectious disease. Unlikely cholecystitis. Abdominal exam otherwise fairly benign. No acute surgical invention planned at this time. Continue IV antibiotics continue nutrition continue local wound care we will follow the recommendations thank you DAILY ESTIMATED NEEDS: Needs based on Wounds, underweight/ 43.5kg 30-35 kcals/kg 3255-5734 total kcals 1.25-1.5 g protein/kg 54-65 g total protein 25-30 mL/kg 7689-7410 total fluid mLs NUTRITION DIAGNOSIS: Increased kcal/prot needs R/T wound healing and underweight status as evidenced by pt admitted w/ multiple wounds @ BL foot, pending eval, pt @ 87% IBW w/ BMI of 17.6, low BMI per guidelines. CURRENT TF:Jevity 1.2 @ 60ml/hr x 24 hrs ENTERAL NUTRITION RECOMMENDATIONS: Jevity 1.2 @ 50ml/hr x 24 hrs to provide 1200ml, 1440kcal, 67g prot, 968ml free water * Rec goal rate of 50ml/hr x 24 hrs to not exceed est kcal needs -> meets 100% est kcal/prot needs * HOB over 30 degrees/ water flush 100ml q 8hrs ADDITIONAL RECOMMENDATIONS: * Calibrated bedscale wt for accurate CBW * Monitor lytes, replete as needed * Wound care -> TF @ goal meeds 100% RDI Continue Vit C and ZnSO4, add Jonathon BID Liver: The liver measures 12 cm. No intrahepatic bile duct dilation. Gallbladder: No cholelithiasis. No gallbladder wall thickening. Common bile duct: Nondilated common bile duct measuring 5 mm. Pancreas: Poorly visualized pancreas. Kidneys: The right kidney was poorly visualized. The left kidney measures 9.9 cm. No hydronephrosis or nephrolithiasis. Spleen: The spleen measures 10.6 cm. Aorta: The proximal aorta measures 1.1 cm. No aneurysm. Inferior vena cava: Unremarkable. IMPRESSION: No ultrasound evidence of acute cholecystitis. No hepatic steatosis. (4) UTI (urinary tract infection) (5) Decubitus ulcer Assessment & Plan: Pt presented on admission emaciated, with contractures and multiple Pressure Injuries. Non-Blanchable erythema without induration/fluctuance R Elbow. Non-Blanchable erythema without induration/fluctuance L elbow. DTPI R trochanteric (L)7.5cm x (W)7.6cm. Clusters of Indurated and maroon Pressure injuries that are in close proximity R trochanter. Non-Blanchable erythema without induration L trochanter(L)8cm x (W)6.5cm. No evidence of skin breakdown to sacrum. Non-Blanchable erythema without induration/fluctuance noted to distal/lateral L Tibia(L)6cm x (W)0.8cm. Unstageable pressure Injury L Hallux(L)3.5cm x (W)3.2cm. Base of wound is 100% necrotic. Edges are adherent with marginal erythema. No odor or exudate noted. DTPI Medial /Lateral L Foot(L)2.5cm x (W)1cm.Base of Wound is maroon and fluctuant. DTPI distal/lateral L foot(L)2.5cm x (W)2.6cm. Base of Pressure Injury is fluctuant with marginal erythema. L heel is soft but easily blanchable. R Heel is soft but easily blanchable. DTPI R Hallux(L)5cm x (W)2.5cm. Reabsorbing blood Blister noted. Edges are adherent to base of Pressure Injury. Unstageable Pressure Injury distal/lateral R foot (L)1.5cm x (W)1.9cm. Dry brown eschar with adherent borders.Periwound is blanchable but fluctuant. Tx.plan: Apply Moisture Barrier Paste to Sacrum. Cover with Optifoam drsg. Change every 3 days and prn. Apply Cavilon Skin Barrier to R and L trochanteric areas. Cover each site with Optifoam drsgs. Change every 7 days and prn. Apply Betadine to Pressure Injuries L foot. Cover each site with Optifoam drsgs. Change every 3 days and prn. Apply Betadine to Pressure Injuries R foot. Cover each site with Optifoam drsdgs. Change every 3 days and prn. Apply Cavilon Skin Barrier to both heels. Cover each site with Optifoam drsgs. Change every 7 days and prn. Apply Cavilon Skin Barrier to R and L elbows. Cover each Elbow with Optifoam drsgs.Change every 7 days and prn. Cover Bony prominences as needed with Optifoam drsgs. Reposition at least every 2hours or as tolerated. Off-load heels with Pillow. APM/PURVI Mattress overlay. Kristofer Parra Dec 14, 2020 11:35
[2020-12-14 11:40] VITALS: BP 96/42
--- NOTE | 2020-12-14 15:17 | Cardiac Electrophysiology PN ---
Assessment/Plan Assessment/Plan 1. Atrial fib with RVR, due to sepsis with white count 25,000. EF 65%. On Dig 0.125 po daily. Off beta blockers for BP 90s 2. Hypotension. Resolved with Albumin and Midodrine 3. Severe hypernatremia and azotemia. Resolved with IV fluid, per Dr. Pena. 4. History of psychiatric history. 5. Respiratory failure, currently on IV antibiotic 6. Dysphagia, status post PEG placement. Subjective Subjective Covid negative. No atrial fib overnight. GT feeding ongoing. In SR On RA and Abx Objective Last 24 Hour Vital Signs Date Time Temp Pulse Resp B/P (MAP) Pulse Ox O2 Delivery O2 Flow Rate FiO2 12/14/20 12:00 93 12/14/20 11:40 98.1 90 20 96/42 (60) 95 12/14/20 09:00 Room Air 12/14/20 08:00 89 12/14/20 08:00 97.7 87 20 105/55 (72) 96 12/14/20 07:55 89 12/14/20 04:00 86 12/14/20 04:00 98.6 86 16 100/49 (66) 96 12/14/20 00:00 89 12/14/20 00:00 98.2 89 20 112/59 (76) 97 12/13/20 21:00 Room Air 12/13/20 20:00 89 12/13/20 20:00 98.6 89 18 103/51 (68) 97 12/13/20 16:00 97.5 95 20 96/42 (60) 99 12/13/20 16:00 95 Intake and Output 12/13/20 12/14/20 19:00 07:00 Intake Total 960 ml 1057.5 ml Output Total 620 ml Balance 340 ml 1057.5 ml Free Water 300 ml 200 ml IV Total 137.5 ml Tube Feeding 660 ml 720 ml Output Urine Total 620 ml # Bowel Movements 1 Laboratory Tests Test 12/14/20 07:10 White Blood Count 10.6 K/UL (4.8-10.8) Red Blood Count 3.64 M/UL (4.20-5.40) L Hemoglobin 10.6 G/DL (12.0-16.0) L Hematocrit 33.0 % (37.0-47.0) L Mean Corpuscular Volume 91 FL (80-99) Mean Corpuscular Hemoglobin 29.1 PG (27.0-31.0) Mean Corpuscular Hemoglobin Concent 32.1 G/DL (32.0-36.0) Red Cell Distribution Width 16.5 % (11.6-14.8) H Platelet Count 382 K/UL (150-450) Mean Platelet Volume 7.8 FL (6.5-10.1) Neutrophils (%) (Auto) 74.2 % (45.0-75.0) Lymphocytes (%) (Auto) 14.0 % (20.0-45.0) L Monocytes (%) (Auto) 8.1 % (1.0-10.0) Eosinophils (%) (Auto) 3.0 % (0.0-3.0) Basophils (%) (Auto) 0.8 % (0.0-2.0) Sodium Level 140 MMOL/L (136-145) Potassium Level 4.8 MMOL/L (3.5-5.1) Chloride Level 104 MMOL/L (98-107) Carbon Dioxide Level 25 MMOL/L (21-32) Anion Gap 11 mmol/L (5-15) Blood Urea Nitrogen 14 mg/dL (7-18) Creatinine 0.6 MG/DL (0.55-1.30) Estimat Glomerular Filtration Rate > 60 mL/min (>60) Glucose Level 110 MG/DL (74-106) H Calcium Level 8.3 MG/DL (8.5-10.1) L Phosphorus Level 4.7 MG/DL (2.5-4.9) Magnesium Level 2.4 MG/DL (1.8-2.4) Total Bilirubin 0.6 MG/DL (0.2-1.0) Aspartate Amino Transf (AST/SGOT) 32 U/L (15-37) Alanine Aminotransferase (ALT/SGPT) 35 U/L (12-78) Alkaline Phosphatase 215 U/L (46-116) H C-Reactive Protein, Quantitative 2.0 mg/dL (0.00-0.90) H Total Protein 6.5 G/DL (6.4-8.2) Albumin 2.4 G/DL (3.4-5.0) L Globulin 4.1 g/dL Albumin/Globulin Ratio 0.6 (1.0-2.7) L Microbiology Date/Time Source Procedure Growth Status 12/12/20 18:35 Straight Cath Urine Culture - Preliminary Gram Positive Cocci Resulted Objective HEAD AND NECK: No JVD. LUNGS: Decreased breath sounds. CARDIOVASCULAR: Regular S1 and S2 gallop, tachycardic. ABDOMEN: Status post G-tube. EXTREMITIES: No pitting edema.Contracted Efrain Gustafson MD Dec 14, 2020 15:17
--- NOTE | 2020-12-14 15:29 | Nephrology Progress Note ---
Assessment/Plan Problem List: (1) MAUREEN (acute kidney injury) (2) Dehydration (3) Hypernatremia (4) Sepsis (5) UTI (urinary tract infection) (6) Decubitus ulcer Assessment Renal failure, dehydration Hypernatremia, due to free water deficit Sepsis, leukocytosis Malnutrition, hypoalbuminemia Alzheimer's Underlying anemia as the patient continues to be hydrated Plan December 14: Labs reviewed. Renal parameters stable. Patient remains full code. Continue per consultants. Medication list reviewed. December 13: No CHEM panel drawn today. Medication list reviewed. Blood pressure stable. Check lab tomorrow. Patient full code.. December 12: Labs reviewed. Renal parameters stable. Meds reviewed. Blood pressure stable. December 11: Labs reviewed. Renal parameters stable. Blood pressure reasonably well controlled. December 10: Labs reviewed. Renal parameters are stable. Blood pressure is stable. Remains tachycardic. December 09: No CHEM panel drawn today. Blood pressure stable. On digoxin. Cardizem is discontinued. December 08: Labs reviewed. Renal parameters stable. Patient blood pressure is low. Midodrine dose increased. 1 dose of albumin bolus given. Parameters for Cardizem ordered. Discussed with MARIE Velarde. December 07: Labs reviewed. Serum sodium normal. IV discontinued. Midodrine for low blood pressure initiated. December 06: Serum sodium lowering. Continue hydration. Medication list reviewed. Previously: D5W hydration Antibiotics Avoid nephrotoxic's Improve nutritional state Monitor renal parameters electrolytes Anemia work-up Subjective ROS Limited/Unobtainable: Yes Objective Objective Last 24 Hour Vital Signs Date Time Temp Pulse Resp B/P (MAP) Pulse Ox O2 Delivery O2 Flow Rate FiO2 12/14/20 12:00 93 12/14/20 11:40 98.1 90 20 96/42 (60) 95 12/14/20 09:00 Room Air 12/14/20 08:00 89 12/14/20 08:00 97.7 87 20 105/55 (72) 96 12/14/20 07:55 89 12/14/20 04:00 86 12/14/20 04:00 98.6 86 16 100/49 (66) 96 12/14/20 00:00 89 12/14/20 00:00 98.2 89 20 112/59 (76) 97 12/13/20 21:00 Room Air 12/13/20 20:00 89 12/13/20 20:00 98.6 89 18 103/51 (68) 97 12/13/20 16:00 97.5 95 20 96/42 (60) 99 12/13/20 16:00 95 Intake and Output 12/13/20 12/14/20 19:00 07:00 Intake Total 960 ml 1057.5 ml Output Total 620 ml Balance 340 ml 1057.5 ml Free Water 300 ml 200 ml IV Total 137.5 ml Tube Feeding 660 ml 720 ml Output Urine Total 620 ml # Bowel Movements 1 Current Medications Medications (Trade) Dose Ordered Sig/Rosy Route PRN Reason Start Time Stop Time Status Last Admin Dose Admin Acetaminophen (Tylenol) 500 mg Q4H PRN GT For Pain 12/04/20 18:30 01/03/21 18:29 12/11/20 10:13 Acetaminophen (Tylenol) 500 mg Q6H PRN GT Temp >100.5 12/08/20 15:15 01/07/21 15:14 12/11/20 20:25 Ascorbic Acid (Vitamin C) 250 mg TWICE A DAY GT 12/06/20 18:00 01/05/21 17:59 12/14/20 07:54 Bisacodyl (Dulcolax) 10 mg DAILYPRN ORAL 12/10/20 09:00 03/10/21 08:59 Digoxin (Lanoxin) 0.125 mg DAILY PEG 12/09/20 09:00 03/09/21 08:59 12/14/20 07:55 Docusate Sodium (Colace) 100 mg TWICE A DAY GT 12/05/20 11:07 01/04/21 11:06 12/14/20 07:54 Enoxaparin Sodium (Lovenox) 40 mg DAILY SUBQ 12/09/20 09:00 03/09/21 08:59 12/14/20 07:56 Famotidine (Pepcid) 20 mg BID GT 12/08/20 18:00 03/08/21 17:59 12/14/20 07:54 Magnesium Hydroxide (Mom) 30 ml BID GT 12/10/20 09:00 01/09/21 08:59 12/14/20 07:54 Midodrine (Pro-Amatine) 10 mg Q8HR ORAL 12/08/20 11:00 03/08/21 10:59 12/14/20 12:59 Multivitamins (Multivitamins) 1 tab DAILY GT 12/13/20 09:00 01/12/21 08:59 12/14/20 07:55 Piperacillin Sod/ Tazobactam Sod 3.375 gm/Sodium Chloride 110 ml @ 27.5 mls/hr EVERY 8 HOURS IVPB 12/12/20 14:00 12/17/20 13:59 12/14/20 12:59 Zinc Sulfate (Zinc Sulfate) 220 mg DAILY GT 12/07/20 09:00 12/17/20 08:59 12/14/20 07:55 Laboratory Tests 12/14/20 07:10: White Blood Count 10.6, Red Blood Count 3.64L, Hemoglobin 10.6L, Hematocrit 33.0L, Mean Corpuscular Volume 91, Mean Corpuscular Hemoglobin 29.1, Mean Corpuscular Hemoglobin Concent 32.1, Red Cell Distribution Width 16.5H, Platelet Count 382, Mean Platelet Volume 7.8, Neutrophils (%) (Auto) 74.2, Lymphocytes (%) (Auto) 14.0L, Monocytes (%) (Auto) 8.1, Eosinophils (%) (Auto) 3.0, Basophils (%) (Auto) 0.8, Sodium Level 140, Potassium Level 4.8, Chloride Level 104, Carbon Dioxide Level 25, Anion Gap 11, Blood Urea Nitrogen 14, Creatinine 0.6, Estimat Glomerular Filtration Rate > 60, Glucose Level 110H, Calcium Level 8.3L, Phosphorus Level 4.7, Magnesium Level 2.4, Total Bilirubin 0.6, Aspartate Amino Transf (AST/SGOT) 32, Alanine Aminotransferase (ALT/SGPT) 35, Alkaline Phosphatase 215H, C-Reactive Protein, Quantitative 2.0H, Total Protein 6.5, Albumin 2.4L, Globulin 4.1, Albumin/Globulin Ratio 0.6L Height (Feet): 5 Height (Inches): 2.00 Weight (Pounds): 96 General Appearance: no apparent distress, lethargic Cardiovascular: tachycardia Respiratory/Chest: decreased breath sounds Abdomen: distended Gene Pena MD Dec 14, 2020 15:29
[2020-12-14 16:00] VITALS: BP 101/46
--- NOTE | 2020-12-14 17:43 | NUR ---
NURSE NOTES: After Zosyn IV administration, Pt IV site appeared red. Inserted a L hand 22g IV to continue Zosyn administration. R hand 22g IV removed, catheter intact.
--- NOTE | 2020-12-14 17:50 | NUR ---
NURSE HAND-OFF REPORT: Important Events on Shift: Patient Status: FC, STABLE Diet: JEVITY 1.2 AT 60CC CONT FLUSH Q6 H20 100CC Pending Orders: Pending Results/Labs: Pending MD notification: Latest Vital Signs: Temperature 98.2 , Pulse 96 , B/P 101 /46 , Respiratory Rate 20 , O2 SAT 96 , Nasal Cannula, O2 Flow Rate 3.0 . Vital Sign Comment: EKG Rhythm: Sinus Rhythm Rhythm change?: N MD Notified?: Akbar Gustafson MD Response: Latest Lucero Fall Score: 70 Fall Risk: High Risk Safety Measures: Call light Within Reach, Bed Alarm Zone 1, Side Rails Side Rails x3, Bed position Low and Locked. Fall Precautions: Yellow Socks Yellow Gown Door Sign Patient Fall Education Report TO BE GIVEN. Addendum: 12/14/20 at 1854 by Iveth Zuniga RN RN VRE in urine, reproted to Radhika garner awaiting call back. Pt is stable, report given to MARIE Powell
--- NOTE | 2020-12-14 18:25 | General Progress Note ---
Subjective Allergies: Coded Allergies: No Known Allergies (Verified , 08/01/11) Subjective d/w RN non verbal Tolerating TF Objective Last 24 Hour Vital Signs Date Time Temp Pulse Resp B/P (MAP) Pulse Ox O2 Delivery O2 Flow Rate FiO2 12/14/20 16:00 96 12/14/20 16:00 98.2 94 20 101/46 (64) 96 12/14/20 12:00 93 12/14/20 11:40 98.1 90 20 96/42 (60) 95 12/14/20 09:00 Room Air 12/14/20 08:00 89 12/14/20 08:00 97.7 87 20 105/55 (72) 96 12/14/20 07:55 89 12/14/20 04:00 86 12/14/20 04:00 98.6 86 16 100/49 (66) 96 12/14/20 00:00 89 12/14/20 00:00 98.2 89 20 112/59 (76) 97 12/13/20 21:00 Room Air 12/13/20 20:00 89 12/13/20 20:00 98.6 89 18 103/51 (68) 97 Intake and Output0 12/13/20 12/14/20 19:00 07:00 Intake Total 960 ml 1117.5 ml Output Total 620 ml Balance 340 ml 1117.5 ml Free Water 300 ml 200 ml IV Total 137.5 ml Tube Feeding 660 ml 780 ml Output Urine Total 620 ml # Bowel Movements 1 Laboratory Tests 12/14/20 07:10: White Blood Count 10.6, Red Blood Count 3.64L, Hemoglobin 10.6L, Hematocrit 33.0L, Mean Corpuscular Volume 91, Mean Corpuscular Hemoglobin 29.1, Mean Corpuscular Hemoglobin Concent 32.1, Red Cell Distribution Width 16.5H, Platelet Count 382, Mean Platelet Volume 7.8, Neutrophils (%) (Auto) 74.2, Lymphocytes (%) (Auto) 14.0L, Monocytes (%) (Auto) 8.1, Eosinophils (%) (Auto) 3.0, Basophils (%) (Auto) 0.8, Sodium Level 140, Potassium Level 4.8, Chloride Level 104, Carbon Dioxide Level 25, Anion Gap 11, Blood Urea Nitrogen 14, Creatinine 0.6, Estimat Glomerular Filtration Rate > 60, Glucose Level 110H, Calcium Level 8.3L, Phosphorus Level 4.7, Magnesium Level 2.4, Total Bilirubin 0.6, Aspartate Amino Transf (AST/SGOT) 32, Alanine Aminotransferase (ALT/SGPT) 35, Alkaline Phosphatase 215H, C-Reactive Protein, Quantitative 2.0H, Total Protein 6.5, Albumin 2.4L, Globulin 4.1, Albumin/Globulin Ratio 0.6L Height (Feet): 5 Height (Inches): 2.00 Weight (Pounds): 96 Objective Debilitated WW NCAT temporal wasting CT'A RRR abd soft ND, (+) GT no edema (+) multiple decubs Assessment/Plan Status: progressing Assessment/Plan: Assessment - abnormal LFT, possibly due to sepsis, resolving - OBS - s/p PEG - decubitus ulcers Recommendations - check abd ultrasound --> normal - follow LFT conservatively - monitor residuals - f/u vitamin D level - protein powder - MVI, Vit C , Zinc Hollie Simmons MD Dec 14, 2020 18:25
--- NOTE | 2020-12-14 18:28 | NUR ---
NURSE NOTES: Reported VRE in urine to Dr cartagena, awaiting call back. Addendum: 12/14/20 at 1833 by Iveth Zuniga RN RN wrong doctor. Reported VRE in urine to Dr javi garner awaiting call back.
--- NOTE | 2020-12-14 19:14 | NUR ---
NURSE NOTES: Pt. received from MARIE Lazaro. Pt. AAOx0, nonverbal, obtunded, breathing even and unlabored on room air, no indications of shortness of breath, no indications of pain at this time. IV noted left hand 22g intact and patent, saline locked. Gtube with jevity 1.2 running at 60cc/hr. Bed low and locked, head of bed elevated, side rails x3 up, bed alarm active, and call light in reach.
--- NOTE | 2020-12-14 19:39 | NUR ---
NURSE NOTES: Oral care provided.
[2020-12-14 20:00] VITALS: BP 120/58
[2020-12-14] MEDS: Acetaminophen 650mg/20.3ml GT PRN (20:05)
--- NOTE | 2020-12-14 23:22 | General Progress Note ---
Subjective ROS Limited/Unobtainable: Yes Allergies: Coded Allergies: No Known Allergies (Verified , 08/01/11) Objective Last 24 Hour Vital Signs Date Time Temp Pulse Resp B/P (MAP) Pulse Ox O2 Delivery O2 Flow Rate FiO2 12/14/20 21:20 98.0 12/14/20 21:00 Room Air 12/14/20 20:35 98.9 12/14/20 20:35 98.9 12/14/20 20:00 100.6 96 22 120/58 (78) 99 12/14/20 20:00 96 12/14/20 16:00 96 12/14/20 16:00 98.2 94 20 101/46 (64) 96 12/14/20 12:00 93 12/14/20 11:40 98.1 90 20 96/42 (60) 95 12/14/20 09:00 Room Air 12/14/20 08:00 89 12/14/20 08:00 97.7 87 20 105/55 (72) 96 12/14/20 07:55 89 12/14/20 04:00 86 12/14/20 04:00 98.6 86 16 100/49 (66) 96 12/14/20 00:00 89 12/14/20 00:00 98.2 89 20 112/59 (76) 97 Intake and Output 12/13/20 12/14/20 19:00 07:00 Intake Total 960 ml 1117.5 ml Output Total 620 ml Balance 340 ml 1117.5 ml Free Water 300 ml 200 ml IV Total 137.5 ml Tube Feeding 660 ml 780 ml Output Urine Total 620 ml # Bowel Movements 1 Laboratory Tests 12/14/20 07:10: White Blood Count 10.6, Red Blood Count 3.64L, Hemoglobin 10.6L, Hematocrit 33.0L, Mean Corpuscular Volume 91, Mean Corpuscular Hemoglobin 29.1, Mean Corpuscular Hemoglobin Concent 32.1, Red Cell Distribution Width 16.5H, Platelet Count 382, Mean Platelet Volume 7.8, Neutrophils (%) (Auto) 74.2, Lymphocytes (%) (Auto) 14.0L, Monocytes (%) (Auto) 8.1, Eosinophils (%) (Auto) 3.0, Basophils (%) (Auto) 0.8, Sodium Level 140, Potassium Level 4.8, Chloride Level 104, Carbon Dioxide Level 25, Anion Gap 11, Blood Urea Nitrogen 14, Creatinine 0.6, Estimat Glomerular Filtration Rate > 60, Glucose Level 110H, Calcium Level 8.3L, Phosphorus Level 4.7, Magnesium Level 2.4, Total Bilirubin 0.6, Aspartate Amino Transf (AST/SGOT) 32, Alanine Aminotransferase (ALT/SGPT) 35, Alkaline Phosphatase 215H, C-Reactive Protein, Quantitative 2.0H, Total Protein 6.5, Albumin 2.4L, Globulin 4.1, Albumin/Globulin Ratio 0.6L Height (Feet): 5 Height (Inches): 2.00 Weight (Pounds): 96 Assessment/Plan Problem List: (1) Parkinsons disease ICD Codes: G20 - Parkinson's disease SNOMED: 85945731 (2) Hypernatremia ICD Codes: E87.0 - Hyperosmolality and hypernatremia SNOMED: 528575342 (3) Sepsis ICD Codes: A41.9 - Sepsis, unspecified organism SNOMED: 07748337 Qualifiers: Qualified Codes: A41.9 - Sepsis, unspecified organism (4) UTI (urinary tract infection) ICD Codes: N39.0 - Urinary tract infection, site not specified SNOMED: 81255136 Qualifiers: Qualified Codes: N39.0 - Urinary tract infection, site not specified (5) Decubitus ulcer ICD Codes: L89.90 - Pressure ulcer of unspecified site, unspecified stage SNOMED: 382732026 Qualifiers: Qualified Codes: L89.90 - Pressure ulcer of unspecified site, unspecified stage Status: progressing Assessment/Plan: vitals stable dc in am uti resolved afebrile sepsis improving uti Kelsey Looney MD Dec 14, 2020 23:22
[2020-12-15] VITALS: BP 97/68
[2020-12-15 04:00] VITALS: BP 104/55
[2020-12-15] MEDS: Midodrine 10mg tab ORAL SCH ×3 (05:02→23:34)
[2020-12-15] MEDS: Piperacillin/Tazobactam 3.375 GM in NS 110 ML IVPB SCH (05:02)
--- NOTE | 2020-12-15 05:44 | NUR ---
NURSE NOTES: IV left hand dc'd per pt, new IV inserted right FA 22g with IV antibiotics running. Oral care provided. Pericare provided.
--- NOTE | 2020-12-15 06:37 | NUR ---
RD ASSESSMENT & RECOMMENDATIONS SEE CARE ACTIVITY FOR COMPLETE ASSESSMENT DAILY ESTIMATED NEEDS: Needs based on Wounds, underweight/ 43.5kg 30-35 kcals/kg 5077-1101 total kcals 1.25-1.5 g protein/kg 54-65 g total protein 25-30 mL/kg 6143-9566 total fluid mLs NUTRITION DIAGNOSIS: Increased kcal/prot needs R/T wound healing and underweight status as evidenced by pt admitted w/ multiple wounds @ BL foot, pending eval, pt @ 87% IBW w/ BMI of 17.6, low BMI per guidelines. CURRENT TF:Jevity 1.2 @ 60ml/hr x 24 hrs ENTERAL NUTRITION RECOMMENDATIONS: Glucerna 1.2 @ 50ml/hr x 24 hrs to provide 1200ml, 1440kcal, 72g prot, 966ml free water * Rec TF change to Glucerna 1.2 for improved BG control (146, 122, 191) * Initiate Glucerna 1.2 @ 30ml/hr x 6hrs, advance 10ml q 4-6 hrs as tolerated to goal rate * TF @ goal meets 100% est kcal/prot needs * HOB over 30 degrees/ water flush 100ml q 8hrs ADDITIONAL RECOMMENDATIONS: * Calibrated bedscale wt for accurate CBW * Monitor lytes, replete as needed * Wound care -> TF @ goal meeds 100% RDI Continue Vit C and ZnSO4, add Jonathon BID * Monitor BGs, need for NISS
--- NOTE | 2020-12-15 06:55 | NUR ---
NURSE HAND-OFF REPORT: Important Events on Shift:[low grade fever treated with PRN tylenol, new IV inserted right FA 22g for antibiotics, tolerated Gtube feeds] Patient Status: stable Diet: jevity 1.2 Pending Orders: na Pending Results/Labs:na Pending MD notification:low grade fever overnight Latest Vital Signs: Temperature 99.7 , Pulse 91 , B/P 104 /55 , Respiratory Rate 18 , O2 SAT 96 , Nasal Cannula, O2 Flow Rate 3.0 . Vital Sign Comment: low grade fever EKG Rhythm: Sinus Rhythm Rhythm change?: N MD Notified? MD Response: Latest Lucero Fall Score: 70 Fall Risk: High Risk Safety Measures: Call light Within Reach, Bed Alarm Zone 1, Side Rails Side Rails x3, Bed position Low and Locked. Fall Precautions: Yellow Socks Yellow Gown Door Sign Patient Fall Education Report given to . Addendum: 12/15/20 at 0725 by Andre Burger RN Hand off given to MARIE Anguiano.
--- NOTE | 2020-12-15 07:43 | NUR ---
NURSE NOTES: Received report from MARIE Powell. Patient observed to be awake, and non verbal. Patient currently on room air, no s/sx of SOB/Distress, no c/o any pain or discomfort. Patient currently running Jevity 1.2 @ 60 tolerating well. IV site located on RFA g22 iv site dry, inplace,and intact. No s/sx of redness, swelling. Patient's bed placed on lowest and locked, call light placed within reach and will continue to monitor for any changes in patient's condition
[2020-12-15 08:00] VITALS: BP 109/56
--- NOTE | 2020-12-15 08:25 | NUR ---
CASE MANAGEMENT:REVIEW 12/15/20 SI: SEPSIS D/T BACTEREMIA AND UTI 96.7 80 19 109/56 97% ON RA H/H-10.6/33.0 IS: IV ZOSYN Q8HRS LINEZOLID GT Q12 DIGOXIN GT QD LOVENOX SQ QD PEPCID GT BID MIDODRINE GT Q8HRS ZINC GT QD : TELEMETRY STATUS DCP: FROM [facility] PLAN:
[2020-12-15] MEDS: Milk of Magnesia 30ml Ud GT SCH ×2 (08:29→17:16)
[2020-12-15] MEDS: Zinc Sulfate 220mg GT SCH (08:29)
[2020-12-15] MEDS: Docusate 100mg/10ml Liq GT SCH ×2 (08:29→17:16)
[2020-12-15] MEDS: Digoxin 0.125mg tab PEG SCH (08:29)
[2020-12-15] MEDS: Ascorbic Acid 500mg tab GT SCH ×2 (08:29→17:16)
[2020-12-15] MEDS: Enoxaparin 40mg Inj SUBQ SCH (08:31)
--- NOTE | 2020-12-15 10:29 | Pulmonology Progress Note ---
Subjective ROS Limited/Unobtainable: Yes Interval Events: None new reported Constitutional: Reports: fever, other - Qyya=279.6 Respiratory: Reports: no symptoms Cardiovascular: Reports: no symptoms Gastrointestinal/Abdominal: Reports: no symptoms Genitourinary: Reports: no symptoms Allergies: Coded Allergies: No Known Allergies (Verified , 08/01/11) Objective Last 24 Hour Vital Signs Date Time Temp Pulse Resp B/P (MAP) Pulse Ox O2 Delivery O2 Flow Rate FiO2 12/15/20 09:00 Room Air 12/15/20 08:29 80 12/15/20 08:00 96.7 80 19 109/56 (73) 97 12/15/20 08:00 94 12/15/20 04:00 91 12/15/20 04:00 99.7 91 18 104/55 (71) 96 12/15/20 00:00 85 12/15/20 00:00 98.9 85 20 97/68 (78) 96 12/14/20 21:20 98.0 12/14/20 21:00 Room Air 12/14/20 20:35 98.9 12/14/20 20:35 98.9 12/14/20 20:00 100.6 96 22 120/58 (78) 99 12/14/20 20:00 96 12/14/20 16:00 96 12/14/20 16:00 98.2 94 20 101/46 (64) 96 12/14/20 12:00 93 12/14/20 11:40 98.1 90 20 96/42 (60) 95 Intake and Output 12/14/20 12/15/20 19:00 07:00 Intake Total 1110 ml 997.5 ml Output Total 800 ml Balance 1110 ml 197.5 ml Free Water 450 ml 200 ml IV Total 137.5 ml Tube Feeding 660 ml 660 ml Output Urine Total 800 ml # Voids 3 # Bowel Movements 1 General Appearance: no acute distress HEENT: normocephalic Respiratory: chest wall non-tender, decreased breath sounds Cardiovascular: normal peripheral pulses Abdomen: normal bowel sounds Microbiology Date/Time Source Procedure Growth Status 12/12/20 18:35 Straight Cath Urine Culture - Final Enterococcus Faecium - Vre Complete Current Medications Medications (Trade) Dose Ordered Sig/Rosy Route PRN Reason Start Time Stop Time Status Last Admin Dose Admin Acetaminophen (Tylenol) 500 mg Q4H PRN GT For Pain 12/04/20 18:30 01/03/21 18:29 12/11/20 10:13 Acetaminophen (Tylenol) 500 mg Q6H PRN GT Temp >100.5 12/08/20 15:15 01/07/21 15:14 12/14/20 20:05 Ascorbic Acid (Vitamin C) 250 mg TWICE A DAY GT 12/06/20 18:00 01/05/21 17:59 12/15/20 08:29 Bisacodyl (Dulcolax) 10 mg DAILYPRN ORAL 12/10/20 09:00 03/10/21 08:59 Digoxin (Lanoxin) 0.125 mg DAILY PEG 12/09/20 09:00 03/09/21 08:59 12/15/20 08:29 Docusate Sodium (Colace) 100 mg TWICE A DAY GT 12/05/20 11:07 01/04/21 11:06 12/15/20 08:29 Enoxaparin Sodium (Lovenox) 40 mg DAILY SUBQ 12/09/20 09:00 03/09/21 08:59 12/15/20 08:31 Famotidine (Pepcid) 20 mg BID GT 12/08/20 18:00 03/08/21 17:59 12/15/20 08:29 Linezolid (Zyvox) 600 mg EVERY 12 HOURS GT 12/15/20 09:00 12/20/20 08:59 12/15/20 08:29 Magnesium Hydroxide (Mom) 30 ml BID GT 12/10/20 09:00 01/09/21 08:59 12/15/20 08:29 Midodrine (Pro-Amatine) 10 mg Q8HR ORAL 12/08/20 11:00 03/08/21 10:59 12/15/20 05:02 Multivitamins (Multivitamins) 1 tab DAILY GT 12/13/20 09:00 01/12/21 08:59 12/15/20 08:29 Piperacillin Sod/ Tazobactam Sod 3.375 gm/Sodium Chloride 110 ml @ 27.5 mls/hr EVERY 8 HOURS IVPB 12/12/20 14:00 12/17/20 13:59 12/15/20 05:02 Zinc Sulfate (Zinc Sulfate) 220 mg DAILY GT 12/07/20 09:00 12/17/20 08:59 12/15/20 08:29 Assessment/Plan Assessment/Plan 1 .Renal failure, dehydration -Nephro following 2. Sepsis -ID following -WBC trending down - s/p vancomycin, ceftriaxone - on Zosyn - Atlm=397.0 -> resolved - UCx gram positive cocci (12/12) 3. COVID-19 negative 4. Hypoxia; resolved -Now saturating well on room air 5. Elevated CRP -elevated D-dimer as well - continue Lovenox for DVT ppx - Venous duplex US of LE: No DVT, except the left popliteal vein which could not be visualized by the radioactivity technician due to contracture 6. E Coli UTI - on Abx The care for this patient was discussed with my supervising physician Time spent for this case was approximately 31 minutes Maxx Hoffman Dec 15, 2020 10:29
--- NOTE | 2020-12-15 11:16 | Infectious Diseases Prog Note ---
Assessment/Plan Assessment/Plan antibiotics : zosyn A 1. VRE UTI 2. + blood culture with coag neg staph likely contaminated 3. dementia 4. Parkinsons disease 5. MRSA nasal colonization P 1. linezolid started 2. d/c zosyn 3. will follow up cultures Subjective ROS Limited/Unobtainable: Yes Allergies: Coded Allergies: No Known Allergies (Verified , 08/01/11) Objective Last 24 Hour Vital Signs Date Time Temp Pulse Resp B/P (MAP) Pulse Ox O2 Delivery O2 Flow Rate FiO2 12/15/20 09:00 Room Air 12/15/20 08:29 80 12/15/20 08:00 96.7 80 19 109/56 (73) 97 12/15/20 08:00 94 12/15/20 04:00 91 12/15/20 04:00 99.7 91 18 104/55 (71) 96 12/15/20 00:00 85 12/15/20 00:00 98.9 85 20 97/68 (78) 96 12/14/20 21:20 98.0 12/14/20 21:00 Room Air 12/14/20 20:35 98.9 12/14/20 20:35 98.9 12/14/20 20:00 100.6 96 22 120/58 (78) 99 12/14/20 20:00 96 12/14/20 16:00 96 12/14/20 16:00 98.2 94 20 101/46 (64) 96 12/14/20 12:00 93 12/14/20 11:40 98.1 90 20 96/42 (60) 95 Height (Feet): 5 Height (Inches): 2.00 Weight (Pounds): 96 Respiratory/Chest: lungs clear Cardiovascular: normal rate, regular rhythm, no gallop/murmur Abdomen: soft, non tender, other - GT Extremities: no edema Microbiology Date/Time Source Procedure Growth Status 12/12/20 18:35 Straight Cath Urine Culture - Final Enterococcus Faecium - Vre Complete Current Medications Medications (Trade) Dose Ordered Sig/Rosy Route PRN Reason Start Time Stop Time Status Last Admin Dose Admin Acetaminophen (Tylenol) 500 mg Q4H PRN GT For Pain 12/04/20 18:30 01/03/21 18:29 12/11/20 10:13 Acetaminophen (Tylenol) 500 mg Q6H PRN GT Temp >100.5 12/08/20 15:15 01/07/21 15:14 12/14/20 20:05 Ascorbic Acid (Vitamin C) 250 mg TWICE A DAY GT 12/06/20 18:00 01/05/21 17:59 12/15/20 08:29 Bisacodyl (Dulcolax) 10 mg DAILYPRN ORAL 12/10/20 09:00 03/10/21 08:59 Digoxin (Lanoxin) 0.125 mg DAILY PEG 12/09/20 09:00 03/09/21 08:59 12/15/20 08:29 Docusate Sodium (Colace) 100 mg TWICE A DAY GT 12/05/20 11:07 01/04/21 11:06 12/15/20 08:29 Enoxaparin Sodium (Lovenox) 40 mg DAILY SUBQ 12/09/20 09:00 03/09/21 08:59 12/15/20 08:31 Famotidine (Pepcid) 20 mg BID GT 12/08/20 18:00 03/08/21 17:59 12/15/20 08:29 Linezolid (Zyvox) 600 mg EVERY 12 HOURS GT 12/15/20 09:00 12/20/20 08:59 12/15/20 08:29 Magnesium Hydroxide (Mom) 30 ml BID GT 12/10/20 09:00 01/09/21 08:59 12/15/20 08:29 Midodrine (Pro-Amatine) 10 mg Q8HR ORAL 12/08/20 11:00 03/08/21 10:59 12/15/20 05:02 Multivitamins (Multivitamins) 1 tab DAILY GT 12/13/20 09:00 01/12/21 08:59 12/15/20 08:29 Piperacillin Sod/ Tazobactam Sod 3.375 gm/Sodium Chloride 110 ml @ 27.5 mls/hr EVERY 8 HOURS IVPB 12/12/20 14:00 12/17/20 13:59 12/15/20 05:02 Zinc Sulfate (Zinc Sulfate) 220 mg DAILY GT 12/07/20 09:00 12/17/20 08:59 12/15/20 08:29 Mt Campos MD Dec 15, 2020 11:16
[2020-12-15 12:00] VITALS: BP 110/65
--- NOTE | 2020-12-15 12:41 | Surgery Progress Note ---
Surgery Progress Note Subjective Symptoms: improved, tolerating diet, passing flatus Objective Last 24 Hour Vital Signs Date Time Temp Pulse Resp B/P (MAP) Pulse Ox O2 Delivery O2 Flow Rate FiO2 12/15/20 12:00 98.1 78 20 110/65 (80) 97 12/15/20 12:00 90 12/15/20 09:00 Room Air 12/15/20 08:29 80 12/15/20 08:00 96.7 80 19 109/56 (73) 97 12/15/20 08:00 94 12/15/20 04:00 91 12/15/20 04:00 99.7 91 18 104/55 (71) 96 12/15/20 00:00 85 12/15/20 00:00 98.9 85 20 97/68 (78) 96 12/14/20 21:20 98.0 12/14/20 21:00 Room Air 12/14/20 20:35 98.9 12/14/20 20:35 98.9 12/14/20 20:00 100.6 96 22 120/58 (78) 99 12/14/20 20:00 96 12/14/20 16:00 96 12/14/20 16:00 98.2 94 20 101/46 (64) 96 I&O Intake and Output 12/14/20 12/15/20 19:00 07:00 Intake Total 1110 ml 997.5 ml Output Total 800 ml Balance 1110 ml 197.5 ml Free Water 450 ml 200 ml IV Total 137.5 ml Tube Feeding 660 ml 660 ml Output Urine Total 800 ml # Voids 3 # Bowel Movements 1 Dressing: saturated Wound: clean Cardiovascular: RSR Respiratory: clear Abdomen: soft, flat, non-tender, present bowel sounds, non-distended Extremities: no edema, no tenderness, no cyanosis Plan Problems: (1) Parkinsons disease (2) Hypernatremia (3) Sepsis Assessment & Plan: 85-year-old female presented with leukocytosis now with anemia leukocytosis abnormal labs malnutrition wounds identified unlikely source of patient's sepsis or infectious etiology. Urine noted. Antibiotics per infectious disease. Unlikely cholecystitis. Abdominal exam otherwise fairly benign. No acute surgical invention planned at this time. Continue IV antibiotics continue nutrition continue local wound care we will follow the recommendations thank you DAILY ESTIMATED NEEDS: Needs based on Wounds, underweight/ 43.5kg 30-35 kcals/kg 5213-4954 total kcals 1.25-1.5 g protein/kg 54-65 g total protein 25-30 mL/kg 8937-6256 total fluid mLs Increased kcal/prot needs R/T wound healing and underweight status as evidenced by pt admitted w/ multiple wounds @ BL foot, pending eval, pt @ 87% IBW w/ BMI of 17.6, low BMI per guidelines. CURRENT TF:Jevity 1.2 @ 60ml/hr x 24 hrs ENTERAL NUTRITION RECOMMENDATIONS: Glucerna 1.2 @ 50ml/hr x 24 hrs to provide 1200ml, 1440kcal, 72g prot, 966ml free water * Rec TF change to Glucerna 1.2 for improved BG control (146, 122, 191) * Initiate Glucerna 1.2 @ 30ml/hr x 6hrs, advance 10ml q 4-6 hrs as tolerated to goal rate * TF @ goal meets 100% est kcal/prot needs * HOB over 30 degrees/ water flush 100ml q 8hrs ADDITIONAL RECOMMENDATIONS: * Calibrated bedscale wt for accurate CBW * Monitor lytes, replete as needed * Wound care -> TF @ goal meeds 100% RDI Continue Vit C and ZnSO4, add Jonathon BID * Monitor BGs, need for NISS Liver: The liver measures 12 cm. No intrahepatic bile duct dilation. Gallbladder: No cholelithiasis. No gallbladder wall thickening. Common bile duct: Nondilated common bile duct measuring 5 mm. Pancreas: Poorly visualized pancreas. Kidneys: The right kidney was poorly visualized. The left kidney measures 9.9 cm. No hydronephrosis or nephrolithiasis. Spleen: The spleen measures 10.6 cm. Aorta: The proximal aorta measures 1.1 cm. No aneurysm. Inferior vena cava: Unremarkable. IMPRESSION: No ultrasound evidence of acute cholecystitis. No hepatic steatosis. (4) UTI (urinary tract infection) (5) Decubitus ulcer Assessment & Plan: Pt presented on admission emaciated, with contractures and multiple Pressure Injuries. Non-Blanchable erythema without induration/fluctuance R Elbow. Non-Blanchable erythema without induration/fluctuance L elbow. DTPI R trochanteric (L)7.5cm x (W)7.6cm. Clusters of Indurated and maroon Pressure injuries that are in close proximity R trochanter. Non-Blanchable erythema without induration L trochanter(L)8cm x (W)6.5cm. No evidence of skin breakdown to sacrum. Non-Blanchable erythema without induration/fluctuance noted to distal/lateral L Tibia(L)6cm x (W)0.8cm. Unstageable pressure Injury L Hallux(L)3.5cm x (W)3.2cm. Base of wound is 100% necrotic. Edges are adherent with marginal erythema. No odor or exudate noted. DTPI Medial /Lateral L Foot(L)2.5cm x (W)1cm.Base of Wound is maroon and fluctuant. DTPI distal/lateral L foot(L)2.5cm x (W)2.6cm. Base of Pressure Injury is fluctuant with marginal erythema. L heel is soft but easily blanchable. R Heel is soft but easily blanchable. DTPI R Hallux(L)5cm x (W)2.5cm. Reabsorbing blood Blister noted. Edges are adherent to base of Pressure Injury. Unstageable Pressure Injury distal/lateral R foot (L)1.5cm x (W)1.9cm. Dry brown eschar with adherent borders.Periwound is blanchable but fluctuant. Tx.plan: Apply Moisture Barrier Paste to Sacrum. Cover with Optifoam drsg. Change every 3 days and prn. Apply Cavilon Skin Barrier to R and L trochanteric areas. Cover each site with Optifoam drsgs. Change every 7 days and prn. Apply Betadine to Pressure Injuries L foot. Cover each site with Optifoam drsgs. Change every 3 days and prn. Apply Betadine to Pressure Injuries R foot. Cover each site with Optifoam drsdgs. Change every 3 days and prn. Apply Cavilon Skin Barrier to both heels. Cover each site with Optifoam drsgs. Change every 7 days and prn. Apply Cavilon Skin Barrier to R and L elbows. Cover each Elbow with Optifoam drsgs.Change every 7 days and prn. Cover Bony prominences as needed with Optifoam drsgs. Reposition at least every 2hours or as tolerated. Off-load heels with Pillow. APM/PURVI Mattress overlay. Kristofer Parra Dec 15, 2020 12:41
--- NOTE | 2020-12-15 12:45 | General Progress Note ---
Subjective ROS Limited/Unobtainable: Yes Allergies: Coded Allergies: No Known Allergies (Verified , 08/01/11) Objective Last 24 Hour Vital Signs Date Time Temp Pulse Resp B/P (MAP) Pulse Ox O2 Delivery O2 Flow Rate FiO2 12/15/20 12:00 98.1 78 20 110/65 (80) 97 12/15/20 12:00 90 12/15/20 09:00 Room Air 12/15/20 08:29 80 12/15/20 08:00 96.7 80 19 109/56 (73) 97 12/15/20 08:00 94 12/15/20 04:00 91 12/15/20 04:00 99.7 91 18 104/55 (71) 96 12/15/20 00:00 85 12/15/20 00:00 98.9 85 20 97/68 (78) 96 12/14/20 21:20 98.0 12/14/20 21:00 Room Air 12/14/20 20:35 98.9 12/14/20 20:35 98.9 12/14/20 20:00 100.6 96 22 120/58 (78) 99 12/14/20 20:00 96 12/14/20 16:00 96 12/14/20 16:00 98.2 94 20 101/46 (64) 96 Intake and Output 12/14/20 12/15/20 19:00 07:00 Intake Total 1110 ml 997.5 ml Output Total 800 ml Balance 1110 ml 197.5 ml Free Water 450 ml 200 ml IV Total 137.5 ml Tube Feeding 660 ml 660 ml Output Urine Total 800 ml # Voids 3 # Bowel Movements 1 Height (Feet): 5 Height (Inches): 2.00 Weight (Pounds): 96 Assessment/Plan Problem List: (1) Parkinsons disease ICD Codes: G20 - Parkinson's disease SNOMED: 53172927 (2) Hypernatremia ICD Codes: E87.0 - Hyperosmolality and hypernatremia SNOMED: 566955362 (3) Sepsis ICD Codes: A41.9 - Sepsis, unspecified organism SNOMED: 54115369 Qualifiers: Qualified Codes: A41.9 - Sepsis, unspecified organism (4) UTI (urinary tract infection) ICD Codes: N39.0 - Urinary tract infection, site not specified SNOMED: 64904986 Qualifiers: Qualified Codes: N39.0 - Urinary tract infection, site not specified (5) Decubitus ulcer ICD Codes: L89.90 - Pressure ulcer of unspecified site, unspecified stage SNOMED: 714418202 Qualifiers: Qualified Codes: L89.90 - Pressure ulcer of unspecified site, unspecified stage Status: progressing Assessment/Plan: according to rn pt had fever again last night so need to observe and id to readjust any abx [email or web address] per id Kelsey Aguilar MD Dec 15, 2020 12:45
--- NOTE | 2020-12-15 12:52 | Nephrology Progress Note ---
Assessment/Plan Problem List: (1) MAUREEN (acute kidney injury) (2) Dehydration (3) Hypernatremia (4) Sepsis (5) UTI (urinary tract infection) (6) Decubitus ulcer Assessment Renal failure, dehydration Hypernatremia, due to free water deficit Sepsis, leukocytosis Malnutrition, hypoalbuminemia Alzheimer's Underlying anemia as the patient continues to be hydrated Plan December 15: No labs from today. Patient full code. Stable from renal standpoint of view. December 14: Labs reviewed. Renal parameters stable. Patient remains full code. Continue per consultants. Medication list reviewed. December 13: No CHEM panel drawn today. Medication list reviewed. Blood pressure stable. Check lab tomorrow. Patient full code.. December 12: Labs reviewed. Renal parameters stable. Meds reviewed. Blood pressure stable. December 11: Labs reviewed. Renal parameters stable. Blood pressure reasonably well controlled. December 10: Labs reviewed. Renal parameters are stable. Blood pressure is stable. Remains tachycardic. December 09: No CHEM panel drawn today. Blood pressure stable. On digoxin. Cardizem is discontinued. December 08: Labs reviewed. Renal parameters stable. Patient blood pressure is low. Midodrine dose increased. 1 dose of albumin bolus given. Parameters for Cardizem ordered. Discussed with MARIE Velarde. December 07: Labs reviewed. Serum sodium normal. IV discontinued. Midodrine for low blood pressure initiated. December 06: Serum sodium lowering. Continue hydration. Medication list reviewed. Previously: D5W hydration Antibiotics Avoid nephrotoxic's Improve nutritional state Monitor renal parameters electrolytes Anemia work-up Subjective ROS Limited/Unobtainable: Yes Objective Objective Last 24 Hour Vital Signs Date Time Temp Pulse Resp B/P (MAP) Pulse Ox O2 Delivery O2 Flow Rate FiO2 12/15/20 12:00 98.1 78 20 110/65 (80) 97 12/15/20 12:00 90 12/15/20 09:00 Room Air 12/15/20 08:29 80 12/15/20 08:00 96.7 80 19 109/56 (73) 97 12/15/20 08:00 94 12/15/20 04:00 91 12/15/20 04:00 99.7 91 18 104/55 (71) 96 12/15/20 00:00 85 12/15/20 00:00 98.9 85 20 97/68 (78) 96 12/14/20 21:20 98.0 12/14/20 21:00 Room Air 12/14/20 20:35 98.9 12/14/20 20:35 98.9 12/14/20 20:00 100.6 96 22 120/58 (78) 99 12/14/20 20:00 96 12/14/20 16:00 96 12/14/20 16:00 98.2 94 20 101/46 (64) 96 Intake and Output 12/14/20 12/15/20 19:00 07:00 Intake Total 1110 ml 997.5 ml Output Total 800 ml Balance 1110 ml 197.5 ml Free Water 450 ml 200 ml IV Total 137.5 ml Tube Feeding 660 ml 660 ml Output Urine Total 800 ml # Voids 3 # Bowel Movements 1 No CHEM panel drawn today Current Medications Medications (Trade) Dose Ordered Sig/Rosy Route PRN Reason Start Time Stop Time Status Last Admin Dose Admin Acetaminophen (Tylenol) 500 mg Q4H PRN GT For Pain 12/04/20 18:30 01/03/21 18:29 12/11/20 10:13 Acetaminophen (Tylenol) 500 mg Q6H PRN GT Temp >100.5 12/08/20 15:15 01/07/21 15:14 12/14/20 20:05 Ascorbic Acid (Vitamin C) 250 mg TWICE A DAY GT 12/06/20 18:00 01/05/21 17:59 12/15/20 08:29 Bisacodyl (Dulcolax) 10 mg DAILYPRN ORAL 12/10/20 09:00 03/10/21 08:59 Digoxin (Lanoxin) 0.125 mg DAILY PEG 12/09/20 09:00 03/09/21 08:59 12/15/20 08:29 Docusate Sodium (Colace) 100 mg TWICE A DAY GT 12/05/20 11:07 01/04/21 11:06 12/15/20 08:29 Enoxaparin Sodium (Lovenox) 40 mg DAILY SUBQ 12/09/20 09:00 03/09/21 08:59 12/15/20 08:31 Famotidine (Pepcid) 20 mg BID GT 12/08/20 18:00 03/08/21 17:59 12/15/20 08:29 Linezolid (Zyvox) 600 mg EVERY 12 HOURS GT 12/15/20 09:00 12/20/20 08:59 12/15/20 08:29 Magnesium Hydroxide (Mom) 30 ml BID GT 12/10/20 09:00 01/09/21 08:59 12/15/20 08:29 Midodrine (Pro-Amatine) 10 mg Q8HR ORAL 12/08/20 11:00 03/08/21 10:59 12/15/20 05:02 Multivitamins (Multivitamins) 1 tab DAILY GT 12/13/20 09:00 01/12/21 08:59 12/15/20 08:29 Zinc Sulfate (Zinc Sulfate) 220 mg DAILY GT 12/07/20 09:00 12/17/20 08:59 12/15/20 08:29 Height (Feet): 5 Height (Inches): 2.00 Weight (Pounds): 96 General Appearance: no apparent distress Cardiovascular: normal rate Respiratory/Chest: decreased breath sounds Abdomen: distended Gene Pena MD Dec 15, 2020 12:52
--- NOTE | 2020-12-15 14:37 | Cardiac Electrophysiology PN ---
Assessment/Plan Assessment/Plan 1. Atrial fib with RVR, due to sepsis with white count 25,000. EF 65%. On Dig 0.125 po daily. Off beta blockers for BP 90s 2. Hypotension. Resolved with Albumin and Midodrine 3. Severe hypernatremia and azotemia. Resolved with IV fluid, per Dr. Pena. 4. History of psychosis. 5. Respiratory failure, fever on RA and Abx 6. Dysphagia, status post PEG placement. Subjective Subjective Covid negative. No atrial fib overnight. GT feeding ongoing. In SR Still has low grade fever. Started on Zyvox po Objective Last 24 Hour Vital Signs Date Time Temp Pulse Resp B/P (MAP) Pulse Ox O2 Delivery O2 Flow Rate FiO2 12/15/20 12:00 98.1 78 20 110/65 (80) 97 12/15/20 12:00 90 12/15/20 09:00 Room Air 12/15/20 08:29 80 12/15/20 08:00 96.7 80 19 109/56 (73) 97 12/15/20 08:00 94 12/15/20 04:00 91 12/15/20 04:00 99.7 91 18 104/55 (71) 96 12/15/20 00:00 85 12/15/20 00:00 98.9 85 20 97/68 (78) 96 12/14/20 21:20 98.0 12/14/20 21:00 Room Air 12/14/20 20:35 98.9 12/14/20 20:35 98.9 12/14/20 20:00 100.6 96 22 120/58 (78) 99 12/14/20 20:00 96 12/14/20 16:00 96 12/14/20 16:00 98.2 94 20 101/46 (64) 96 Intake and Output 12/14/20 12/15/20 19:00 07:00 Intake Total 1110 ml 997.5 ml Output Total 800 ml Balance 1110 ml 197.5 ml Free Water 450 ml 200 ml IV Total 137.5 ml Tube Feeding 660 ml 660 ml Output Urine Total 800 ml # Voids 3 # Bowel Movements 1 Microbiology Date/Time Source Procedure Growth Status 12/12/20 18:35 Straight Cath Urine Culture - Final Enterococcus Faecium - Vre Complete Objective HEAD AND NECK: No JVD. LUNGS: Decreased breath sounds. CARDIOVASCULAR: Regular S1 and S2 gallop, tachycardic. ABDOMEN: Status post G-tube. EXTREMITIES: No pitting edema.Contracted Efrain Gustafson MD Dec 15, 2020 14:37
[2020-12-15 16:00] VITALS: BP 103/56
--- NOTE | 2020-12-15 19:20 | NUR ---
NURSE NOTES: Receive a report from MARIE Anguiano. Round is done. On bed bound with contraction. Non-verbal but noted light response by sound. No distress noted. On RA. G-tube feeding as ordered and kept head up elevated. On PURVI mattress for pressure injuries with position change. Dressing changed previous shift remained intact. IV is RFA. Call light within reach. Will continue to monitor.
--- NOTE | 2020-12-15 19:23 | NUR ---
NURSE HAND-OFF REPORT: Important Events on Shift: ATB tx, wound care Patient Status: stable Diet: jevity 1.2 @ 60 Pending Orders: n/a Pending Results/Labs:n/a Pending MD notification:n/a Latest Vital Signs: Temperature 98.8 , Pulse 93 , B/P 103 /56 , Respiratory Rate 18 , O2 SAT 98 , Nasal Cannula, O2 Flow Rate 3.0 . Vital Sign Comment: stable EKG Rhythm: Sinus Rhythm Rhythm change?: N MD Notified?: Akbar Gustafson MD Response: Latest Lucero Fall Score: 70 Fall Risk: High Risk Safety Measures: Call light Within Reach, Bed Alarm Zone 1, Side Rails Side Rails x3, Bed position Low and Locked. Fall Precautions: Yellow Socks Yellow Gown Door Sign Patient Fall Education Report given to MARIE Israel.
[2020-12-15 20:00] VITALS: BP 107/64
--- NOTE | 2020-12-15 20:57 | General Progress Note ---
Subjective Allergies: Coded Allergies: No Known Allergies (Verified , 08/01/11) Subjective calm non verbal Tolerating TF Objective Last 24 Hour Vital Signs Date Time Temp Pulse Resp B/P (MAP) Pulse Ox O2 Delivery O2 Flow Rate FiO2 12/15/20 20:00 98.4 96 18 107/64 (78) 97 12/15/20 20:00 96 12/15/20 16:00 98.8 87 18 103/56 (72) 98 12/15/20 16:00 93 12/15/20 12:00 98.1 78 20 110/65 (80) 97 12/15/20 12:00 90 12/15/20 09:00 Room Air 12/15/20 08:29 80 12/15/20 08:00 96.7 80 19 109/56 (73) 97 12/15/20 08:00 94 12/15/20 04:00 91 12/15/20 04:00 99.7 91 18 104/55 (71) 96 12/15/20 00:00 85 12/15/20 00:00 98.9 85 20 97/68 (78) 96 12/14/20 21:20 98.0 12/14/20 21:00 Room Air Intake and Output 12/14/20 12/15/20 19:00 07:00 Intake Total 1110 ml 997.5 ml Output Total 800 ml Balance 1110 ml 197.5 ml Free Water 450 ml 200 ml IV Total 137.5 ml Tube Feeding 660 ml 660 ml Output Urine Total 800 ml # Voids 3 # Bowel Movements 1 Height (Feet): 5 Height (Inches): 2.00 Weight (Pounds): 96 Objective Debilitated WW NCAT temporal wasting CT'A RRR abd soft ND, (+) GT no edema (+) multiple decubs Assessment/Plan Status: progressing Assessment/Plan: Assessment - abnormal LFT, possibly due to sepsis, resolving - OBS - s/p PEG - decubitus ulcers Recommendations - check abd ultrasound --> normal - follow LFT conservatively - monitor residuals - f/u vitamin D level - reordered - protein powder - MVI, Vit C , Zinc Hollie Simmons MD Dec 15, 2020 20:57
--- NOTE | 2020-12-15 22:30 | NUR ---
NURSE NOTES: No residue noted via G-tube. Flushing done as ordered. Bilateral feet wound dressing changed. Will continue to monitor.
[2020-12-16] VITALS: BP 133/95
[2020-12-16 04:00] VITALS: BP 123/69
[2020-12-16] MEDS: Midodrine 10mg tab ORAL SCH (05:52)
--- NOTE | 2020-12-16 06:28 | NUR ---
NURSE HAND-OFF REPORT: Important Events on Shift: Afebrile. G-tube feeding without residual. BMx1-dressing changed on bilateral feet. Patient Status: [stable] Diet: [Jevity 1.2 60ml/hr] Pending Orders: [] Pending Results/Labs:[] Pending MD notification:[] Latest Vital Signs: Temperature 98.4 , Pulse 96 , B/P 123 /69 , Respiratory Rate 18 , O2 SAT 98 , Nasal Cannula, O2 Flow Rate 3.0 . Vital Sign Comment: [] EKG Rhythm: Sinus Rhythm Rhythm change?: N MD Notified?: Akbar -Dr. Janay SÁNCHEZ Response: Latest Lucero Fall Score: 70 Fall Risk: High Risk Safety Measures: Call light Within Reach, Bed Alarm Zone 1, Side Rails Side Rails x3, Bed position Low and Locked. Fall Precautions: Door Sign Patient Fall Education
--- NOTE | 2020-12-16 07:27 | NUR ---
NURSE NOTES: Given report to MARIE Bedolla. Round is made.
--- NOTE | 2020-12-16 07:55 | NUR ---
NURSE NOTES: Received patient from MARIE Israel. Patient is awake but non verbal. Patient shows no signs of distress or pain at the time. Patient is on room air and shows no signs of respiratory distress. IV is intact and patent. There are no signs of erythema, infiltration, or bleeding. G tube is patent and running, Jevity 1.2 @ 60 cc/hr. There was no residual noted. Bed is in the lowest position, call light is within reach, side rails up x3. Will continue to monitor.
[2020-12-16 08:00] VITALS: BP 115/57
--- NOTE | 2020-12-16 08:22 | NUR ---
NURSE NOTES: Per night custodian, patient had [address] Simmons ordered to DC milk of magnesia.
[2020-12-16] MEDS: Ascorbic Acid 500mg tab GT SCH (08:24)
[2020-12-16] MEDS: Docusate 100mg/10ml Liq GT SCH (08:24)
--- NOTE | 2020-12-16 08:24 | NUR ---
CASE MANAGEMENT:REVIEW 12/16/20 SI: SEPSIS D/T BACTEREMIA AND VRE UTI 97.9 93 20 115/57 97% ON RA IS: LINEZOLID GT Q12 DIGOXIN GT QD LOVENOX SQ QD PEPCID GT BID MIDODRINE GT Q8HRS ZINC GT QD VIT C GT BID : TELEMETRY STATUS DCP: FROM [facility] PLAN:
[2020-12-16] MEDS: Zinc Sulfate 220mg GT SCH (08:25)
[2020-12-16] MEDS: Digoxin 0.125mg tab PEG SCH (08:25)
[2020-12-16] MEDS: Enoxaparin 40mg Inj SUBQ SCH (08:26)
--- NOTE | 2020-12-16 09:50 | Cardiac Electrophysiology PN ---
Assessment/Plan Assessment/Plan 1. Atrial fib with RVR, due to sepsis with WBC 25,000. EF 65%. On Dig 0.125 po daily. Off beta blockers for BP 90s 2. Hypotension. Resolved with Albumin and Midodrine 3. Severe hypernatremia and azotemia. Resolved with IV fluid, per Dr. Pena. 4. History of psychosis. 5. Respiratory failure, on RA and Abx 6. Dysphagia, status post PEG placement. DC to [facility] pending Subjective Subjective Covid negative. No atrial fib overnight. GT feeding ongoing. In SR Still has low grade fever. Started on Zyvox po Objective Last 24 Hour Vital Signs Date Time Temp Pulse Resp B/P (MAP) Pulse Ox O2 Delivery O2 Flow Rate FiO2 12/16/20 09:00 Room Air 12/16/20 08:25 93 12/16/20 08:00 97.9 93 20 115/57 (76) 97 12/16/20 04:00 98.4 99 18 123/69 (87) 98 12/16/20 04:00 96 12/16/20 00:00 98.0 96 18 133/95 (108) 96 12/15/20 21:00 Room Air 12/15/20 20:00 98.4 96 18 107/64 (78) 97 12/15/20 20:00 96 12/15/20 16:00 98.8 87 18 103/56 (72) 98 12/15/20 16:00 93 12/15/20 12:00 98.1 78 20 110/65 (80) 97 12/15/20 12:00 90 Intake and Output 12/15/20 12/16/20 19:00 07:00 Intake Total 440 ml Output Total 3 ml Balance 437 ml Free Water 200 ml Tube Feeding 240 ml Output Urine Total 3 ml # Voids 2 # Bowel Movements 1 Laboratory Tests Test 12/16/20 04:42 Vitamin D 25-Hydroxy Pending 25-Hydroxy Vitamin D2 Pending 25-Hydroxy Vitamin D3 Pending Objective HEAD AND NECK: No JVD. LUNGS: Decreased breath sounds. CARDIOVASCULAR: Regular S1 and S2 gallop, tachycardic. ABDOMEN: Status post G-tube. EXTREMITIES: No pitting edema.Contracted Efrain Gustafson MD Dec 16, 2020 09:50
[2020-12-16] MEDS ORDERED: ZYVOX600 MG GT (10:20)
--- NOTE | 2020-12-16 10:41 | NUR ---
NURSE NOTES: Dr. Looney placed orders to discharge patient back to [facility].
--- NOTE | 2020-12-16 10:48 | Infectious Diseases Prog Note ---
Assessment/Plan Assessment/Plan IMPRESSION: 1. Sepsis 2. Positive blood culture likely contamination 3. Leukocytosis. 4. Hypernatremia. 5. Anemia. 6. Pressure ulcer. 7. Alzheimer dementia. 8. Parkinson disease. 9. 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 11. VRE UTI RECOMMENDATION: Continue Zyvox X 2 days Agree with discharge Subjective ROS Limited/Unobtainable: Yes Allergies: Coded Allergies: No Known Allergies (Verified , 08/01/11) Objective Last 24 Hour Vital Signs Date Time Temp Pulse Resp B/P (MAP) Pulse Ox O2 Delivery O2 Flow Rate FiO2 12/16/20 09:00 Room Air 12/16/20 08:25 93 12/16/20 08:00 97.9 93 20 115/57 (76) 97 12/16/20 08:00 93 12/16/20 04:00 98.4 99 18 123/69 (87) 98 12/16/20 04:00 96 12/16/20 00:00 98.0 96 18 133/95 (108) 96 12/15/20 21:00 Room Air 12/15/20 20:00 98.4 96 18 107/64 (78) 97 12/15/20 20:00 96 12/15/20 16:00 98.8 87 18 103/56 (72) 98 12/15/20 16:00 93 12/15/20 12:00 98.1 78 20 110/65 (80) 97 12/15/20 12:00 90 Height (Feet): 5 Height (Inches): 2.00 Weight (Pounds): 96 General Appearance: no acute distress, cachetic HEENT: mucous membranes moist Respiratory/Chest: lungs clear Cardiovascular: normal rate Abdomen: soft, non tender, other - GT feeding Extremities: no edema Neurologic/Psychiatric: aphasia Musculoskeletal: atrophy Laboratory Tests Test 12/16/20 04:42 Vitamin D 25-Hydroxy Pending 25-Hydroxy Vitamin D2 Pending 25-Hydroxy Vitamin D3 Pending Current Medications Medications (Trade) Dose Ordered Sig/Rosy Route PRN Reason Start Time Stop Time Status Last Admin Dose Admin Acetaminophen (Tylenol) 500 mg Q4H PRN GT For Pain 12/04/20 18:30 01/03/21 18:29 12/11/20 10:13 Acetaminophen (Tylenol) 500 mg Q6H PRN GT Temp >100.5 12/08/20 15:15 01/07/21 15:14 12/14/20 20:05 Ascorbic Acid (Vitamin C) 250 mg TWICE A DAY GT 12/06/20 18:00 01/05/21 17:59 12/16/20 08:24 Bisacodyl (Dulcolax) 10 mg DAILYPRN ORAL 12/10/20 09:00 03/10/21 08:59 Digoxin (Lanoxin) 0.125 mg DAILY PEG 12/09/20 09:00 03/09/21 08:59 12/16/20 08:25 Docusate Sodium (Colace) 100 mg TWICE A DAY GT 12/05/20 11:07 01/04/21 11:06 12/15/20 17:16 Enoxaparin Sodium (Lovenox) 40 mg DAILY SUBQ 12/09/20 09:00 03/09/21 08:59 12/16/20 08:26 Famotidine (Pepcid) 20 mg BID GT 12/08/20 18:00 03/08/21 17:59 12/16/20 08:25 Linezolid (Zyvox) 600 mg EVERY 12 HOURS GT 12/15/20 09:00 12/20/20 08:59 12/16/20 08:25 Midodrine (Pro-Amatine) 10 mg Q8HR ORAL 12/08/20 11:00 03/08/21 10:59 12/16/20 05:52 Multivitamins (Multivitamins) 1 tab DAILY GT 12/13/20 09:00 01/12/21 08:59 12/16/20 08:25 Zinc Sulfate (Zinc Sulfate) 220 mg DAILY GT 12/07/20 09:00 12/17/20 08:59 12/16/20 08:25 Joseph De Leon MD Dec 16, 2020 10:48
--- NOTE | 2020-12-16 10:53 | NUR ---
*-*DISCHARGE PLANNED*-* PATIENT HAS BEEN ACCEPTED AND WILL BE DISCHARGED BACK TO: [facility] P: [phone] FOR NURSE TO NURSE REPORT ROOM# 10 [facility] SET FOR 1PM S/W ANYA [id number]. S/W PATIENTS PUBLIC GUARDIAN, ENRIQUE WINTERS, WHO IS I N AGREEMENT WITH DISCHARGE PLAN.
[2020-12-16 12:00] VITALS: BP 128/64
--- NOTE | 2020-12-16 12:17 | Pulmonology Progress Note ---
Subjective ROS Limited/Unobtainable: Yes Interval Events: None new reported Constitutional: Reports: fever, other - Resolved Respiratory: Reports: no symptoms Cardiovascular: Reports: no symptoms Gastrointestinal/Abdominal: Reports: no symptoms Genitourinary: Reports: no symptoms Allergies: Coded Allergies: No Known Allergies (Verified , 08/01/11) Objective Last 24 Hour Vital Signs Date Time Temp Pulse Resp B/P (MAP) Pulse Ox O2 Delivery O2 Flow Rate FiO2 12/16/20 09:00 Room Air 12/16/20 08:25 93 12/16/20 08:00 97.9 93 20 115/57 (76) 97 12/16/20 08:00 93 12/16/20 04:00 98.4 99 18 123/69 (87) 98 12/16/20 04:00 96 12/16/20 00:00 98.0 96 18 133/95 (108) 96 12/15/20 21:00 Room Air 12/15/20 20:00 98.4 96 18 107/64 (78) 97 12/15/20 20:00 96 12/15/20 16:00 98.8 87 18 103/56 (72) 98 12/15/20 16:00 93 Intake and Output 12/15/20 12/16/20 19:00 07:00 Intake Total 440 ml Output Total 3 ml Balance 437 ml Free Water 200 ml Tube Feeding 240 ml Output Urine Total 3 ml # Voids 2 # Bowel Movements 1 General Appearance: no acute distress HEENT: normocephalic Respiratory: chest wall non-tender, decreased breath sounds Cardiovascular: normal peripheral pulses Abdomen: normal bowel sounds Laboratory Tests 12/16/20 04:42: Vitamin D 25-Hydroxy [Pending], 25-Hydroxy Vitamin D2 [Pending], 25-Hydroxy Vitamin D3 [Pending] Current Medications Medications (Trade) Dose Ordered Sig/Rosy Route PRN Reason Start Time Stop Time Status Last Admin Dose Admin Acetaminophen (Tylenol) 500 mg Q4H PRN GT For Pain 12/04/20 18:30 01/03/21 18:29 12/11/20 10:13 Acetaminophen (Tylenol) 500 mg Q6H PRN GT Temp >100.5 12/08/20 15:15 01/07/21 15:14 12/14/20 20:05 Ascorbic Acid (Vitamin C) 250 mg TWICE A DAY GT 12/06/20 18:00 01/05/21 17:59 12/16/20 08:24 Bisacodyl (Dulcolax) 10 mg DAILYPRN ORAL 12/10/20 09:00 03/10/21 08:59 Digoxin (Lanoxin) 0.125 mg DAILY PEG 12/09/20 09:00 03/09/21 08:59 12/16/20 08:25 Docusate Sodium (Colace) 100 mg TWICE A DAY GT 12/05/20 11:07 01/04/21 11:06 12/15/20 17:16 Enoxaparin Sodium (Lovenox) 40 mg DAILY SUBQ 12/09/20 09:00 03/09/21 08:59 12/16/20 08:26 Famotidine (Pepcid) 20 mg BID GT 12/08/20 18:00 03/08/21 17:59 12/16/20 08:25 Linezolid (Zyvox) 600 mg EVERY 12 HOURS GT 12/15/20 09:00 12/20/20 08:59 12/16/20 08:25 Midodrine (Pro-Amatine) 10 mg Q8HR ORAL 12/08/20 11:00 03/08/21 10:59 12/16/20 05:52 Multivitamins (Multivitamins) 1 tab DAILY GT 12/13/20 09:00 01/12/21 08:59 12/16/20 08:25 Zinc Sulfate (Zinc Sulfate) 220 mg DAILY GT 12/07/20 09:00 12/17/20 08:59 12/16/20 08:25 Assessment/Plan Assessment/Plan 1 .Renal failure, dehydration -Nephro following 2. Sepsis -ID following -WBC trending down - s/p vancomycin, ceftriaxone, Zosyn -On linezolid - Xjbl=[id number] -> resolved - UCx Enterococcus faecium (12/12) 3. COVID-19 negative (12/04) 4. Hypoxia; resolved -Now saturating well on room air 5. 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 Enterococcus faecium UTI - on Abx Noted plans for discharge today Medically stable for discharge from pulmonary standpoint The care for this patient was discussed with my supervising physician Time spent for this case was approximately 31 minutes Maxx Hoffman Dec 16, 2020 12:17
--- NOTE | 2020-12-16 12:40 | Nephrology Progress Note ---
Assessment/Plan Problem List: (1) MAUREEN (acute kidney injury) (2) Dehydration (3) Hypernatremia (4) Sepsis (5) UTI (urinary tract infection) (6) Decubitus ulcer Assessment Renal failure, dehydration Hypernatremia, due to free water deficit Sepsis, leukocytosis Malnutrition, hypoalbuminemia Alzheimer's Underlying anemia as the patient continues to be hydrated Plan December 16: No CHEM panel drawn today. Patient full code. Will order lab tomorrow. December 15: No labs from today. Patient full code. Stable from renal standpoint of view. December 14: Labs reviewed. Renal parameters stable. Patient remains full code. Continue per consultants. Medication list reviewed. December 13: No CHEM panel drawn today. Medication list reviewed. Blood pressure stable. Check lab tomorrow. Patient full code.. December 12: Labs reviewed. Renal parameters stable. Meds reviewed. Blood pressure stable. December 11: Labs reviewed. Renal parameters stable. Blood pressure reasonably well controlled. December 10: Labs reviewed. Renal parameters are stable. Blood pressure is stable. Remains tachycardic. December 09: No CHEM panel drawn today. Blood pressure stable. On digoxin. Cardizem is discontinued. December 08: Labs reviewed. Renal parameters stable. Patient blood pressure is low. Midodrine dose increased. 1 dose of albumin bolus given. Parameters for Cardizem ordered. Discussed with MARIE Velarde. December 07: Labs reviewed. Serum sodium normal. IV discontinued. Midodrine for low blood pressure initiated. December 06: Serum sodium lowering. Continue hydration. Medication list reviewed. Previously: D5W hydration Antibiotics Avoid nephrotoxic's Improve nutritional state Monitor renal parameters electrolytes Anemia work-up Subjective ROS Limited/Unobtainable: No Constitutional: Reports: malaise, weakness Objective Objective Last 24 Hour Vital Signs Date Time Temp Pulse Resp B/P (MAP) Pulse Ox O2 Delivery O2 Flow Rate FiO2 12/16/20 09:00 Room Air 12/16/20 08:25 93 12/16/20 08:00 97.9 93 20 115/57 (76) 97 12/16/20 08:00 93 12/16/20 04:00 98.4 99 18 123/69 (87) 98 12/16/20 04:00 96 12/16/20 00:00 98.0 96 18 133/95 (108) 96 12/15/20 21:00 Room Air 12/15/20 20:00 98.4 96 18 107/64 (78) 97 12/15/20 20:00 96 12/15/20 16:00 98.8 87 18 103/56 (72) 98 12/15/20 16:00 93 Intake and Output 12/15/20 12/16/20 19:00 07:00 Intake Total 440 ml Output Total 3 ml Balance 437 ml Free Water 200 ml Tube Feeding 240 ml Output Urine Total 3 ml # Voids 2 # Bowel Movements 1 Current Medications Medications (Trade) Dose Ordered Sig/Rosy Route PRN Reason Start Time Stop Time Status Last Admin Dose Admin Acetaminophen (Tylenol) 500 mg Q4H PRN GT For Pain 12/04/20 18:30 01/03/21 18:29 12/11/20 10:13 Acetaminophen (Tylenol) 500 mg Q6H PRN GT Temp >100.5 12/08/20 15:15 01/07/21 15:14 12/14/20 20:05 Ascorbic Acid (Vitamin C) 250 mg TWICE A DAY GT 12/06/20 18:00 01/05/21 17:59 12/16/20 08:24 Bisacodyl (Dulcolax) 10 mg DAILYPRN ORAL 12/10/20 09:00 03/10/21 08:59 Digoxin (Lanoxin) 0.125 mg DAILY PEG 12/09/20 09:00 03/09/21 08:59 12/16/20 08:25 Docusate Sodium (Colace) 100 mg TWICE A DAY GT 12/05/20 11:07 01/04/21 11:06 12/15/20 17:16 Enoxaparin Sodium (Lovenox) 40 mg DAILY SUBQ 12/09/20 09:00 03/09/21 08:59 12/16/20 08:26 Famotidine (Pepcid) 20 mg BID GT 12/08/20 18:00 03/08/21 17:59 12/16/20 08:25 Linezolid (Zyvox) 600 mg EVERY 12 HOURS GT 12/15/20 09:00 12/20/20 08:59 12/16/20 08:25 Midodrine (Pro-Amatine) 10 mg Q8HR ORAL 12/08/20 11:00 03/08/21 10:59 12/16/20 05:52 Multivitamins (Multivitamins) 1 tab DAILY GT 12/13/20 09:00 01/12/21 08:59 12/16/20 08:25 Zinc Sulfate (Zinc Sulfate) 220 mg DAILY GT 12/07/20 09:00 12/17/20 08:59 12/16/20 08:25 Laboratory Tests 12/16/20 04:42: Vitamin D 25-Hydroxy [Pending], 25-Hydroxy Vitamin D2 [Pending], 25-Hydroxy Vitamin D3 [Pending] Height (Feet): 5 Height (Inches): 2.00 Weight (Pounds): 96 General Appearance: no apparent distress Cardiovascular: tachycardia Respiratory/Chest: decreased breath sounds Gene Pena MD Dec 16, 2020 12:40
--- NOTE | 2020-12-16 12:52 | NUR ---
NURSE NOTES: Patient is being discharged to [facility]. Report given to MARIE Shay. Wound pictures take. Waiting for EMS to arrive.
--- NOTE | 2020-12-16 14:17 | NUR ---
NURSE NOTES: Patient taken to [facility] by [facility]. IV taken off, Tele box taken off. Patient is showing no signs of distress or pain at the time. Report given to facility nurse Jaspal. There were no belongings with patient.
--- NOTE | 2020-12-16 20:32 | General Progress Note ---
Subjective Allergies: Coded Allergies: No Known Allergies (Verified , 08/01/11) Subjective calm non verbal Tolerating TF for discharge today Objective Last 24 Hour Vital Signs Date Time Temp Pulse Resp B/P (MAP) Pulse Ox O2 Delivery O2 Flow Rate FiO2 12/16/20 12:00 98.5 98 18 128/64 (85) 98 12/16/20 12:00 92 12/16/20 09:00 Room Air 12/16/20 08:25 93 12/16/20 08:00 97.9 93 20 115/57 (76) 97 12/16/20 08:00 93 12/16/20 04:00 98.4 99 18 123/69 (87) 98 12/16/20 04:00 96 12/16/20 00:00 98.0 96 18 133/95 (108) 96 12/15/20 21:00 Room Air Intake and Output 12/15/20 12/16/20 19:00 07:00 Intake Total 440 ml Output Total 3 ml Balance 437 ml Free Water 200 ml Tube Feeding 240 ml Output Urine Total 3 ml # Voids 2 # Bowel Movements 1 Laboratory Tests 12/16/20 04:42: Vitamin D 25-Hydroxy [Pending], 25-Hydroxy Vitamin D2 [Pending], 25-Hydroxy Vitamin D3 [Pending] Height (Feet): 5 Height (Inches): 2.00 Weight (Pounds): 96 Objective Debilitated WW NCAT temporal wasting CT'A RRR abd soft ND, (+) GT no edema (+) multiple decubs Assessment/Plan Status: progressing Assessment/Plan: Assessment - abnormal LFT, possibly due to sepsis, resolving - OBS - s/p PEG - decubitus ulcers Recommendations - check abd ultrasound --> normal - follow LFT conservatively - monitor residuals - f/u vitamin D level - reordered - protein powder - MVI, Vit C , Zinc Hollie Simmons MD Dec 16, 2020 20:32
--- NOTE | 2020-12-22 15:21 | Discharge Summary ---
Discharge Summary Discharge Summary _ Date of admission: 12/04/2020 Date of discharge: 12/16/[address] Looney History of Present Illness and Brief Hospital Course Ms. Swartz is an 85-year-old female with past medical history of Alzheimer's dementia, Parkinson's disease, and chronic G-tube, who was sent to ED from SNF for increased white blood cell count. Patient was unable to give further history due to underlying mental disorder. Patient tested negative for COVID-19 on 11/16/2020 at her facility. She tested negative again in ER. Her EKG showed sinus tachycardia without acute changes. Chest x-ray revealed nonspecific generalized interstitial prominence, possibly chronic. The possibility of mild congestive changes or early interstitial infiltrates were not excluded. She was admitted to the hospital for further management. Given patient's presentation consistent with sepsis, patient was evaluated with blood cultures. Her blood cultures were positive for gram-positive bacteria. However, the positive blood cultures were likely from contamination. Patient was continued on antibiotics. Patient also had atrial fibrillation with RVR which was likely due to sepsis with markedly elevated white blood cells. Her ejection fraction was found to be 65% on 2D echocardiogram. Patient was started on digoxin. Patient presented with hypoxia which resolved over a few days. Patient was eventually weaned off of oxygen and remained stable on room air. Patient initially presented with elevated inflammatory markers. Venous duplex of legs was negative for DVT. Patient was started on Lovenox for DVT prophylaxis. Patient also presented with severe hyponatremia and signs of azotemia. Electrolyte imbalance resolved with IV fluids. Patient presented on admission with multiple pressure injuries. Wound care was started. On 12/16/2020, patient was found to be medically stable and was discharged back to SNF. Consultants: Cardiology Dr. Gustafson Surgery Dr. Parra Gastroenterology Dr. Simmons Infectious disease Dr. De Leon Pulmonology Dr. Zapata Nephrology Dr. 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 management Maxx Hoffman Dec 22, 2020 15:21
== END 2020-12-16 14:28 | DRG 871 ==
LOC: EDBD 13:11 → EMR 13:30 → 2E 14:54 → EDBEDREQ 16:45 → 2E 18:01
DX: A41.9 Sepsis, unspecified organism (principal); J18.9 Pneumonia, unspecified organism; J96.91 Respiratory failure, unspecified with hypoxia; N39.0 Urinary tract infection, site not specified; E87.0 Hyperosmolality and hypernatremia; E46 Unspecified protein-calorie malnutrition; Z43.1 Encounter for attention to gastrostomy; Z68.1 Body mass index [BMI] 19.9 or less, adult; N17.9 Acute kidney failure, unspecified; Z16.22 Resistance to vancomycin related antibiotics; E86.0 Dehydration; K21.9 Gastro-esophageal reflux disease without esophagitis; G30.9 Alzheimer's disease, unspecified; F02.80 Dementia in other diseases classified elsewhere, unspecified severity, without behavioral disturbance, psychotic disturbance, mood disturbance, and anxiety; D64.9 Anemia, unspecified; G20 Parkinson's disease; M81.0 Age-related osteoporosis without current pathological fracture; R62.7 Adult failure to thrive; Z22.322 Carrier or suspected carrier of Methicillin resistant Staphylococcus aureus; R13.10 Dysphagia, unspecified; F09 Unspecified mental disorder due to known physiological condition; L89.216 Pressure-induced deep tissue damage of right hip; L89.896 Pressure-induced deep tissue damage of other site; L89.890 Pressure ulcer of other site, unstageable; I95.9 Hypotension, unspecified; B95.2 Enterococcus as the cause of diseases classified elsewhere; I48.91 Unspecified atrial fibrillation; F41.9 Anxiety disorder, unspecified
CPT/HCPCS: 36415; 71045; 76700; 80053; 80061; 81003; 82306; 82550; 82553; 82607; 82728; 82746; 82803; 82977; 83036; 83540; 83550; 83605; 83735; 83880; 84100; 84484; 84550; 85007; 85025; 85379; 85610; 85730; 86140; 87040; 87081; 87086; 87181; 93005; 93306; 93970; 96361; 96365; 96367; 99285; J7030